=== PATIENT | female | born 1940 | race Caucasian/White ===

== ENCOUNTER 2020-08-29 11:19 | Inpatient (IN) ==
[2020-08-29] MEDS ORDERED: DEXAMETHASONE SOD PHOSPHATE 10 MG in SYRINGE 0 ML IV STA (11:48)
[2020-08-29] MEDS ORDERED: SODIUM CHLORIDE 0.9% 500 ML IV ONE (11:48)
[2020-08-29] MEDS ORDERED: ALBUT/IPRATROP 3MG/0.5MG NEB 3 ML VIAL NEB STA (11:48)
[2020-08-29] MEDS ORDERED: guaiFENesin 600 MG TABCR PO STA (11:48)
[2020-08-29 12:06] LABS: Basophils # (auto) 0.01 K/uL (0-0.2); Basophils % (auto) 0.2 %; Eosinophils # (auto) 0.05 K/uL (0-0.5); Eosinophils % (auto) 0.8 %; Hematocrit (blood only) 43.3 % (37-47); Hemoglobin 13.6 g/dL (12.0-16.0); Immature Granulocytes # (auto) 0.03 K/uL (0.00-0.02); Immature Granulocytes % (auto) 0.5 %; Lymphocytes # (auto) 1.29 K/uL (1.2-3.4); Lymphocytes % (auto) 20.8 %; Mean Corpuscular Hemoglobin 29.8 pg (25-34); Mean Corpuscular Hgb Conc 31.4 g/dL (32-36); Mean Corpuscular Volume 94.7 fL (80-100); Monocytes # (auto) 0.37 K/uL (0.11-0.59); Neutrophils # (auto) 4.44 K/uL (1.4-6.5); Neutrophils % (auto) 71.7 %; Platelet Count 167 K/uL (130-400); RDW Coefficient of Variation 13.9 % (11.5-14.5); RDW Standard Deviation 47.7 fL (36.4-46.3); Red Blood Count 4.57 M/uL (4.2-5.4); White Blood Count 6.19 K/uL (4.8-10.8)
--- NOTE | 2020-08-29 12:16 | XRay Report ---
XR chest 1V portable HISTORY: SEPSIS COMPARISON: Chest 06/09/2019. FINDINGS: Multiple calcified granuloma seen within the upper lobes, unchanged. The heart remains enla rged. There are low lung volumes. No pleural effusions. No pneumothorax. There are hazy bibasilar air space opacities. IMPRESSION: Hazy bibasilar airspace opacities. This likely represents a viral pneumonia. ACT 112: Negative or not required by law. Electronically signed by: Jose Francisco Fitch M.D. 08/29/2020 12:15 PM
[2020-08-29 12:19] LABS: INR 1.4 (0.9-1.1); Partial Thromboplastin Ratio 1.5; Partial Thromboplastin Time 40.6 Seconds (21.0-31.0); Prothrombin Time 14.4 Seconds (9.0-12.0)
[2020-08-29 12:23] LABS: Alanine Aminotransferase 17 U/L (12-78); Albumin Level 2.9 gm/dl (3.4-5.0); Aspartate Aminotransferase 16 U/L (15-37); BUN Creatinine Ratio 18.4 (10-20); Blood Urea Nitrogen 21 mg/dl (7-18); Calcium 9.4 mg/dl (8.5-10.1); Carbon Dioxide 28 mmol/L (21-32); Chloride 106 mmol/L (98-107); Creatinine Clr Calc Pharmacy 43.6 ml/min; Est GFR (African American) 51.5; Est GFR (Non-African American) 44.4; Glucose 109 mg/dl (70-99); Magnesium 1.4 mg/dl (1.8-2.4); Potassium 3.8 mmol/L (3.5-5.1); Sodium 138 mmol/L (136-145)
[2020-08-29 12:29] LABS: Albumin Globulin Ratio 0.7 (0.9-2); Alkaline Phosphatase 61 U/L (45-117); Bilirubin Direct < 0.1 mg/dl (0-0.2); Bilirubin,Total 0.2 mg/dl (0.2-1); Globulin 4.1 gm/dl (2.5-4.0); NT Pro B Type Natriuretic Pept 135 pg/ml (0-1800); Phosphorus 2.1 mg/dl (2.5-4.9); Troponin I < 0.015 ng/ml (0-0.045)
--- NOTE | 2020-08-29 12:59 | Emergency Department Note ---
Impression & Plan Pneumonia due to 2019 novel coronavirus, Acute respiratory failure with hypoxia, Hypomagnesemia, Acute exacerbation of chronic obstructive airways disease ED Provider Note NAME: AUDI JORDAN AGE: 80 SEX: F ARRIVES VIA: Ambulance INFORMANT: Patient, ED PROVIDER(S): Dudley Edmondson MD CHIEF COMPLAINT: Shortness of breath. PLAN: Disposition: Admit MEDICAL DECISION MAKING: The patient is a pleasant 80-year-old woman with a past medical history of COPD, hypertension, hyperlipidemia, diabetes, PE, presents emergency department from [facility] with complaints of increasing cough, congestion shortness of breath that began a month ago but became acutely severe over the past 2 days and now with fevers. Was found to be hypoxic in the 80s and is not on chronic oxygen. Patient is somewhat of a poor historian and that she denied to me shortness of breath. She denies nausea, vomiting, diarrhea, urinary symptoms. On arrival the patient is ill-appearing but no acute distress, afebrile with stable vital signs though she will be hypoxic to 87% on room air. Wheezes and rhonchi of lower lung [place]. She appears clinically dry. EKG without overt acute ischemia and similar to prior. Chest x-ray with hazy bibasilar airspace opacities consistent with pneumonia given the patient's presentation. WBC, H/H and platelets within normal limits. Chemistry without metabolic acidosis. BUN 21, consistent with the patient's clinically dry appearance. Lactate 1.6, within normal limits. Magnesium 1.4 with repletion provided. LFTs unremarkable. Troponin negative/undetectable. BNP within normal limits. Procalcitonin 0.08, making sepsis/bacterial infection less likely at this time. Patient's COVID-19 RNA, NAAT test was positive. Patient was treated with IV fluid hydration, dexamethasone, guaifenesin and DuoNeb. She remained hemodynamically stable. She was agreeable with recommendation for admission. Case was discussed with Aida Lopez, [facility] PAC, with Dr. Buck, [facility] hospitalist who will evaluate the patient for admission. We agreed to proceed with CTA of the chest which was negative for PE and further characterizes patient's multifocal pneumonia. Triage Nursing notes reviewed and agree them. Additional history obtained from EMS Prior medical records reviewed Vital Signs: reviewed and remarkable for Hypoxia. Differential diagnosis: Reactive airway disease, pneumonia, pneumothorax, COPD, CHF, infections, cardiac ischemia, pulmonary embolism, musculoskeletal, gastrointestinal, as well as other pathologies. ER treatment provided: See below. Diagnostics interpreted by me: ECG: Normal sinus rhythm, 92 bpm, incomplete right bundle branch block, left anterior fascicular block, most likely LVH, no overt ST elevation or depression, QTC 469, QRS 96. Similar to 11/22/2018. Cardiac Monitoring: An order for continuous cardiac monitoring was placed and demonstrated Normal sinus rhythm, 92 bpm, no ectopy. Laboratory studies: See below Imaging studies: XR chest 1V portable HISTORY: SEPSIS COMPARISON: Chest 06/09/2019. FINDINGS: Multiple calcified granuloma seen within the upper lobes, unchanged. The heart remains enlarged. There are low lung volumes. No pleural effusions. No pneumothorax. There are hazy bibasilar airspace opacities. IMPRESSION: Hazy bibasilar airspace opacities. This likely represents a viral pneumonia. --- CT ANGIOGRAPHY OF THE CHEST, PULMONARY EMBOLUS PROTOCOL CLINICAL HISTORY: Shortness of breath. Covid. COMPARISON STUDY: Chest CT October 01, 2003 pain. Chest radiograph August 29, 2020. TECHNIQUE: Following IV administration of 120 mL of Optiray-320, helical axial images of the chest were obtained utilizing the pulmonary embolus protocol. Maximal intensity projections and sagittal and coronal reformats were viewed on an independent 3D workstation. IV contrast was administered without complication. Automated exposure control was utilized for the study. A dose lowering technique was utilized adhering to the principles of ALARA. CT DOSE: 553.64 mGycm FINDINGS: No pulmonary emboli are identified. There is no thoracic aortic dissection. Mild cardiomegaly is noted. There is moderate coronary artery ca lcification. No pericardial effusion is noted. Emphysema is noted. There may be a lipoma within the distal esophagus. No pneumothorax or pleural effusion is noted. There are calcified granulomas within the lungs. Moderate multifocal groundglass opacities within the lungs are noted. Airspace opacity within the apical segment of the right upper lobe is also noted. There is right apical scarring which contains calcifications. This is unchanged. An irregular 1.2 cm left upper lobe nodular opacity on image 188 of [address] of October 01, 2017. An adjacent suspected mucoid impacted bronchus is unchanged. Otherwise, the central airways are patent. Note is made of several mildly enla rged mediastinal and right hilar lymph nodes. Index subcarinal lymph node contains a calcification. This measures 1.3 cm in short axis diameter. Index right hilar node on image 170 measures 1.1 cm. These nodes have slightly increased in size since prior CT. No suspicious lesions within the bony thorax are noted. A 2 cm left adrenal nodule is unchanged. This is likely benign given stability. The gallbladder is surgically absent. Hepatic steatosis is noted. IMPRESSION: 1. No pulmonary emboli identified. 2. Moderate multifocal groundglass opacities within the lungs suggestive of viral pneumonia. 3. Mildly enlarged mediastinal and right hilar lymph nodes. These nodes are likely reactive or possibly related to prior granulomatous process. A follow-up chest CT in 6 months is recommended. 4. 1.2 cm irregular left upper lobe nodular opacity. This is likely benign given stability since CT of October 01, 2013 and may represent scarring/sequela of granulomatous process. This can be assessed on subsequent exam. 5. Hepatic steatosis. ACT 112: Negative or not required by law. Consultation(s): Case was discussed with Aida Lopez, [facility] PAC, with Dr. Buck, [facility] hospitalist who will evaluate the patient for admission. HPI: The patient is a pleasant 80-year-old woman with a past medical history of COPD, hypertension, hyperlipidemia, diabetes, PE, presents emergency department from [facility] with complaints of increasing cough, congestion shortness of breath that began a month ago but became acutely severe over the past 2 days and now with fevers. Was found to be hypoxic in the 80s and is not on chronic oxy gen. Patient is somewhat of a poor historian and that she denied to me shortness of breath. She denies nausea, vomiting, diarrhea, urinary symptoms. ROS: See above HPI for pertinent positives & negatives. A total of 10 systems reviewed and were otherwise negative. PAST MEDICAL HISTORY:See Below PAST SURGICAL HISTORY:See Below FAMILY HISTORY:See Below SOCIAL HISTORY:See Below HOME MEDICATIONS:See Below ALLERGIES:See Below VITALS:See Below PHYSICAL EXAMINATION: GENERAL: Awake, alert, ill-appearing, in no distress HENT: Normocephalic, atraumatic. Oropharynx with dry mucous membranes and otherwise unremarkable. EYES: Normal conjunctiva. Sclera non-icteric. NECK: Supple. No nuchal rigidity. FROM. No JVD. RESPIRATORY: Wheezes and rhonchi of lower lung [place]. CARDIAC: Regular rate, normal rhythm. Extremities warm and well perfused. Pulses equal. ABDOMEN: Soft, non-distended. No tenderness to palpation. No rebound or guarding. No masses. RECTAL: Deferred. MUSCULOSKELETAL: Chest examination reveals no tenderness. The back is symmetrical on inspection without obvious abnormality. There is no CVA tenderness to palpation. No joint edema. LOWER EXTREMITIES: Calves are equal size bilaterally and non-tender. No edema. No discoloration. NEURO: Normal sensorium. No sensory or motor deficits noted. SKIN: No rash or jaundice noted. ED COURSE: Critical Care: I have personally spent greater than 35 minutes of critical care time in the direct management of this patient. This includes bedside care, interpretation of diagnostic studies, and testing, discussion with consultants, patient, and family members, and other required patient management activities. This 35 minutes is in excess of all separately billable procedures. 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 marital status: / Current Living Situation: Personal Care Facility Feels Safe at Home: Yes Assistive Devices: Oxygen - Continuous Allergies Allergies Allergy/AdvReac Type Severity Reaction Status Date / Time atorvastatin Allergy Unknown UNKN Verified 08/29/20 12:43 bee venom protein (honey bee) Allergy Unknown Unknown Verified 08/29/20 12:43 formaldehyde Allergy Unknown HYPERSENSIT Verified 08/29/20 12:43 IVITY oxycodone Allergy Unknown UNKN Verified 08/29/20 12:43 peanut Allergy Unknown Unknown Verified 08/29/20 12:43 Sulfa (Sulfonamide Allergy Unknown Unknown Verified 08/29/20 12:43 Antibiotics) Home Meds Home Medications Medication Instructions Recorded Confirmed acetaminophen 650 mg PO Q4H PRN MDD 3 GM APAP/24 11/22/18 08/29/20 HOURS citalopram 20 mg PO QAM 11/22/18 08/29/20 Pulmicort Flexhaler 1 inh INHALATION BID 07/17/19 08/29/20 Touluzmao SoloStar U-300 Insulin 40 unit SUBCUT HS 07/17/19 08/29/20 amlodipine 5 mg PO QAM 07/17/19 08/29/20 cetirizine 10 mg PO QAM 07/17/19 08/29/20 colesevelam [WelChol] 625 mg PO DAILY@1200 07/17/19 08/29/20 cyanocobalamin (vitamin B-12) 1,000 mcg IM MONTHLY 07/17/19 08/29/20 epinephrine 0.3 mg IM Q3H PRN 07/17/19 08/29/20 ergocalciferol (vitamin D2) 50,000 unit PO MOTH 07/17/19 08/29/20 [Vitamin D2] insulin aspart U-100 [Novolog 14 unit SUBCUT TIDM 07/17/19 08/29/20 Flexpen U-100 Insulin] levothyroxine 25 mcg PO QAM 07/17/19 08/29/20 lisinopril 20 mg PO HS 07/17/19 08/29/20 magnesium oxide 400 mg PO QAM 07/17/19 08/29/20 metformin 1,000 mg PO BID 07/17/19 08/29/20 nystatin 1 applic TOPICAL BID PRN 07/17/19 08/29/20 omeprazole 20 mg PO QAM 07/17/19 08/29/20 prednisone 5 mg PO QAM 07/17/19 08/29/20 diphenhydramine-acetaminophen 2 tab PO HS 08/29/20 08/29/20 [Tylenol PM Extra Strength] ferrous sulfate 325 mg PO TID 08/29/20 08/29/20 nitrofurantoin macrocrystal 50 mg PO QAM 08/29/20 08/29/20 psyllium husk [Metamucil] 0.52 g PO DAILY 08/29/20 08/29/20 Results & Data (ED) Vital Signs Vital Signs - 24 hr 08/29/20 11:27 08/29/20 11:29 08/29/20 11:30 Temperature 37.3 C Temperature Source Oral Pulse Rate 95 H 92 H Pulse Rate [Left Finger] Pulse Rate from SpO2 Sensor 92 H Respiratory Rate 24 17 Respiratory Effort / Characteristics Blood Pressure 176/92 H 162/82 H Blood Pressure Mean 120 102 Pulse Oximetry 87 L 94 97 Oxygen Delivery Method Room Air Nasal Cannula Nasal Cannula Oxygen Flow Rate 4 4 Sepsis Recent Fever Within 48 Hours No Sepsis New/Unexplained Change in Mental Status N/A Sepsis Action Taken by Nursing No Action Required 08/29/20 11:49 08/29/20 12:00 08/29/20 12:31 Temperature Temperature Source Pulse Rate 93 H Pulse Rate [Left Finger] Pulse Rate from SpO2 Sensor 93 H 97 H Respiratory Rate 25 H Respiratory Effort / Characteristics Accessory Muscle Use Blood Pressure 192/107 H 149/80 H Blood Pressure Mean 120 104 Pulse Oximetry 98 98 Oxygen Delivery Method Nasal Cannula Nasal Cannula Oxygen Flow Rate 4 4 Sepsis Recent Fever Within 48 Hours Sepsis New/Unexplained Change in Mental Status Sepsis Action Taken by Nursing 08/29/20 12:56 08/29/20 13:00 08/29/20 13:30 Temperature Temperature Source Pulse Rate 93 H Pulse Rate [Left Finger] 90 Pulse Rate from SpO2 Sensor 88 93 H Respiratory Rate 18 26 H Respiratory Effort / Characteristics Non-Labored Spontaneous Blood Pressure 145/91 H 167/75 H Blood Pressure Mean 102 130 Pulse Oximetry 99 97 96 Oxygen Delivery Method Nasal Cannula Nasal Cannula Nasal Cannula Oxygen Flow Rate 4 4 4 Sepsis Recent Fever Within 48 Hours Sepsis New/Unexplained Change in Mental Status Sepsis Action Taken by Nursing 08/29/20 14:00 Temperature Temperature Source Pulse Rate 91 H Pulse Rate [Left Finger] Pulse Rate from SpO2 Sensor 91 H Respiratory Rate 26 H Respiratory Effort / Characteristics Blood Pressure 138/71 Blood Pressure Mean 104 Pulse Oximetry 100 Oxygen Delivery Method Oxygen Flow Rate Sepsis Recent Fever Within 48 Hours Sepsis New/Unexplained Change in Mental Status Sepsis Action Taken by Nursing Laboratory Data Attestation: I reviewed the patient's lab results. Result diagrams: 08/29/20 11:40 08/29/20 11:40 Lab Results 08/29/20 08/29/20 08/29/20 Range/Units 11:40 11:40 11:40 WBC 6.19 (4.8-10.8) K/uL RBC 4.57 (4.2-5.4) M/uL Hgb 13.6 (12.0-16.0) g/dL Hct 43.3 (37-47) % MCV 94.7 (80-100) fL MCH 29.8 (25-34) pg MCHC 31.4 L (32-36) g/dL RDW Std Deviation 47.7 H (36.4-46.3) fL RDW Coeff of Grey 13.9 (11.5-14.5) % Plt Count 167 (130-400) K/uL MPV 11.0 H (7.4-10.4) fL Immature Gran % (Auto) 0.5 % Neut % (Auto) 71.7 % Lymph % (Auto) 20.8 % [place] % (Auto) 6.0 % Eos % (Auto) 0.8 % Baso % (Auto) 0.2 % Neut # (Auto) 4.44 (1.4-6.5) K/uL Lymph # (Auto) 1.29 (1.2-3.4) K/uL [place] # (Auto) 0.37 (0.11-0.59) K/uL Eos # (Auto) 0.05 (0-0.5) K/uL Baso # (Auto) 0.01 (0-0.2) K/uL Immature Gran # (Auto) 0.03 H (0.00-0.02) K/uL PT 14.4 H (9.0-12.0) Seconds INR 1.4 H (0.9-1.1) APTT 40.6 H (21.0-31.0) Seconds PTT Ratio 1.5 D-Dimer (0-500) ug/L FEU VBG pH (7.36-7.41) VBG pCO2 (38-50) mmHg VBG pO2 mmHg VBG HCO3 mmol/L VBG O2 Saturation % VBG Base Excess mEq/L Barometric Pressure mm/Hg Sodium 138 (136-145) mmol/L Potassium 3.8 (3.5-5.1) mmol/L Chloride 106 (98-107) mmol/L Carbon Dioxide 28 (21-32) mmol/L Anion Gap 4.0 (3-11) BUN 21 H (7-18) mg/dl Creatinine 1.16 (0.6-1.2) mg/dl Est Cr Clr Drug Dosing 43.6 ml/min Est GFR ( Amer) 51.5 Est GFR (Non-Af Amer) 44.4 BUN/Creatinine Ratio 18.4 (10-20) Glucose 109 H (70-99) mg/dl Lactate (0.4-2.0) mmol/L Calcium 9.4 (8.5-10.1) mg/dl Phosphorus 2.1 L (2.5-4.9) mg/dl Magnesium 1.4 L (1.8-2.4) mg/dl Ferritin (8-388) ng/ml Total Bilirubin 0.2 (0.2-1) mg/dl Direct Bilirubin < 0.1 (0-0.2) mg/dl AST 16 (15-37) U/L ALT 17 (12-78) U/L Alkaline Phosphatase 61 (45-117) U/L Troponin I < 0.015 (0-0.045) ng/ml C-Reactive Protein (0-0.29) mg/dl NT-Pro-B Natriuret Pep 135 (0-1800) pg/ml Total Protein 7.0 (6.4-8.2) gm/dl Albumin 2.9 L (3.4-5.0) gm/dl Globulin 4.1 H (2.5-4.0) gm/dl Albumin/Globulin Ratio 0.7 L (0.9-2) Procalcitonin (0-0.5) ng/ml COVID-19 Eval Order Influ A Molecular Assay (Negative) Influ B Molecular Assay (Negative) SARS-CoV-2, RNA, NAAT (NEGATIVE) 08/29/20 08/29/20 08/29/20 Range/Units 11:40 11:40 11:40 WBC (4.8-10.8) K/uL RBC (4.2-5.4) M/uL Hgb (12.0-16.0) g/dL Hct (37-47) % MCV (80-100) fL MCH (25-34) pg MCHC (32-36) g/dL RDW Std Deviation (36.4-46.3) fL RDW Coeff of Grey (11.5-14.5) % Plt Count (130-400) K/uL MPV (7.4-10.4) fL Immature Gran % (Auto) % Neut % (Auto) % Lymph % (Auto) % [place] % (Auto) % Eos % (Auto) % Baso % (Auto) % Neut # (Auto) (1.4-6.5) K/uL Lymph # (Auto) (1.2-3.4) K/uL [place] # (Auto) (0.11-0.59) K/uL Eos # (Auto) (0-0.5) K/uL Baso # (Auto) (0-0.2) K/uL Immature Gran # (Auto) (0.00-0.02) K/uL PT (9.0-12.0) Seconds INR (0.9-1.1) APTT (21.0-31.0) Seconds PTT Ratio D-Dimer 840 H* (0-500) ug/L FEU VBG pH (7.36-7.41) VBG pCO2 (38-50) mmHg VBG pO2 mmHg VBG HCO3 mmol/L VBG O2 Saturation % VBG Base Excess mEq/L Barometric Pressure mm/Hg Sodium (136-145) mmol/L Potassium (3.5-5.1) mmol/L Chloride (98-107) mmol/L Carbon Dioxide (21-32) mmol/L Anion Gap (3-11) BUN (7-18) mg/dl Creatinine (0.6-1.2) mg/dl Est Cr Clr Drug Dosing ml/min Est GFR ( Amer) Est GFR (Non-Af Amer) BUN/Creatinine Ratio (10-20) Glucose (70-99) mg/dl Lactate (0.4-2.0) mmol/L Calcium (8.5-10.1) mg/dl Phosphorus (2.5-4.9) mg/dl Magnesium (1.8-2.4) mg/dl Ferritin 227.8 (8-388) ng/ml Total Bilirubin (0.2-1) mg/dl Direct Bilirubin (0-0.2) mg/dl AST (15-37) U/L ALT (12-78) U/L Alkaline Phosphatase (45-117) U/L Troponin I (0-0.045) ng/ml C-Reactive Protein 5.51 H (0-0.29) mg/dl NT-Pro-B Natriuret Pep (0-1800) pg/ml Total Protein (6.4-8.2) gm/dl Albumin (3.4-5.0) gm/dl Globulin (2.5-4.0) gm/dl Albumin/Globulin Ratio (0.9-2) Procalcitonin 0.08 (0-0.5) ng/ml COVID-19 Eval Order Influ A Molecular Assay (Negative) Influ B Molecular Assay (Negative) SARS-CoV-2, RNA, NAAT (NEGATIVE) 08/29/20 08/29/20 08/29/20 Range/Units 12:30 12:39 12:39 WBC (4.8-10.8) K/uL RBC (4.2-5.4) M/uL Hgb (12.0-16.0) g/dL Hct (37-47) % MCV (80-100) fL MCH (25-34) pg MCHC (32-36) g/dL RDW Std Deviation (36.4-46.3) fL RDW Coeff of Grey (11.5-14.5) % Plt Count (130-400) K/uL MPV (7.4-10.4) fL Immature Gran % (Auto) % Neut % (Auto) % Lymph % (Auto) % [place] % (Auto) % Eos % (Auto) % Baso % (Auto) % Neut # (Auto) (1.4-6.5) K/uL Lymph # (Auto) (1.2-3.4) K/uL [place] # (Auto) (0.11-0.59) K/uL Eos # (Auto) (0-0.5) K/uL Baso # (Auto) (0-0.2) K/uL Immature Gran # (Auto) (0.00-0.02) K/uL PT (9.0-12.0) Seconds INR (0.9-1.1) APTT (21.0-31.0) Seconds PTT Ratio D-Dimer (0-500) ug/L FEU VBG pH (7.36-7.41) VBG pCO2 (38-50) mmHg VBG pO2 mmHg VBG HCO3 mmol/L VBG O2 Saturation % VBG Base Excess mEq/L Barometric Pressure mm/Hg Sodium (136-145) mmol/L Potassium (3.5-5.1) mmol/L Chloride (98-107) mmol/L Carbon Dioxide (21-32) mmol/L Anion Gap (3-11) BUN (7-18) mg/dl Creatinine (0.6-1.2) mg/dl Est Cr Clr Drug Dosing ml/min Est GFR ( Amer) Est GFR (Non-Af Amer) BUN/Creatinine Ratio (10-20) Glucose (70-99) mg/dl Lactate (0.4-2.0) mmol/L Calcium (8.5-10.1) mg/dl Phosphorus (2.5-4.9) mg/dl Magnesium (1.8-2.4) mg/dl Ferritin (8-388) ng/ml Total Bilirubin (0.2-1) mg/dl Direct Bilirubin (0-0.2) mg/dl AST (15-37) U/L ALT (12-78) U/L Alkaline Phosphatase (45-117) U/L Troponin I (0-0.045) ng/ml C-Reactive Protein (0-0.29) mg/dl NT-Pro-B Natriuret Pep (0-1800) pg/ml Total Protein (6.4-8.2) gm/dl Albumin (3.4-5.0) gm/dl Globulin (2.5-4.0) gm/dl Albumin/Globulin Ratio (0.9-2) Procalcitonin (0-0.5) ng/ml COVID-19 Eval [facility] A Molecular Assay Negative (Negative) Influ B Molecular Assay Negative (Negative) SARS-CoV-2, RNA, NAAT POSITIVE A* (NEGATIVE) 08/29/20 08/29/20 Range/Units 13:08 13:08 WBC (4.8-10.8) K/uL RBC (4.2-5.4) M/uL Hgb (12.0-16.0) g/dL Hct (37-47) % MCV (80-100) fL MCH (25-34) pg MCHC (32-36) g/dL RDW Std Deviation (36.4-46.3) fL RDW Coeff of Grey (11.5-14.5) % Plt Count (130-400) K/uL MPV (7.4-10.4) fL Immature Gran % (Auto) % Neut % (Auto) % Lymph % (Auto) % [place] % (Auto) % Eos % (Auto) % Baso % (Auto) % Neut # (Auto) (1.4-6.5) K/uL Lymph # (Auto) (1.2-3.4) K/uL [place] # (Auto) (0.11-0.59) K/uL Eos # (Auto) (0-0.5) K/uL Baso # (Auto) (0-0.2) K/uL Immature Gran # (Auto) (0.00-0.02) K/uL PT (9.0-12.0) Seconds INR (0.9-1.1) APTT (21.0-31.0) Seconds PTT Ratio D-Dimer (0-500) ug/L FEU VBG pH 7.31 L (7.36-7.41) VBG pCO2 57 H (38-50) mmHg VBG pO2 45 mmHg VBG HCO3 28 mmol/L VBG O2 Saturation 77.4 % VBG Base Excess 0.8 mEq/L Barometric Pressure 734.5 mm/Hg Sodium (136-145) mmol/L Potassium (3.5-5.1) mmol/L Chloride (98-107) mmol/L Carbon Dioxide (21-32) mmol/L Anion Gap (3-11) BUN (7-18) mg/dl Creatinine (0.6-1.2) mg/dl Est Cr Clr Drug Dosing ml/min Est GFR ( Amer) Est GFR (Non-Af Amer) BUN/Creatinine Ratio (10-20) Glucose (70-99) mg/dl Lactate 1.6 (0.4-2.0) mmol/L Calcium (8.5-10.1) mg/dl Phosphorus (2.5-4.9) mg/dl Magnesium (1.8-2.4) mg/dl Ferritin (8-388) ng/ml Total Bilirubin (0.2-1) mg/dl Direct Bilirubin (0-0.2) mg/dl AST (15-37) U/L ALT (12-78) U/L Alkaline Phosphatase (45-117) U/L Troponin I (0-0.045) ng/ml C-Reactive Protein (0-0.29) mg/dl NT-Pro-B Natriuret Pep (0-1800) pg/ml Total Protein (6.4-8.2) gm/dl Albumin (3.4-5.0) gm/dl Globulin (2.5-4.0) gm/dl Albumin/Globulin Ratio (0.9-2) Procalcitonin (0-0.5) ng/ml COVID-19 Eval Order Influ A Molecular Assay (Negative) Influ B Molecular Assay (Negative) SARS-CoV-2, RNA, NAAT (NEGATIVE) Administered Medications Potassium Phosphate 21 mmol/ (Sodium Chloride) 507 mls @ 88 mls/hr IV ONE ONE Stop: 08/29/20 23:15 Last Admin: 08/29/20 18:07 Dose: 88 mls/hr Documented by: [id number] Sodium Chloride (Sodium Chloride 0.9% 10ml Flush) 30 ml IV Q24H CARLOS EDUARDO Stop: 09/02/20 20:01 Last Admin: 08/29/20 18:00 Dose: 30 ml Documented by: [id number] Discontinued Medications Albuterol (Albut/Ipratrop 3mg/0.5mg Neb 3 Ml Vial) 3 ml NEB NOW STA Stop: 08/29/20 11:49 Last Admin: 08/29/20 12:56 Dose: 3 ml Documented by: [id number] Guaifenesin (Guaifenesin 600 Mg Tabcr) 600 mg PO NOW STA Stop: 08/29/20 11:49 Last Admin: 08/29/20 12:32 Dose: 600 mg Documented by: [id number] Sodium Chloride (Nss) 500 mls @ 999 mls/hr IV .Q31M ONE Stop: 08/29/20 12:18 Last Infusion: 08/29/20 13:04 Dose: 0 mls/hr Documented by: [id number] Admin: 08/29/20 12:33 Dose: 999 mls/hr Documented by: [id number] Dexamethasone Sodium Phosphate (10 mg/ Syringe) 2.5 mls @ 1 mls/min IV NOW STA Stop: 08/29/20 11:50 Last Admin: 08/29/20 12:32 Dose: 1 mls/min Documented by: [id number] Magnesium Sulfate/Dextrose (Magnesium Sulfate / D5w) 1 gm in 100 mls @ 100 mls/hr IV Q1H CARLOS EDUARDO Stop: 08/29/20 14:59 Last Infusion: 08/29/20 14:49 Dose: 0 mls/hr Documented by: [id number] Admin: 08/29/20 13:54 Dose: 100 mls/hr Documented by: [id number] Infusion: 08/29/20 13:53 Dose: 0 mls/hr Documented by: [id number] Admin: 08/29/20 13:00 Dose: 100 mls/hr Documented by: [id number] Remdesivir 200 mg/ Sodium (Chloride) 250 mls @ 125 mls/hr IV NOW ONE; Protocol Stop: 08/29/20 17:59 Last Admin: 08/29/20 16:11 Dose: 125 mls/hr Documented by: [id number] Ioversol (Optiray 320 125ml) 120 ml IV ONCE ONE Stop: 08/29/20 15:27 Last Admin: 08/29/20 15:26 Dose: 120 ml Documented by: [id number] Discharge Plan Visit Data Chief Complaint: Shortness of Breath/Dyspnea ED Provider: Dudley Edmondson Discharge Problem: Pneumonia due to 2019 novel coronavirus, Acute respiratory failure with hypoxia, Hypomagnesemia, Acute exacerbation of chronic obstructive airways disease
[2020-08-29] MEDS: MAGNESIUM SULFATE / D5W 1 GM/100 ML BAG IV SCH ×2 (13:00→13:54)
[2020-08-29 13:15] LABS: Influenza A virus by PCR Negative (Negative); Influenza B virus by PCR Negative (Negative)
[2020-08-29 13:24] LABS: Base Excess VBG 0.8 mEq/L; Oxygen Saturation VBG 77.4 %; pH VBG 7.31 (7.36-7.41)
[2020-08-29 14:29] LABS: C Reactive Protein 5.51 mg/dl (0-0.29); Ferritin 227.8 ng/ml (8-388)
[2020-08-29 14:51] LABS: D Dimer 840 ug/L FEU (0-500)
--- NOTE | 2020-08-29 14:57 | History & Physical Report ---
Date of Service August 29, 2020 Assessment & Plan (1) Pneumonia due to 2019 novel coronavirus: Symptomatic for shortness of breath and requiring 3 to 4 L of oxygen to maintain saturation for the last three or 4 days Generalized weakness Covid test was negative on last Saturday at the facility Covid test is positive at [facility] today Minimal elevation of CRP and procalcitonin is negative CTA showed moderate multifocal groundglass opacities within the lungs suggestive of viral pneumonia. We will start with intravenous dexamethasone and remdesivir Will not give any convalescent plasma for now 1.2 cm irregular left upper lobe nodule Has been there since October 01, 2013 Likely benign (2) Acute respiratory failure with hypoxia: Secondary to Covid 19 pneumonia CTA did not show any pulmonary embolism Supplemental oxygen as needed (3) COPD (chronic obstructive pulmonary disease): History of COPD but was not any oxygen No exacerbation (4) Diabetes mellitus, type II: Will hold any oral medications Put her on sliding scale insulin coverage (5) HTN (hypertension): Remains controlled (6) GERD (gastroesophageal reflux disease): (7) Inflammatory arthritis: No acute arthritis involving any joint (8) Electrolyte imbalance: Has hypophosphatemia and hypomagnesemia We will replace and monitor DVT prophylaxis Lovenox CODE STATUS DNR-discussed with the patient and the daughter History of Present Illness Chief Complaint: Shortness of breath and more weakness for the last three or 4 days Primary Care Provider: Leny Pereira He is an 80-year-old female with significant past medical history of diabetes type 2, COPD, hypertension, hyperlipidemia, inflammatory arthritis, GERD and history of DVT and pulmonary embolism has been complaining of increasing shortness of breath with weakness for the last three or 4 days. She has COPD and she mentions to have occasional shortness of breath but that has gotten worse for the last three or 4 days with cough and wheezing. She has been also complaining of weakness for the same. And she has had fall without any significant injury recently. He has history of chronic diarrhea but denies any nausea and or vomiting as of today. He denies any fever and/or chills, any chest pain or palpitation. He does not have any headache or blurred vision or any weakness involving any of the extremities. She was noted to be COVID-19 positive with a negative test that was done on last Tawanna at the facility. She has been requiring 4 L oxygen nasal cannula to maintain saturation. She was started with intravenous dexamethasone and remdesivir to treat Covid and was admitted to Covid unit. Allergies Allergy/AdvReac Type Severity Reaction Status Date / Time atorvastatin Allergy Unknown UNKN Verified 08/29/20 12:43 bee venom protein (honey bee) Allergy Unknown Unknown Verified 08/29/20 12:43 formaldehyde Allergy Unknown HYPERSENSIT Verified 08/29/20 12:43 IVITY oxycodone Allergy Unknown UNKN Verified 08/29/20 12:43 peanut Allergy Unknown Unknown Verified 08/29/20 12:43 Sulfa (Sulfonamide Allergy Unknown Unknown Verified 08/29/20 12:43 Antibiotics) Home Medications Medication Instructions Recorded Confirmed Type acetaminophen 650 mg PO Q4H PRN MDD 3 GM APAP/11/22/18 08/29/20 History HOURS citalopram 20 mg PO QAM 11/22/18 08/29/20 History Pulmicort Flexhaler 1 inh INHALATION BID 07/17/19 08/29/20 History Toujeo SoloStar U-300 Insulin 40 unit SUBCUT HS 07/17/19 08/29/20 History amlodipine 5 mg PO QAM 07/17/19 08/29/20 History cetirizine 10 mg PO QAM 07/17/19 08/29/20 History colesevelam [WelChol] 625 mg PO DAILY@1200 07/17/19 08/29/20 History cyanocobalamin (vitamin B-12) 1,000 mcg IM MONTHLY 07/17/19 08/29/20 History epinephrine 0.3 mg IM Q3H PRN 07/17/19 08/29/20 History ergocalciferol (vitamin D2) 50,000 unit PO MOTH 07/17/19 08/29/20 History [Vitamin D2] insulin aspart U-100 [Novolog 14 unit SUBCUT TIDM 07/17/19 08/29/20 History Flexpen U-100 Insulin] levothyroxine 25 mcg PO QAM 07/17/19 08/29/20 History lisinopril 20 mg PO HS 07/17/19 08/29/20 History magnesium oxide 400 mg PO QAM 07/17/19 08/29/20 History metformin 1,000 mg PO BID 07/17/19 08/29/20 History nystatin 1 applic TOPICAL BID PRN 07/17/19 08/29/20 History omeprazole 20 mg PO QAM 07/17/19 08/29/20 History prednisone 5 mg PO QAM 07/17/19 08/29/20 History diphenhydramine-acetaminophen 2 tab PO HS 08/29/20 08/29/20 History [Tylenol PM Extra Strength] ferrous sulfate 325 mg PO TID 08/29/20 08/29/20 History nitrofurantoin macrocrystal 50 mg PO QAM 08/29/20 08/29/20 History psyllium husk [Metamucil] 0.52 g PO DAILY 08/29/20 08/29/20 History Past Med/Surg History Medical History (Updated 08/29/20 @ 15:20 by Clarice Buck MD) A-fib COPD (chronic obstructive pulmonary disease) Depression Diabetes GERD (gastroesophageal reflux disease) High cholesterol Hypertension Hypothyroid Rhinitis Vitamin B 12 deficiency Social History Smoking Status: Former smoker Second Hand Exposure: No; Hx Alcohol Use: Yes Hx Substance Use: No Preferred Language: Malay [employer] Required: No marital status: / Current Living Situation: Personal Care Facility Feels Safe at Home: Yes Assistive Devices: Oxygen - Continuous Review of Systems Review of Systems: All systems reviewed & are unremarkable except as noted in HPI & below Physical Exam Physical Exam: Minimal shortness of breath at rest Constitutional: well developed, well nourished, + acute distress (Due to mild shortness of breath), + ill appearing and + obese Eyes: PERRL, conjunctivae normal, anicteric sclerae ENMT: external ear and nose normal, oropharynx normal Neck: trachea midline, no thyromegaly Respiratory: + respiratory distress (Minimal shortness of breath at rest) Auscultation: + diminished lung sounds and + crackles (Bibasilar crackles); no wheezes Gastrointestinal (Abdomen): Inspection/Auscultation: normal bowel sounds; abdomen not distended Percussion/Palpation: abdomen soft; abdomen nontender Musculoskeletal: No acute arthritis in any joint Neurologic: Alert, awake and oriented x3. Generally weak but no focal sensory and motor deficit appreciated Psychiatric: A+Ox3, euthymic affect Lymphatic: no cervical or axillary lymphadenopathy Results & Data Results & Data ([facility]) Vital Signs (Past 12 Hours) Vital Signs Temp Pulse Pulse Resp BP Pulse Ox 08/29/20 14:30 94 H 25 H 135/85 94 08/29/20 14:00 91 H 26 H 138/71 100 08/29/20 13:30 93 H 26 H 167/75 H 96 08/29/20 13:00 145/91 H 97 08/29/20 12:56 90 18 99 08/29/20 12:31 149/80 H 98 08/29/20 12:00 93 H 25 H 192/107 H 98 08/29/20 11:30 92 H 17 162/82 H 97 08/29/20 11:29 94 08/29/20 11:27 37.3 C 95 H 24 176/92 H 87 L Laboratory Results Short CBC 08/29/20 Range/Units 11:40 WBC 6.19 (4.8-10.8) K/uL Hgb 13.6 (12.0-16.0) g/dL Hct 43.3 (37-47) % Plt Count 167 (130-400) K/uL BMP 08/29/20 11:40 Sodium 138 Potassium 3.8 Chloride 106 Carbon Dioxide 28 BUN 21 H Creatinine 1.16 Glucose 109 H Calcium 9.4 Cardiac Enzymes 08/29/20 Range/Units 11:40 Troponin I < 0.015 (0-0.045) ng/ml Liver Function 08/29/20 Range/Units 11:40 Total Bilirubin 0.2 (0.2-1) mg/dl Direct Bilirubin < 0.1 (0-0.2) mg/dl AST 16 (15-37) U/L ALT 17 (12-78) U/L Alkaline Phosphatase 61 (45-117) U/L Albumin 2.9 L (3.4-5.0) gm/dl Code Status & VTE Plan VTE Prophylaxis Plan VTE Prophylaxis will be ordered: Yes
[2020-08-29] MEDS ORDERED: OPTIRAY 320 125ml IV ONE (15:26)
--- NOTE | 2020-08-29 15:46 | CT Scan Report ---
CT ANGIOGRAPHY OF THE CHEST, PULMONARY EMBOLUS PROTOCOL CLINICAL HISTORY: Shortness of breath. Covid. COMPARISON STUDY: Chest CT October 01, 2003 pain. Chest radiograph August 29, 2020. TECHNIQUE: Following IV administration of 120 mL of Optiray-320, helical axial images of the chest we re obtained utilizing the pulmonary embolus protocol. Maximal intensity projections and sagittal and coronal reformats were viewed on an independent 3D workstation. IV contrast was administered withou t complication. Automated exposure control was utilized for the study. A dose lowering technique wa s utilized adhering to the principles of ALARA. CT DOSE: 553.64 mGycm FINDINGS: No pulmonary emboli are identified. There is no thoracic aortic dissection. Mild cardiomeg cinthya is noted. There is moderate coronary artery calcification. No pericardial effusion is noted. Emph ysema is noted. There may be a lipoma within the distal esophagus. No pneumothorax or pleural effusio n is noted. There are calcified granulomas within the lungs. Moderate multifocal groundglass opacitie s within the lungs are noted. Airspace opacity within the apical segment of the right upper lobe is a lso noted. There is right apical scarring which contains calcifications. This is unchanged. An irregu lar 1.2 cm left upper lobe nodular opacity on image 188 of [address] of October 01 018. An adjacent suspected mucoid impacted bronchus is unchanged. Otherwise, the central airways are patent. Note is made of several mildly enlarged mediastinal and right hilar lymph nodes. Index subcar inal lymph node contains a calcification. This measures 1.3 cm in short axis diameter. Index right hi lar node on image 170 measures 1.1 cm. These nodes have slightly increased in size since prior CT. No suspicious lesions within the bony thorax are noted. A 2 cm left adrenal nodule is unchanged. This i s likely benign given stability. The gallbladder is surgically absent. Hepatic steatosis is noted. IMPRESSION: 1. No pulmonary emboli identified. 2. Moderate multifocal groundglass opacities within the lungs suggestive of viral pneumonia. 3. Mildly enlarged mediastinal and right hilar lymph nodes. These nodes are likely reactive or possib ly related to prior granulomatous process. A follow-up chest CT in 6 months is recommended. 4. 1.2 cm irregular left upper lobe nodular opacity. This is likely benign given stability since CT o f October 01, 2013 and may represent scarring/sequela of granulomatous process. This can be assessed on subsequent exam. 5. Hepatic steatosis. ACT 112: Negative or not required by law. Electronically signed by: Geovanny García M.D. 08/29/2020 3:44 PM
[2020-08-29] MEDS ORDERED: REMDESIVIR 200 MG in SODIUM CHLORIDE 0.9% 210 ML IV ONE (16:00)
[2020-08-29] MEDS ORDERED: POTASSIUM PHOS 3 MMOL/1 ML INFUSION IV STA (16:33)
[2020-08-29] MEDS ORDERED: POTASSIUM PHOSPHATE 21 MMOL in SODIUM CHLORIDE 0.9% 500 ML IV ONE (17:30)
[2020-08-29] MEDS: SODIUM CHLORIDE 0.9% 10ML FLUSH IV SCH (18:00)
--- NOTE | 2020-08-29 18:37 | Electrocardiogram Report ---
Test Reason : Blood Pressure : / mmHG Vent. Rate : 092 BPM Atrial Rate : 092 BPM P-R Int : 142 ms QRS Dur : 096 ms QT Int : 380 ms P-R-T Axes : 040 -50 052 degrees QTc Int : 469 ms Normal sinus rhythm Possible Left atrial enlargement Incomplete right bundle branch block Left anterior fascicular block Left ventricular hypertrophy Poor R wave progression, consider anterior [place] vs. lead placement vs. LVH Abnormal ECG When compared with ECG of 22-NOV-2018 14:48, No significant change was found Confirmed by Sam Cedillo ([id number]) on 08/29/2020 6:36:44 PM Referred By: Confirmed By:Barak Cedillo
[2020-08-29] MEDS: ENOXAPARIN INJ 60 MG/0.6 ML SYR SQ SCH (20:42)
[2020-08-30 00:28] LABS: Appearance Urine Cloudy (Clear); Bacteria Urine Automated 2+ (Negative); Bilirubin Urine Negative (Negative); Blood Urine 2+ (Negative); Color Urine Yellow; Epithelial Cell Urine Auto 20-30 /lpf (0-5); Glucose Urine UA 2+ (Negative); Ketones Urine 1+ (Negative); Leukocyte Esterase Urine 1+ (Negative); Nitrite Urine Positive (Negative); Protein Urine 3+ (Negative); RBC Urine Automated 0-4 /hpf (0-4); Specific Gravity Urine 1.043 (1.000-1.030); Urobilinogen Urine Negative (Negative); WBC Urine Automated >30 /hpf (0-5)
[2020-08-30 05:06] LABS: Hematocrit (blood only) 41.8 % (37-47); Hemoglobin 13.1 g/dL (12.0-16.0); Immature Granulocytes # (auto) 0.03 K/uL (0.00-0.02); Immature Granulocytes % (auto) 0.6 %; Lymphocytes # (auto) 0.76 K/uL (1.2-3.4); Lymphocytes % (auto) 15.2 %; Mean Corpuscular Hemoglobin 29.6 pg (25-34); Mean Corpuscular Hgb Conc 31.3 g/dL (32-36); Mean Corpuscular Volume 94.4 fL (80-100); Mean Platelet Volume 10.3 fL (7.4-10.4); Monocytes # (auto) 0.35 K/uL (0.11-0.59); Neutrophils # (auto) 3.86 K/uL (1.4-6.5); Neutrophils % (auto) 77.2 %; Platelet Count 148 K/uL (130-400); RDW Coefficient of Variation 13.7 % (11.5-14.5); RDW Standard Deviation 47.2 fL (36.4-46.3); Red Blood Count 4.43 M/uL (4.2-5.4)
[2020-08-30 05:48] LABS: BUN Creatinine Ratio 20.1 (10-20); Calcium 8.7 mg/dl (8.5-10.1); Creatinine Clr Calc Pharmacy 48.7 ml/min; Est GFR (African American) 58.8; Est GFR (Non-African American) 50.7; Magnesium 1.7 mg/dl (1.8-2.4); Phosphorus 4.1 mg/dl (2.5-4.9)
[2020-08-30] MEDS ORDERED: DEXAMETHASONE SOD INJ 4 MG/ML VIAL IV SCH (09:00)
[2020-08-30] MEDS: ENOXAPARIN INJ 60 MG/0.6 ML SYR SQ SCH ×2 (09:09→19:53)
[2020-08-30] MEDS ORDERED: hydrALAZINE HCL 20 MG/ML VIAL IV STA (09:10)
[2020-08-30] MEDS: DEXAMETHASONE SOD PHOSPHATE 6 MG in SYRINGE 0 ML IV SCH (10:10)
[2020-08-30] MEDS ORDERED: GLUCAGON FOR INJ 1 MG VIAL SQ PRN ×2 (12:54→15:09)
[2020-08-30] MEDS ORDERED: GLUCOSE 10 TABS/TUBE PO PRN ×2 (12:54→15:09)
[2020-08-30] MEDS ORDERED: DEXTROSE 50% 50 ML SYRINGE IV PRN ×2 (12:54→15:09)
[2020-08-30] MEDS ORDERED: CARBOHYDRATES FOR HYPOGLYCEMIA PO PRN ×2 (12:54→15:09)
[2020-08-30] MEDS ORDERED: GLUCOSE 40% GEL 15 GM TUBE PO PRN ×2 (12:54→15:09)
[2020-08-30] MEDS ORDERED: INSULIN ASPART 100 UNITS/ML 3 ML PEN SC STA (13:28)
[2020-08-30] MEDS ORDERED: PHARMACY GLYCEMIC MGMT CONSULT SCH (13:31)
[2020-08-30] MEDS ORDERED: INSULIN GLARGINE SOLOSTAR 100 UNITS/ML 3 ML PEN SC STA (13:35)
--- NOTE | 2020-08-30 14:26 | Pharmacy Report ---
Pharmacy Glycemic Short Note 2 - Date of Service August 30, 2020 - Glycemic Short BSG Results (Last 24 hours): 08/30/20 08/30/20 08/30/20 04:37 07:50 12:09 Glucose 270 H POC Glucose 285 H 415 H* 08/30/20 12:10 Glucose POC Glucose 349 H* OUTPATIENT ANTIDIABETIC REGIMEN: * Lantus 40 units Q HS * Novolog 14 units TID w/ meals * Metformin 1gm PO BID * A1c = ? ASSESSMENT: * Type 2 diabetic admitted for COVID19 viral pneumonia * No recent A1c to assess adequacy of glycemic control prior to admission w/ out-pt regimen * Patient has developed severe hyperglycemia since admission. It appears she missed her evening dose of Lantus last night, this combined with IV dexamethasone admin has led to BSGs in 350-400 range. She is ordered a diet and glycemic control may deteriorate even further given steroid's effects on post-prandial BSGs. Of note, no AG acidosis was present on today's labs. * Will give STAT dose of Lantus (20% increase over out-pt dose) as well as correctional Novolog. Will then begin 0.08unit/kg Novolog SQ scheduled Q 2 hrs to quickly gain control of hyperglycemia - in an attempt to avoid the need for an insulin drip in this patient. Scheduled Novolog will be given until BSG less than 250, at that time we will then provide new Novolog orders PLAN FOR INPATIENT GLYCEMIC CONTROL: * Hold outpatient oral diabetes medications (Metformin) * Basal insulin * Lantus 50 units SQ x 1 STAT, then BID per scale * 0 units if BSG less than 110 * 20 units if BSG 110-200 * 25 units if BSG above 200 * Bolus insulin * NovoLog 7 units SQ Q 2 hrs until BSG less than 250 --> at which time pharmacy will provide new Novolog orders. Will likely convert to Q 4 hr regimen utilizing correction factor 10-15mg/dL/unit and the same carb ratio below * Nutritional / Prandial insulin per carb ratio of 1 unit per 5 grams CHO consumed PLAN FOR DISCHARGE: * to be determined
[2020-08-30] MEDS ORDERED: NYSTATIN CR 15 GM TUBE EXT PRN (15:09)
[2020-08-30] MEDS ORDERED: INSULIN ASPART 100 UNITS/ML 3 ML PEN SC SCH ×4 (15:09→16:30)
[2020-08-30] MEDS ORDERED: amLODIPine BESYLATE 5 MG TAB PO SCH (15:09)
[2020-08-30] MEDS ORDERED: INSULIN GLARGINE SOLOSTAR 100 UNITS/ML 3 ML PEN SC SCH (15:09)
[2020-08-30] MEDS ORDERED: ONDANSETRON INJ 2 MG/ML 2 ML VIAL IV PRN (15:09)
--- NOTE | 2020-08-30 15:39 | Hospitalist Progress Note ---
Date of Service August 30, 2020 Assessment & Plan (1) Pneumonia due to 2019 novel coronavirus: Symptomatic for shortness of breath and requiring 3 to 4 L of oxygen to maintain saturation for the last three or 4 days Generalized weakness COVID 19 test positive Minimal elevation of CRP and procalcitonin is negative CTA showed moderate multifocal groundglass opacities within the lungs suggestive of viral pneumonia. presented with Hypoxia , imaging suggestive of pneumonia due to COVID 19 virus pt started on intravenous dexamethasone and remdesivir( 5 days ) cont resp support with normal procalcitonin , will not add any antiotic Lung nodule : 1.2 cm irregular left upper lobe nodule Has been there since October 01, 2013 Likely benign (2) Acute respiratory failure with hypoxia: Secondary to Covid 19 pneumonia CTA did not show any pulmonary embolism Supplemental oxygen as needed/tx of COVID 19 /resp failure as outlined above (3) COPD (chronic obstructive pulmonary disease): History of COPD but was not any oxygen hypoxia due to COVID 19 pneumonia (4) Diabetes mellitus, type II: BSG > 300 , due to IV steroids insulin SSI ordered for Hb A1c to be checked pharmacy glycemic management (5) HTN (hypertension): BP elevated ; hypertensive urgency possibly due to acute illness increased home dose of Norvasc to 10 mg daily PRN IV hydralazine ordered (6) GERD (gastroesophageal reflux disease): (7) Inflammatory arthritis: No acute arthritis involving any joint (8) Electrolyte imbalance: corrected DVT prophylaxis Lovenox CODE STATUS DNR-discussed with the patient and the daughter Disposition : pt/ot eval prior to discharge Admission and Anticipated Discharge Date Admission Date: August 29, 2020 Subjective follow up visit for covid 19 infection : pt reports still feeling very sob hurts to take deep breath has cough afebrile since admission Review of Systems Review of Systems: All systems reviewed & are unremarkable except as noted in HPI & below Physical Exam Constitutional: WD/WN, vitals as above Eyes: PERRL, conjunctivae normal, anicteric sclerae ENMT: external ear and nose normal, oropharynx normal Neck: trachea midline, no thyromegaly Respiratory: + cough and + tachypneic Auscultation: + diminished lung sounds and + wheezes Cardiovascular: RRR, no murmur, no edema Gastrointestinal (Abdomen): normal bowel sounds, soft, nontender, no hepatosplenomegaly Musculoskeletal: no cyanosis or clubbing, extremities motor strength 5/5 Skin: no rashes, warm and dry Neurologic: PERRL, EOMI, accommodation nl, no face palsy, no dysarthria Psychiatric: A+Ox3, euthymic affect Results & Data Results & Data ([facility]) Vital Signs (Past 12 Hours) Vital Signs Temp Pulse Resp BP Pulse Ox 08/30/20 12:13 36.5 C 90 17 189/95 H 97 08/30/20 07:37 36.6 C 73 12 201/114 H 94 08/30/20 05:26 86 19 198/92 H 96
[2020-08-30] MEDS ORDERED: WELCHOL~ORDER AWAITING ACTION SCH (16:00)
[2020-08-30] MEDS: FLUTICASONE FUROATE 200MCG 14 PUFFS/INHALER INH SCH (16:31)
[2020-08-30] MEDS: PANTOprazole 40 MG TAB PO SCH (16:32)
[2020-08-30] MEDS: FERROUS SULFATE 325 MG TAB PO SCH (16:32)
[2020-08-30] MEDS: CITALOPRAM 20 MG TAB PO SCH (16:32)
[2020-08-30] MEDS: LEVOTHYROXINE SODIUM 25 MCG TABLET PO SCH (16:33)
[2020-08-30] MEDS: nitrofurantoin macrocrystaL 50 MG CAP PO SCH (16:33)
[2020-08-30] MEDS: CETIRIZINE HCL 10 MG TABLET PO SCH (16:33)
[2020-08-30] MEDS: MAGNESIUM OXIDE 400 MG TAB PO SCH (16:34)
[2020-08-30] MEDS: hydrALAZINE HCL 20 MG/ML VIAL IV PRN ×2 (17:13→22:45)
[2020-08-30] MEDS: ACETAMINOPHEN 325 MG TAB PO PRN (17:13)
[2020-08-30] MEDS: lisinopril 20 MG TAB PO SCH (20:47)
[2020-08-30] MEDS: REMDESIVIR 100 MG in SODIUM CHLORIDE 0.9% 230 ML IV SCH (20:50)
[2020-08-30] MEDS: SODIUM CHLORIDE 0.9% 10ML FLUSH IV SCH (21:03)
[2020-08-30] MEDS: INSULIN ASPART 100 UNITS/ML 3 ML PEN SC SCH (21:18)
[2020-08-30] MEDS: INSULIN GLARGINE SOLOSTAR 100 UNITS/ML 3 ML PEN SC SCH (21:18)
[2020-08-31] MEDS: INSULIN ASPART 100 UNITS/ML 3 ML PEN SC SCH ×6 (00:09→21:28)
[2020-08-31] MEDS: ENOXAPARIN INJ 60 MG/0.6 ML SYR SQ SCH ×2 (06:26→17:58)
[2020-08-31] MEDS: LEVOTHYROXINE SODIUM 25 MCG TABLET PO SCH (06:28)
[2020-08-31] MEDS: FERROUS SULFATE 325 MG TAB PO SCH ×3 (08:11→17:58)
[2020-08-31] MEDS: MAGNESIUM OXIDE 400 MG TAB PO SCH (08:11)
[2020-08-31] MEDS: CETIRIZINE HCL 10 MG TABLET PO SCH (08:12)
[2020-08-31] MEDS: CITALOPRAM 20 MG TAB PO SCH (08:12)
[2020-08-31] MEDS: PANTOprazole 40 MG TAB PO SCH (08:12)
[2020-08-31] MEDS: PSYLLIUM 58.6% POWDER PACKET PO SCH (08:12)
[2020-08-31] MEDS: nitrofurantoin macrocrystaL 50 MG CAP PO SCH (08:12)
[2020-08-31] MEDS: amLODIPine BESYLATE 5 MG TAB PO SCH (08:12)
[2020-08-31] MEDS: FLUTICASONE FUROATE 200MCG 14 PUFFS/INHALER INH SCH (08:13)
[2020-08-31] MEDS: INSULIN GLARGINE SOLOSTAR 100 UNITS/ML 3 ML PEN SC SCH ×2 (08:13→21:28)
[2020-08-31] MEDS: DEXAMETHASONE SOD PHOSPHATE 6 MG in SYRINGE 0 ML IV SCH (08:13)
[2020-08-31 08:59] LABS: Basophils # (auto) 0.01 K/uL (0-0.2); Basophils % (auto) 0.1 %; Eosinophils # (auto) 0.01 K/uL (0-0.5); Eosinophils % (auto) 0.1 %; Hematocrit (blood only) 44.2 % (37-47); Hemoglobin 13.9 g/dL (12.0-16.0); Immature Granulocytes # (auto) 0.02 K/uL (0.00-0.02); Immature Granulocytes % (auto) 0.2 %; Lymphocytes % (auto) 13.4 %; Mean Corpuscular Hemoglobin 29.6 pg (25-34); Mean Corpuscular Hgb Conc 31.4 g/dL (32-36); Mean Corpuscular Volume 94.2 fL (80-100); Mean Platelet Volume 11.2 fL (7.4-10.4); Monocytes # (auto) 0.96 K/uL (0.11-0.59); Monocytes % (auto) 11.7 %; Neutrophils # (auto) 6.09 K/uL (1.4-6.5); Neutrophils % (auto) 74.5 %; Platelet Count 186 K/uL (130-400); RDW Coefficient of Variation 13.9 % (11.5-14.5); RDW Standard Deviation 47.4 fL (36.4-46.3); Red Blood Count 4.69 M/uL (4.2-5.4); White Blood Count 8.19 K/uL (4.8-10.8)
[2020-08-31] MEDS ORDERED: INSULIN HUMAN NPH SC SCH (09:00)
[2020-08-31 09:33] LABS: Albumin Globulin Ratio 0.7 (0.9-2); Albumin Level 2.7 gm/dl (3.4-5.0); BUN Creatinine Ratio 24.7 (10-20); Bilirubin,Total 0.2 mg/dl (0.2-1); Calcium 9.7 mg/dl (8.5-10.1); Creatinine Clr Calc Pharmacy 53.3 ml/min; Est GFR (African American) 65.6; Est GFR (Non-African American) 56.6; Globulin 3.8 gm/dl (2.5-4.0); Magnesium 1.4 mg/dl (1.8-2.4); Phosphorus 2.2 mg/dl (2.5-4.9); Potassium 3.6 mmol/L (3.5-5.1); Total Protein 6.5 gm/dl (6.4-8.2)
[2020-08-31] MEDS: ACETAMINOPHEN 325 MG TAB PO PRN (10:40)
[2020-08-31 10:47] LABS: Estimated Average Glucose 214 mg/dl; Hemoglobin A1C 9.1 % (4.5-5.6)
--- NOTE | 2020-08-31 12:06 | Pharmacy Report ---
Pharmacy Glycemic Short Note 2 - Date of Service August 31, 2020 - Glycemic Short BSG Results (Last 24 hours): 08/30/20 08/30/20 08/30/20 12:09 12:10 16:22 Glucose POC Glucose 415 H* 349 H* 243 H 08/30/20 08/31/20 08/31/20 21:00 00:02 03:28 Glucose POC Glucose 197 H 182 H 167 H 08/31/20 08/31/20 08/31/20 05:55 07:30 11:10 Glucose 137 H POC Glucose 144 H 73 OUTPATIENT ANTIDIABETIC REGIMEN: * Lantus 40 units Q HS * Novolog 14 units TID w/ meals * Metformin 1gm PO BID * A1c = 9.1% 08/31/20 ASSESSMENT: 08/31 * Over the last 24 hrs, 106 units of insulin have been administered * BSGs have trended down to goal * A diet is ordered this AM and dexamethasone 6mg IV daily continues * Fasting BSG down to 144 this AM w/ 70 units Lantus on board and after receiving 7 units of correctional insulin. Will dose Lantus BID per scale utilizing a dose similar to her outpt regimen starting tomorrow. HS dose of Lantus will be scaled back due to current BSGs downward trend. * NPH 0.3units/kg (30units) was given this AM w/ IV dexamethasone to counter hyperglycemic effects - however pre-lunch BSG down to 73. Will lessen NPH dose tomorrow. Will lessen prandial coverage until BSG rises. 08/30 * Type 2 diabetic admitted for COVID19 viral pneumonia * No recent A1c to assess adequacy of glycemic control prior to admission w/ out-pt regimen * Patient has developed severe hyperglycemia since admission. It appears she missed her evening dose of Lantus last night, this combined with IV dexamethasone admin has led to BSGs in 350-400 range. She is ordered a diet and glycemic control may deteriorate even further given steroid's effects on post-prandial BSGs. Of note, no AG acidosis was present on today's labs. * Will give STAT dose of Lantus (20% increase over out-pt dose) as well as correctional Novolog. Will then begin 0.08unit/kg Novolog SQ scheduled Q 2 hrs to quickly gain control of hyperglycemia - in an attempt to avoid the need for an insulin drip in this patient. Scheduled Novolog will be given until BSG less than 250, at that time we will then provide new Novolog orders PLAN FOR INPATIENT GLYCEMIC CONTROL: * Hold outpatient oral diabetes medications (Metformin) * Basal insulin * Lantus BID per scale, 20 units this AM, then: * 0 units if BSG less than 140 * 10 units if BSG 140-200 * 15 units if BSG above 200 * Decrease NPH to 0.2units/kg (20 units) SQ w/ dexamethasone 6mg IV Q AM - starting 09/01 * Bolus insulin * Novolog SQ Q 4 hrs * Goal range: 120 to 150 mg/dL * Correction factor: 12mg/dL/unit * Carb ratio: 1 unit per 15gm CHO (greatly decreased until BSGs begin to rise) - will reeval later today PLAN FOR DISCHARGE: * to be determined
--- NOTE | 2020-08-31 18:37 | Hospitalist Progress Note ---
Date of Service August 31, 2020 Assessment & Plan (1) Pneumonia due to 2019 novel coronavirus: (2) Acute respiratory failure with hypoxia: Present on admission with SOB and weakness COVID 19 testing positive Minimal elevation of CRP and procalcitonin is negative CTA chest showed No PE, moderate multifocal groundglass opacities within the lungs suggestive of viral pneumonia. Continue IV Remdesivir to complete 5 days course and Dexamethasone 6 mg x 10 days No Plasma convalescent was given as per previous hospitalist provider (Symptoms have been going on for 1 week now) Continue oxygen supplement Clinically improves (3) UTI (urinary tract infection): Urine cx positive for gram negative bacilli History of UTI on Macrobid prophylaxis Will start on rocephin IV and hold the macrobid for now Continue monitor (4) COPD (chronic obstructive pulmonary disease): Not on oxygen before COVID 19 Continue oxygen supplement Stable (5) Diabetes mellitus, type II: Hba1c 9.1 Elevated BS mostly due to the IV steroid pharmacy on board for glycemic management Continue monitor BS (6) HTN (hypertension): BP elevated ; hypertensive urgency possibly due to acute illness increased home dose of Norvasc to 10 mg daily PRN IV hydralazine ordered (7) GERD (gastroesophageal reflux disease): Continue PPI (8) Inflammatory arthritis: No acute arthritis involving any joint (9) Pulmonary nodule: CTA chest showed 1.2 cm irregular left upper lobe nodular opacity. Mildly enlarged mediastinal and right hilar lymph nodes. Will need outpatient follow up (10) Electrolyte imbalance: corrected DVT prophylaxis Lovenox CODE STATUS DNR Disposition : pt/ot eval prior to discharge Admission and Anticipated Discharge Date Admission Date: August 29, 2020 Subjective Pt was seen and examined for follow up on her dyspnea Lying in bed with no distress She said that her breathing is ok Denies any chest pain, palpitation, dizziness and fever Physical Exam Physical Exam: General- No acute distress Head- atraumatic Eyes- PERRL, EOMI, ENT- oropharynx clear Neck- supple, no JVD Lungs- diminished BS Heart- regular rhythm; no murmur Abdomen- normal bowel sounds, soft, nontender Extremities- no calf tenderness Neuro- alert, oriented x 3; PERRL, EOMI; no facial palsy; no dysarthria Skin- warm & dry Results & Data Results & Data ([facility]) Vital Signs (Past 12 Hours) Vital Signs Temp Pulse Resp BP BP Pulse Ox Pulse Ox 12/30/20 15:33 36.8 C 92 H 20 151/80 H 91 08/31/20 15:09 95 08/31/20 11:11 37.0 C 99 H 16 135/68 91 08/31/20 07:29 37.0 C 98 H 20 187/82 H 92 (1) UTI (urinary tract infection) Hematuria presence: with hematuria Urinary tract infection type: acute cystitis Qualified Code(s): N30.01 - Acute cystitis with hematuria
[2020-08-31] MEDS: REMDESIVIR 100 MG in SODIUM CHLORIDE 0.9% 230 ML IV SCH (20:18)
[2020-08-31] MEDS: lisinopril 20 MG TAB PO SCH (20:18)
[2020-08-31] MEDS: SODIUM CHLORIDE 0.9% 10ML FLUSH IV SCH (21:29)
[2020-08-31] MEDS ORDERED: MAGNESIUM SULFATE / D5W 1 GM/100 ML BAG IV ONE (23:12)
[2020-08-31] MEDS ORDERED: POTASSIUM PHOS 3 MMOL/1 ML INFUSION IV STA (23:12)
[2020-08-31] MEDS ORDERED: POTASSIUM PHOSPHATE 15 MMOL in SODIUM CHLORIDE 0.9% 250 ML IV ONE (23:30)
[2020-09-01] MEDS: cefTRIAXone SODIUM 2,000 MG in DEXTROSE 5% 50 ML IV SCH ×2 (00:02→23:15)
[2020-09-01] MEDS: INSULIN ASPART 100 UNITS/ML 3 ML PEN SC SCH ×6 (01:00→22:31)
[2020-09-01] MEDS: PSYLLIUM 58.6% POWDER PACKET PO SCH (08:33)
[2020-09-01] MEDS: LEVOTHYROXINE SODIUM 25 MCG TABLET PO SCH (08:33)
[2020-09-01] MEDS: CETIRIZINE HCL 10 MG TABLET PO SCH (08:34)
[2020-09-01] MEDS: MAGNESIUM OXIDE 400 MG TAB PO SCH (08:34)
[2020-09-01] MEDS: FERROUS SULFATE 325 MG TAB PO SCH ×3 (08:34→17:17)
[2020-09-01] MEDS: PANTOprazole 40 MG TAB PO SCH (08:34)
[2020-09-01] MEDS: CITALOPRAM 20 MG TAB PO SCH (08:34)
[2020-09-01] MEDS: amLODIPine BESYLATE 5 MG TAB PO SCH (08:34)
[2020-09-01] MEDS: ENOXAPARIN INJ 60 MG/0.6 ML SYR SQ SCH ×2 (08:44→20:33)
[2020-09-01] MEDS: FLUTICASONE FUROATE 200MCG 14 PUFFS/INHALER INH SCH (08:44)
[2020-09-01] MEDS: DEXAMETHASONE SOD PHOSPHATE 6 MG in SYRINGE 0 ML IV SCH (08:45)
[2020-09-01 08:55] LABS: BUN Creatinine Ratio 19.5 (10-20); Calcium 9.7 mg/dl (8.5-10.1); Creatinine Clr Calc Pharmacy 49.3 ml/min; Est GFR (African American) 60.9; Est GFR (Non-African American) 52.5; Magnesium 1.7 mg/dl (1.8-2.4); Potassium 3.7 mmol/L (3.5-5.1)
[2020-09-01 08:57] LABS: Phosphorus 4.3 mg/dl (2.5-4.9)
[2020-09-01] MEDS: INSULIN GLARGINE SOLOSTAR 100 UNITS/ML 3 ML PEN SC SCH (09:20)
[2020-09-01] MEDS: INSULIN HUMAN NPH SC SCH (09:21)
--- NOTE | 2020-09-01 13:04 | Pharmacy Report ---
Pharmacy Glycemic Short Note 2 - Date of Service September 01, 2020 - Glycemic Short BSG Results (Last 24 hours): 08/31/20 08/31/20 08/31/20 14:45 17:03 20:06 Glucose POC Glucose 92 112 H 112 H 09/01/20 09/01/20 09/01/20 00:04 04:20 07:23 Glucose 95 POC Glucose 116 H 110 H 09/01/20 09/01/20 08:05 11:33 Glucose POC Glucose 94 150 H OUTPATIENT ANTIDIABETIC REGIMEN: * Lantus 40 units Q HS * Novolog 14 units TID w/ meals * Metformin 1gm PO BID * A1c = 9.1% 08/31/20 ASSESSMENT: 09/01: * 64 units SQ insulin given over last 24 hrs while tolerating a diet * Patient continues to receive IV dexamethasone 6mg daily * Fasting BSG 96 this AM w/ 20 units Lantus on board as well as 30 units NPH in AM yesterday - given this response will continue to dose Lantus only once daily in the AM * NPH ~0.2units/kg (20units) given this AM w/ IV dexamethasone, pre-lunch BSG 150 - will continue the same * Novolog prandial insulin dose was adjusted after BSG recovered into the 200's yesterday. This carb ratio will provide less prandial insulin vs yesterday AM and has thus far produced desirable results - will continue 08/31 * Over the last 24 hrs, 106 units of insulin have been administered * BSGs have trended down to goal * A diet is ordered this AM and dexamethasone 6mg IV daily continues * Fasting BSG down to 144 this AM w/ 70 units Lantus on board and after receiving 7 units of correctional insulin. Will dose Lantus BID per scale utilizing a dose similar to her outpt regimen starting tomorrow. HS dose of Lantus will be scaled back due to current BSGs downward trend. * NPH 0.3units/kg (30units) was given this AM w/ IV dexamethasone to counter hyperglycemic effects - however pre-lunch BSG down to 73. Will lessen NPH dose tomorrow. Will lessen prandial coverage until BSG rises. 08/30 * Type 2 diabetic admitted for COVID19 viral pneumonia * No recent A1c to assess adequacy of glycemic control prior to admission w/ out-pt regimen * Patient has developed severe hyperglycemia since admission. It appears she missed her evening dose of Lantus last night, this combined with IV dexamethasone admin has led to BSGs in 350-400 range. She is ordered a diet and glycemic control may deteriorate even further given steroid's effects on post-prandial BSGs. Of note, no AG acidosis was present on today's labs. * Will give STAT dose of Lantus (20% increase over out-pt dose) as well as correctional Novolog. Will then begin 0.08unit/kg Novolog SQ scheduled Q 2 hrs to quickly gain control of hyperglycemia - in an attempt to avoid the need for an insulin drip in this patient. Scheduled Novolog will be given until BSG less than 250, at that time we will then provide new Novolog orders PLAN FOR INPATIENT GLYCEMIC CONTROL: * Hold outpatient oral diabetes medications (Metformin) * Basal insulin * Lantus QAM per scale: * 0 units if BSG less than 100 * 20 units if BSG 100-200 * 25 units if BSG above 200 * NPH to 0.2units/kg (20 units) SQ w/ dexamethasone 6mg IV Q AM * Bolus insulin * Novolog SQ Q ACHS * Goal range: 110 to 140 mg/dL * Correction factor: 18mg/dL/unit * Carb ratio: 1 unit per 6gm CHO PLAN FOR DISCHARGE: * Given A1c of 9.1, there is room for improvement in glycemic control. Would recommend f/u with PCP or Endocrinology on discharge for insulin regimen adjustments. Metformin may be resumed on discharge if no contraindications present.
--- NOTE | 2020-09-01 19:34 | Hospitalist Progress Note ---
Date of Service September 01, 2020 Assessment & Plan (1) Pneumonia due to 2019 novel coronavirus: (2) Acute respiratory failure with hypoxia: Present on admission with SOB and weakness COVID 19 testing positive Minimal elevation of CRP and procalcitonin is negative CTA chest showed No PE, moderate multifocal groundglass opacities within the lungs suggestive of viral pneumonia. Continue IV Remdesivir to complete 5 days course and Dexamethasone 6 mg x 10 days No Plasma convalescent was given as per previous hospitalist provider (Symptoms have been going on for 1 week now) Continue oxygen supplement Clinically improves (3) UTI (urinary tract infection): Urine cx positive for gram negative bacilli History of UTI on Macrobid prophylaxis On rocephin IV and hold the macrobid for now Will transition to PO cefdinir Continue monitor (4) COPD (chronic obstructive pulmonary disease): Not on oxygen before COVID 19 Continue oxygen supplement Stable (5) Diabetes mellitus, type II: Hba1c 9.1 Elevated BS mostly due to the IV steroid pharmacy on board for glycemic management Continue monitor BS (6) HTN (hypertension): BP elevated ; hypertensive urgency possibly due to acute illness increased home dose of Norvasc to 10 mg daily PRN IV hydralazine ordered (7) GERD (gastroesophageal reflux disease): Continue PPI (8) Inflammatory arthritis: No acute arthritis involving any joint (9) Pulmonary nodule: CTA chest showed 1.2 cm irregular left upper lobe nodular opacity. Mildly enlarged mediastinal and right hilar lymph nodes. Will need outpatient follow up (10) Electrolyte imbalance: corrected DVT prophylaxis Lovenox CODE STATUS DNR Disposition : pt/ot eval prior to discharge Will discharge home tomorrow Admission and Anticipated Discharge Date Admission Date: August 29, 2020 Subjective Pt was seen and examined for follow up of her dyspnea Lying in bed with no distress Pt said that she feeling much better She said that her breathing is a lot better She said that she walked with therapy today Denies any chest pain, palpitation and fever Physical Exam Physical Exam: General- No acute distress Head- atraumatic Eyes- PERRL, EOMI, ENT- oropharynx clear Neck- supple, no JVD Lungs- diminished BS Heart- regular rhythm; no murmur Abdomen- normal bowel sounds, soft, nontender Extremities- no calf tenderness Neuro- alert, oriented x 3; PERRL, EOMI; no facial palsy; no dysarthria Skin- warm & dry Results & Data Results & Data ([place]) Vital Signs (Past 12 Hours) Vital Signs Temp Pulse Resp BP Pulse Ox Pulse Ox 09/01/20 19:02 36.5 C 87 16 128/73 97 09/01/20 15:57 36.8 C 94 H 19 135/78 91 09/01/20 11:31 36.5 C 98 H 18 145/80 H 91 09/01/20 10:55 2 L (1) UTI (urinary tract infection) Hematuria presence: with hematuria Urinary tract infection type: acute cystitis Qualified Code(s): N30.01 - Acute cystitis with hematuria
[2020-09-01] MEDS: lisinopril 20 MG TAB PO SCH (20:33)
[2020-09-01] MEDS: REMDESIVIR 100 MG in SODIUM CHLORIDE 0.9% 230 ML IV SCH (20:37)
[2020-09-01] MEDS: SODIUM CHLORIDE 0.9% 10ML FLUSH IV SCH (22:32)
[2020-09-02] MEDS: LEVOTHYROXINE SODIUM 25 MCG TABLET PO SCH (07:21)
[2020-09-02] MEDS: hydrALAZINE HCL 20 MG/ML VIAL IV PRN (07:26)
[2020-09-02] MEDS: ENOXAPARIN INJ 60 MG/0.6 ML SYR SQ SCH (07:26)
[2020-09-02] MEDS: FLUTICASONE FUROATE 200MCG 14 PUFFS/INHALER INH SCH (08:45)
[2020-09-02] MEDS: CITALOPRAM 20 MG TAB PO SCH (08:46)
[2020-09-02] MEDS: amLODIPine BESYLATE 5 MG TAB PO SCH (08:46)
[2020-09-02] MEDS: MAGNESIUM OXIDE 400 MG TAB PO SCH (08:46)
[2020-09-02] MEDS: PSYLLIUM 58.6% POWDER PACKET PO SCH (08:46)
[2020-09-02] MEDS: FERROUS SULFATE 325 MG TAB PO SCH ×2 (08:46→12:36)
[2020-09-02] MEDS: CETIRIZINE HCL 10 MG TABLET PO SCH (08:46)
[2020-09-02] MEDS: PANTOprazole 40 MG TAB PO SCH (08:46)
[2020-09-02] MEDS: INSULIN HUMAN NPH SC SCH (08:53)
[2020-09-02] MEDS: INSULIN GLARGINE SOLOSTAR 100 UNITS/ML 3 ML PEN SC SCH (08:53)
[2020-09-02] MEDS: INSULIN ASPART 100 UNITS/ML 3 ML PEN SC SCH ×2 (08:53→12:38)
[2020-09-02] MEDS: DEXAMETHASONE SOD PHOSPHATE 6 MG in SYRINGE 0 ML IV SCH (09:38)
[2020-09-02 11:35] VITALS: TEMP 97.2
[2020-09-02 15:05] VITALS: BP 135/68; PULSE 102; O2SAT 93
--- NOTE | 2020-09-02 15:24 | Hospitalist Progress Note ---
Date of Service September 02, 2020 Assessment & Plan (1) Pneumonia due to 2019 novel coronavirus: (2) Acute respiratory failure with hypoxia: Present on admission with SOB and weakness COVID 19 testing positive Minimal elevation of CRP and procalcitonin is negative CTA chest showed No PE, moderate multifocal groundglass opacities within the lungs suggestive of viral pneumonia. Continue IV Remdesivir to complete 5 days course and Dexamethasone 6 mg x 10 days No Plasma convalescent was given as per previous hospitalist provider (Symptoms have been going on for 1 week now) 2 step done an pt required 2 LNC continuously Continue oxygen supplement Clinically improves (3) UTI (urinary tract infection): Urine cx positive for gram negative bacilli History of UTI on Macrobid prophylaxis On rocephin IV and hold the macrobid for now Will transition to PO cefdinir on discharge Continue monitor (4) COPD (chronic obstructive pulmonary disease): Not on oxygen before COVID 19 Continue oxygen supplement Stable (5) Diabetes mellitus, type II: Hba1c 9.1 Elevated BS mostly due to the IV steroid pharmacy on board for glycemic management Continue monitor BS (6) HTN (hypertension): BP elevated ; hypertensive urgency possibly due to acute illness increased home dose of Norvasc to 10 mg daily, will continue on discharge PRN IV hydralazine ordered (7) GERD (gastroesophageal reflux disease): Continue PPI (8) Inflammatory arthritis: No acute arthritis involving any joint (9) Pulmonary nodule: CTA chest showed 1.2 cm irregular left upper lobe nodular opacity. Mildly enlarged mediastinal and right hilar lymph nodes. Will need outpatient follow up (10) Electrolyte imbalance: corrected DVT prophylaxis Lovenox CODE STATUS DNR Disposition : pt/ot eval prior to discharge Discharge home today Admission and Anticipated Discharge Date Admission Date: August 29, 2020 Subjective Pt was seen and examined Sitting in chair with no distress Pt said that she feels much better She said that her breathing is much better She said that she is on oxygen at home Denies any chest pain, palpitation, dizziness and fever Physical Exam Physical Exam: General- No acute distress Head- atraumatic Eyes- PERRL, EOMI, ENT- oropharynx clear Neck- supple, no JVD Lungs- diminished BS Heart- regular rhythm; no murmur Abdomen- normal bowel sounds, soft, nontender Extremities- no calf tenderness Neuro- alert, oriented x 3; PERRL, EOMI; no facial palsy; no dysarthria Skin- warm & dry Results & Data Results & Data ([facility]) Vital Signs (Past 12 Hours) Vital Signs Temp Pulse Pulse Pulse Pulse Pulse Resp 09/02/20 15:02 36.2 C L 102 H 22 09/02/20 13:22 80 79 79 09/02/20 11:35 36.2 C L 102 H 22 09/02/20 08:00 85 09/02/20 07:19 36.7 C 88 18 Resp Resp Resp BP BP Pulse Ox Pulse Ox 09/02/20 15:02 134/73 135/68 93 09/02/20 13:22 16 16 18 93 09/02/20 11:35 134/73 93 09/02/20 08:00 09/02/20 07:19 174/95 H 95 Pulse Ox Pulse Ox 09/02/20 15:02 09/02/20 13:22 94 85 L 09/02/20 11:35 09/02/20 08:00 09/02/20 07:19 (1) UTI (urinary tract infection) Hematuria presence: with hematuria Urinary tract infection type: acute cys titis Qualified Code(s): N30.01 - Acute cystitis with hematuria
[2020-09-02] MEDS ORDERED: CEFDINIR 300 MG CAP PO SCH (18:00)
--- NOTE | 2020-09-06 10:01 | Discharge Summary ---
Date of Service September 02, 2020 Admission HPI Per Admitting Provider He is an 80-year-old female with significant past medical history of diabetes type 2, COPD, hypertension, hyperlipidemia, inflammatory arthritis, GERD and history of DVT and pulmonary embolism has been complaining of increasing shortness of breath with weakness for the last three or 4 days. She has COPD and she mentions to have occasional shortness of breath but that has gotten worse for the last three or 4 days with cough and wheezing. She has been also complaining of weakness for the same. And she has had fall without any significant injury recently. He has history of chronic diarrhea but denies any nausea and or vomiting as of today. He denies any fever and/or chills, any chest pain or palpitation. He does not have any headache or blurred vision or any weakness involving any of the extremities. She was noted to be COVID-19 positive with a negative test that was done on last Saturday at the facility. She has been requiring 4 L oxygen nasal cannula to maintain saturation. She was started with intravenous dexamethasone and remdesivir to treat Covid and was admitted to Covid unit. Admission Exam Per Admitting Provider Physical Exam: Minimal shortness of breath at rest Constitutional: well developed, well nourished, + acute distress (Due to mild shortness of breath), + ill appearing and + obese Eyes: PERRL, conjunctivae normal, anicteric sclerae ENMT: external ear and nose normal, oropharynx normal Neck: trachea midline, no thyromegaly Respiratory: + respiratory distress (Minimal shortness of breath at rest) Auscultation: + diminished lung sounds and + crackles (Bibasilar crackles); no wheezes Gastrointestinal (Abdomen): Inspection/Auscultation: normal bowel sounds; abdomen not distended Percussion/Palpation: abdomen soft; abdomen nontender Musculoskeletal: No acute arthritis in any joint Neurologic: Alert, awake and oriented x3. Generally weak but no focal sensory and motor deficit appreciated Psychiatric: A+Ox3, euthymic affect Lymphatic: no cervical or axillary lymphadenopathy Principal Diagnosis (1) Pneumonia due to 2019 novel coronavirus: (2) Acute respiratory failure with hypoxia: (3) UTI (urinary tract infection): (4) COPD (chronic obstructive pulmonary disease): (5) Diabetes mellitus, type II (6) HTN (hypertension): (7) GERD (gastroesophageal reflux disease): (8) Inflammatory arthritis: (9) Pulmonary nodule: (10) Electrolyte imbalance: Discharge Exam General- No acute distress Head- atraumatic Eyes- PERRL, EOMI, ENT- oropharynx clear Neck- supple, no JVD Lungs- diminished BS Heart- regular rhythm; no murmur Abdomen- normal bowel sounds, soft, nontender Extremities- no calf tenderness Neuro- alert, oriented x 3; PERRL, EOMI; no facial palsy; no dysarthria Skin- warm & dry Discharge Data Allergies Allergy/AdvReac Type Severity Reaction Status Date / Time atorvastatin Allergy Unknown UNKN Verified 08/29/20 12:43 bee venom protein (honey bee) Allergy Unknown Unknown Verified 08/29/20 12:43 formaldehyde Allergy Unknown HYPERSENSIT Verified 08/29/20 12:43 IVITY oxycodone Allergy Unknown UNKN Verified 08/29/20 12:43 peanut Allergy Unknown Unknown Verified 08/29/20 12:43 Sulfa (Sulfonamide Allergy Unknown Unknown Verified 08/29/20 12:43 Antibiotics) Consultations 08/29/20 13:39 ED Decision to Admit Stat 08/30/20 15:09 Consult Case Management - Discharge Planning Routine Ordered Studies 08/29/20 14:00 CT angio chest PE protocol Stat CT ANGIOGRAPHY OF THE CHEST, PULMONARY EMBOLUS PROTOCOL CLINICAL HISTORY: Shortness of breath. Covid. COMPARISON STUDY: Chest CT October 01, 2003 pain. Chest radiograph August 29, 2020. TECHNIQUE: Following IV administration of 120 mL of Optiray-320, helical axial images of the chest were obtained utilizing the pulmonary embolus protocol. Maximal intensity projections and sagittal and coronal reformats were viewed on an independent 3D workstation. IV contrast was administered without complication. Automated exposure control was utilized for the study. A dose lowering technique was utilized adhering to the principles of ALARA. CT DOSE: 553.64 mGycm FINDINGS: No pulmonary emboli are identified. There is no thoracic aortic dissection. Mild cardiomegaly is noted. There is moderate coronary artery calcification. No pericardial effusion is noted. Emphysema is noted. There may be a lipoma within the distal esophagus. No pneumothorax or pleural effusion is noted. There are calcified granulomas within the lungs. Moderate multifocal groundglass opacities within the lungs are noted. Airspace opacity within the apical segment of the right upper lobe is also noted. There is right apical scarring which contains calcifications. This is unchanged. An irregular 1.2 cm left upper lobe nodular opacity on image 188 of [address] of October 01, 2017. An adjacent suspected mucoid impacted bronchus is unchanged. Otherwise, the central airways are patent. Note is made of several mildly enlarged mediastinal and right hilar lymph nodes. Index subcarinal lymph node contains a calcification. This measures 1.3 cm in short axis diameter. Index right hilar node on image 170 measures 1.1 cm. These nodes have slightly increased in size since prior CT. No suspicious lesions within the bony thorax are noted. A 2 cm left adrenal nodule is unchanged. This is likely benign given stability. The gallbladder is surgically absent. Hepatic steatosis is noted. IMPRESSION: 1. No pulmonary emboli identified. 2. Moderate multifocal groundglass opacities within the lungs suggestive of viral pneumonia. 3. Mildly enlarged mediastinal and right hilar lymph nodes. These nodes are likely reactive or possibly related to prior granulomatous process. A follow-up chest CT in 6 months is recommended. 4. 1.2 cm irregular left upper lobe nodular opacity. This is likely benign given stability since CT of October 01, 2013 and may represent scarring/sequela of granulomatous process. This can be assessed on subsequent exam. 5. Hepatic steatosis. ACT 112: Negative or not required by law. Electronically signed by: Geovanny García M.D. 08/29/2020 3:44 PM Dictated: 08/29/20 1526Transcribed: 08/29/20 1526 XR chest 1V portable HISTORY: SEPSIS COMPARISON: Chest 06/09/2019. FINDINGS: Multiple calcified granuloma seen within the upper lobes, unchanged. The heart remains enlarged. There are low lung volumes. No pleural effusions. No pneumothorax. There are hazy bibasilar airspace opacities. IMPRESSION: Hazy bibasilar airspace opacities. This likely represents a viral pneumonia. ACT 112: Negative or not required by law. Electronically signed by: Jose Francisco Fitch M.D. 08/29/2020 12:15 PM Dictated: 08/29/20 1212Transcribed: 08/29/20 1212 Hospital Course (1) Pneumonia due to 2019 novel coronavirus: (2) Acute respiratory failure with hypoxia: Present on admission with SOB and weakness COVID 19 testing positive Minimal elevation of CRP and procalcitonin is negative CTA chest showed No PE, moderate multifocal groundglass opacities within the lungs suggestive of viral pneumonia. Continue IV Remdesivir to complete 5 days course and Dexamethasone 6 mg x 10 days No Plasma convalescent was given as per previous hospitalist provider (Symptoms have been going on for 1 week now) 2 step done an pt required 2 LNC continuously Continue oxygen supplement Clinically improves (3) UTI (urinary tract infection): Urine cx positive for gram negative bacilli History of UTI on Macrobid prophylaxis On rocephin IV and hold the macrobid for now Will transition to PO cefdinir on discharge Continue monitor (4) COPD (chronic obstructive pulmonary disease): Not on oxygen before COVID 19 Continue oxygen supplement Stable (5) Diabetes mellitus, type II: Hba1c 9.1 Elevated BS mostly due to the IV steroid pharmacy on board for glycemic management Continue monitor BS (6) HTN (hypertension): BP elevated ; hypertensive urgency possibly due to acute illness increased home dose of Norvasc to 10 mg daily, will continue on discharge PRN IV hydralazine ordered (7) GERD (gastroesophageal reflux disease): Continue PPI (8) Inflammatory arthritis: No acute arthritis involving any joint (9) Pulmonary nodule: CTA chest showed 1.2 cm irregular left upper lobe nodular opacity. Mildly enlarged mediastinal and right hilar lymph nodes. Will need outpatient follow up (10) Electrolyte imbalance: corrected DVT prophylaxis Lovenox CODE STATUS DNR Disposition : pt/ot eval prior to discharge Discharge home today Total Time Total Time Spent Total Time Spent (In Minutes): 35 minutes Total Time Includes: Examination of the Patient, Discharge Planning, Medication Reconciliation, Communication With Other Providers and Other Discharge Plan Discharge Items Patient Disposition: Personal Usp Reason For Visit: DYSPNEA,COVID PNA Discharge Diagnosis: (1) Pneumonia due to 2019 novel coronavirus: (2) Acute respiratory failure with hypoxia: (3) UTI (urinary tract infection): (4) COPD (chronic obstructive pulmonary disease): (5) Diabetes mellitus, type II (6) HTN (hypertension): (7) GERD (gastroesophageal reflux disease): (8) Inflammatory arthritis: (9) Pulmonary nodule: (10) Electrolyte imbalance: Activity: Resume your previous activity Non-emergency contact: Primary Care Provider Call non-emergency contact if: you have any medication questions Follow-up/Referrals: [facility] [Primary Care Provider] - Diet: Carb Consistent or DM2 Addtl Attending Provider Instructions: Follow up with your primary care provider at [facility] within 1 week Continue oxygen supplement with 2 L nasal canula continuously Hold nitrofurantoin for now; then once completes course of antibiotic with Cefdinir, can resume the nitrofurantoin prophylaxis Check BMP and magnesium within 1 week to monitor your electrolytes and magnesium level Amlodipine increased to 10mg daily. Please continue to monitor blood pressure Follow a healthy diet and limited concentrated sweet intake Continue monitor blood sugar Complete the course of the antibiotic with Cefdinir Please continue to wear mask Continue contact isolation for 10 days total from the day testing positive on 08/29/20 Will need outpatient follow CT scan for the Lung nodule as per guideline (Your physician will order it) Home Isolation COVID-19 Instructions The following information about Home Isolation is from the CDC Website: https://www.cdc.gov/coronavirus/2019-ncov/hcp/zzcejdum-tbgbafu-tulhmf.html Stay home except to get medical care People who are mildly ill with COVID-19 are able to isolate at home during their illness. You should restrict activities outside your home, except for getting medical care. Do not go to work, school, or public areas. Avoid using public transportation, ride-sharing, or taxis. Separate yourself from other people and animals in your home People: As much as possible, you should stay in a specific room and away from other people in your home. Also, you should use a separate bathroom, if available. Animals: You should restrict contact with pets and other animals while you are sick with COVID-19, just like you would around other people. Although there have not been reports of pets or other animals becoming sick with COVID-19, it is still recommended that people sick with COVID-19 limit contact with animals until more information is known about the virus. When possible, have another member of your household care for your animals while you are sick. If you are sick with COVID-19, avoid contact with your pet, including petting, snuggling, being kissed or licked, and sharing food. If you must care for your pet or be around animals while you are sick, wash your hands before and after you interact with pets and wear a face mask. Call ahead before visiting your doctor If you have a medical appointment, call the healthcare provider and tell them that you have or may have COVID-19. This will help the healthcare providers office take steps to keep other people from getting infected or exposed. Wear a face mask You should wear a face mask when you are around other people (e.g., sharing a room or vehicle) or pets and before you enter a healthcare providers office. If you are not able to wear a face mask (for example, because it causes trouble breathing), then people who live with you should not stay in the same room with you, or they should wear a face mask if they enter your room. Cover your coughs and sneezes Cover your mouth and nose with a tissue when you cough or sneeze. Throw used tissues in a lined trash can. Immediately wash your hands with soap and water for at least 20 seconds or, if soap and water are not available, clean your hands with an alcohol-based hand tmh teacher that contains at least 60% alcohol. Clean your hands often Wash your hands often with soap and water for at least 20 seconds, especially after blowing your nose, coughing, or sneezing; going to the bathroom; and before eating or preparing food. If soap and water are not readily available, use an alcohol-based hand tmh teacher with at least 60% alcohol, covering all surfaces of your hands and rubbing them together until they feel dry. Soap and water are the best option if hands are visibly dirty. Avoid touching your eyes, nose, and mouth with unwashed hands. Avoid sharing personal household items You should not share dishes, drinking glasses, cups, eating utensils, towels, or bedding with other people or pets in your home. After using these items, they should be washed thoroughly with soap and water. Clean all high-touch surfaces everyday High touch surfaces include counters, tabletops, doorknobs, bathroom fixtures, toilets, phones, keyboards, tablets, and bedside tables. Also, clean any surfaces that may have blood, stool, or body fluids on them. Use a household cleaning spray or wipe, according to the label instructions. Labels contain instructions for safe and effective use of the cleaning product including precautions you should take when applying the product, such as wearing gloves and making sure you have good ventilation during use of the product. Monitor your symptoms Seek prompt medical attention if your illness is worsening (e.g., difficulty b reathing).Beforeseeking care, call your healthcare provider and tell them that you have, or are being evaluated for, COVID-19. Put on a face mask before you enter the facility. These steps will help the healthcare providers office to keep other people in the office or waiting room from getting infected or exposed. Ask your healthcare provider to call the local or state health department. Persons who are placed under active monitoring or facilitated self- monitoring should follow instructions provided by their local health department or occupational health professionals, as appropriate. When working with your local health department check their available hours. If you have a medical emergency and need to call 911, notify the dispatch personnel that you have, or are being evaluated for COVID-19. If possible, put on a face mask before emergency medical services arrive. Discontinuing home isolation Patients with confirmed COVID-19 should remain under home isolation precautions until the risk of secondary transmission to others is thought to be low. The decision to discontinue home isolation precautions should be made on a [id number] basis, in consultation with healthcare providers and state and local health departments. Coronavirus disease 2019 (COVID-19) is a virus that causes a respiratory illness . It is caused by a coronavirus called 2019 novel coronavirus (2019-nCoV). There are many types of coronavirus. Coronaviruses are a very common cause of bronchitis. They may sometimes cause lung infection(pneumonia). Symptoms can range from mild to severe respiratory illness. These viruses are also foundin some animals. COVID-19 was first found in people in [facility], in late 2019. In 2020, several cases of COVID-19 have been confirmed in the [place] Public health officials are working to find the source. How the virus spreads is not yet fully known. It may be spread through droplets of fluid that a person coughs or sneezes into the air. It may be spread if you touch a surface with virus on it, such as a handle or object, and then touch your mouth. What are the symptoms of COVID-19? Some people have no symptoms or mild symptoms. Symptoms may appear 2 to 14 days after contact with the virus. Symptoms can include: Fever Coughing Trouble breathing What are possible complications from COVID-19? In many cases, this virus can cause infection (pneumonia) in both lungs. In some cases, this can cause . How is COVID-19 diagnosed? Your healthcare provider will ask about your symptoms. He or she will also ask about your recent travel and contact with sick people. Testing for the virus is only done through the CDC. If yourhealthcare provider thinks you may have COVID- 19, he or she will work with your local health department and the CDC on testing. Follow all instructions from your healthcare provider. COVID-19 is diagnosed by: Nasal and throat swab. A cotton-tipped swab is wiped inside your nose or throat. This is done to check for viruses in your nasal mucus. Sputum culture. A small sample of mucus coughed from your lungs (sputum) is collected if you have a cough. It is checked for the virus. How is COVID-19 treated? There is currently no medicine to treat the virus. Treatment is done to help your body while it fights the virus. This is known as supportive care. Supportive care may include: Pain medicine. These include acetaminophen and ibuprofen. They are used to help ease pain and reduce fever. Bed rest. This helps your body fight the illness. For severe illness, you may need to stay in the hospital. Care during severe illness may include: IV (intravenous) fluids.These are given through a vein to help keep your body hydrated. Oxygen. Supplemental oxygen or ventilation with a breathing machine (ventilator) may be given. This is done to keep enough oxygen in your body. Are you at risk for COVID-19? If youve been to a place where people have been sick with this virus, you are at risk for infection. You are at risk if you: Recently traveled to an affected area Had contact with a sick person who recently traveled to this area Had contact with a person who was diagnosed with COVID-19 How can COVID-19 be prevented? There is no vaccine yet. The best prevention is to not have contact with the virus. The CDC advises that people should not travel to areas where there are COVID-19 outbreaks right now for any reason that is not urgent. To help prevent spreading the infection, wash your hands often, or use an alcohol-basedhand tmh teacher. If you are in an area with COVID-19: Wash your hands often. Or use an alcohol-based hand tmh teacher often. Only touch your eyes, nose, or mouth with clean hands. Dont have contact with people who are sick. Follow local instructions about being in public. For example, you may be told to not use public transport for a period of time. Stay away from markets that have live or animals. Wash your hands after touching any animals. Don't touch animals that may be sick. Dont share eating or drinking tools with sick people. Dont kiss someone who is sick. Clean surfaces often with disinfectant. If you were in an area with COVID-19 in the last 14 days: Call your healthcare provider. He or she can talk with local health staff to see what action may be needed. Follow all instructions from your provider. Take your temperature every morning and evening for at least 14 days. This is to check for fever. Keep a record of the readings. Keep watch for symptoms of the virus. Tell your provider right away if you have symptoms. If you were in an area with COVID-19 and have a fever or other symptoms: Dont panic. Keep in mind that other illnesses can cause similar symptoms. Stay away from work, school, and public places. Limit physical contact with family members. Don't kiss anyone or share eating or drinking utensils. Clean surfaces you touch with disinfectant. This is to help prevent the virus from spreading. Call your healthcare provider. Explain that you have been exposed to COVID-19 and have symptoms. Do this before going to any hospital. Wait for instructions. Keep in mind that healthcare staff may wear protective equipment such as masks, gowns, gloves, and eye protection. You may be put in a separate room. This is to prevent the possible virus from spreading. Tell the healthcare staff about recent travel. This includes local travel on public transport. Staff may need to find other people you have been in contact with. Follow all instructions the healthcare staff give you. If you have been diagnosed with COVID-19 Follow all instructions from your healthcare provider. Dont leave your home, except to get medical care. Call your healthcare providers office before going. They can prepare and give you instructions. This will help prevent the virus from spreading. Dont go to work, school, or public areas. Dont use public transport or taxis. Stay away from other people in your home. Have them wear face masks around you. Dont share household items or food. Wear a face mask if you can. This includes at home or in a medical facility. Cover your face with a tissue when you cough or sneeze. Throw the tissue away. Wash your hands. Wash your hands often. Caregivers should: Follow all instructions from healthcare staff. Wear a face mask and protective clothing as advised. Wash hands often. Keep track of the sick persons symptoms. Clean surfaces, fabrics, and laundry thoroughly. Keep other people away from the sick person. When to call your healthcare provider Call your healthcare provider: If youve recently traveled and have symptoms If you have been diagnosed with COVID-19 and your symptoms are worse To learn more To find out more about COVID-19, visit the CDC website at www.cd c.gov/coronavirus/2019-ncov/index.html. [employer]. [address] [place] [address]. All rights reserved. This information is not intended as a substitute for professional medical care. Always follow your healthcare professional's instructions. This information has been adapted from [employer] Pending Studies at Discharge: No Stand-Alone Forms: My iNEWiT, Smoking Cessation Skilled Items Patient informed of condition?: Yes DNR: Yes Discharge Level of Care: Other Communicable Disease: Yes Discharge Prognosis: Stable Lines: None Urinary Catheter: No Medications and DC Order Prescriptions: New amlodipine 10 mg tablet 10 mg PO DAILY Qty: 30 RF: 0 Continued acetaminophen 325 mg Tablet 650 mg PO Q4H MDD 3 GM APAP/24 HOURS PRN (Reason: Pain) RF: 0 citalopram 20 mg Tablet 20 mg PO QAM RF: 0 ferrous sulfate 325 mg (65 mg iron) Tablet 325 mg PO TID RF: 0 nitrofurantoin macrocrystal 50 mg capsule 50 mg PO QAM RF: 0 diphenhydramine-acetaminophen [Tylenol PM Extra Strength] 25-500 mg Tablet 2 tab PO HS RF: 0 psyllium husk [Metamucil] 0.52 gram Capsule 0.52 g PO DAILY RF: 0 cetirizine 10 mg Tablet 10 mg PO QAM RF: 0 lisinopril 20 mg Tablet 20 mg PO HS RF: 0 prednisone 5 mg Tablet 5 mg PO QAM RF: 0 levothyroxine 25 mcg Tablet 25 mcg PO QAM RF: 0 colesevelam [WelChol] 625 mg Tablet 625 mg PO DAILY@1200 RF: 0 metformin 1,000 mg Tablet 1,000 mg PO BID RF: 0 nystatin 100,000 unit/gram Cream 1 applic TOPICAL BID PRN (Reason: RASH AND SKIN IRRITATION) RF: 0 omeprazole 20 mg Capsule,Delayed Release(Dr/Ec) 20 mg PO QAM RF: 0 ergocalciferol (vitamin D2) [Vitamin D2] 50,000 unit Capsule 50,000 unit PO MOTH RF: 0 insulin aspart U-100 [Novolog Flexpen U-100 Insulin] 100 unit/mL (3 mL) Insulin Pen 14 unit SUBCUT TIDM RF: 0 Pulmicort Flexhaler 90 mcg/actuation Aerosol Powdr Breath Activated 1 inh INHALATION BID RF: 0 epinephrine 0.3 mg/0.3 mL Syringe 0.3 mg IM Q3H PRN (Reason: Anaphylaxis) RF: 0 cyanocobalamin (vitamin B-12) 1,000 mcg/mL Kit 1,000 mcg IM MONTHLY RF: 0 Toujeo SoloStar U-300 Insulin 300 unit/mL (1.5 mL) Insulin Pen 40 unit SUBCUT HS RF: 0 magnesium oxide 400 mg magnesium Tablet 400 mg PO QAM RF: 0 Discontinued amlodipine 5 mg Tablet 5 mg PO QAM RF: 0 Discharge Orders: Discharge Order (Routine); Ordered 09/02/20 Ordered By: Veronica Stafford Admission Data Admit Date/Time: 08/29/20 14:08 Attending Provider: Veronica Stafford Admit Provider: Clarice Buck Primary Care Provider: Kelli Monte Other Providers: Clarice Buck ; Sherin Ren Other Interventions: Discharge Summary Assessment (RN) Last Done: 09/02/20 15:02
== END 2020-09-02 15:27 | disposition home or self-care (01) | DRG 177 ==
LOC: ED 11:19 → SUATTDRO 14:08 → EDINP 14:08 → 2S 08-30 20:28

== ENCOUNTER 2020-10-12 17:45 | Observation (INO) ==
[~2020-10-12 17:45] MED LIST: hydrALAZINE HCL 20 MG/ML VIAL IV ONE
[2020-10-12 18:08] LABS: Basophils # (auto) 0.02 K/uL (0-0.2); Basophils % (auto) 0.2 %; Eosinophils # (auto) 0.02 K/uL (0-0.5); Eosinophils % (auto) 0.2 %; Hematocrit (blood only) 40.2 % (37-47); Hemoglobin 12.9 g/dL (12.0-16.0); Immature Granulocytes # (auto) 0.06 K/uL (0.00-0.02); Immature Granulocytes % (auto) 0.7 %; Lymphocytes # (auto) 0.82 K/uL (1.2-3.4); Lymphocytes % (auto) 10.1 %; Mean Corpuscular Hemoglobin 29.7 pg (25-34); Mean Corpuscular Hgb Conc 32.1 g/dL (32-36); Mean Corpuscular Volume 92.4 fL (80-100); Monocytes # (auto) 0.48 K/uL (0.11-0.59); Monocytes % (auto) 5.9 %; Neutrophils # (auto) 6.74 K/uL (1.4-6.5); Neutrophils % (auto) 82.9 %; Platelet Count 144 K/uL (130-400); RDW Coefficient of Variation 14.6 % (11.5-14.5); RDW Standard Deviation 49.8 fL (36.4-46.3); Red Blood Count 4.35 M/uL (4.2-5.4); White Blood Count 8.14 K/uL (4.8-10.8)
--- NOTE | 2020-10-12 18:08 | Emergency Department Note ---
Impression & Plan Chest pain, Acute hyperglycemia, Elevated BUN ED Provider Note NAME: AUDI JORDAN AGE: 80 SEX: F : 1940 ARRIVES VIA: Ambulance INFORMANT: Patient ED PROVIDER(S): Jemal Soto DO CHIEF COMPLAINT: Chest Pain HPI: Patient is an 80-year-old female who presents the ER for precordial chest pain. Pain has been present off and on since yesterday. She did receive the moderna shot yesterday. She describes the feeling as though she was hit in the middle of the chest. She eventually then changes her story and told another nurse that it has been present since this morning and then change her story again says maybe it has been present for the past 2 hours. She has no pain now. She has been taking Xarelto and has not missed any doses. She does have a past medical history of diabetes, hypertension and hyperlipidemia. No other exacerbating or remitting factors at this time. She received aspirin prior to arrival. ROS: See above HPI for pertinent positives & negatives. A total of 10 systems reviewed and were otherwise negative. PAST MEDICAL HISTORY:See Below PAST SURGICAL HISTORY:See Below FAMILY HISTORY:See Below SOCIAL HISTORY:See Below HOME MEDICATIONS:See Below ALLERGIES:See Below VITALS:See Below PHYSICAL EXAMINATION: GENERAL: Sitting up in bed, alert, Chronically ill-appearing, disheveled EYE EXAM: normal conjunctiva. OROPHARYNX: no exudate, no erythema, lips, buccal mucosa, and tongue normal and mucous membranes are moist NECK: supple, no nuchal rigidity, no adenopathy, non-tender LUNGS: Clear to auscultation. Normal chest wall mechanics HEART: Tachycardic with reproducible anterior chest wall pain S1 normal and S2 normal ABDOMEN: abdomen soft, non-tender, normo-active bowel sounds, no masses, no rebound or guarding. BACK: Back is symmetrical on inspection and there is no deformity, no midline tenderness, no CVA tenderness. SKIN: no rashes and no bruising UPPER EXTREMITIES: upper extremities are grossly normal. LOWER EXTREMITIES: Mild edema bilaterally. Calves are equal bilateral NEURO EXAM: Normal sensorium, cranial nerves II-XII grossly intact, normal speech, no gross weakness of arms, no gross weakness of legs. MEDICAL DECISION MAKING: Patient is an 80-year-old female with extensive history of diabetes, hypertension, hyperlipidemia as well as COPD chronically on 2 L nasal cannula presents the ER for chest pain. She has 2 different types of chest pain with which is reproducible and the other of which has now resolved. IV was established blood work was obtained. Labs show no significant leukocytosis or anemia. INR unremarkable. BMP with a slightly elevated chloride at 1.39 Off of baseline of 1.Glucose was elevated at 230. LFTs bilirubin was unremarkable. Troponin was negative. Lipase was unremarkable. Chest x-ray shows no acute pathology.Patient received aspirin prior to arrival. She was updated bedside. Covid test was obtained. She was discussed with the hospitalist due to her age and risk factors in regards to her treatment types of chest pain although I favor the one is clearly musculoskeletal. She will be observed overnight. Triage Nursing notes reviewed. Limited review of prior medical records performed Vital Signs: reviewed and remarkable for Tachycardic and hypertensive Differential diagnosis: Differential diagnoses includes but is not limited to acute coronary syndrome, myocardial infarction, pericarditis, pulmonary embolus, aortic dissection, pneumonia, pneumothorax, musculoskeletal, shingles, esophageal. ER treatment provided: See below Diagnostics interpreted by me: ECG: Sinus tachycardia rate of 105 Left axis No PVCs ST wave changes in the high lateral leads QTC 441 No significant change from August 2020 Cardiac Monitoring: An order was placed for continuous cardiac monitoring. The monitor shows a rate of 109 with sinus rhythm. Laboratory studies: As stated above and show below. Imaging studies: Portable AP upright 1 view the chest shows no focal infiltrate or pneumothorax. Consultation(s): Discussed with Dr. Adam Painter for further evaluation Procedures: none Critical Care: None Past Med/Surg History Medical History A-fib COPD (chronic obstructive pulmonary disease) Depression Diabetes GERD (gastroesophageal reflux disease) High cholesterol Hypertension Hypothyroid Rhinitis Vitamin B 12 deficiency Surgical History History of cholecystectomy History of hysterectomy Hx of tonsillectomy Family History Other Diabetes Hypertension Stroke Social History Smoking Status: Former smoker Second Hand Exposure: No; Hx Alcohol Use: No Hx Substance Use: No Preferred Language: [place] Communication Ability: Effective Supervisor Dental Laboratory Required: No Beliefs That Will Affect Care: None marital status: / Current Living Situation: Personal Care Facility Feels Safe at Home: Yes Assistive Devices: Oxygen - Continuous Allergies Allergies Allergy/AdvReac Type Severity Reaction Status Date / Time atorvastatin Allergy Unknown UNKN Verified 08/29/20 12:43 bee venom protein (honey bee) Allergy Unknown Unknown Verified 10/12/20 20:29 formaldehyde Allergy Unknown HYPERSENSIT Verified 08/29/20 12:43 IVITY oxycodone Allergy Unknown UNKN Verified 08/29/20 12:43 peanut Allergy Unknown Unknown Verified 10/12/20 20:29 Sulfa (Sulfonamide Allergy Unknown Unknown Verified 10/12/20 20:29 Antibiotics) Home Meds Home Medications Medication Instructions Recorded Confirmed acetaminophen 650 mg PO Q4H PRN MDD 3 GMS 11/22/18 10/12/20 APAP/24 HOURS citalopram 20 mg PO QAM 11/22/18 10/12/20 Pulmicort Flexhaler 1 inh INHALATION BID 07/17/19 10/12/20 Toujeo SoloStar U-300 Insulin 40 unit SUBCUT HS 07/17/19 10/12/20 cetirizine 10 mg PO QAM 07/17/19 10/12/20 colesevelam [WelChol] 625 mg PO DAILY@1200 07/17/19 10/12/20 cyanocobalamin (vitamin B-12) 1,000 mcg IM MONTHLY 07/17/19 10/12/20 epinephrine 0.3 mg IM DIRECTED PRN 07/17/19 10/12/20 ergocalciferol (vitamin D2) 50,000 unit PO 2XWK 07/17/19 10/12/20 [Vitamin D2] insulin aspart U-100 [Novolog 14 unit SUBCUT TIDM 07/17/19 10/12/20 Flexpen U-100 Insulin] levothyroxine 25 mcg PO QAM 07/17/19 10/12/20 lisinopril 20 mg PO HS 07/17/19 10/12/20 magnesium oxide 400 mg PO QAM 07/17/19 10/12/20 metformin 500 mg PO Q12H 07/17/19 10/12/20 omeprazole 20 mg PO QAM 07/17/19 10/12/20 prednisone 5 mg PO QAM 07/17/19 10/12/20 diphenhydramine-acetaminophen 2 tab PO HS MDD 3 GMS APAP/24 HOURS 08/29/2010/03 [Tylenol PM Extra Strength] ferrous sulfate 325 mg PO TID 08/29/20 10/12/20 nitrofurantoin macrocrystal 50 mg PO QAM 08/29/20 10/12/20 psyllium husk [Metamucil] 0.52 g PO DAILY 08/29/20 10/12/20 acetaminophen 650 mg PO DAILY MDD 3 GMS APAP/24 10/12/20 10/12/20 HOURS albuterol sulfate 2.5 mg INHALATION .Q4-6HRS PRN 10/12/20 10/12/20 albuterol sulfate [Ventolin HFA] 2 puff INHALATION .Q4-6HRS PRN 10/12/20 10/12/20 dextromethorphan-guaifenesin 1 tab PO Q12H PRN 10/12/20 10/12/20 [Mucinex DM] loperamide [Anti-Diarrheal 2 mg PO Q4H PRN 10/12/20 10/12/20 (loperamide)] nystatin 1 applic TOPICAL BID PRN 10/12/20 10/12/20 rivaroxaban [Xarelto] 20 mg PO DAILY 10/12/20 10/12/20 Previous Rx's Medication Instructions Recorded amlodipine 10 mg PO DAILY #30 tab 09/02/20 Results & Data (ED) Vital Signs Vital Signs - 24 hr 10/12/20 17:59 10/12/20 18:00 10/12/20 18:08 Temperature 36.8 C Temperature Source Oral Pulse Rate 115 H 103 H 103 H Pulse Rate [Apical] Pulse Rate from SpO2 Sensor 103 H 103 H Pulse Rhythm Regular Pulse Strength Normal Respiratory Rate 18 34 H 26 H Respiratory Effort / Characteristics Non-Labored Spontaneous Respiratory Depth Normal Respiratory Pattern Regular Blood Pressure 175/93 H 156/78 H Blood Pressure [Left Arm] Blood Pressure Mean 120 104 Blood Pressure Mean [Left Arm] Blood Pressure Position Sitting Pulse Oximetry 97 98 98 Oxygen Delivery Method Room Air Oxygen Flow Rate 3 Sepsis Recent Fever Within 48 Hours No Sepsis New/Unexplained Change in Mental Status N/A Sepsis Action Taken by Nursing No Action Required 10/12/20 18:10 10/12/20 19:30 10/12/20 22:03 Temperature Temperature Source Pulse Rate 103 H 93 H Pulse Rate [Apical] 102 H Pulse Rate from SpO2 Sensor 103 H Pulse Rhythm Pulse Strength Respiratory Rate 26 H 20 18 Respiratory Effort / Characteristics Non-Labored Respiratory Depth Normal Respiratory Pattern Blood Pressure 168/91 H Blood Pressure [Left Arm] 144/87 H Blood Pressure Mean Blood Pressure Mean [Left Arm] 106 Blood Pressure Position Pulse Oximetry 99 96 98 Oxygen Delivery Method Nasal Cannula Room Air Oxygen Flow Rate 3 Sepsis Recent Fever Within 48 Hours Sepsis New/Unexplained Change in Mental Status Sepsis Action Taken by Nursing Laboratory Data Result diagrams: 10/12/20 17:59 10/12/20 17:59 Lab Results 10/12/20 10/12/20 10/12/20 Range/Units 17:59 17:59 17:59 WBC 8.14 (4.8-10.8) K/uL RBC 4.35 (4.2-5.4) M/uL Hgb 12.9 (12.0-16.0) g/dL Hct 40.2 (37-47) % MCV 92.4 (80-100) fL MCH 29.7 (25-34) pg MCHC 32.1 (32-36) g/dL RDW Std Deviation 49.8 H (36.4-46.3) fL RDW Coeff of Grey 14.6 H (11.5-14.5) % Plt Count 144 (130-400) K/uL MPV 10.0 (7.4-10.4) fL Immature Gran % (Auto) 0.7 % Neut % (Auto) 82.9 % Lymph % (Auto) 10.1 % Harnett % (Auto) 5.9 % Eos % (Auto) 0.2 % Baso % (Auto) 0.2 % Neut # (Auto) 6.74 H (1.4-6.5) K/uL Lymph # (Auto) 0.82 L (1.2-3.4) K/uL Harnett # (Auto) 0.48 (0.11-0.59) K/uL Eos # (Auto) 0.02 (0-0.5) K/uL Baso # (Auto) 0.02 (0-0.2) K/uL Immature Gran # (Auto) 0.06 H (0.00-0.02) K/uL PT 10.9 (9.0-12.0) Seconds INR 1.1 (0.9-1.1) Sodium 136 (136-145) mmol/L Potassium 4.4 (3.5-5.1) mmol/L Chloride 98 (98-107) mmol/L Carbon Dioxide 28 (21-32) mmol/L Anion Gap 10.0 (3-11) BUN 27 H (7-18) mg/dl Creatinine 1.39 H (0.6-1.2) mg/dl Est Cr Clr Drug Dosing 35.4 ml/min Est GFR ( Amer) 41.4 Est GFR (Non-Af Amer) 35.7 BUN/Creatinine Ratio 19.2 (10-20) Glucose 227 H (70-99) mg/dl Calcium 10.4 H (8.5-10.1) mg/dl Magnesium (1.8-2.4) mg/dl Total Bilirubin 0.3 (0.2-1) mg/dl AST 8 L (15-37) U/L ALT 20 (12-78) U/L Alkaline Phosphatase 59 (45-117) U/L Troponin I < 0.015 (0-0.045) ng/ml Total Protein 7.0 (6.4-8.2) gm/dl Albumin 3.3 L (3.4-5.0) gm/dl Globulin 3.7 (2.5-4.0) gm/dl Albumin/Globulin Ratio 0.9 (0.9-2) Lipase 125 (73-393) U/L Specimen Hemolysis COVID-19 Eval Order SARS-CoV-2, RNA, NAAT (NEGATIVE) 10/12/20 10/12/20 10/12/20 Range/Units 19:47 19:47 20:02 WBC (4.8-10.8) K/uL RBC (4.2-5.4) M/uL Hgb (12.0-16.0) g/dL Hct (37-47) % MCV (80-100) fL MCH (25-34) pg MCHC (32-36) g/dL RDW Std Deviation (36.4-46.3) fL RDW Coeff of Grey (11.5-14.5) % Plt Count (130-400) K/uL MPV (7.4-10.4) fL Immature Gran % (Auto) % Neut % (Auto) % Lymph % (Auto) % Harnett % (Auto) % Eos % (Auto) % Baso % (Auto) % Neut # (Auto) (1.4-6.5) K/uL Lymph # (Auto) (1.2-3.4) K/uL Harnett # (Auto) (0.11-0.59) K/uL Eos # (Auto) (0-0.5) K/uL Baso # (Auto) (0-0.2) K/uL Immature Gran # (Auto) (0.00-0.02) K/uL PT (9.0-12.0) Seconds INR (0.9-1.1) Sodium (136-145) mmol/L Potassium (3.5-5.1) mmol/L Chloride (98-107) mmol/L Carbon Dioxide (21-32) mmol/L Anion Gap (3-11) BUN (7-18) mg/dl Creatinine (0.6-1.2) mg/dl Est Cr Clr Drug Dosing ml/min Est GFR ( Amer) Est GFR (Non-Af Amer) BUN/Creatinine Ratio (10-20) Glucose (70-99) mg/dl Calcium (8.5-10.1) mg/dl Magnesium 1.2 L (1.8-2.4) mg/dl Total Bilirubin (0.2-1) mg/dl AST (15-37) U/L ALT (12-78) U/L Alkaline Phosphatase (45-117) U/L Troponin I < 0.015 (0-0.045) ng/ml Total Protein (6.4-8.2) gm/dl Albumin (3.4-5.0) gm/dl Globulin (2.5-4.0) gm/dl Albumin/Globulin Ratio (0.9-2) Lipase (73-393) U/L Specimen Hemolysis COVID-19 Eval [facility] SARS-CoV-2, RNA, NAAT NEGATIVE (NEGATIVE) Administered Medications Sodium Chloride (Nss 1000ml) 1,000 mls @ 100 mls/hr IV .Q10H STA Stop: 10/13/20 07:00 Last Admin: 10/12/20 21:03 Dose: 100 mls/hr Documented by: [id number] Discharge Plan Visit Data Chief Complaint: Chest Pain Stated Complaint: CHEST PAIN ED Provider: Jemal Soto Discharge Problem: Chest pain, Acute hyperglycemia, Elevated BUN Discharge Instructions Interventions: ED Discharge Assessment Last Done: 10/12/20 22:03 Forms Stand Alone Forms: [facility] Prescriptions Prescriptions: No Action acetaminophen 325 mg Tablet 650 mg PO Q4H MDD 3 GMS APAP/24 HOURS PRN (Reason: Pain) RF: 0 citalopram 20 mg Tablet 20 mg PO QAM RF: 0 ferrous sulfate 325 mg (65 mg iron) Tablet 325 mg PO TID RF: 0 nitrofurantoin macrocrystal 50 mg capsule 50 mg PO QAM RF: 0 diphenhydramine-acetaminophen [Tylenol PM Extra Strength] 25-500 mg Tablet 2 tab PO HS MDD 3 GMS APAP/24 HOURS RF: 0 psyllium husk [Metamucil] 0.52 gram Capsule 0.52 g PO DAILY RF: 0 amlodipine 10 mg tablet 10 mg PO DAILY Qty: 30 RF: 0 cetirizine 10 mg Tablet 10 mg PO QAM RF: 0 lisinopril 20 mg Tablet 20 mg PO HS RF: 0 prednisone 5 mg Tablet 5 mg PO QAM RF: 0 levothyroxine 25 mcg Tablet 25 mcg PO QAM RF: 0 colesevelam [WelChol] 625 mg Tablet 625 mg PO DAILY@1200 RF: 0 metformin 1,000 mg Tablet 500 mg PO Q12H RF: 0 omeprazole 20 mg Capsule,Delayed Release(Dr/Ec) 20 mg PO QAM RF: 0 ergocalciferol (vitamin D2) [Vitamin D2] 50,000 unit Capsule 50,000 unit PO 2XWK RF: 0 insulin aspart U-100 [Novolog Flexpen U-100 Insulin] 100 unit/mL (3 mL) Insulin Pen 14 unit SUBCUT TIDM RF: 0 Pulmicort Flexhaler 90 mcg/actuation Aerosol Powdr Breath Activated 1 inh INHALATION BID RF: 0 epinephrine 0.3 mg/0.3 mL Syringe 0.3 mg IM DIRECTED PRN (Reason: Anaphylaxis) RF: 0 cyanocobalamin (vitamin B-12) 1,000 mcg/mL Kit 1,000 mcg IM MONTHLY RF: 0 Calvin AbrahamoStar U-300 Insulin 300 unit/mL (1.5 mL) Insulin Pen 40 unit SUBCUT HS RF: 0 magnesium oxide 400 mg magnesium Tablet 400 mg PO QAM RF: 0 acetaminophen 325 mg Tablet 650 mg PO DAILY MDD 3 GMS APAP/24 HOURS RF: 0 Xarelto 20 mg tablet 20 mg PO DAILY RF: 0 albuterol sulfate 2.5 mg /3 mL (0.083 %) Solution For Nebulization 2.5 mg INHALATION .Q4-6HRS PRN (Reason: Shortness Of Breath) RF: 0 loperamide [Anti-Diarrheal (loperamide)] 2 mg Capsule 2 mg PO Q4H PRN (Reason: Diarrhea) RF: 0 Mucinex DM 30-600 mg Tablet Extended Release 12 Hr 1 tab PO Q12H PRN (Reason: Cough/Congestion) RF: 0 albuterol sulfate [Ventolin HFA] 90 mcg/actuation Hfa Aerosol Inhaler 2 puff INHALATION .Q4-6HRS PRN (Reason: Shortness Of Breath) RF: 0 nystatin 100,000 unit/gram cream 1 applic TOPICAL BID PRN (Reason: Rash/Irritation) RF: 0 Referrals Referrals: Kelli Monte [Primary Care Provider] - Discharge Problem: Chest pain Qualifiers: Chest pain type: unspecified Qualified Code(s): R07.9 - Chest pain, unspecified
--- NOTE | 2020-10-12 18:15 | XRay Report ---
XR chest 1V portable HISTORY: Atypical Chest Pain COMPARISON: Chest 08/29/2020. FINDINGS: No pneumothorax or no pleural effusions. The heart is normal in size. Calcified granuloma w ithin the right upper lobe, unchanged. Mild interstitial thickening which is likely chronic. This is most pronounced at the lung bases. No new focal lung consolidations to suggest pneumonia. No evidence for pulmonary edema. IMPRESSION: Chronic changes as described above. No acute process within the chest. ACT 112: Negative or not required by law. Electronically signed by: Jose Francisco Fitch M.D. 10/12/2020 6:14 PM
[2020-10-12 18:18] LABS: INR 1.1 (0.9-1.1); Prothrombin Time 10.9 Seconds (9.0-12.0)
[2020-10-12 19:20] LABS: Albumin Globulin Ratio 0.9 (0.9-2); Albumin Level 3.3 gm/dl (3.4-5.0); Alkaline Phosphatase 59 U/L (45-117); BUN Creatinine Ratio 19.2 (10-20); Blood Urea Nitrogen 27 mg/dl (7-18); Calcium 10.4 mg/dl (8.5-10.1); Chloride 98 mmol/L (98-107); Creatinine Clr Calc Pharmacy 35.4 ml/min; Est GFR (African American) 41.4; Est GFR (Non-African American) 35.7; Globulin 3.7 gm/dl (2.5-4.0); Lipase 125 U/L (73-393); Potassium 4.4 mmol/L (3.5-5.1); Troponin I < 0.015 ng/ml (0-0.045)
[2020-10-12 19:24] LABS: Alanine Aminotransferase 20 U/L (12-78); Aspartate Aminotransferase 8 U/L (15-37); Bilirubin,Total 0.3 mg/dl (0.2-1); Carbon Dioxide 28 mmol/L (21-32); Glucose 227 mg/dl (70-99); Sodium 136 mmol/L (136-145)
--- NOTE | 2020-10-12 20:26 | History & Physical Report ---
Date of Service October 12, 2020 Assessment & Plan (1) Chest pain: (2) COPD (chronic obstructive pulmonary disease): (3) Hypertension: (4) Diabetes mellitus, type II: (5) History of DVT (deep vein thrombosis): Assessment and Plan per Dr Castillo. 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 Pt reports to this provider having anterior chest pressure x 2 days. Pt denies any pain currently. H/O COVID PNA 08/29/2020 and has been on 2L oxygen via NC since. Pt denies any increased SOB. Unsure if having any LE edema. Denies fever/chills, diaphoresis, N/V/D/C, CARL, dizziness, syncope, vision changes, neck pain, palpitations, cough, sore throat, choking, otalgia, rhinorrhea, abdominal pain, paresthesias, weakness, rashes, urinary symptoms. Allergies Allergy/AdvReac Type Severity Reaction Status Date / Time atorvastatin Allergy Unknown UNKN Verified 08/29/20 12:43 bee venom protein (honey bee) Allergy Unknown Unknown Verified 10/12/20 20:29 formaldehyde Allergy Unknown HYPERSENSIT Verified 08/29/20 12:43 IVITY oxycodone Allergy Unknown UNKN Verified 08/29/20 12:43 peanut Allergy Unknown Unknown Verified 10/12/20 20:29 Sulfa (Sulfonamide Allergy Unknown Unknown Verified 10/12/20 20:29 Antibiotics) Home Medications Medication Instructions Recorded Confirmed Type acetaminophen 650 mg PO Q4H PRN MDD 3 GMS 11/22/18 10/12/20 History APAP/24 HOURS citalopram 20 mg PO QAM 11/22/18 10/12/20 History Pulmicort Flexhaler 1 inh INHALATION BID 07/17/19 10/12/20 History Toujeo SoloStar U-300 Insulin 40 unit SUBCUT HS 07/17/19 10/12/20 History cetirizine 10 mg PO QAM 07/17/19 10/12/20 History colesevelam [WelChol] 625 mg PO DAILY@1200 07/17/19 10/12/20 History cyanocobalamin (vitamin B-12) 1,000 mcg IM MONTHLY 07/17/19 10/12/20 History epinephrine 0.3 mg IM DIRECTED PRN 07/17/19 10/12/20 History ergocalciferol (vitamin D2) 50,000 unit PO 2XWK 07/17/19 10/12/20 History [Vitamin D2] insulin aspart U-100 [Novolog 14 unit SUBCUT TIDM 07/17/19 10/12/20 History Flexpen U-100 Insulin] levothyroxine 25 mcg PO QAM 07/17/19 10/12/20 History lisinopril 20 mg PO HS 07/17/19 10/12/20 History magnesium oxide 400 mg PO QAM 07/17/19 10/12/20 History metformin 500 mg PO Q12H 07/17/19 10/12/20 History omeprazole 20 mg PO QAM 07/17/19 10/12/20 History prednisone 5 mg PO QAM 07/17/19 10/12/20 History diphenhydramine-acetaminophen 2 tab PO HS MDD 3 GMS APAP/24 HOURS 08/29/20 10/12/20 History [Tylenol PM Extra Strength] ferrous sulfate 325 mg PO TID 08/29/20 10/12/20 History nitrofurantoin macrocrystal 50 mg PO QAM 08/29/20 10/12/20 History psyllium husk [Metamucil] 0.52 g PO DAILY 08/29/20 10/12/20 History amlodipine 10 mg PO DAILY #30 tab 09/02/20 10/12/20 Rx acetaminophen 650 mg PO DAILY MDD 3 GMS APAP/24 10/12/20 10/12/20 History HOURS albuterol sulfate 2.5 mg INHALATION .Q4-6HRS PRN 10/12/20 10/12/20 History albuterol sulfate [Ventolin HFA] 2 puff INHALATION .Q4-6HRS PRN 10/12/20 1 History dextromethorphan-guaifenesin 1 tab PO Q12H PRN 10/12/20 10/12/20 History [Mucinex DM] loperamide [Anti-Diarrheal 2 mg PO Q4H PRN 10/12/20 10/12/20 History (loperamide)] nystatin 1 applic TOPICAL BID PRN 10/12/20 10/12/20 History rivaroxaban [Xarelto] 20 mg PO DAILY 10/12/20 10/12/20 History Past Med/Surg History Medical History A-fib COPD (chronic obstructive pulmonary disease) Depression Diabetes GERD (gastroesophageal reflux disease) High cholesterol Hypertension Hypothyroid Rhinitis Vitamin B 12 deficiency Surgical History History of cholecystectomy History of hysterectomy Hx of tonsillectomy Family History Other Diabetes Hypertension Stroke Social History Smoking Status: Former smoker Second Hand Exposure: No; Do You Dip or Chew Tobacco: No; Tobacco Cessation Education Requested by Patient: No Hx Alcohol Use: Yes Hx Substance Use: No Preferred Language: Turkmen Communication Ability: Effective Level Vial Curvature Gauger Required: No Beliefs That Will Affect Care: None marital status: / Current Living Situation: Personal Care Facility Other Information That Helps Us Care for You: No Feels Safe at Home: Yes Safety Concerns: Feels Safe At This Time Assistive Devices: Denture - Upper, Glasses and Walker Review of Systems Review of Systems: All systems reviewed & are unremarkable except as noted in HPI & below Physical Exam Physical Exam: General: no distress, obese Head: normocephalic, atraumatic Eyes: PERRL, EOM's intact, conjunctiva non-injected, anicteric ENT: normal inspection external ears, nose, mucous membranes moist Neck: supple, trachea midline Lungs: diminished throughout, no respiratory distress, on 2L oxygen via NC CV: RRR, no murmur, 1-2+ pretibial edema; +tenderness to palpation midsternal chest Abd: normal BS, soft, protuberant, non-tender Ext: no cyanosis, no calf tenderness Neuro: A&O x 3, no focal deficits noted, normal affect Skin: warm, dry Results & Data Results & Data ([facility]) Vital Signs (Past 12 Hours) Vital Signs Temp Pulse Pulse Resp BP BP Pulse Ox 10/12/20 19:30 102 H 20 144/87 H 96 10/12/20 18:10 103 H 26 H 99 10/12/20 18:08 103 H 26 H 98 10/12/20 18:00 103 H 34 H 156/78 H 98 10/12/20 17:59 36.8 C 115 H 18 175/93 H 97 Laboratory Results Short CBC 10/12/20 Range/Units 17:59 WBC 8.14 (4.8-10.8) K/uL Hgb 12.9 (12.0-16.0) g/dL Hct 40.2 (37-47) % Plt Count 144 (130-400) K/uL BMP 10/12/20 17:59 Sodium 136 Potassium 4.4 Chloride 98 Carbon Dioxide 28 BUN 27 H Creatinine 1.39 H Glucose 227 H Calcium 10.4 H Cardiac Enzymes 10/12/20 Range/Units 17:59 Troponin I < 0.015 (0-0.045) ng/ml Liver Function 10/12/20 Range/Units 17:59 Total Bilirubin 0.3 (0.2-1) mg/dl AST 8 L (15-37) U/L ALT 20 (12-78) U/L Alkaline Phosphatase 59 (45-117) U/L Albumin 3.3 L (3.4-5.0) gm/dl Diagnostic Findings CXR: IMPRESSION: Chronic changes as described above. No acute process within the chest. Supervising Physician Co-Signing Physician Notes IM ATTENDING : Patient seen and examined. History obtained from patient and records. Preceding documentation by Ms. Tia Lopez PA-C reviewed. FINAL ASSESSMENT AND PLAN as follows : Atypical chest pain Likely musculoskeletal given reproducibility Elevated BP possibly contributory Rule out ACS given risk factors for CAD Hypercoagulable state as per records (history of PE/DVT on Xarelto) ARF History CPPD arthritis on chronic prednisone Rx DM2 insulin requiring, suboptimal control as of recent hemoglobin A1c of 9.02 August 2020 Past tobacco abuse OBS PCU Analgesia Follow troponin DSE in a.m. if a.m. troponin within normal limits Aspirin for CAD prevention until ACS ruled out Baseline UA, monitor creatinine response to IVF, hold lisinopril until creatinine back to baseline Basal insulin adjusted for n.p.o. status after midnight in anticipation of cardiac testing, ISS BG goal [id number], carb count coverage once patient eating DVT prophylaxis. Holly DNR Text document was generated using [employer] voice recognition software. It may contain grammatical or spelling errors. Kindly contact undersigned for clarification of any documentation item in question. (1) Chest pain Chest pain type: unspecified Qualified Code(s): R07.9 - Chest pain, unspecified
[2020-10-12 20:57] LABS: Magnesium 1.2 mg/dl (1.8-2.4); Troponin I < 0.015 ng/ml (0-0.045)
[2020-10-12] MEDS ORDERED: SODIUM CHLORIDE 0.9% 1000ML 1,000 ML IV STA (21:01)
[2020-10-12] MEDS ORDERED: GLUCOSE 10 TABS/TUBE PO PRN (22:39)
[2020-10-12] MEDS ORDERED: HYDROmorphone INJ 0.5 MG/0.5 ML SYR IV PRN (22:39)
[2020-10-12] MEDS ORDERED: CARBOHYDRATES FOR HYPOGLYCEMIA PO PRN (22:39)
[2020-10-12] MEDS ORDERED: ACETAMINOPHEN 325 MG TAB PO PRN (22:39)
[2020-10-12] MEDS ORDERED: GLUCAGON FOR INJ 1 MG VIAL SQ PRN (22:39)
[2020-10-12] MEDS ORDERED: PROMETHAZINE HCL 12.5 MG in SODIUM CHLORIDE 0.9% 50 ML IV PRN (22:39)
[2020-10-12] MEDS ORDERED: DEXTROSE 50% 50 ML SYRINGE IV PRN (22:39)
[2020-10-12] MEDS ORDERED: traMADol HCL 50 MG TABLET PO PRN (22:39)
[2020-10-12] MEDS ORDERED: GLUCOSE 40% GEL 15 GM TUBE PO PRN (22:39)
[2020-10-12] MEDS ORDERED: INSULIN GLARGINE SOLOSTAR 100 UNITS/ML 3 ML PEN SC ONE (23:15)
[2020-10-12] MEDS ORDERED: FLUTICASONE FUROATE 200MCG 14 PUFFS/INHALER INH ONE (23:15)
[2020-10-12] MEDS ORDERED: INSULIN ASPART 100 UNITS/ML 3 ML PEN SC ONE (23:15)
[2020-10-12] MEDS: MAGNESIUM SULFATE / D5W 1 GM/100 ML BAG IV SCH (23:33)
[2020-10-13 00:34] LABS: Appearance Urine Clear (Clear); Bilirubin Urine Negative (Negative); Blood Urine Trace (Negative); Color Urine Yellow; Glucose Urine UA Negative (Negative); Ketones Urine Negative (Negative); Leukocyte Esterase Urine 1+ (Negative); Nitrite Urine Negative (Negative); Protein Urine 2+ (Negative); Specific Gravity Urine 1.011 (1.000-1.030); Urobilinogen Urine Negative (Negative)
[2020-10-13 00:43] LABS: Bacteria Urine 1+ (Negative); RBC Urine 0-4 /hpf (0-4)
[2020-10-13] MEDS: MAGNESIUM SULFATE / D5W 1 GM/100 ML BAG IV SCH ×2 (03:31→04:38)
[2020-10-13 05:41] LABS: Basophils # (auto) 0.01 K/uL (0-0.2); Basophils % (auto) 0.2 %; Eosinophils # (auto) 0.15 K/uL (0-0.5); Eosinophils % (auto) 2.5 %; Hematocrit (blood only) 37.8 % (37-47); Hemoglobin 12.1 g/dL (12.0-16.0); Immature Granulocytes # (auto) 0.03 K/uL (0.00-0.02); Immature Granulocytes % (auto) 0.5 %; Lymphocytes # (auto) 0.87 K/uL (1.2-3.4); Lymphocytes % (auto) 14.4 %; Mean Corpuscular Hemoglobin 29.6 pg (25-34); Mean Corpuscular Volume 92.4 fL (80-100); Mean Platelet Volume 10.1 fL (7.4-10.4); Monocytes # (auto) 0.49 K/uL (0.11-0.59); Monocytes % (auto) 8.1 %; Neutrophils % (auto) 74.3 %; Platelet Count 117 K/uL (130-400); RDW Coefficient of Variation 14.7 % (11.5-14.5); RDW Standard Deviation 49.9 fL (36.4-46.3); Red Blood Count 4.09 M/uL (4.2-5.4); White Blood Count 6.05 K/uL (4.8-10.8)
[2020-10-13] MEDS: INSULIN ASPART 100 UNITS/ML 3 ML PEN SC SCH ×2 (05:50→12:18)
[2020-10-13 05:54] LABS: Partial Thromboplastin Time 27.2 Seconds (21.0-31.0)
[2020-10-13] MEDS ORDERED: LEVOTHYROXINE SODIUM 25 MCG TABLET PO SCH (06:30)
[2020-10-13 06:31] LABS: BUN Creatinine Ratio 19.7 (10-20); Blood Urea Nitrogen 20 mg/dl (7-18); Calcium 9.3 mg/dl (8.5-10.1); Carbon Dioxide 32 mmol/L (21-32); Chloride 101 mmol/L (98-107); Chol HDL Ratio 3; Cholesterol 238 mg/dl (0-200); Creatinine Clr Calc Pharmacy 49.2 ml/min; Est GFR (African American) 61.6; Est GFR (Non-African American) 53.2; Glucose 207 mg/dl (70-99); HDL Cholesterol 81 mg/dl; LDL Cholesterol Calculated 106 mg/dl; Sodium 137 mmol/L (136-145); Triglycerides 254 mg/dl (0-150); Troponin I < 0.015 ng/ml (0-0.045); VLDL Cholesterol 51 mg/dl
--- NOTE | 2020-10-13 07:25 | CT Scan Report ---
CT OF THE ABDOMEN AND PELVIS WITHOUT CONTRAST CLINICAL HISTORY: Abdominal pain. COMPARISON STUDY: CT of the abdomen and pelvis November 07, 2015. TECHNIQUE: Axial images of the abdomen and pelvis were obtained without IV contrast. Images were revi ewed in the axial, sagittal, and coronal planes. Automated exposure control was utilized for the radha dy. A dose lowering technique was utilized adhering to the principles of ALARA. FINDINGS: Lung bases are unremarkable. No pneumatosis, free air or portal venous gas is present. Smal l bilateral renal calculi measure up to 5 mm. There are no ureteral calculi. There is no hydronephros is or hydroureter. Water attenuation left renal lesion was shown to reflect a cyst on prior contrast enhanced CT. There is probable hepatic steatosis. No biliary ductal dilatation is identified status p ost cholecystectomy. A left adrenal nodule is unchanged. This is benign and favors an adenoma. Extens martina sigmoid diverticulosis is noted without evidence for acute diverticulitis. The appendix is normal . Small fat-containing umbilical hernia is present. There is no evidence for a bowel obstruction. No acute fracture or suspicious lesion is identified within the visualized skeletal structures. IMPRESSION: 1. Bilateral nephrolithiasis. No ureteral calculi or hydronephrosis. 2. No acute process within the abdomen or pelvis on unenhanced examination. 3. Extensive sigmoid diverticulosis without evidence for acute diverticulitis. 4. No bowel obstruction. ACT 112: Negative or not required by law. Electronically signed by: Geovanny García M.D. 10/13/2020 7:23 AM
[2020-10-13] MEDS ORDERED: INSULIN ASPART 100 UNITS/ML 3 ML PEN SC SCH (07:30)
[2020-10-13] MEDS ORDERED: INSULIN GLARGINE SOLOSTAR 100 UNITS/ML 3 ML PEN SC SCH ×2 (07:30→09:00)
[2020-10-13] MEDS ORDERED: INFLUENZA ADMINISTRATION CHARGE ONE (08:00)
[2020-10-13] MEDS ORDERED: INFLUENZA VACCINE HIGH DOSE 65+ 0.7 ML SYR IM ONE (08:00)
--- NOTE | 2020-10-13 08:56 | Electrocardiogram Report ---
Test Reason : Blood Pressure : / mmHG Vent. Rate : 105 BPM Atrial Rate : 105 BPM P-R Int : 142 ms QRS Dur : 102 ms QT Int : 334 ms P-R-T Axes : 050 -52 080 degrees QTc Int : 441 ms Sinus tachycardia Left anterior fascicular block Left ventricular hypertrophy with repolarization abnormality Abnormal ECG When compared with ECG of 29-AUG-2020 11:31, No significant change was found Confirmed by Ellis Rolle ([id number]) on 10/13/2020 8:55:35 AM Referred By: Kelli Michele [place] Confirmed By:Ellis Rolle
[2020-10-13] MEDS ORDERED: CITALOPRAM 20 MG TAB PO SCH (09:00)
[2020-10-13] MEDS ORDERED: PSYLLIUM 58.6% POWDER PACKET PO SCH (09:00)
[2020-10-13] MEDS ORDERED: ASPIRIN 81 MG ECTAB PO SCH (09:00)
[2020-10-13] MEDS ORDERED: RIVAROXABAN 20 MG TAB PO SCH (09:00)
[2020-10-13] MEDS ORDERED: CETIRIZINE HCL 10 MG TABLET PO SCH (09:00)
[2020-10-13] MEDS ORDERED: predniSONE 5 MG TAB PO SCH (09:00)
[2020-10-13] MEDS ORDERED: PANTOprazole 40 MG TAB PO SCH (09:00)
[2020-10-13] MEDS ORDERED: amLODIPine BESYLATE 5 MG TAB PO SCH (09:00)
[2020-10-13] MEDS: FERROUS SULFATE 325 MG TAB PO SCH ×2 (09:14→12:17)
[2020-10-13] MEDS ORDERED: ATROPINE SULFATE 0.1 MG/ML 10ML SYR IV ONE (10:28)
[2020-10-13] MEDS ORDERED: DOBUTamine HCL 12.5 MG/ML 20 ML VIAL IV ONE (10:29)
[2020-10-13] MEDS ORDERED: METOPROLOL TARTRATE 1 MG/ML VIAL IV ONE (10:29)
--- NOTE | 2020-10-13 11:10 | Electrocardiogram Report ---
Test Reason : Blood Pressure : / mmHG Vent. Rate : 094 BPM Atrial Rate : 094 BPM P-R Int : 148 ms QRS Dur : 096 ms QT Int : 378 ms P-R-T Axes : 063 -56 066 degrees QTc Int : 472 ms Normal sinus rhythm Left anterior fascicular block Minimal voltage criteria for LVH, may be normal variant ( Marshall product ) Abnormal ECG When compared with ECG of 12-OCT-2020 17:52, No significant change was found Confirmed by Eliecer Herrera ([id number]) on 10/13/2020 11:09:57 AM Referred By: Kelli Michele [place] Confirmed By:Eliecer Herrera
--- NOTE | 2020-10-13 15:11 | Hospitalist Progress Note ---
Date of Service October 13, 2020 Assessment & Plan (1) Chest pain: Pt said that chest discomfort occurred after taking her 2nd dose of COVID 19 Vaccine Troponin x3 negative EKG showed no acute ischemic finding CXR showed no acute finding Dobutamine stress echo showed no ischemia , stress induce wall abnormality clinically stable (2) COPD (chronic obstructive pulmonary disease): Continue oxygen supplement Stable (3) Hypertension: Continue amlodipine Continue monitor BP (4) Diabetes mellitus, type II: Most recent Hba1c 9.1 (08/21) On Toujeo HS Continue monitor BS (5) History of DVT (deep vein thrombosis): On Rivaroxaban CODE STATUS DNR Admission and Anticipated Discharge Date Admission Date: October 12, 2020 Subjective Pt was seen and examined for follow up of chest pain Lying in bed with distress Pt said that she feels better She said that she does not have any more chest pain She said that she is back to her baseline Denies any chest pain, palpitation, dizziness and SOB Review of Systems Review of Systems: All systems reviewed & are unremarkable except as noted in Subjective Physical Exam Physical Exam: General- No acute distress Head- atraumatic Eyes- PERRL, EOMI, ENT- oropharynx clear Neck- supple, no JVD Lungs- diminished BS Heart- regular rhythm; no murmur Abdomen- normal bowel sounds, soft, nontender Extremities- no calf tenderness, +edema Neuro- alert, oriented; PERRL, EOMI; no facial palsy; no dysarthria Skin- warm & dry Results & Data Results & Data ([facility]) Vital Signs (Past 12 Hours) Vital Signs Temp Pulse Pulse Resp BP BP Pulse Ox 10/13/20 14:43 36.5 C 68 20 144/87 H 165/78 H 94 10/13/20 12:38 36.5 C 68 20 165/78 H 94 10/13/20 10:19 93 H 10/13/20 08:18 36.8 C 89 20 120/68 94 10/13/20 04:38 37.3 C 96 H 20 176/82 H 95 (1) Chest pain Chest pain type: unspecified Qualified Code(s): R07.9 - Chest pain, unspecified
[2020-10-13] MEDS ORDERED: FLUTICASONE FUROATE 200MCG 14 PUFFS/INHALER INH SCH (21:00)
--- NOTE | 2020-10-17 08:42 | Discharge Summary ---
Date of Service October 13, 2020 Admission HPI Per Admitting Provider Pt is 80 y/o F with PMH COPD, DM II, HTN, HLD, GERD, H/O DVT/PE is on Xarelto, hypothyroidism, anxiety, depression presented to ER with c/o CP. Pt reports to this provider having anterior chest pressure x 2 days. Pt denies any pain currently. H/O COVID PNA 08/29/2020 and has been on 2L oxygen via [place] since. Pt denies any increased SOB. Unsure if having any LE edema. Denies fever/chills, diaphoresis, N/V/D/C, CARL, dizziness, syncope, vision changes, neck pain, palpitations, cough, sore throat, choking, otalgia, rhinorrhea, abdominal pain, paresthesias, weakness, rashes, urinary symptoms. Admission Exam Per Admitting Provider General: no distress, obese Head: normocephalic, atraumatic Eyes: PERRL, EOM's intact, conjunctiva non-injected, anicteric ENT: normal inspection external ears, nose, mucous membranes moist Neck: supple, trachea midline Lungs: diminished throughout, no respiratory distress, on 2L oxygen via [place] CV: RRR, no murmur, 1-2+ pretibial edema; +tenderness to palpation midsternal chest Abd: normal BS, soft, protuberant, non-tender Ext: no cyanosis, no calf tenderness Neuro: A&O x 3, no focal deficits noted, normal affect Skin: warm, dry Principal Diagnosis Chest pain COPD (chronic obstructive pulmonary disease): Hypertension Diabetes mellitus, type II: History of DVT (deep vein thrombosis): Discharge Exam General- No acute distress Head- atraumatic Eyes- PERRL, EOMI, ENT- oropharynx clear Neck- supple, no JVD Lungs- diminished BS Heart- regular rhythm; no murmur Abdomen- normal bowel sounds, soft, nontender Extremities- no calf tenderness, +edema Neuro- alert, oriented; PERRL, EOMI; no facial palsy; no dysarthria Skin- warm & dry Discharge Data Allergies Allergy/AdvReac Type Severity Reaction Status Date / Time atorvastatin Allergy Unknown UNKN Verified 08/29/20 12:43 bee venom protein (honey bee) Allergy Unknown Unknown Verified 10/12/20 20:29 formaldehyde Allergy Unknown HYPERSENSIT Verified 08/29/20 12:43 IVITY oxycodone Allergy Unknown UNKN Verified 08/29/20 12:43 peanut Allergy Unknown Unknown Verified 10/12/20 20:29 Sulfa (Sulfonamide Allergy Unknown Unknown Verified 10/12/20 20:29 Antibiotics) Consultations 10/12/20 19:29 ED Decision to Admit Stat Ordered Studies 10/12/20 20:52 CT abd pelvis wo con Urgent CT OF THE ABDOMEN AND PELVIS WITHOUT CONTRAST CLINICAL HISTORY: Abdominal pain. COMPARISON STUDY: CT of the abdomen and pelvis November 07, 2015. TECHNIQUE: Axial images of the abdomen and pelvis were obtained without IV contrast. Images were reviewed in the axial, sagittal, and coronal planes. Automated exposure control was utilized for the study. A dose lowering technique was utilized adhering to the principles of ALARA. FINDINGS: Lung bases are unremarkable. No pneumatosis, free air or portal venous gas is present. Small bilateral renal calculi measure up to 5 mm. There are no ureteral calculi. There is no hydronephrosis or hydroureter. Water attenuation left renal lesion was shown to reflect a cyst on prior contrast enhanced CT. There is probable hepatic steatosis. No biliary ductal dilatation is identified status post cholecystectomy. A left adrenal nodule is unchanged. This is benign and favors an adenoma. Extensive sigmoid diverticulosis is noted without evidence for acute diverticulitis. The appendix is normal. Small fat-containing umbilical hernia is present. There is no evidence for a bowel obstruction. No acute fracture or suspicious lesion is identified within the visualized skeletal structures. IMPRESSION: 1. Bilateral nephrolithiasis. No ureteral calculi or hydronephrosis. 2. No acute process within the abdomen or pelvis on unenhanced examination. 3. Extensive sigmoid diverticulosis without evidence for acute diverticulitis. 4. No bowel obstruction. ACT 112: Negative or not required by law. Electronically signed by: Geovanny García M.D. 10/13/2020 7:23 AM Dictated: 10/13/20712Transcribed: 10/13/2013 XR chest 1V portable HISTORY: Atypical Chest Pain COMPARISON: Chest 08/29/2020. FINDINGS: No pneumothorax or no pleural effusions. The heart is normal in size. Calcified granuloma within the right upper lobe, unchanged. Mild interstitial thickening which is likely chronic. This is most pronounced at the lung bases. No new focal lung consolidations to suggest pneumonia. No evidence for pulmonary edema. IMPRESSION: Chronic changes as described above. No acute process within the chest. ACT 112: Negative or not required by law. Electronically signed by: Jose Francisco Fitch M.D. 10/12/2020 6:14 PM Dictated: 10/12/201811Transcribed: 10/12/201811 Hospital Course (1) Chest pain: Pt said that chest discomfort occurred after taking her 2nd dose of COVID 19 Vaccine Troponin x3 negative EKG showed no acute ischemic finding CXR showed no acute finding Dobutamine stress echo showed no ischemia , stress induce wall abnormality clinically stable (2) COPD (chronic obstructive pulmonary disease): Continue oxygen supplement Stable (3) Hypertension: Continue amlodipine Continue monitor BP (4) Diabetes mellitus, type II: Most recent Hba1c 9.1 (08/21) On Toujeo HS Continue monitor BS (5) History of DVT (deep vein thrombosis): On Rivaroxaban CODE STATUS DNR Total Time Total Time Spent Total Time Spent (In Minutes): 35 minutes Total Time Includes: Examination of the Patient, Discharge Planning, Medication Reconciliation, Communication With Other Providers and Other Discharge Plan Discharge Items Patient Disposition: Personal Senior Care Reason For Visit: CHEST PAIN Discharge Diagnosis: Chest pain Activity: Resume your previous activity Non-emergency contact: Primary Care Provider Call non-emergency contact if: you have any medication questions and your temperature is above 101 Follow-up/Referrals: Kelli Monte [Primary Care Provider] - Diet: Heart Healthy Addtl Attending Provider Instructions: Follow up with your primary care provider within 1 week fall precaution continue monitor your blood sugar and bring your blood sugar log at your next appointment with your provider Continue oxygen supplement Pending Studies at Discharge: No Stand-Alone Forms: [employer], Smoking Cessation Skilled Items Patient informed of condition?: Yes DNR: Yes Discharge Level of Care: Other Communicable Disease: No Discharge Prognosis: Stable Lines: None Urinary Catheter: No Medications and DC Order Prescriptions: Continued acetaminophen 325 mg Tablet 650 mg PO Q4H MDD 3 GMS APAP/24 HOURS PRN (Reason: Pain) RF: 0 citalopram 20 mg Tablet 20 mg PO QAM RF: 0 ferrous sulfate 325 mg (65 mg iron) Tablet 325 mg PO TID RF: 0 nitrofurantoin macrocrystal 50 mg capsule 50 mg PO QAM RF: 0 diphenhydramine-acetaminophen [Tylenol PM Extra Strength] 25-500 mg Tablet 2 tab PO HS MDD 3 GMS APAP/24 HOURS RF: 0 psyllium husk [Metamucil] 0.52 gram Capsule 0.52 g PO DAILY RF: 0 amlodipine 10 mg tablet 10 mg PO DAILY Qty: 30 RF: 0 cetirizine 10 mg Tablet 10 mg PO QAM RF: 0 lisinopril 20 mg Tablet 20 mg PO HS RF: 0 prednisone 5 mg Tablet 5 mg PO QAM RF: 0 levothyroxine 25 mcg Tablet 25 mcg PO QAM RF: 0 colesevelam [WelChol] 625 mg Tablet 625 mg PO DAILY@1200 RF: 0 metformin 1,000 mg Tablet 500 mg PO Q12H RF: 0 omeprazole 20 mg Capsule,Delayed Release(Dr/Ec) 20 mg PO QAM RF: 0 ergocalciferol (vitamin D2) [Vitamin D2] 50,000 unit Capsule 50,000 unit PO 2XWK RF: 0 insulin aspart U-100 [Novolog Flexpen U-100 Insulin] 100 unit/mL (3 mL) Insulin Pen 14 unit SUBCUT TIDM RF: 0 Pulmicort Flexhaler 90 mcg/actuation Aerosol Powdr Breath Activated 1 inh INHALATION BID RF: 0 epinephrine 0.3 mg/0.3 mL Syringe 0.3 mg IM DIRECTED PRN (Reason: Anaphylaxis) RF: 0 cyanocobalamin (vitamin B-12) 1,000 mcg/mL Kit 1,000 mcg IM MONTHLY RF: 0 Toujeo SoloStar U-300 Insulin 300 unit/mL (1.5 mL) Insulin Pen 40 unit SUBCUT HS RF: 0 magnesium oxide 400 mg magnesium Tablet 400 mg PO QAM RF: 0 acetaminophen 325 mg Tablet 650 mg PO DAILY MDD 3 GMS APAP/24 HOURS RF: 0 Xarelto 20 mg tablet 20 mg PO DAILY RF: 0 albuterol sulfate 2.5 mg /3 mL (0.083 %) Solution For Nebulization 2.5 mg INHALATION .Q4-6HRS PRN (Reason: Shortness Of Breath) RF: 0 loperamide [Anti-Diarrheal (loperamide)] 2 mg Capsule 2 mg PO Q4H PRN (Reason: Diarrhea) RF: 0 Mucinex DM 30-600 mg Tablet Extended Release 12 Hr 1 tab PO Q12H PRN (Reason: Cough/Congestion) RF: 0 albuterol sulfate [Ventolin HFA] 90 mcg/actuation Hfa Aerosol Inhaler 2 puff INHALATION .Q4-6HRS PRN (Reason: Shortness Of Breath) RF: 0 nystatin 100,000 unit/gram cream 1 applic TOPICAL BID PRN (Reason: Rash/Irritation) RF: 0 Discharge Orders: Discharge Order (Routine); Ordered 10/13/20 Ordered By: Veronica Stafford Admission Data Admit Date/Time: 10/12/20 20:55 Attending Provider: Veronica Stafford Admit Provider: Rupert Castillo Primary Care Provider: Kelli Monte Other Providers: Rupert Castillo Other Interventions: Discharge Summary Assessment (RN) Last Done: 10/13/20 15:33
== END 2020-10-13 16:05 | disposition home or self-care (01) ==
LOC: 2S 17:45 → ED 17:45 → 2S 22:03

== ENCOUNTER 2022-04-11 22:03 | Inpatient (IN) ==
[2022-04-11] MEDS ORDERED: dexAMETHasone**PF** 10 MG/ML VIAL IV ONE (22:14)
--- NOTE | 2022-04-11 22:25 | Emergency Department Note ---
Impression & Plan Pneumonia, Hypoxia, Acute respiratory acidosis, Hypomagnesemia ED Provider Note NAME: AUDI JORDAN AGE: 81 SEX: F : 1940 ARRIVES VIA: Ambulance INFORMANT: Patient, EMS ED PROVIDER(S): Jose Lemons DO CHIEF COMPLAINT: Shortness of breath HPI: The patient is an 81-year-old female who presented to the emergency [facility] by ambulance for an evaluation of difficulty breathing. The patient has a history of reflux as well as DVT. She is had a pulmonary embolism in the past. She does take blood thinners. Apparently the patient also has a history of COPD. On route the patient was found to have very severe shortness of breath. She was treated with 2 DuoNeb treatments prior to arrival. She has had a fever and difficulty breathing throughout the last few days. This became significantly worsened over the course the last 24 hours. The patient has had no falls. She has been taking her medications as previously. There is been no reported hemoptysis. There is been no reported lower extremity swelling worsened than baseline. The patient was noted to have severe shortness of breath prior to arrival and was placed on increasing amounts of oxygen. ROS: See above HPI for pertinent positives & negatives. A total of 10 systems reviewed and were otherwise negative. PAST MEDICAL HISTORY: See Below PAST SURGICAL HISTORY: See Below FAMILY HISTORY: See Below SOCIAL HISTORY: See Below HOME MEDICATIONS: See Below ALLERGIES: See Below VITALS: See Below PHYSICAL EXAMINATION: GENERAL: The patient is awake and alert. She is very anxious appearing. She appears to be having significant difficulty breathing. EYES: The conjunctivae are clear. The pupils are round and reactive. EARS, NOSE, MOUTH AND THROAT: The nose is without any evidence of any deformity. NECK: The neck is nontender and supple. RESPIRATORY: Diminished breath sounds are noted throughout. There were rales at both bases. Significant tachypnea and conversational dyspnea was appreciated. CARDIOVASCULAR: Tachycardic but regular heart sounds were noted auscultation. There is no definite murmur. GASTROINTESTINAL: The abdomen is soft. Abdomen is nontender. MUSCULOSKELETAL/EXTREMITIES: There is no evidence of gross deformity full range of motion is noted in the hips and shoulders. SKIN: Skin is warm and dry. Pedal edema was noted bilaterally. NEUROLOGIC: Patient is awake alert and oriented to person place and situation. MEDICAL DECISION MAKING: The patient is an 81-year-old female who presented to the emergency department by ambulance for an evaluation of shortness of breath. The patient was having very severe shortness of breath upon arrival. She was very tachypneic. She was treated with IV steroids. She was also treated with bronchodilator therapy prior to arrival and in the emergency department. She was also placed on BiPAP. I discussed the patient's laboratory and radiographic studies with her. Nursing discussed the patient's condition with her daughter. At this time the family is comfortable with BiPAP however they do not want any further advanced airway at this time. The patient was treated with IV antibiotics. At this time I feel the patient's presentation is likely consistent with pneumonia she had a fever and she was tachycardic. This was discussed with the on-call [facility] hospitalist. Triage Nursing notes reviewed. Prior medical records reviewed Vital Signs: reviewed and remarkable for tachycardia tachypnea and fever. Differential diagnosis: Reactive airway disease, pneumonia, pneumothorax, COPD, CHF, infections, cardiac ischemia, pulmonary embolism, musculoskeletal, gastrointestinal, as well as other pathologies. ER treatment provided: See below Diagnostics interpreted by me: ECG: EKG was obtained in the emergency department. My interpretation is sinus tachycardia at [address] segment depressions were noted. Patient was noted. This was compared to a tracing from September 22, 2021. There is an increase in the rate otherwise no significant changes were appreciated. Cardiac Monitoring: An order was placed for continuous cardiac monitoring. The monitor shows a rate of 119 bpm with sinus tachycardia. Laboratory studies: As stated above and show below. Imaging studies: See below Consultation(s): Dr. Painter was notified about the patient. He will evaluate the patient in the emergency department. ED COURSE: Procedures: none Critical Care: I have personally spent greater than 45 minutes of critical care time in the direct management of this patient. This includes bedside care, interpretation of diagnostic studies, and testing, discussion with consultants, patient, and family members, and other required patient management activities. This 45 minutes is in excess of all separately billable procedures. 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 Operator Required: No Beliefs That Will Affect Care: None marital status: / Current Living Situation: Personal Care Facility Current Living Situation Comment: [facility] Feels Safe at Home: Yes Assistive Devices: Glasses, Oxygen - Continuous and Walker Allergies Allergies Allergy/AdvReac Type Severity Reaction Status Date / Time atorvastatin Allergy Unknown UNKN Verified 04/11/22 23:00 bee venom protein (honey bee) Allergy Unknown Unknown Verified 04/11/22 23:00 formaldehyde Allergy Unknown HYPERSENSIT Verified 04/11/22 23:00 IVITY oxycodone Allergy Unknown UNKN Verified 04/11/22 23:00 peanut Allergy Unknown Unknown Verified 04/11/22 23:00 Sulfa (Sulfonamide Allergy Unknown Unknown Verified 04/11/22 23:00 Antibiotics) Home Meds Home Medications Medication Instructions Recorded Confirmed acetaminophen 325 mg tablet 650 mg PO QAM 10/06/21 04/11/22 (Tylenol) budesonide 90 mcg/actuation breath 1 inh inhalation BID 10/06/21 04/11/22 activated powder inhaler (Pulmicort Flexhaler) cetirizine 10 mg tablet (Zyrtec) 10 mg PO QAM 10/06/21 04/11/22 citalopram 40 mg tablet 40 mg PO QAM 10/06/21 04/11/22 colesevelam 625 mg tablet (WelChol) 625 mg PO QDL 10/06/21 04/11/22 diphenhydramine 25 2 tab PO HS 10/06/21 04/11/22 mg-acetaminophen 500 mg tablet ferrous sulfate 325 mg (65 mg 325 mg PO QAM 10/06/21 04/11/22 iron) tablet insulin aspart U-100 100 unit/mL 14 unit subcut TIDM 10/06/21 04/11/22 (3 mL) subcutaneous pen (Novolog Flexpen U-100 Insulin aspart) insulin glargine U-300 conc 300 40 unit subcut HS 10/06/21 04/11/22 unit/mL (3 mL) subcutaneous pen (Toujeo Max U-300 SoloStar) levothyroxine 25 mcg tablet 25 mcg PO DAILYBB 10/06/21 04/11/22 lisinopril 20 mg tablet 20 mg PO HS 10/06/21 04/11/22 magnesium oxide 400 mg PO QAM 10/06/21 04/11/22 metformin 1,000 mg tablet 500 mg PO BID 10/06/21 04/11/22 omeprazole 20 mg capsule,delayed 20 mg PO QAM 10/06/21 04/11/22 release prednisone 5 mg tablet 5 mg PO QAM 10/06/21 04/11/22 psyllium husk 0.52 gram capsule 0.52 g PO QAM 10/06/21 04/11/22 (Fiber-Caps (psyllium husk)) rivaroxaban 20 mg tablet (Xarelto) 20 mg PO QAM 10/06/21 04/11/22 acetaminophen 325 mg tablet 650 mg PO Q4H PRN PAIN/FEVER 04/11/22 04/11/22 (Tylenol) albuterol sulfate 2.5 mg/3 mL 2.5 mg inhalation .Q4-6HR PRN 04/11/22 04/11/22 (0.083 %) solution for nebulization Shortness Of Breath albuterol sulfate 90 mcg/actuation 2 puff inhalation .Q4-6HRS PRN 04/11/22 04/11/22 aerosol inhaler Shortness Of Breath amlodipine 10 mg tablet 10 mg PO QAM 3 GRAMS/24 HOURS 04/11/22 04/11/22 cyanocobalamin (vitamin B-12) 1,000 mcg IM MONTHLY 04/11/22 04/11/22 1,000 mcg/mL injection solution dextromethorphan-guaifenesin 10 10 ml PO Q4H PRN Cough 04/11/22 04/11/22 mg-100 mg/5 mL oral syrup (Siltussin-DM) dextromethorphan-guaifenesin 30 1 tab PO Q12H PRN COUGH/CONGESTION 04/11/22 04/11/22 mg-600 mg tablet extended obscylf12 hr (Mucinex DM) epinephrine 0.3 mg/0.3 mL 0.3 mg IM DIRECTED PRN Allergic 04/11/22 04/11/22 injection, auto-injector (EpiPen) Reaction ergocalciferol (vitamin D2) 1,250 1,250 mcg PO 2XWK 04/11/22 04/11/22 mcg (50,000 unit) capsule (Vitamin D2) furosemide 20 mg tablet (Lasix) 20 mg PO 2XWK 04/11/22 04/11/22 loperamide 2 mg tablet 2 mg PO Q4H PRN Diarrhea 04/11/22 04/11/22 (Anti-Diarrheal (loperamide)) nitrofurantoin macrocrystal 50 mg 50 mg PO QAM 04/11/22 04/11/22 capsule Results & Data (ED) Vital Signs Vital Signs - 24 hr 04/11/22 22:17 04/11/22 22:38 04/11/22 22:38 Temperature 38.8 C H Temperature Source Oral Pulse Rate 123 H 125 H Pulse Rate [Finger] 126 H Pulse Rhythm Regular Regular Pulse Rhythm [Finger] Regular Pulse Strength Normal Pulse Strength [Finger] Normal Respiratory Rate 33 H 27 H 28 H Respiratory Effort / Characteristics Spontaneous Labored Non-Labored Spontaneous Respiratory Depth Deep Normal Respiratory Pattern Tachypnea Blood Pressure 200/128 H Blood Pressure [Right Arm] Blood Pressure Mean 152 Blood Pressure Mean [Right Arm] Blood Pressure Position [Right Arm] Sitting Pulse Oximetry 91 90 90 Oxygen Delivery Method Nasal Cannula Nasal Cannula Nasal Cannula Oxygen Flow Rate 3 4 4 Fraction of Inspired Oxygen Sepsis Recent Fever Within 48 Hours Yes Sepsis New/Unexplained Change in Mental Status No Sepsis Action Taken by Nursing Physician Notified 04/11/22 22:40 04/11/22 22:40 04/11/22 22:40 Temperature Temperature Source Pulse Rate Pulse Rate [Finger] Pulse Rhythm Pulse Rhythm [Finger] Pulse Strength Pulse Strength [Finger] Respiratory Rate 31 H Respiratory Effort / Characteristics Spontaneous Labored Short of Breath Respiratory Depth Respiratory Pattern Tachypnea Blood Pressure Blood Pressure [Right Arm] Blood Pressure Mean Blood Pressure Mean [Right Arm] Blood Pressure Position [Right Arm] Pulse Oximetry 94 Oxygen Delivery Method Nasal Cannula Nasal Cannula Nasal Cannula Oxygen Flow Rate 5 5 Fraction of Inspired Oxygen Sepsis Recent Fever Within 48 Hours Sepsis New/Unexplained Change in Mental Status Sepsis Action Taken by Nursing 04/11/22 22:48 04/11/22 23:56 04/12/22 00:00 Temperature 37.2 C Temperature Source Oral Pulse Rate Pulse Rate [Finger] 125 H 119 H Pulse Rhythm Pulse Rhythm [Finger] Regular Regular Pulse Strength Pulse Strength [Finger] Normal Respiratory Rate 34 H 26 H 30 H Respiratory Effort / Characteristics Spontaneous Respiratory Depth Respiratory Pattern Rapid/Shallow Blood Pressure Blood Pressure [Right Arm] 186/82 H 149/73 H Blood Pressure Mean Blood Pressure Mean [Right Arm] 116 98 Blood Pressure Position [Right Arm] Sitting Semi-fowlers Pulse Oximetry 94 94 95 Oxygen Delivery Method Nasal Cannula Nasal Cannula Nasal Cannula Oxygen Flow Rate 5 4 4 Fraction of Inspired Oxygen Sepsis Recent Fever Within 48 Hours Sepsis New/Unexplained Change in Mental Status Sepsis Action Taken by Nursing 04/12/22 00:16 Temperature Temperature Source Pulse Rate 117 H Pulse Rate [Finger] Pulse Rhythm Pulse Rhythm [Finger] Pulse Strength Pulse Strength [Finger] Respiratory Rate 26 H Respiratory Effort / Characteristics Spontaneous Respiratory Depth Respiratory Pattern Tachypnea Blood Pressure Blood Pressure [Right Arm] Blood Pressure Mean Blood Pressure Mean [Right Arm] Blood Pressure Position [Right Arm] Pulse Oximetry 95 Oxygen Delivery Method Oxygen Flow Rate Fraction of Inspired Oxygen 30 Sepsis Recent Fever Within 48 Hours Sepsis New/Unexplained Change in Mental Status Sepsis Action Taken by Alf Medications Current Medication List: was personally reviewed by me Laboratory Data Attestation: I reviewed the patient's lab results. Result diagrams: 04/11/22 22:30 04/11/22 22:30 Lab Results 04/11/22 04/11/22 04/11/22 Range/Units 22:26 22:30 22:30 WBC 13.80 H (4.8-10.8) K/ul RBC 4.18 (3.93-5.22) M/uL Hgb 12.4 (12.0-16.0) g/dl Hct 40.7 (34.1-44.9) % MCV 97.4 (80.0-100.0) fL MCH 29.7 (25.0-34.0) pg MCHC 30.5 L (32.0-36.0) g/dL RDW Std Deviation 48.5 H (36.4-46.3) fL RDW Coeff of Grey 13.5 (11.5-14.5) % Plt Count 203 (130-400) K/uL MPV 10.0 (9.4-12.3) fL Immature Gran % (Auto) 0.7 % Neut % (Auto) 74.4 % Lymph % (Auto) 14.9 % [place] % (Auto) 8.9 % Eos % (Auto) 0.8 % Baso % (Auto) 0.3 % Neut # (Auto) 10.27 H (1.4-6.5) K/uL Lymph # (Auto) 2.06 (1.2-3.4) K/uL [place] # (Auto) 1.23 H (0.24-0.82) K/uL Eos # (Auto) 0.11 (0-0.50) K/uL Baso # (Auto) 0.04 (0-0.2) K/uL Immature Gran # (Auto) 0.09 H (0.00-0.02) K/uL ESR 71 H (0-30) mm/hr PT (9.0-12.0) Seconds INR (0.9-1.1) APTT (21.0-31.0) Seconds PTT Ratio VBG pH (7.36-7.41) VBG pCO2 (38-50) mmHg VBG pO2 mmHg VBG HCO3 mmol/L VBG O2 Saturation % VBG Base Excess mEq/L Sodium (136-145) mmol/L Potassium (3.5-5.1) mmol/L Chloride (98-107) mmol/L Carbon Dioxide (21-32) mmol/L Anion Gap (3-11) BUN (6-23) mg/dl Creatinine (0.6-1.2) mg/dl Est Cr Clr Drug Dosing ml/min Est GFR ( Amer) ml/min Est GFR (Non-Af Amer) ml/min BUN/Creatinine Ratio (10-20) Glucose (70-99(Fasting)) mg/dl Lactate (0.4-2.0) mmol/L Calcium (8.5-10.1) mg/dl Magnesium (1.7-2.4) mg/dl Total Bilirubin (0.2-1.0) mg/dl AST (13-39) U/L ALT (7-52) U/L Alkaline Phosphatase (34-104) U/L Troponin I High Sens (0-14) pg/ml C-Reactive Protein (0-0.5) mg/dl B-Natriuretic Peptide (0-100) pg/ml Total Protein (6.0-8.3) gm/dl Albumin (3.4-5.0) gm/dl Globulin (2.5-4.0) gm/dl Albumin/Globulin Ratio (0.9-2) Procalcitonin (0-0.5) ng/ml SARS-CoV-2 (PCR) NEGATIVE (Negative) Influenza Type A (PCR) Negative (Neg) Influenza Type B (PCR) Negative (Neg) RSV (RT-PCR) Negative (Neg) 04/11/22 04/11/22 04/11/22 Range/Units 22:30 22:30 22:30 WBC (4.8-10.8) K/ul RBC (3.93-5.22) M/uL Hgb (12.0-16.0) g/dl Hct (34.1-44.9) % MCV (80.0-100.0) fL MCH (25.0-34.0) pg MCHC (32.0-36.0) g/dL RDW Std Deviation (36.4-46.3) fL RDW Coeff of Grey (11.5-14.5) % Plt Count (130-400) K/uL MPV (9.4-12.3) fL Immature Gran % (Auto) % Neut % (Auto) % Lymph % (Auto) % [place] % (Auto) % Eos % (Auto) % Baso % (Auto) % Neut # (Auto) (1.4-6.5) K/uL Lymph # (Auto) (1.2-3.4) K/uL [place] # (Auto) (0.24-0.82) K/uL Eos # (Auto) (0-0.50) K/uL Baso # (Auto) (0-0.2) K/uL Immature Gran # (Auto) (0.00-0.02) K/uL ESR (0-30) mm/hr PT 11.2 (9.0-12.0) Seconds INR 1.1 (0.9-1.1) APTT 28.8 (21.0-31.0) Seconds PTT Ratio 1.0 VBG pH (7.36-7.41) VBG pCO2 (38-50) mmHg VBG pO2 mmHg VBG HCO3 mmol/L VBG O2 Saturation % VBG Base Excess mEq/L Sodium 137 (136-145) mmol/L Potassium 4.2 (3.5-5.1) mmol/L Chloride 101 (98-107) mmol/L Carbon Dioxide 29 (21-32) mmol/L Anion Gap 7 (3-11) BUN 36 H (6-23) mg/dl Creatinine 1.60 H (0.6-1.2) mg/dl Est Cr Clr Drug Dosing 33.5 ml/min Est GFR ( Amer) 34.7 ml/min Est GFR (Non-Af Amer) 29.9 ml/min BUN/Creatinine Ratio 22.5 H (10-20) Glucose 204 H (70-99(Fasting)) mg/dl Lactate 2.0 (0.4-2.0) mmol/L Calcium 10.4 H (8.5-10.1) mg/dl Magnesium 1.1 L (1.7-2.4) mg/dl Total Bilirubin 0.4 (0.2-1.0) mg/dl AST 11 L (13-39) U/L ALT 10 (7-52) U/L Alkaline Phosphatase 58 (34-104) U/L Troponin I High Sens 30.3 H (0-14) pg/ml C-Reactive Protein 4.14 H (0-0.5) mg/dl B-Natriuretic Peptide (0-100) pg/ml Total Protein 7.1 (6.0-8.3) gm/dl Albumin 3.9 (3.4-5.0) gm/dl Globulin 3.2 (2.5-4.0) gm/dl Albumin/Globulin Ratio 1.2 (0.9-2) Procalcitonin (0-0.5) ng/ml SARS-CoV-2 (PCR) (Negative) Influenza Type A (PCR) (Neg) Influenza Type B (PCR) (Neg) RSV (RT-PCR) (Neg) 04/11/22 04/11/22 04/11/22 Range/Units 22:30 22:30 22:30 WBC (4.8-10.8) K/ul RBC (3.93-5.22) M/uL Hgb (12.0-16.0) g/dl Hct (34.1-44.9) % MCV (80.0-100.0) fL MCH (25.0-34.0) pg MCHC (32.0-36.0) g/dL RDW Std Deviation (36.4-46.3) fL RDW Coeff of Grey (11.5-14.5) % Plt Count (130-400) K/uL MPV (9.4-12.3) fL Immature Gran % (Auto) % Neut % (Auto) % Lymph % (Auto) % [place] % (Auto) % Eos % (Auto) % Baso % (Auto) % Neut # (Auto) (1.4-6.5) K/uL Lymph # (Auto) (1.2-3.4) K/uL [place] # (Auto) (0.24-0.82) K/uL Eos # (Auto) (0-0.50) K/uL Baso # (Auto) (0-0.2) K/uL Immature Gran # (Auto) (0.00-0.02) K/uL ESR (0-30) mm/hr PT (9.0-12.0) Seconds INR (0.9-1.1) APTT (21.0-31.0) Seconds PTT Ratio VBG pH 7.27 L (7.36-7.41) VBG pCO2 65 H (38-50) mmHg VBG pO2 28 mmHg VBG HCO3 30 mmol/L VBG O2 Saturation < 60.0 % VBG Base Excess 1.2 mEq/L Sodium (136-145) mmol/L Potassium (3.5-5.1) mmol/L Chloride (98-107) mmol/L Carbon Dioxide (21-32) mmol/L Anion Gap (3-11) BUN (6-23) mg/dl Creatinine (0.6-1.2) mg/dl Est Cr Clr Drug Dosing ml/min Est GFR ( Amer) ml/min Est GFR (Non-Af Amer) ml/min BUN/Creatinine Ratio (10-20) Glucose (70-99(Fasting)) mg/dl Lactate (0.4-2.0) mmol/L Calcium (8.5-10.1) mg/dl Magnesium (1.7-2.4) mg/dl Total Bilirubin (0.2-1.0) mg/dl AST (13-39) U/L ALT (7-52) U/L Alkaline Phosphatase (34-104) U/L Troponin I High Sens (0-14) pg/ml C-Reactive Protein (0-0.5) mg/dl B-Natriuretic Peptide 140 H (0-100) pg/ml Total Protein (6.0-8.3) gm/dl Albumin (3.4-5.0) gm/dl Globulin (2.5-4.0) gm/dl Albumin/Globulin Ratio (0.9-2) Procalcitonin 0.31 (0-0.5) ng/ml SARS-CoV-2 (PCR) (Negative) Influenza Type A (PCR) (Neg) Influenza Type B (PCR) (Neg) RSV (RT-PCR) (Neg) Administered Medications Magnesium Sulfate/Dextrose (Magnesium Sulfate / D5w) 1 gm in 100 mls @ 100 mls/hr IV Q1H CARLOS EDUARDO Stop: 04/12/22 01:46 Last Admin: 04/12/22 00:01 Dose: 100 mls/hr Documented By: EUN Discontinued Medications Acetaminophen (Acetaminophen 1000 Mg/100 Ml Iv) 1,000 mg IV ONE ONE Stop: 04/11/22 22:30 Last Admin: 04/11/22 22:44 Dose: 1,000 mg Documented By: EUN Dexamethasone Sodium Phosphate (DexamethasonePf 10 Mg/Ml Vial) 10 mg IV NOW ONE Stop: 04/11/22 22:15 Last Admin: 04/11/22 22:27 Dose: 10 mg Documented By: EUN Piperacillin Sod/Tazobactam Sod (Zosyn) 4.5 gm in 120 mls @ 240 mls/hr IV NOW ONE Stop: 04/11/22 23:37 Last Admin: 04/11/22 23:19 Dose: 240 mls/hr Documented By: EUN Imaging Data Attestation: I personally reviewed and interpreted this imaging study as follows: My Impression: 1 view chest x-ray was obtained in the emergency department. My interpretation is suspicion for infiltrate at the left base. There is no free air. Nodular density in the right upper lobe. This was compared to a chest x-ray from November 01, 2021. The infiltrate at the left base was not present previously. Discharge Plan Visit Data Chief Complaint: Shortness of Breath/Dyspnea ED Provider: Jose Lemons Discharge Problem: Pneumonia, Hypoxia, Acute respiratory acidosis, Hypomagnesemia Patient Disposition: Being Evaluated by Hospitalist Forms Stand Alone Forms: [facility] Prescriptions Prescriptions: No Action acetaminophen [Tylenol] 325 mg Tablet 650 mg PO Q4H MDD 3 GRAMS/24 HOURS PRN (Reason: PAIN/FEVER) nitrofurantoin macrocrystal 50 mg capsule 50 mg PO QAM albuterol sulfate 2.5 mg /3 mL (0.083 %) Solution For Nebulization 2.5 mg INHALATION .Q4-6HR PRN (Reason: Shortness Of Breath) loperamide [Anti-Diarrheal (loperamide)] 2 mg Tablet 2 mg PO Q4H PRN (Reason: Diarrhea) dextromethorphan-guaifenesin [Siltussin-DM] 10-100 mg/5 mL Syrup 10 ml PO Q4H PRN (Reason: Cough) cyanocobalamin (vitamin B-12) [Vitamin B-12] 1,000 mcg/mL Solution 1,000 mcg IM MONTHLY furosemide [Lasix] 20 mg Tablet 20 mg PO 2XWK Rx Instructions: TAKES ON MONDAYS & FRIDAYS ergocalciferol (vitamin D2) [Vitamin D2] 1,250 mcg (50,000 unit) Capsule 1,250 mcg PO 2XWK Rx Instructions: TAKES ON MONDAYS & THURSDAYS epinephrine [EpiPen] 0.3 mg/0.3 mL Auto-Injector 0.3 mg IM DIRECTED PRN (Reason: Allergic Reaction) Mucinex DM 30-600 mg Tablet Extended Release 12 Hr 1 tab PO Q12H PRN (Reason: COUGH/CONGESTION) albuterol sulfate 90 mcg/actuation Hfa Aerosol Inhaler 2 puff INHALATION .Q4-6HRS PRN (Reason: Shortness Of Breath) amlodipine 10 mg tablet 10 mg PO QAM acetaminophen [Tylenol] 325 mg Tablet 650 mg PO QAM citalopram 40 mg Tablet 40 mg PO QAM cetirizine [Zyrtec] 10 mg Tablet 10 mg PO QAM lisinopril 20 mg Tablet 20 mg PO HS prednisone 5 mg Tablet 5 mg PO QAM levothyroxine 25 mcg Tablet 25 mcg PO DAILYBB colesevelam [WelChol] 625 mg Tablet 625 mg PO QDL ferrous sulfate 325 mg (65 mg iron) Tablet 325 mg PO QAM metformin 1,000 mg Tablet 500 mg PO BID omeprazole 20 mg Capsule,Delayed Release(Dr/Ec) 20 mg PO QAM diphenhydramine-acetaminophen 25-500 mg Tablet 2 tab PO HS MDD 3 GRAMS/24 HOURS insulin aspart U-100 [Novolog Flexpen U-100 Insulin] 100 unit/mL (3 mL) Insulin Pen 14 unit SUBCUT TIDM psyllium husk [Fiber-Caps (psyllium husk)] 0.52 gram Capsule 0.52 g PO QAM Pulmicort Flexhaler 90 mcg/actuation Aerosol Powdr Breath Activated 1 inh INHALATION BID Xarelto 20 mg Tablet 20 mg PO QAM Toujeo Max U-300 SoloStar 300 unit/mL (3 mL) Insulin Pen 40 unit SUBCUT HS magnesium oxide 400 mg magnesium Tablet 400 mg PO QAM Referrals Referrals: Kelli Monte [Primary Care Provider] -
[2022-04-11] MEDS ORDERED: ACETAMINOPHEN 1000 MG/100 ML IV IV ONE (22:29)
[2022-04-11 22:48] LABS: Base Excess VBG 1.2 mEq/L; HCO3 VBG 30 mmol/L; Oxygen Saturation VBG < 60.0 %; PCO2 VBG 65 mmHg (38-50); PO2 VBG 28 mmHg; pH VBG 7.27 (7.36-7.41)
[2022-04-11 22:49] LABS: Basophils # (auto) 0.04 K/uL (0-0.2); Basophils % (auto) 0.3 %; Eosinophils # (auto) 0.11 K/uL (0-0.50); Eosinophils % (auto) 0.8 %; Hematocrit (blood only) 40.7 % (34.1-44.9); Hemoglobin 12.4 g/dl (12.0-16.0); Immature Granulocytes # (auto) 0.09 K/uL (0.00-0.02); Immature Granulocytes % (auto) 0.7 %; Lymphocytes # (auto) 2.06 K/uL (1.2-3.4); Lymphocytes % (auto) 14.9 %; Mean Corpuscular Hemoglobin 29.7 pg (25.0-34.0); Mean Corpuscular Hgb Conc 30.5 g/dL (32.0-36.0); Mean Corpuscular Volume 97.4 fL (80.0-100.0); Monocytes # (auto) 1.23 K/uL (0.24-0.82); Monocytes % (auto) 8.9 %; Neutrophils # (auto) 10.27 K/uL (1.4-6.5); Neutrophils % (auto) 74.4 %; Platelet Count 203 K/uL (130-400); RDW Coefficient of Variation 13.5 % (11.5-14.5); RDW Standard Deviation 48.5 fL (36.4-46.3); Red Blood Count 4.18 M/uL (3.93-5.22)
[2022-04-11 23:03] LABS: INR 1.1 (0.9-1.1); Partial Thromboplastin Time 28.8 Seconds (21.0-31.0); Prothrombin Time 11.2 Seconds (9.0-12.0)
[2022-04-11] MEDS ORDERED: PIPERACILLIN/TAZOBACTAM 4.5 GM/120 ML BAG IV ONE (23:08)
[2022-04-11 23:26] LABS: Albumin Globulin Ratio 1.2 (0.9-2); Albumin Level 3.9 gm/dl (3.4-5.0); BUN Creatinine Ratio 22.5 (10-20); Bilirubin,Total 0.4 mg/dl (0.2-1.0); C Reactive Protein 4.14 mg/dl (0-0.5); Calcium 10.4 mg/dl (8.5-10.1); Creatinine Clr Calc Pharmacy 33.5 ml/min; Est GFR (African American) 34.7 ml/min; Est GFR (Non-African American) 29.9 ml/min; Globulin 3.2 gm/dl (2.5-4.0); Magnesium 1.1 mg/dl (1.7-2.4); Potassium 4.2 mmol/L (3.5-5.1); Total Protein 7.1 gm/dl (6.0-8.3)
[2022-04-11 23:27] LABS: Influenza A virus by PCR Negative (Neg); Influenza B virus by PCR Negative (Neg); RSV by PCR Negative (Neg); SARS CoV2 RNA(COVID-19) InHosp NEGATIVE (Negative)
[2022-04-11 23:32] LABS: Troponin I High Sensitivity 30.3 pg/ml (0-14)
[2022-04-12] MEDS: MAGNESIUM SULFATE / D5W 1 GM/100 ML BAG IV SCH ×2 (00:01→00:53)
[2022-04-12] MEDS ORDERED: SODIUM CHLORIDE 0.9% 1000ML 500 ML IV ONE (00:29)
[2022-04-12] MEDS ORDERED: DOXYCYCLINE HYCLATE 100 MG in DEXTROSE 5% 100 ML IV STA (00:46)
[2022-04-12] MEDS ORDERED: SODIUM CHLORIDE 0.9% 1000ML 1,000 ML IV ONE (00:46)
[2022-04-12] MEDS ORDERED: GLUCAGON FOR INJ 1 MG VIAL SQ PRN (01:41)
[2022-04-12] MEDS ORDERED: LANTUS PER UNIT CHARGE SQ STA (01:41)
[2022-04-12] MEDS ORDERED: GLUCOSE 40% GEL 15 GM TUBE PO PRN (01:41)
[2022-04-12] MEDS ORDERED: CARBOHYDRATES FOR HYPOGLYCEMIA PO PRN (01:41)
[2022-04-12] MEDS ORDERED: GLUCOSE 10 TAB/TUBE PO PRN (01:41)
[2022-04-12] MEDS ORDERED: DEXTROSE 50% 50 ML SYRINGE IV PRN (01:41)
[2022-04-12 01:55] LABS: HCO3 ABG 27 mmol/L (19-24); Oxygen Saturation ABG 98.7 % (90-95); PCO2 ABG 54 mmHg (35-46); PO2 ABG 77 mmHg (80-95); pH ABG 7.31 (7.35-7.45)
[2022-04-12 01:58] LABS: Allen Test Pos (Pos)
--- NOTE | 2022-04-12 02:03 | History & Physical Report ---
Date of Service April 12, 2022 Assessment & Plan (1) Encephalopathy: Plan: History cognitive dysfunction as per records Secondary to severe sepsis SIRS plus ARF plus encephalopathy Immunocompromised patient, history RA/CPPD arthritis on chronic prednisone Rx Possible sources : Acute hypoxemic, hypercapnic respiratory failure secondary to COPD exacerbation Complicated UTI secondary to obstructive uropathy, history recurrent UTI on chronic Macrodantin suppression Rx, hx overactive bladder status post InterStim placement Troponin elevation secondary to illness Hypercoagulable state as per records (history of PE/DVT on Xarelto) History of pulmonary tuberculosis as per records History Fanconi syndrome as per records DM2 insulin requiring, suboptimal control as of recent hemoglobin A1c of 9.02 August 2020 Hypothyroidism, euthyroid as of today's TSH Past tobacco abuse Medical telemetry Continue BiPAP Recheck ABG Doxycycline, Solu-Medrol, nebs RTC Pulmonary consult if without improvement CS, Zosyn for complicated UTI Strain urine Urology consult RE obstructive uropathy N.p.o. until patient seen by urology in anticipation of procedural intervention Follow troponin TTE if with progression monitor creatinine response to IVF, hold lisinopril until creatinine back to baseline Basal insulin adjusted for n.p.o. status, ISS BG goal [id number], update hemoglobin A1c DVT prophylaxis. Xarelto DNR as per patient daughter/POA, Ms. Devika Downs. She requests updates from providers through [phone]. Text document was generated using Junar voice recognition software. It may contain grammatical or spelling errors. Kindly contact undersigned for clarification of any documentation item in question. History of Present Illness Chief Complaint: I do not know as per patient Shortness of breath, fever as per records Primary Care Provider: Leny Pereira History obtained from patient, family, and records. Limited history from patient secondary to disoriented state. Medical history significant for COPD, hypercoagulable state as per records (history of PE/DVT on Xarelto), HTN, hx RA/CPPD arthritis on chronic prednisone Rx, DM2 insulin requiring, hx Fanconi syndrome as per records, cognitive dysfunction as per records, recurrent UTIs on chronic Macrodantin Rx, overactive bladder status post InterStim placement, history pulmonary tuberculosis as per records, hypothyroidism, past tobacco abuse Last confinement October 2020 for chest pain. During stress echo negative for ischemia. Patient noted to be short of breath the last 2 days. Unable to obtain history regarding cough, chest pain. Patient more confused than usual as per daughter. Patient without abdominal pain/back pain complaints. Patient received Decadron, Zosyn, neb treatment at the ER for COPD exacerbation. BiPAP initiated at the ER. Medical History as above Surgical History : Carpal tunnel surgery, sacral nerve neurostimulator, lacrimal duct surgery, bunionectomy, partial hysterectomy, oophorectomy, tonsillectomy, cholecystectomy Family History : DM, heart rate, schizophrenia, hypertension Personal/Social history : Past tobacco abuse, occasional EtOH intake, retired [employer] employee, senior care resident Allergies Allergy/AdvReac Type Severity Reaction Status Date / Time atorvastatin Allergy Unknown UNKN Verified 04/11/22 23:00 bee venom protein (honey bee) Allergy Unknown Unknown Verified 04/11/22 23:00 formaldehyde Allergy Unknown HYPERSENSIT Verified 04/11/22 23:00 IVITY oxycodone Allergy Unknown UNKN Verified 04/11/22 23:00 peanut Allergy Unknown Unknown Verified 04/11/22 23:00 Sulfa (Sulfonamide Allergy Unknown Unknown Verified 04/11/22 23:00 Antibiotics) Home Medications Medication Instructions Recorded Confirmed Type acetaminophen 325 mg tablet 650 mg PO QAM 10/06/21 04/11/22 History (Tylenol) budesonide 90 mcg/actuation breath 1 inh inhalation BID 10/06/21 04/11/22 History activated powder inhaler (Pulmicort Flexhaler) cetirizine 10 mg tablet (Zyrtec) 10 mg PO QAM 10/06/21 04/11/22 History citalopram 40 mg tablet 40 mg PO QAM 10/06/21 04/11/22 History colesevelam 625 mg tablet (WelChol) 625 mg PO QDL 10/06/21 04/11/22 History diphenhydramine 25 2 tab PO HS 10/06/21 04/11/22 History mg-acetaminophen 500 mg tablet ferrous sulfate 325 mg (65 mg 325 mg PO QAM 10/06/21 04/11/22 History iron) tablet insulin aspart U-100 100 unit/mL 14 unit subcut TIDM 10/06/21 04/11/22 History (3 mL) subcutaneous pen (Novolog Flexpen U-100 Insulin aspart) insulin glargine U-300 conc 300 40 unit subcut HS 10/06/21 04/11/22 History unit/mL (3 mL) subcutaneous pen (Toujeo Max U-300 SoloStar) levothyroxine 25 mcg tablet 25 mcg PO DAILYBB 10/06/21 04/11/22 History lisinopril 20 mg tablet 20 mg PO HS 10/06/21 04/11/22 History magnesium oxide 400 mg PO QAM 10/06/21 04/11/22 History metformin 1,000 mg tablet 500 mg PO BID 10/06/21 04/11/22 History omeprazole 20 mg capsule,delayed 20 mg PO QAM 10/06/21 04/11/22 History release prednisone 5 mg tablet 5 mg PO QAM 10/06/21 04/11/22 History psyllium husk 0.52 gram capsule 0.52 g PO QAM 10/06/21 04/11/22 History (Fiber-Caps (psyllium husk)) rivaroxaban 20 mg tablet (Xarelto) 20 mg PO QAM 10/06/21 04/11/22 History acetaminophen 325 mg tablet 650 mg PO Q4H PRN PAIN/FEVER 04/11/22 04/11/22 History (Tylenol) albuterol sulfate 2.5 mg/3 mL 2.5 mg inhalation .Q4-6HR PRN 04/11/22 04/11/22 History (0.083 %) solution for nebulization Shortness Of Breath albuterol sulfate 90 mcg/actuation 2 puff inhalation .Q4-6HRS PRN 04/11/22 04/11/22 History aerosol inhaler Shortness Of Breath amlodipine 10 mg tablet 10 mg PO QAM 3 GRAMS/24 HOURS 04/11/22 04/11/22 History cyanocobalamin (vitamin B-12) 1,000 mcg IM MONTHLY 04/11/22 04/11/22 History 1,000 mcg/mL injection solution dextromethorphan-guaifenesin 10 10 ml PO Q4H PRN Cough 04/11/22 04/11/22 History mg-100 mg/5 mL oral syrup (Siltussin-DM) dextromethorphan-guaifenesin 30 1 tab PO Q12H PRN COUGH/CONGESTION 04/11/22 04/11/22 History mg-600 mg tablet extended hr (Mucinex DM) epinephrine 0.3 mg/0.3 mL 0.3 mg IM DIRECTED PRN Allergic 04/11/22 04/11/22 History injection, auto-injector (EpiPen) Reaction ergocalciferol (vitamin D2) 1,250 1,250 mcg PO 2XWK 04/11/22 04/11/22 History mcg (50,000 unit) capsule (Vitamin D2) furosemide 20 mg tablet (Lasix) 20 mg PO 2XWK 04/11/22 04/11/22 History loperamide 2 mg tablet 2 mg PO Q4H PRN Diarrhea 04/11/22 04/11/22 History (Anti-Diarrheal (loperamide)) nitrofurantoin macrocrystal 50 mg 50 mg PO QAM 04/11/22 04/11/22 History capsule Past Med/Surg History Medical History A-fib Asthma Depression Diabetes mellitus, type II GERD (gastroesophageal reflux disease) High cholesterol History of DVT (deep vein thrombosis) Hypertension Hypothyroid On home oxygen therapy Surgical History History of cataract surgery (10/18/21) left History of cholecystectomy History of hysterectomy Hx of tonsillectomy Family History Other Diabetes Hypertension Stroke Social History Smoking Status: Unknown if ever smoked Second Hand Exposure: No; Hx Alcohol Use: Yes Hx Substance Use: No Preferred Language: Mozambican Communication Ability: Effective Solaris Administrator Required: No Beliefs That Will Affect Care: None marital status: / Current Living Situation: Personal Care Facility Current Living Situation Comment: [facility] Feels Safe at Home: Yes Assistive Devices: Glasses, Oxygen - Continuous and Walker Review of Systems Review of Systems: Could not be reliably obtained secondary to disorientation Physical Exam Physical Exam: GENERAL: Comfortable, disoriented, obese, no respiratory distress SKIN: Normal color, warm HEENT: [place] palpebral conjunctivae, no ptosis, dry buccal mucosa, BiPAP in place NECK : Supple, short neck, no tenderness CHEST : Decreased breath sounds, occasional expiratory wheezes, no tenderness HEART : Tachycardic, no obvious murmurs ABDOMEN: Some distention, nontender EXTREMITIES : Minimal LE swelling, no LE tenderness, no other conspicuous deformities noted NEUROLOGIC : Disoriented, no facial asymmetry, gait and stance not assessed Results & Data Results & Data ([facility]) Vital Signs (Past 12 Hours) Vital Signs Temp Pulse Pulse Resp BP BP Pulse Ox 04/12/22 01:16 04/12/22 01:18 94 04/12/22 00:16 117 H 26 H 95 04/12/22 00:39 112 H 19 125/64 93 04/12/22 00:00 30 H 95 04/11/22 23:56 37.2 C 119 H 26 H 149/73 H 94 04/11/22 22:48 125 H 34 H 186/82 H 94 04/11/22 22:40 31 H 94 04/11/22 22:40 04/11/22 22:40 04/11/22 22:38 126 H 28 H 90 04/11/22 22:38 125 H 27 H 90 04/11/22 22:17 38.8 C H 123 H 33 H 200/128 H 91 O2 Del Method O2 Flow Rate FiO2 04/12/22 01:16 30 04/12/22 01:18 BiPAP 04/12/22 00:16 30 04/12/22 00:39 30 04/12/22 00:00 Nasal Cannula 4 04/11/22 23:56 Nasal Cannula 4 04/11/22 22:48 Nasal Cannula 5 04/11/22 22:40 Nasal Cannula 04/11/22 22:40 Nasal Cannula 5 04/11/22 22:40 Nasal Cannula 5 04/11/22 22:38 Nasal Cannula 4 04/11/22 22:38 Nasal Cannula 4 04/11/22 22:17 Nasal Cannula 3 Laboratory Results Laboratory Results WBC 13.80 K/ul (4.8-10.8) H 04/11/22 22:30 RBC 4.18 M/uL (3.93-5.22) 04/11/22 22:30 Hgb 12.4 g/dl (12.0-16.0) 04/11/22 22:30 Hct 40.7 % (34.1-44.9) 04/11/22: MCV 97.4 fL (80.0-100.0) 04/11/22: MCH 29.7 pg (25.0-34.0) 04/11/22: MCHC 30.5 g/dL (32.0-36.0) L 04/11/22: RDW Std Deviation 48.5 fL (36.4-46.3) H 04/11/22: RDW Coeff of Grey 13.5 % (11.5-14.5) 04/11/22: Plt Count 203 K/uL (130-400) 04/11/22: MPV 10.0 fL (9.4-12.3) 04/11/22: Immature Gran % (Auto) 0.7 % 04/11/22: Neut % (Auto) 74.4 % 04/11/22: Lymph % (Auto) 14.9 % 04/11/22: [place] % (Auto) 8.9 % 04/11/22: Eos % (Auto) 0.8 % 04/11/22: Baso % (Auto) 0.3 % 04/11/22: Neut # (Auto) 10.27 K/uL (1.4-6.5) H 04/11/22: Lymph # (Auto) 2.06 K/uL (1.2-3.4) 04/11/22:30 [place] # (Auto) 1.23 K/uL (0.24-0.82) H 04/11/22: Eos # (Auto) 0.11 K/uL (0-0.50) 04/11/22: Baso # (Auto) 0.04 K/uL (0-0.2) 04/11/22: Immature Gran # (Auto) 0.09 K/uL (0.00-0.02) H 04/11/22:30 ESR 71 mm/hr (0-30) H 04/11/22 22:30 PT 11.2 Seconds (9.0-12.0) 04/11/22:30 INR 1.1 (0.9-1.1) 04/11/22 22:30 APTT 28.8 Seconds (21.0-31.0) 04/11/22 22:30 PTT Ratio 1.0 04/11/22 22:30 ABG pH 7.31 (7.35-7.45) L 04/12/22 01:45 ABG pCO2 54 mmHg (35-46) H 04/12/22 01:45 ABG pO2 77 mmHg (80-95) L 04/12/22 01:45 ABG HCO3 27 mmol/L (19-24) H 04/12/22 01:45 ABG O2 Saturation 98.7 % (90-95) H 04/12/22 01:45 ABG Base Excess 0.0 mEq/L (-9-1.8) 04/12/22 01:45 Elio Test Pos (Pos) 04/12/22 01:45 VBG pH 7.27 (7.36-7.41) L 04/11/22 22:30 VBG pCO2 65 mmHg (38-50) H 04/11/22 22:30 VBG pO2 28 mmHg 04/11/22 22:30 VBG HCO3 30 mmol/L 04/11/22 22:30 VBG O2 Saturation < 60.0 % 04/11/22 22:30 VBG Base Excess 1.2 mEq/L 04/11/22 22:30 Oxygen Given 30% 04/12/22 01:45 Sodium 137 mmol/L (136-145) 04/11/22 22:30 Potassium 4.2 mmol/L (3.5-5.1) 04/11/22 22:30 Chloride 101 mmol/L (98-107) 04/11/22 22:30 Carbon Dioxide 29 mmol/L (21-32) 04/11/22 22:30 Anion Gap 7 (3-11) 04/11/22 22:30 BUN 36 mg/dl (6-23) H 04/11/22 22:30 Creatinine 1.60 mg/dl (0.6-1.2) H 04/11/22 22:30 Est Cr Clr Drug Dosing 33.5 ml/min 04/11/22 22:30 Est GFR ( Amer) 34.7 ml/min 04/11/22 22:30 Est GFR (Non-Af Amer) 29.9 ml/min 04/11/22: BUN/Creatinine Ratio 22.5 (10-20) H 04/11/22 22:30 Glucose 204 mg/dl (70-99(Fasting)) H 04/11/22 22: POC Glucose 351 mg/dl (70-99) H* 04/12/22 01:17 Lactate 2.0 mmol/L (0.4-2.0) 04/11/22: Calcium 10.4 mg/dl (8.5-10.1) H 04/11/22: Magnesium 1.1 mg/dl (1.7-2.4) L 04/11/22: Total Bilirubin 0.4 mg/dl (0.2-1.0) 04/11/22: AST 11 U/L (13-39) L 04/11/22: ALT 10 U/L (7-52) 04/11/22: Alkaline Phosphatase 58 U/L (34-104) 04/11/22: Troponin I High Sens 30.3 pg/ml (0-14) H 04/11/22: C-Reactive Protein 4.14 mg/dl (0-0.5) H 04/11/22: B-Natriuretic Peptide 140 pg/ml (0-100) H 04/11/22: Total Protein 7.1 gm/dl (6.0-8.3) 04/11/22: Albumin 3.9 gm/dl (3.4-5.0) 04/11/22: Globulin 3.2 gm/dl (2.5-4.0) 04/11/22: Albumin/Globulin Ratio 1.2 (0.9-2) 04/11/22: Procalcitonin 0.31 ng/ml (0-0.5) 04/11/22: SARS-CoV-2 (PCR) NEGATIVE (Negative) 04/11/22 Influenza Type A (PCR) Negative (Neg) 04/11/22 Influenza Type B (PCR) Negative (Neg) 04/11/22 RSV (RT-PCR) Negative (Neg) 04/11/[address] head initial read: No ICH, mass effect or edema. No evidence of acute cortical stroke. Periventricular small vessel ischemic change. Moderate to severe generalized bra in atrophy. Visualized sinuses and mastoid air cells are clear CT chest initial read: Multiple right-sided calcified granulomas, largest measures [id number] mmwith surrounding scarring and seen near the tip of the right major fissure. The lungs are underexpanded with vascular crowding. There is mild posterior dependent atelectasis otherwise no acute cardiopulmonarydisease. Atherosclerotic disease of aortawith no aneurysm. Normal cardiac size with coronaryartery calcifications. Small calcified lymph nodeswithin the mediastinumand hilar region, likelysequela of previous granulomatous infection. Visualized upper abdomen unremarkable. Degenerative disease of the spine with osteopenia. CT abdomen pelvis initial read: Normal cardiac size with coronaryarterycalcifications. There is vascular crowding through the lung bases versus mild vascular congestion. No pleural effusion. Unremarkable liver. Status post cholecystectomy. Normal spleen and pancreas. Normal right adrenal gland. Lesion within the left adrenal gland measuring 1.9 x 1.6 cm, incompletelycharacterized. Mild bilateral perinephric stranding. Mild right hydronephrosiswith a stone in the right renal pelvis measuring 9.9 mm. Left lower renal pole cyst measuring 5.3 x 5.5 cm. Tinystones in the lower pole of the left kidney largest measuring approximately5 mm. No left hydronephrosis. Atherosclerotic disease of aortawith no aneurysm. Diverticulosis throughout the colon with no signs of diverticulitis. Normal urinarybladder. Status post hysterectomy. Diffuse osteoporosiswith degenerative disease of the spine. Slightlyheterogeneous pattern throughout the bonystructures maybe due to severe osteoporosis, difficult to exclude metastatic disease if patient has historyof neoplasm. Bilateral pars defect of L5. EKG as per my interpretation:Rate 120, sinus tachycardia, LAD, LAFB, LVH, septal infarct, no ischemia
[2022-04-12 02:08] LABS: Appearance Urine Cloudy (Clear); Bacteria Urine Automated 2+ (Negative); Bilirubin Urine Negative (Negative); Blood Urine 1+ (Negative); Color Urine Yellow; Epithelial Cell Urine Auto 0-5 /lpf (0-5); Glucose Urine UA 1+ (Negative); Ketones Urine Trace (Negative); Leukocyte Esterase Urine 1+ (Negative); Nitrite Urine Positive (Negative); Protein Urine 3+ (Negative); Specific Gravity Urine 1.022 (1.000-1.030); Urobilinogen Urine Negative (Negative); WBC Urine Automated >30 /hpf (0-5)
[2022-04-12] MEDS: INSULIN ASPART PER UNIT SC SCH ×6 (02:12→23:51)
[2022-04-12] MEDS ORDERED: MAGNESIUM SULFATE / D5W 1 GM/100 ML BAG IV ONE (02:30)
[2022-04-12 02:54] LABS: Uric Acid Crystals Urine Present (None Prsent)
[2022-04-12 02:55] LABS: RBC Urine Automated 0-4 /hpf (0-4)
[2022-04-12] MEDS ORDERED: ACETAMINOPHEN 325 MG TAB PO PRN (03:59)
[2022-04-12 05:15] LABS: Hematocrit (blood only) 36.9 % (34.1-44.9); Hemoglobin 11.3 g/dl (12.0-16.0); Mean Corpuscular Hemoglobin 29.7 pg (25.0-34.0); Mean Corpuscular Hgb Conc 30.6 g/dL (32.0-36.0); Mean Corpuscular Volume 96.9 fL (80.0-100.0); Mean Platelet Volume 10.3 fL (9.4-12.3); Platelet Count 142 K/uL (130-400); RDW Coefficient of Variation 13.3 % (11.5-14.5); RDW Standard Deviation 47.8 fL (36.4-46.3); Red Blood Count 3.81 M/uL (3.93-5.22); White Blood Count 9.53 K/ul (4.8-10.8)
[2022-04-12 05:31] LABS: Partial Thromboplastin Ratio 0.9; Partial Thromboplastin Time 24.8 Seconds (21.0-31.0)
[2022-04-12 05:49] LABS: BUN Creatinine Ratio 21.7 (10-20); Calcium 9.6 mg/dl (8.5-10.1); Creatinine Clr Calc Pharmacy 34.2 ml/min; Est GFR (African American) 35.5 ml/min; Est GFR (Non-African American) 30.6 ml/min; Potassium 4.3 mmol/L (3.5-5.1)
[2022-04-12 05:50] LABS: Basophils # (auto) 0.01 K/uL (0-0.2); Basophils % (auto) 0.1 %; Immature Granulocytes # (auto) 0.07 K/uL (0.00-0.02); Immature Granulocytes % (auto) 0.7 %; Lymphocytes # (auto) 0.27 K/uL (1.2-3.4); Lymphocytes % (auto) 2.8 %; Monocytes # (auto) 0.14 K/uL (0.24-0.82); Monocytes % (auto) 1.5 %; Neutrophils # (auto) 9.04 K/uL (1.4-6.5); Neutrophils % (auto) 94.9 %; Toxic Vacuolation 1+
[2022-04-12] MEDS ORDERED: PIPERACILLIN/TAZOBACTAM 4.5 GM/120ML D5W IV ONE (06:04)
[2022-04-12] MEDS: PIPERACILLIN/TAZOBACTAM 4.5 GM in DEXTROSE 5% 100 ML IV SCH ×3 (06:05→21:32)
[2022-04-12] MEDS: LEVOTHYROXINE SODIUM 25 MCG TABLET PO SCH (06:11)
--- NOTE | 2022-04-12 06:50 | XRay Report ---
XR chest 1V portable HISTORY: 81 years-old Female SEPSIS acute sepsis COMPARISON: Chest CT of same day TECHNIQUE: AP view of the chest FINDINGS: Atherosclerosis of the aorta. The heart is enlarged. Numerous scattered calcified pulmonary granuloma ta. No pneumothorax, pleural effusion, airspace consolidation or overt pulmonary edema. Emphysema wit h right apical scarring. IMPRESSION: 1. Cardiomegaly without acute process. 2. Emphysema with right upper lobe opacities suggestive of scarring. 3. Prior granulomatous disease. ACT 112: Negative or not required by law. The above report was generated using voice recognition software. It may contain grammatical, syntax o r spelling errors. Electronically signed by: Juan Woods M.D. 04/12/2022 6:48 AM
[2022-04-12] MEDS ORDERED: XOPENEX/ATROVENT 1.25mg/0.5MG NEB COMBO NEB SCH (07:00)
--- NOTE | 2022-04-12 07:00 | CT Scan Report ---
CT head/brain wo con CLINICAL HISTORY: 81 years-old Female with ams, eliquis rx. Acutely altered mental status TECHNIQUE: Multiple axial CT images of the head were obtained without contrast. A dose lowering tech nique was utilized adhering to the principles of ALARA. CT DOSE: 2964.08 mGy.cm COMPARISON: Head CT 09/22/2021. FINDINGS: No acute intracranial hemorrhage, midline shift, intracranial mass, hydrocephalus, territorial ischem ia or abnormal extra-axial collection. Age-related involutional changes. Extensive white matter hypod ensities suggest advanced chronic microvascular ischemic disease. The calvarium is intact. Prior left-sided lens repair. The paranasal sinuses, mastoid air cells, and middle ear cavities are clear. IMPRESSION: No acute intracranial abnormality. ACT 112: Negative or not required by law. The above report was generated using voice recognition software. It may contain grammatical, syntax o r spelling errors. Electronically signed by: Juan Woods M.D. 04/12/2022 6:58 AM
[2022-04-12] MEDS: LEVALBUTEROL 1.25MG/0.5ML NEB INH SCH ×3 (07:08→19:45)
[2022-04-12] MEDS: IPRATROPIUM BROMIDE NEB SOLN 0.02% 2.5 ML VIAL INH SCH ×3 (07:08→19:45)
--- NOTE | 2022-04-12 08:10 | CT Scan Report ---
CT chest diagnostic wo con, CT abd pelvis wo con CLINICAL HISTORY: 81 years-old Female with low o2. Acute hypoxia TECHNIQUE: Multiaxial CT images of the chest, abdomen and pelvis were performed without contrast. A dose lowering technique was utilized adhering to the principles of ALARA. COMPARISON: CT chest, abdomen and pelvis 08/31/2021 FINDINGS: CT CHEST: Heterogeneous thyroid with partially calcified nodules. Moderate cardiomegaly with extensive coronar y artery calcifications. Atherosclerosis of the thoracic aorta without aneurysm. Mild dilation of the pulmonary artery may represent pulmonary arterial hypertension. Calcified mediastinal and hilar lymp h nodes. Study is degraded by respiratory motion artifact. Moderate pulmonary emphysema. Scattered multifocal calcified pulmonary granulomata. Linear consolidation of the right lung apex redemonstrated suggestiv e of scarring. There is irregular and somewhat spiculated 1.1 cm nodular density redemonstrated withi n the left lung apex on image 81 series 8 is unchanged. And adjacent expanded and opacified bronchus is also again noted on image 71 of series 8. Mild subsegmental bibasilar atelectasis. Unremarkable so ft tissues. Degenerative changes of the shoulders and spine. There are a few healed chronic right-[place] ed rib fractures. CT ABDOMEN/PELVIS: No pneumatosis or pneumoperitoneum. The unenhanced spleen, and right adrenal gland are unremarkable. Liver is enlarged and appears unchanged from prior. There is a stable 2 cm soft tissue attenuating le ft adrenal gland lesion with [place]oun[place] of 34. Cholecystectomy. Nonspecific bilateral perinephric stranding. There is a 7 mm calculus within the right renal pelvis. Mild pelviectasis without hydronephrosis. 5.2 cm left renal cyst. Calculi within the inferior pole le ft kidney measure up to 5 mm. Or left-sided ureteral calculi or hydronephrosis. Decompressed urinary bladder with mild wall thickening. Hysterectomy. Atherosclerosis of the aorta and branch vessels. No lymphadenopathy. No bowel obstruction or bowel wall thickening. Colonic diverticulosis. Mild colonic fecal retention. Normal appendix. Small fat filled periumbilical hernia. A spinal stimulator device is noted with dist al tip of the lead present within the presacral soft tissues. Degenerative changes of the spine, pelv is and hips. Demineralized appearance of the bones with heterogeneous appearance of the marrow. Chron ic bilateral L5 pars defects. IMPRESSION: 1. Cardiomegaly with moderate emphysema. 2. Prior granulomatous disease with unchanged scarring of the right lung apex. 3. 7 mm calculus within the right renal pelvis. There is mild associated pelviectasis without rom h ydronephrosis. 4. Nonobstructing left renal calculi. 5. Colonic diverticulosis. 6. Additional findings as above. ACT 112: Negative or not required by law. Electronically signed by: Juan Woods M.D. 04/12/2022 8:09 AM
--- NOTE | 2022-04-12 08:29 | Urology Consultation ---
Date of Consultation April 12, 2022 Assessment & Plan (1) Encephalopathy: (2) UTI (urinary tract infection): Plan 81-year-old female with signs of sepsis including encephalopathy and initial hemodynamic instability with pulmonary compromise Fortunately she is now hemodynamically stable and seems to be mentally improving already Full review of the images show a stone within the right kidney but I do not believe this is obstructing and I do not believe it warrants immediate inte rvention Plan: 1. Antibiotic management with IV fluid resuscitation and pulmonary support 2. Routine lab checksI hope to see her creatinine improve over the next 48 to 72 hours 3. No intervention planned at the moment History of Present Illness Attending Physician: Veronica Stafford MD History of Present Illness 81-year-old female who presented through the emergency room with signs and symptoms of sepsis She has numerous chronic medical issues including COPD, recurrent urinary tract infections, history of DVT Upon arrival she was placed on BiPAP and full evaluation conducted She had a leukocytosis IVAN UA concerning for infection And CT which was reviewed and discussed shows a stone within the right kidney and a smaller stone within the left kidney Neither of these appears to be obstructing although there is mild dilation of the right renal pelvis There is some mild perinephric stranding on right greater than left Upon personal evaluation she denies any significant abdominal or flank pain She is still on BiPAP but was in the process of weaning off of it Denies severe urinary symptoms right now Allergies Allergy/AdvReac Type Severity Reaction Status Date / Time atorvastatin Allergy Unknown UNKN Verified 04/11/22 23:00 bee venom protein (honey bee) Allergy Unknown Unknown Verified 04/11/22 23:00 formaldehyde Allergy Unknown HYPERSENSIT Verified 04/11/22 23:00 IVITY oxycodone Allergy Unknown UNKN Verified 04/11/22 23:00 peanut Allergy Unknown Unknown Verified 04/11/22 23:00 Sulfa (Sulfonamide Allergy Unknown Unknown Verified 04/11/22 23:00 Antibiotics) Home Medications Medication Instructions Recorded Confirmed Type acetaminophen 325 mg tablet 650 mg PO QAM 10/06/21 04/11/22 History (Tylenol) budesonide 90 mcg/actuation breath 1 inh inhalation BID 10/06/21 04/11/22 History activated powder inhaler (Pulmicort Flexhaler) cetirizine 10 mg tablet (Zyrtec) 10 mg PO QAM 10/06/21 04/11/22 History citalopram 40 mg tablet 40 mg PO QAM 10/06/21 04/11/22 History colesevelam 625 mg tablet (WelChol) 625 mg PO QDL 10/06/21 04/11/22 History diphenhydramine 25 2 tab PO HS 10/06/21 04/11/22 History mg-acetaminophen 500 mg tablet ferrous sulfate 325 mg (65 mg 325 mg PO QAM 10/06/21 04/11/22 History iron) tablet insulin aspart U-100 100 unit/mL 14 unit subcut TIDM 10/06/21 04/11/22 History (3 mL) subcutaneous pen (Novolog Flexpen U-100 Insulin aspart) insulin glargine U-300 conc 300 40 unit subcut HS 10/06/21 04/11/22 History unit/mL (3 mL) subcutaneous pen (Toujeo Max U-300 SoloStar) levothyroxine 25 mcg tablet 25 mcg PO DAILYBB 10/06/21 04/11/22 History lisinopril 20 mg tablet 20 mg PO HS 10/06/21 04/11/22 History magnesium oxide 400 mg PO QAM 10/06/21 04/11/22 History metformin 1,000 mg tablet 500 mg PO BID 10/06/21 04/11/22 History omeprazole 20 mg capsule,delayed 20 mg PO QAM 10/06/21 04/11/22 History release prednisone 5 mg tablet 5 mg PO QAM 10/06/21 04/11/22 History psyllium husk 0.52 gram capsule 0.52 g PO QAM 10/06/21 04/11/22 History (Fiber-Caps (psyllium husk)) rivaroxaban 20 mg tablet (Xarelto) 20 mg PO QAM 10/06/21 04/11/22 History acetaminophen 325 mg tablet 650 mg PO Q4H PRN PAIN/FEVER 04/11/22 04/11/22 History (Tylenol) albuterol sulfate 2.5 mg/3 mL 2.5 mg inhalation .Q4-6HR PRN 04/11/22 04/11/22 History (0.083 %) solution for nebulization Shortness Of Breath albuterol sulfate 90 mcg/actuation 2 puff inhalation .Q4-6HRS PRN 04/11/22 04/11/22 History aerosol inhaler Shortness Of Breath amlodipine 10 mg tablet 10 mg PO QAM 3 GRAMS/24 HOURS 04/11/22 04/11/22 History cyanocobalamin (vitamin B-12) 1,000 mcg IM MONTHLY 04/11/22 04/11/22 History 1,000 mcg/mL injection solution dextromethorphan-guaifenesin 10 10 ml PO Q4H PRN Cough 04/11/22 04/11/22 History mg-100 mg/5 mL oral syrup (Siltussin-DM) dextromethorphan-guaifenesin 30 1 tab PO Q12H PRN COUGH/CONGESTION 04/11/22 04/11/22 History mg-600 mg tablet extended [id number] hr (Mucinex DM) epinephrine 0.3 mg/0.3 mL 0.3 mg IM DIRECTED PRN Allergic 04/11/22 04/11/22 History injection, auto-injector (EpiPen) Reaction ergocalciferol (vitamin D2) 1,250 1,250 mcg PO 2XWK 04/11/22 04/11/22 History mcg (50,000 unit) capsule (Vitamin D2) furosemide 20 mg tablet (Lasix) 20 mg PO 2XWK 04/11/22 04/11/22 History loperamide 2 mg tablet 2 mg PO Q4H PRN Diarrhea 04/11/22 04/11/22 History (Anti-Diarrheal (loperamide)) nitrofurantoin macrocrystal 50 mg 50 mg PO QAM 04/11/22 04/11/22 History capsule Patient History Medical History A-fib Asthma Depression Diabetes mellitus, type II GERD (gastroesophageal reflux disease) High cholesterol History of DVT (deep vein thrombosis) Hypertension Hypothyroid On home oxygen therapy Surgical History History of cataract surgery (10/18/21) left History of cholecystectomy History of hysterectomy Hx of tonsillectomy Family History Other Diabetes Hypertension Stroke Social History Smoking Status: Unknown if ever smoked Second Hand Exposure: No; Hx Alcohol Use: Yes Hx Substance Use: No Preferred Language: Barbadian Communication Ability: Effective Manager Medical Affairs Required: No Beliefs That Will Affect Care: None marital status: / Current Living Situation: Personal Care Facility Current Living Situation Comment: [facility] Feels Safe at Home: Yes Assistive Devices: Glasses, Oxygen - Continuous and Walker Review of Systems Constitutional: + fever, + chills and + fatigue Eyes: no worsening vision Ear, Nose, Mouth, Throat: no facial pain and no pain with swallowing Respiratory: + dyspnea Cardiovascular: no chest pain and no palpitations Gastrointestinal: no abdominal pain, no nausea and no vomiting Genitourinary: no dysuria, no difficulty urinating, no urinary frequency and no hematuria Musculoskeletal: no back pain Integumentary: no rash and no urticaria Neurologic: no gait abnormality and no unsteadiness Psychiatric: no behavioral changes and no depression Endocrine: no fatigue Physical Exam Physical Exam: On BiPAP Appropriately interactive Relatively comfortable appearing Abdomen soft, nontender, no CVA tenderness Results & Data ([facility]) Vital Signs (Past 12 Hours) Vital Signs Temp Pulse Pulse Resp BP BP Pulse Ox 04/12/22 08:08 04/12/22 08:07 86 22 156/68 H 95 04/12/22 07:08 83 24 100 04/12/22 07:08 83 24 100 04/12/22 06:02 84 17 138/65 96 04/12/22 04:26 91 H 23 98 04/12/22 04:05 04/12/22 03:21 36.8 C 98 H 17 147/69 H 97 04/12/22 03:21 23 98 04/12/22 02:14 97 H 20 159/69 H 95 04/12/22 02:14 18 94 04/12/22 01:16 04/12/22 01:18 94 04/12/22 00:16 117 H 26 H 95 04/12/22 00:39 112 H 19 125/64 93 04/12/22 00:00 30 H 95 04/11/22 23:56 37.2 C 119 H 26 H 149/73 H 94 04/11/22 22:48 125 H 34 H 186/82 H 94 04/11/22 22:40 31 H 94 04/11/22 22:40 04/11/22 22:40 04/11/22 22:38 126 H 28 H 90 04/11/22 22:38 125 H 27 H 90 04/11/22 22:17 38.8 C H 123 H 33 H 200/128 H 91 Pulse Ox O2 Del Method O2 Del Method O2 Flow Rate FiO2 04/12/22 08:08 Nasal Cannula 2.5 04/12/22 08:07 Nasal Cannula 2.5 04/12/22 07:08 30 04/12/22 07:08 BiPAP 30 04/12/22 06:02 BiPAP 30 04/12/22 04:26 30 04/12/22 04:05 97 BiPAP 04/12/22 03:21 BiPAP 04/12/22 03:21 BiPAP 04/12/22 02:14 Room Air 04/12/22 02:14 BiPAP 04/12/22 01:16 30 04/12/22 01:18 BiPAP 04/12/22 00:16 30 04/12/22 00:39 30 04/12/22 00:00 Nasal Cannula 4 04/11/22 23:56 Nasal Cannula 4 04/11/22 22:48 Nasal Cannula 5 04/11/22 22:40 Nasal Cannula 04/11/22 22:40 Nasal Cannula 5 04/11/22 22:40 Nasal Cannula 5 04/11/22 22:38 Nasal Cannula 4 04/11/22 22:38 Nasal Cannula 4 04/11/22 22:17 Nasal Cannula 3 PG Care Time/CCT Total # of Minutes Spent Total Time Spent with Patient: Total time spent is greater than 50% in coordination of care (as documented) at patient's floor/unit and/or counseling patient: Coding Level of Care Code 51218 Inpt Consult Level 5 Diagnoses Encephalopathy G93.40 UTI (urinary tract infection) N30.01 Hematuria presence: with hematuria Urinary tract infection type: acute cystitis (1) UTI (urinary tract infection) Hematuria presence: with hematuria Urinary tract infection type: acute cystitis Qualified Code(s): N30.01 - Acute cystitis with hematuria
[2022-04-12 08:34] LABS: Estimated Average Glucose 189 mg/dl; Hemoglobin A1C 8.2 % (4.5-5.6)
[2022-04-12] MEDS ORDERED: BUDESONIDE 90 MCG INH INH SCH (09:00)
[2022-04-12] MEDS: RIVAROXABAN 20 MG TAB PO SCH (09:05)
[2022-04-12] MEDS: FLUTICASONE FUROATE 100MCG 14 PUFFS/INHALER INH SCH (09:05)
[2022-04-12] MEDS: amLODIPine BESYLATE 5 MG TAB PO SCH (09:05)
[2022-04-12] MEDS: FERROUS SULFATE 325 MG TAB PO SCH (09:05)
[2022-04-12] MEDS: PANTOprazole 40 MG TAB PO SCH (09:05)
[2022-04-12] MEDS: CETIRIZINE HCL 10 MG TABLET PO SCH (09:05)
[2022-04-12] MEDS: methylPREDNISolone 20 MG in SYRINGE 0 ML IV SCH (09:06)
[2022-04-12] MEDS: [UNRECOGNIZED DRUG - REMARK] SCH ×3 (11:08→23:52)
--- NOTE | 2022-04-12 12:24 | Communication Note ---
Date of Service: April 12, 2022 Pt was seen and examined for bacteremia and UTI. Meet sepsis criteria on admission with Tachycardia, febrile, elevated WBC. CT abd/pelvis/chest showed Cardiomegaly with moderate emphysema. Prior granulomatous disease with unchanged scarring of the right lung apex. 7 mm calculus within the right renal pelvis. Nonobstructing left renal calculi. CT head showed no acute intracranial abnormality. Currently on IV zosyn. Urology on board- No intervention planned at the moment. Continue IVF. Urine Cx and blod cx pending. Continue monitor closely. MD Rivera
[2022-04-12] MEDS ORDERED: PHARMACY GLYCEMIC MGMT CONSULT PRN (13:31)
[2022-04-12] MEDS ORDERED: INSULIN HUMAN REGULAR PER UNIT 10 UNITS in SYRINGE 0 ML IV STA (13:56)
[2022-04-12] MEDS ORDERED: INSULIN ASPART PER UNIT SC STA (14:06)
--- NOTE | 2022-04-12 14:26 | Pharmacy Report ---
Pharmacy Glycemic Short Note 2 - Date of Service April 12, 2022 - Glycemic Short BSG Results (Last 24 hours): 04/11/22 04/12/22 04/12/22 22:30 01:17 05:03 Glucose 204 H 362 H* POC Glucose 351 H* 04/12/22 04/12/22 04/12/22 08:00 08:00 12:57 Glucose POC Glucose 413 H* 389 H* 438 H* 04/12/22 04/12/22 13:27 13:57 Glucose POC Glucose 435 H* 448 H* OUTPATIENT ANTIDIABETIC REGIMEN: * Toujeo 40 units SC HS * Novolog 14 units SC TIDM * Metformin 500 mg PO BID * HbA1c = 8.2% (04/12/22) ASSESSMENT: * 81 yo F admitted overnight secondary to shortness of breath believed to be a COPD exacerbation. Pharmacy has been consulted today to assist with inpatient glycemic management. Patient is an insulin-dependent type 2 diabetic as outpatient. A1c is slightly above goal of less than 8% for this patient but has improved. Comes from personal care facility. * Received home dose of Toujeo 40 units last evening at [facility]. Upon arrival to ED, patient's BSG was 204 mg/dL. Received 10 mg of IV dexamethasone in the ED which then led to elevated BSGs we have seen today: 351-389-435 mg/dL. Also received 40 more units of Lantus around 0200 as well as 9 units of Novolog. 10 units of Novolog were given this morning for BSG of 389 mg/dL. * She is ordered a type 2 diabetic diet. Minimal intake at this point secondary to BiPAP use. Expect PO intake to increase. Has been started on 20 mg of IV Methylprednisolone once daily for COPD exacerbation. * For BSG of 435 mg/dL at lunchtime, RN administered 12 units. Patient ate 7 gram of carbs. Consult received around this time. Will tighten both carb ratio and correction factor to reflect weight/stress of 3. Will enter a one time Novolog order now to equal a total of 20 units with lunch. This is what the patient would have received had the Novolog been tightened prior to 12 units being administered. Will add overnight checks. * Will give a 10 unit IV insulin bolus. Potassium is adequate. Will hold off on any further basal insulin today since patient received double her home dose between last evening and early this AM. Plan to reassess basal needs in the morning. Also, want basal given in the morning to match steroid timing. PLAN FOR INPATIENT GLYCEMIC CONTROL: * Hold outpatient oral diabetes medications * Basal insulin * Lantus 40 units SC x 1 this AM * No further doses at this time - reassess 04/13/22 AM * Bolus insulin * NovoLog per scale ACHS or Q6hrs while NPO * Goal Range: Low 110 mg/dL - High 140 mg/dL * Correction Factor: 15 mg/dL/unit * Nutritional / Prandial insulin per carb ratio of 1 unit per 5 grams CHO consumed
[2022-04-12] MEDS ORDERED: INSULIN HUMAN REGULAR PER UNIT 10 UNITS in SYRINGE 9.9 ML IV ONE (17:15)
[2022-04-12 17:57] LABS: A calco-baum cmplx NotReported Not Detected (NotDetected); Bact fragilis Not Reported Not Detected (NotDetected); C auris Not Reported Not Detected (NotDetected); CTX-M Resistant Gene Not Detected (NotDetected); Calbicans Not Reported Not Detected (NotDetected); Candida glabrata Not Reported Not Detected (NotDetected); Candida krusei Not Reported Not Detected (NotDetected); Cneoformans/gatti Not Reported Not Detected (NotDetected); Cparapsilosis Not Reported Not Detected (NotDetected); Ctropicalis Not Reported Not Detected (NotDetected); E cloacae compx Not Reported Not Detected (NotDetected); Efaecalis Not Reported Not Detected (NotDetected); Efaecium Not Reported Not Detected (NotDetected); Enterobacterales DETECTED (NotDetected); Enterobacterales Not Reported DETECTED (NotDetected); Escherichia coli Not Reported Not Detected (NotDetected); H influenzae Not Reported Not Detected (NotDetected); IMP Resistant Gene Not Detected (NotDetected); K aerogenes Not Reported Not Detected (NotDetected); KPC Resistant Gene Not Detected (NotDetected); Koxytoca Not Reported Not Detected (NotDetected); Lmonocyt Not Reported Not Detected (NotDetected); N meningitidis Not Reported Not Detected (NotDetected); NDM Resistant Gene Not Detected (NotDetected); OXA 48 Like Resistant Gene Not Detected (NotDetected); P aeruginosa Not Reported Not Detected (NotDetected); Proteus spp Not Reported Not Detected (NotDetected); Salmonella spp Not Reported Not Detected (NotDetected); Smarcescens Not Reported Not Detected (NotDetected); Staph lugdunensis Not Reported Not Detected (NotDetected); Staph spp. Not Reported Not Detected (NotDetected); Staphaureus Not Reported Not Detected (NotDetected); Staphepi Not Reported Not Detected (NotDetected); Stenmaltophilia Not Reported Not Detected (NotDetected); Strep agal(GrpB) Not Reported Not Detected (NotDetected); Strep pneum Not Reported Not Detected (NotDetected); Strep pyog (GrpA) Not Reported Not Detected (NotDetected); Strep spp Not Reported Not Detected (NotDetected); VIM Resistant Gene Not Detected (NotDetected); mcr-1 Colistin Resistant Gene Not Detected (NotDetected)
[2022-04-12 18:30] LABS: Klebsiella pneumoniae group DETECTED (NotDetected); Kpneumoniae grp Not Reported DETECTED (NotDetected)
[2022-04-12] MEDS: DOXYCYCLINE HYCLATE 100 MG CAP PO SCH (20:12)
[2022-04-12] MEDS ORDERED: LANTUS PER UNIT CHARGE SQ SCH (21:00)
[2022-04-13] MEDS ORDERED: LEVALBUTEROL HCL 1.25 MG/3 ML NEB ONE (00:07)
[2022-04-13] MEDS: IPRATROPIUM BROMIDE NEB SOLN 0.02% 2.5 ML VIAL INH SCH ×3 (00:10→14:11)
[2022-04-13] MEDS: LEVALBUTEROL 1.25MG/0.5ML NEB INH SCH ×3 (00:11→14:11)
[2022-04-13 02:49] LABS: Hematocrit (blood only) 33.9 % (34.1-44.9); Hemoglobin 10.4 g/dl (12.0-16.0); Mean Corpuscular Hemoglobin 28.9 pg (25.0-34.0); Mean Corpuscular Hgb Conc 30.7 g/dL (32.0-36.0); Mean Corpuscular Volume 94.2 fL (80.0-100.0); Platelet Count 187 K/uL (130-400); RDW Coefficient of Variation 13.3 % (11.5-14.5); RDW Standard Deviation 45.7 fL (36.4-46.3)
[2022-04-13 03:11] LABS: BUN Creatinine Ratio 21.1 (10-20); Calcium 9.5 mg/dl (8.5-10.1); Creatinine Clr Calc Pharmacy 30.1 ml/min; Est GFR (African American) 31.1 ml/min; Est GFR (Non-African American) 26.8 ml/min; Potassium 4.3 mmol/L (3.5-5.1)
[2022-04-13] MEDS: INSULIN ASPART PER UNIT SC SCH ×5 (04:28→20:20)
[2022-04-13] MEDS: PIPERACILLIN/TAZOBACTAM 4.5 GM in DEXTROSE 5% 100 ML IV SCH (06:39)
[2022-04-13] MEDS: LEVOTHYROXINE SODIUM 25 MCG TABLET PO SCH (06:39)
[2022-04-13] MEDS: [UNRECOGNIZED DRUG - REMARK] SCH ×3 (07:12→21:50)
[2022-04-13] MEDS: LANTUS PER UNIT CHARGE SQ SCH (09:06)
[2022-04-13] MEDS: FLUTICASONE FUROATE 100MCG 14 PUFFS/INHALER INH SCH (09:07)
[2022-04-13] MEDS: methylPREDNISolone 20 MG in SYRINGE 0 ML IV SCH (09:07)
[2022-04-13] MEDS: FERROUS SULFATE 325 MG TAB PO SCH (09:08)
[2022-04-13] MEDS: amLODIPine BESYLATE 5 MG TAB PO SCH (09:08)
[2022-04-13] MEDS: PANTOprazole 40 MG TAB PO SCH (09:08)
[2022-04-13] MEDS: RIVAROXABAN 20 MG TAB PO SCH (09:08)
[2022-04-13] MEDS: DOXYCYCLINE HYCLATE 100 MG CAP PO SCH ×2 (09:08→20:42)
[2022-04-13] MEDS: CETIRIZINE HCL 10 MG TABLET PO SCH (09:08)
--- NOTE | 2022-04-13 09:27 | Urology Progress Note ---
Date of Service April 13, 2022 Assessment & Plan (1) Encephalopathy: (2) UTI (urinary tract infection): Plan 1. UTI Continue antibiotics Symptomatically improving already 2. Kidney stone No intervention at present or planned unless conditions change 3. IVAN on CKD Hopefully related to the acuity of her presentation She does have an elevated troponin and there is the possibility that her acute presentation may have led to some perfusion related IVAN Hope to see this improve over the next few days Given the lack of significant hydronephrosis I think it is unlikely to be obstructive Admission and Anticipated Discharge Date Admission Date: April 12, 2022 Subjective Subjectively doing much better today She is considerably more active and interactive She is moving her bowels She is pain-free She has been able to taper off BiPAP and is now on nasal cannula [id number] She did have a temperature of 38 8 yesterday afternoon, currently afebrile She also has an elevated troponin and her creatinine remains elevated at 1.75 [id number] Physical Exam Physical Exam: Comfortable appearing Nasal cannula O2 Abdomen soft No right or left CVA tenderness Results & Data ([facility]) Vital Signs (Past 12 Hours) Vital Signs Temp Pulse Pulse Resp BP Pulse Ox Pulse Ox 04/13/22 08:08 36.9 C 107 H 16 158/84 H 90 04/13/22 07:19 85 04/13/22 07:04 91 H 18 93 04/13/22 06:00 04/13/22 04:00 94 04/13/22 04:05 36.7 C 86 22 163/76 H 90 04/13/22 00:50 04/13/22 00:13 99 H 20 96 04/12/22 23:05 36.8 C 92 H 17 132/61 94 04/12/22 23:39 94 H O2 Del Method O2 Del Method O2 Flow Rate O2 Flow Rate 04/13/22 08:08 Nasal Cannula 2 04/13/22 07:19 04/13/22 07:04 Nasal Cannula 2 04/13/22 06:00 Nasal Cannula 2 04/13/22 04:00 Nasal Cannula 2 04/13/22 04:05 Nasal Cannula 1 04/13/22 00:50 Nasal Cannula 2 04/13/22 00:13 Nasal Cannula 2 04/12/22 23:05 Nasal Cannula 2 04/12/22 23:39 PG Care Time/CCT Total # of Minutes Spent Total Time Spent with Patient: Total time spent is greater than 50% in coordination of care (as documented) at patient's floor/unit and/or counseling patient: Coding Level of Care Code 10345 Subseq Hosp Care Lvl 2 Diagnoses Encephalopathy G93.40 UTI (urinary tract infection) N30.01 Hematuria presence: with hematuria Urinary tract infection type: acute cystitis (1) UTI (urinary tract infection) Hematuria presence: with hematuria Urinary tract infection type: acute cystitis Qualified Code(s): N30.01 - Acute cystitis with hematuria
--- NOTE | 2022-04-13 10:15 | Pharmacy Report ---
Pharmacy Glycemic Short Note 2 - Date of Service April 13, 2022 - Glycemic Short BSG Results (Last 24 hours): 04/12/22 04/12/22 04/12/22 12:57 13:27 13:57 Glucose POC Glucose 438 H* 435 H* 448 H* 04/12/22 04/12/22 04/12/22 16:51 16:52 20:02 Glucose POC Glucose 327 H* 324 H* 110 H 04/12/22 04/13/22 04/13/22 23:49 02:30 04:08 Glucose 178 H POC Glucose 125 H 187 H 04/13/22 07:32 Glucose POC Glucose 134 H OUTPATIENT ANTIDIABETIC REGIMEN: * Toujeo 40 units SC HS * Novolog 14 units SC TIDM * Metformin 500 mg PO BID * HbA1c = 8.2% (04/12/22) ASSESSMENT: 04/13 * Patient received total of 122 units of insulin yesterday, of which 40 units were basal * Fasting BSG 134 mg/dL - however received 4 units of shorter acting insulin overnight, plan to titrate home basal to 45 units daily. This is a ~10% increase in home basal dose * Steroids changed today to solumedrol 20 mg daily. Had received both DXM 10 mg and solm 20 mg yesterday therefore feel that insulin needs will decrease * BSGs already improving much more this morning as DXM now likely wearing off * May need to loosen CF/CR later today, will reevaluate later 04/12 * 81 yo F admitted overnight secondary to shortness of breath believed to be a COPD exacerbation. Pharmacy has been consulted today to assist with inpatient glycemic management. Patient is an insulin-dependent type 2 diabetic as outpat ient. A1c is slightly above goal of less than 8% for this patient but has improved. Comes from personal care facility. * Received home dose of Toujeo 40 units last evening at [facility]. Upon arrival to ED, patient's BSG was 204 mg/dL. Received 10 mg of IV dexamethasone in the ED which then led to elevated BSGs we have seen today: 351-389-435 mg/dL. Also received 40 more units of Lantus around 0200 as well as 9 units of Novolog. 10 units of Novolog were given this morning for BSG of 389 mg/dL. * She is ordered a type 2 diabetic diet. Minimal intake at this point secondary to BiPAP use. Expect PO intake to increase. Has been started on 20 mg of IV Methylprednisolone once daily for COPD exacerbation. * For BSG of 435 mg/dL at lunchtime, RN administered 12 units. Patient ate 7 gram of carbs. Consult received around this time. Will tighten both carb ratio and correction factor to reflect weight/stress of 3. Will enter a one time Novolog order now to equal a total of 20 units with lunch. This is what the patient would have received had the Novolog been tightened prior to 12 units being administered. Will add overnight checks. * Will give a 10 unit IV insulin bolus. Potassium is adequate. Will hold off on any further basal insulin today since patient received double her home dose between last evening and early this AM. Plan to reassess basal needs in the morning. Also, want basal given in the morning to match steroid timing. PLAN FOR INPATIENT GLYCEMIC CONTROL: * Hold outpatient oral diabetes medications * Basal insulin * Lantus 45 units daily (while on solm 20 mg daily) * Bolus insulin * NovoLog per scale ACHS or Q6hrs while NPO * Goal Range: Low 110 mg/dL - High 140 mg/dL * Correction Factor: 15 mg/dL/unit * Nutritional / Prandial insulin per carb ratio of 1 unit per 4 grams CHO consumed
[2022-04-13] MEDS: SODIUM CHLORIDE 0.9% 1000ML 1,000 ML IV SCH ×2 (10:21→21:50)
[2022-04-13] MEDS ORDERED: LEVALBUTEROL 1.25MG/0.5ML NEB INH PRN (13:48)
[2022-04-13] MEDS: cefTRIAXone SODIUM 2,000 MG in DEXTROSE 5% 50 ML IV SCH (13:48)
[2022-04-13] MEDS: IPRATROPIUM BROMIDE NEB SOLN 0.02% 2.5 ML VIAL INH PRN ×2 (14:20→22:54)
--- NOTE | 2022-04-13 20:20 | Hospitalist Progress Note ---
Date of Service April 13, 2022 Assessment & Plan (1) Sepsis: (2) UTI (urinary tract infection): (3) Bacteremia: Plan: Meet sepsis criteria on admission with Tachycardia, febrile, elevated WBC Blood cx and urine cx grew gram negative bacilli She was started on IV Zosyn then transition to Rocephin IV Blood cx repeat today Continue monitor closely (4) Encephalopathy: Plan: Present on admission with confusion Possible related to infection (UTI and Bacteremia) CT head showed no acute intracranial abnormality Clinically improved Elevated troponin Mostly due to demand ischemia from sepsis Troponin continue to trend up EKG showed no acute ischemic changes ECHO showed no wall motion abnormality. EF 55-60% Denies any chest pain Continue Xarelto Continue trending trop IVAN on CKD Creatinine increased to 1.7 Continue gentle IVF Continue monitor BMP Kidney stone CT abd/pelvis showed 7 mm calculus within the right renal pelvis. There is mild associated pelviectasis without rom hydronephrosis. Urology on board no intervention at present or planned unless conditions change Stable COPD (chronic obstructive pulmonary disease): Continue oxygen supplement Stable Hypertension BP has been fluctuated Continue amlodipine Continue monitor BP HX RA Continue chronic prednisone Diabetes mellitus, type II: Most recent Hba1c 8.2 (04/12/22) [facility] Continue monitor BS History of DVT (deep vein thrombosis): On Rivaroxaban CODE STATUS DNR daughter/POA, Ms. Devika Downs. Can be reached at [phone]. Admission and Anticipated Discharge Date Admission Date: April 12, 2022 Subjective Pt was seen and examined for follow up bacteremia and UTI Lying in bed with no acute distress Pt mental status improved significantly She is very anxious to go home Denies any chest pain, palpitation, dizziness and SOB Review of Systems Review of Systems: All systems reviewed & are unremarkable except as noted in Subjective Physical Exam Physical Exam: General- No acute distress Head- atraumatic Eyes- PERRL, EOMI, ENT- oropharynx clear Neck- supple, no JVD Lungs- clear to auscultation Heart- regular rhythm; no murmur Abdomen- normal bowel sounds, soft, nontender Extremities- no calf tenderness, +edema Neuro- alert, oriented x 3; PERRL, EOMI; no facial palsy; no dysarthria Skin- warm & dry Results & Data Results & Data ([facility]) Vital Signs (Past 12 Hours) Vital Signs Temp Pulse Pulse Resp BP Pulse Ox O2 Del Method 04/13/22 20:07 37.1 C 105 H 20 171/71 H 92 Nasal Cannula 04/13/22 15:32 37.1 C 116 H 16 175/72 H 92 Nasal Cannula 04/13/22 15:03 112 H 04/13/22 14:20 102 H 20 96 Nasal Cannula 04/13/22 14:15 88 L Nasal Cannula 04/13/22 12:00 37.3 C 110 H 16 165/85 H 91 Nasal Cannula O2 Flow Rate 04/13/22 20:07 2 04/13/22 15:32 2 04/13/22 15:03 04/13/22 14:20 3 04/13/22 14:15 2 04/13/22 12:00 2 (1) Sepsis Sepsis type: sepsis due to unspecified organism Qualified Code(s): A41.9 - Sepsis, unspecified organism (2) UTI (urinary tract infection) Hematuria presence: with hematuria Urinary tract infection type: acute cystitis Qualified Code(s): N30.01 - Acute cystitis with hematuria
--- NOTE | 2022-04-13 21:41 | Electrocardiogram Report ---
Test Reason : Blood Pressure : / mmHG Vent. Rate : 120 BPM Atrial Rate : 120 BPM P-R Int : 160 ms QRS Dur : 090 ms QT Int : 288 ms P-R-T Axes : 044 -52 089 degrees QTc Int : 407 ms Poor data quality, interpretation may be adversely affected Sinus tachycardia Left anterior fascicular block Left ventricular hypertrophy with repolarization abnormality Cannot rule out Inferior infarct (masked by fascicular block?) , age undetermined Poor R wave progression, consider anterior CO vs. lead placement vs. LVH Abnormal ECG When compared with ECG of 22-SEP-2021 14:20, Vent. rate has increased BY [address] elevation now present in Inferior leads Inverted T waves have replaced nonspecific T wave abnormality in Lateral leads Confirmed by Ricky Hernandez ([id number]) on 04/13/2022 9:41:33 PM Referred By: REFERRED SELF Confirmed By:Ricky Hernandez
[2022-04-14] MEDS ORDERED: LEVALBUTEROL HCL 1.25 MG/3 ML NEB NEB STA (00:36)
[2022-04-14] MEDS: LEVOTHYROXINE SODIUM 25 MCG TABLET PO SCH (06:35)
[2022-04-14 07:06] LABS: Hematocrit (blood only) 37.5 % (34.1-44.9); Hemoglobin 12.1 g/dl (12.0-16.0); Mean Corpuscular Hemoglobin 29.5 pg (25.0-34.0); Mean Corpuscular Hgb Conc 32.3 g/dL (32.0-36.0); Mean Corpuscular Volume 91.5 fL (80.0-100.0); Mean Platelet Volume 10.2 fL (9.4-12.3); Platelet Count 197 K/uL (130-400); RDW Coefficient of Variation 13.2 % (11.5-14.5); RDW Standard Deviation 44.9 fL (36.4-46.3); White Blood Count 10.83 K/ul (4.8-10.8)
[2022-04-14] MEDS: [UNRECOGNIZED DRUG - REMARK] SCH ×3 (07:25→21:43)
[2022-04-14 07:39] LABS: Calcium 9.9 mg/dl (8.5-10.1); Creatinine Clr Calc Pharmacy 41.2 ml/min; Est GFR (African American) 46.7 ml/min; Est GFR (Non-African American) 40.3 ml/min; Potassium 3.4 mmol/L (3.5-5.1)
[2022-04-14] MEDS: DOXYCYCLINE HYCLATE 100 MG CAP PO SCH ×2 (08:22→21:43)
[2022-04-14] MEDS: methylPREDNISolone 20 MG in SYRINGE 0 ML IV SCH (08:22)
[2022-04-14] MEDS: amLODIPine BESYLATE 5 MG TAB PO SCH (08:23)
[2022-04-14] MEDS: RIVAROXABAN 20 MG TAB PO SCH (08:23)
[2022-04-14] MEDS: CETIRIZINE HCL 10 MG TABLET PO SCH (08:23)
[2022-04-14] MEDS: FERROUS SULFATE 325 MG TAB PO SCH (08:23)
[2022-04-14] MEDS: FLUTICASONE FUROATE 100MCG 14 PUFFS/INHALER INH SCH (08:23)
[2022-04-14] MEDS: PANTOprazole 40 MG TAB PO SCH (08:23)
[2022-04-14] MEDS: LANTUS PER UNIT CHARGE SQ SCH ×2 (08:24→08:51)
[2022-04-14] MEDS: INSULIN ASPART PER UNIT SC SCH ×4 (08:24→20:58)
[2022-04-14] MEDS ORDERED: POTASSIUM CHLORIDE CRTAB 20 MEQ TABCR PO STA (10:14)
--- NOTE | 2022-04-14 10:20 | XRay Report ---
XR chest 1V portable CLINICAL HISTORY: wheeze TECHNIQUE: Single frontal radiograph of the chest was obtained. Comparison: Comparison is made to chest radiograph 04/11/[address] chest 112 FINDINGS: No lines and tubes are seen. The cardiomediastinal silhouette is stable. Prominence and cephalization of the vasculature is seen. Calcified granulomata are seen, better visualized on CT. No evidence of pleural effusion or pneumothorax. IMPRESSION: Mild cardiomegaly with mild pulmonary edema. ACT 112: Negative or not required by law. Electronically signed by: Zachariah Baker M.D. 04/14/2022 10:19 AM
--- NOTE | 2022-04-14 10:44 | Urology Progress Note ---
Date of Service April 14, 2022 Assessment & Plan (1) UTI (urinary tract infection): (2) Sepsis: (3) Nephrolithiasis: Plan At this point she is being treated for pyelonephritis, and it does not appear that her kidney stone is obstructing. Lab work has been improving and she is not having any flank pain. Sepsis is likely of urinary origin as she has the same organism in the blood and in the urine. If repeat blood cultures are still persistently positive, there may be a role for ureteral stent placement to ensure that the kidney is maximally draining. In the meantime, continue antibiotics and supportive care. In the setting of acutely elevated troponin and hypoxia, she is a higher than average risk surgical candidate, therefore we will try to avoid surgery if possible. She seems to be moving in the right direction for now but we will continue to monitor. Urology will follow along. Admission and Anticipated Discharge Date Admission Date: April 12, 2022 Subjective Feeling well this morning, no fevers or chills. Denies any flank pain Leukocytosis improving (down to 10.3 now). Creatinine improving as well down to 1.25. Still persistently elevated troponin but this is decreasing. Blood cultures from 04/11/2022 with Klebsiella pneumonia, urine culture from 04/12 also showing Klebsiella. Repeat blood cultures are pending. She remains on ceftriaxone. Review of Systems Constitutional: No fevers or chills Respiratory: Requiring supplemental oxygen by nasal cannula Physical Exam Physical Exam: Frail-appearing, NAD Respiratory: Breathing comfortably on 2 L oxygen by nasal cannula Gastrointestinal (Abdomen): Nontender Results & Data ([facility]) Vital Signs (Past 12 Hours) Vital Signs Temp Pulse Pulse Resp BP Pulse Ox Pulse Ox 04/14/22 09:31 04/14/22 08:26 37.1 C 108 H 22 132/92 92 04/14/22 06:15 121 H 04/14/22 06:00 04/14/22 04:00 36.8 C 105 H 18 160/91 H 92 04/14/22 04:00 92 04/14/22 00:50 96 H 18 93 04/13/22 23:56 36.7 C 101 H 18 157/84 H 92 04/13/22 23:22 101 H 04/13/22 22:54 97 H 20 92 04/13/22 22:51 O2 Del Method O2 Del Method O2 Flow Rate O2 Flow Rate 04/14/22 09:31 Nasal Cannula 2 04/14/22 08:26 Nasal Cannula 2 04/14/22 06:15 04/14/22 06:00 Room Air 04/14/22 04:00 Nasal Cannula 2 04/14/22 04:00 Nasal Cannula 2 04/14/22 00:50 Nasal Cannula 2 04/13/22 23:56 Nasal Cannula 2 04/13/22 23:22 04/13/22 22:54 Nasal Cannula 2 04/13/22 22:51 Nasal Cannula 2 PG Care Time/CCT Total # of Minutes Spent Total Time Spent with Patient: Total time spent is greater than 50% in coordination of care (as documented) at patient's floor/unit and/or counseling patient: Coding Level of Care Code 32148 Subseq Obs Care Lvl 2 Diagnoses UTI (urinary tract infection) N30.01 Hematuria presence: with hematuria Urinary tract infection type: acute cystitis Sepsis A41.9 Sepsis type: sepsis due to unspecified organism Nephrolithiasis N20.0 (1) UTI (urinary tract infection) Hematuria presence: with hematuria Urinary tract infection type: acute cystitis Qualified Code(s): N30.01 - Acute cystitis with hematuria (2) Sepsis Sepsis type: sepsis due to unspecified organism Qualified Code(s): A41.9 - Sepsis, unspecified organism
[2022-04-14] MEDS: cefTRIAXone SODIUM 2,000 MG in DEXTROSE 5% 50 ML IV SCH (13:54)
--- NOTE | 2022-04-14 23:56 | Hospitalist Progress Note ---
Date of Service April 14, 2022 Assessment & Plan (1) Sepsis: (2) UTI (urinary tract infection): (3) Bacteremia: Plan: Meet sepsis criteria on admission with Tachycardia, febrile, elevated WBC Blood cx and urine cx grew gram negative bacilli She was started on IV Zosyn then transition to Rocephin IV Blood cx repeat today ID on board recommended IV abx with Cefepime or Ceftriaxone according to sensitivity Continue monitor closely (4) Encephalopathy: Plan: Present on admission with confusion Possible related to infection (UTI and Bacteremia) CT head showed no acute intracranial abnormality Clinically improved Elevated troponin Mostly due to demand ischemia from sepsis Troponin continue to trend up EKG showed no acute ischemic changes ECHO showed no wall motion abnormality. EF 55-60% Denies any chest pain Continue Xarelto Continue trending trop IVAN on CKD Creatinine increased to 1.7, improved ro 1.25 today Continue gentle IVF Continue monitor BMP Kidney stone CT abd/pelvis showed 7 mm calculus within the right renal pelvis. There is mild associated pelviectasis without rom hydronephrosis. Urology on board no intervention at present or planned unless conditions change Stable COPD (chronic obstructive pulmonary disease): Continue oxygen supplement Stable Hypertension BP has been fluctuated Continue amlodipine Continue monitor BP HX RA Continue chronic prednisone Diabetes mellitus, type II: Most recent Hba1c 8.2 (04/12/22) On Toujeo outpatient Continue monitor BS History of DVT (deep vein thrombosis): On Rivaroxaban CODE STATUS DNR daughter/POA, Ms. Devika Downs. Can be reached at [phone]. Admission and Anticipated Discharge Date Admission Date: April 12, 2022 Subjective Pt was seen and examined for follow up bacteremia and UTI Lying in bed with no acute distress Pt last night she had SOB, but now she feels better She is very anxious to go home I spoke to her daughter Letty and provided with update and answered all her questions Denies any chest pain, palpitation, dizziness and SOB Review of Systems Review of Systems: All systems reviewed & are unremarkable except as noted in Subjective Physical Exam Physical Exam: General- No acute distress Head- atraumatic Eyes- PERRL, EOMI, ENT- oropharynx clear Neck- supple, no JVD Lungs- clear to auscultation Heart- regular rhythm; no murmur Abdomen- normal bowel sounds, soft, nontender Extremities- no calf tenderness, +edema Neuro- alert, oriented x 3; PERRL, EOMI; no facial palsy; no dysarthria Skin- warm & dry Results & Data Results & Data ([facility]) Vital Signs (Past 12 Hours) Vital Signs Temp Pulse Pulse Resp BP BP Pulse Ox 04/14/22 23:17 37 C 90 16 161/79 H 95 04/14/22 23:11 94 H 04/14/22 20:00 36.9 C 96 H 20 171/83 H 97 04/14/22 16:30 36.6 C 93 H 22 167/89 H 99 04/14/22 14:19 99 H 04/14/22 11:56 36.9 C 100 H 22 154/78 H 95 O2 Del Method O2 Flow Rate 04/14/22 23:17 Nasal Cannula 3 04/14/22 23:11 04/14/22 20:00 Nasal Cannula 3 04/14/22 16:30 Nasal Cannula 3 04/14/22 14:19 04/14/22 11:56 Nasal Cannula 3 (1) UTI (urinary tract infection) Hematuria presence: with hematuria Urinary tract infection type: acute cystitis Qualified Code(s): N30.01 - Acute cystitis with hematuria (2) Sepsis Sepsis type: sepsis due to unspecified organism Qualified Code(s): A41.9 - Sepsis, unspecified organism
[2022-04-15] MEDS: LEVOTHYROXINE SODIUM 25 MCG TABLET PO SCH (06:18)
[2022-04-15] MEDS: PANTOprazole 40 MG TAB PO SCH (07:59)
[2022-04-15] MEDS: FERROUS SULFATE 325 MG TAB PO SCH (07:59)
[2022-04-15] MEDS: DOXYCYCLINE HYCLATE 100 MG CAP PO SCH ×2 (07:59→20:24)
[2022-04-15] MEDS: amLODIPine BESYLATE 5 MG TAB PO SCH (07:59)
[2022-04-15] MEDS: CETIRIZINE HCL 10 MG TABLET PO SCH (08:00)
[2022-04-15] MEDS: FLUTICASONE FUROATE 100MCG 14 PUFFS/INHALER INH SCH (08:00)
[2022-04-15] MEDS: RIVAROXABAN 20 MG TAB PO SCH (08:00)
[2022-04-15] MEDS: [UNRECOGNIZED DRUG - REMARK] SCH ×3 (08:01→20:30)
[2022-04-15] MEDS: INSULIN ASPART PER UNIT SC SCH ×4 (08:23→20:24)
[2022-04-15] MEDS: LANTUS PER UNIT CHARGE SQ SCH (08:23)
[2022-04-15] MEDS: methylPREDNISolone 20 MG in SYRINGE 0 ML IV SCH (09:17)
--- NOTE | 2022-04-15 10:29 | Urology Progress Note ---
Date of Service April 15, 2022 Assessment & Plan (1) Nephrolithiasis: (2) Bacteremia: Plan Kim continues to look well clinically. Pyelonephritis and bacteremia appears to be responding appropriately as to ceftriaxone. At this point it seems like the stone in the kidney is not obstructing. Although she should likely undergo stone removal at some point to prevent future issues, she should finish her treatment of UTI. Urology will arrange outpatient follow-up to discuss stone management. We will sign off for now. Please call with any concerns or questions or if she starts to deteriorate clinically. Admission and Anticipated Discharge Date Admission Date: April 12, 2022 Subjective Feeling well this morning No fevers or chills Has been up to the chair moving around Not having any flank pain Not having any issues with urinating Repeat blood cultures negative at 24 hours, remains on ceftriaxone Review of Systems Constitutional: No fevers or chills Physical Exam Physical Exam: Frail-appearing, NAD Constitutional: Mobilizing with walker, up in chair Respiratory: Breathing comfortably on 2 L oxygen by nasal cannula Musculoskeletal: Deconditioned Results & Data ([facility]) Vital Signs (Past 12 Hours) Vital Signs Temp Pulse Pulse Resp BP BP Pulse Ox 04/15/22 09:26 96 H 04/15/22 08:07 36.7 C 95 H 19 183/68 H 94 04/15/22 04:00 04/15/22 03:00 37.2 C 83 16 151/78 H 95 04/14/22 23:54 04/14/22 23:17 37 C 90 16 161/79 H 95 04/14/22 23:11 94 H Pulse Ox O2 Del Method O2 Del Method O2 Flow Rate O2 Flow Rate 04/15/22 09:26 04/15/22 08:07 Nasal Cannula 2 04/15/22 04:00 95 Nasal Cannula 3 04/15/22 03:00 Nasal Cannula 3 04/14/22 23:54 Nasal Cannula 3 04/14/22 23:17 Nasal Cannula 3 04/14/22 23:11 PG Care Time/CCT Total # of Minutes Spent Total Time Spent with Patient: Total time spent is greater than 50% in coordination of care (as documented) at patient's floor/unit and/or counseling patient: Coding Level of Care Code 82919 Subseq Hosp Care Lvl 2 Diagnoses Nephrolithiasis N20.0 Bacteremia R78.81
[2022-04-15 11:58] LABS: BUN Creatinine Ratio 25.2 (10-20); Calcium 9.9 mg/dl (8.5-10.1); Creatinine Clr Calc Pharmacy 41.5 ml/min; Est GFR (African American) 47.6 ml/min; Est GFR (Non-African American) 41.1 ml/min; Potassium 3.6 mmol/L (3.5-5.1)
[2022-04-15] MEDS: cefTRIAXone SODIUM 2,000 MG in DEXTROSE 5% 50 ML IV SCH (13:37)
--- NOTE | 2022-04-15 23:28 | Hospitalist Progress Note ---
Date of Service April 15, 2022 Assessment & Plan (1) Sepsis: (2) UTI (urinary tract infection): (3) Bacteremia: Plan: Meet sepsis criteria on admission with Tachycardia, febrile, elevated WBC Blood cx and urine cx grew gram negative bacilli She was started on IV Zosyn then transition to Rocephin IV Blood cx repeat today ID on board recommended IV abx with Cefepime or Ceftriaxone according to sensitivity Continue monitor closely (4) Encephalopathy: Plan: Present on admission with confusion Possible related to infection (UTI and Bacteremia) CT head showed no acute intracranial abnormality Clinically improved Elevated troponin Mostly due to demand ischemia from sepsis Troponin continue to trend up EKG showed no acute ischemic changes ECHO showed no wall motion abnormality. EF 55-60% Denies any chest pain Continue Xarelto Continue trending trop IVAN on CKD Creatinine increased to 1.7, improved to 1.23 today Continue gentle IVF Continue monitor BMP Kidney stone CT abd/pelvis showed 7 mm calculus within the right renal pelvis. There is mild associated pelviectasis without rom hydronephrosis. Urology on board no intervention at present or planned unless conditions change outpatient follow-up with urology to discuss stone management. Stable COPD (chronic obstructive pulmonary disease): Continue oxygen supplement Stable Hypertension BP has been fluctuated Continue amlodipine Continue monitor BP HX RA Continue chronic prednisone Diabetes mellitus, type II: Most recent Hba1c 8.2 (04/12/22) On Touo outpatient Continue monitor BS History of DVT (deep vein thrombosis): On Rivaroxaban CODE STATUS DNR daughter/POA, Ms. Devika Downs. Can be reached at [phone]. Admission and Anticipated Discharge Date Admission Date: April 12, 2022 Subjective Pt was seen and examined for follow up bacteremia and UTI Sitting in chair with no acute distress Pt said that she feels much better Denies any chest pain, palpitation, dizziness and SOB Review of Systems Review of Systems: All systems reviewed & are unremarkable except as noted in Subjective Physical Exam Physical Exam: General- No acute distress Head- atraumatic Eyes- PERRL, EOMI, ENT- oropharynx clear Neck- supple, no JVD Lungs- clear to auscultation Heart- regular rhythm; no murmur Abdomen- normal bowel sounds, soft, nontender Extremities- no calf tenderness, +edema Neuro- alert, oriented x 3; PERRL, EOMI; no facial palsy; no dysarthria Skin- warm & dry Results & Data Results & Data ([facility]) Vital Signs (Past 12 Hours) Vital Signs Temp Pulse Pulse Resp BP BP Pulse Ox 04/15/22 23:07 04/15/22 22:55 36.8 C 96 H 20 166/84 H 95 04/15/22 22:55 92 H 04/15/22 20:00 04/15/22 19:29 105 H 19 147/79 H 95 04/15/22 15:39 100 H 04/15/22 14:35 36.7 C 108 H 20 172/73 H 91 O2 Del Method O2 Flow Rate 04/15/22 23:07 Nasal Cannula 2 04/15/22 22:55 Nasal Cannula 2 04/15/22 22:55 04/15/22 20:00 Nasal Cannula 2 04/15/22 19:29 Nasal Cannula 2 04/15/22 15:39 04/15/22 14:35 Nasal Cannula (1) Sepsis Sepsis type: sepsis due to unspecified organism Qualified Code(s): A41.9 - Sepsis, unspecified organism (2) UTI (urinary tract infection) Hematuria presence: with hematuria Urinary tract infection type: acute cystitis Qualified Code(s): N30.01 - Acute cystitis with hematuria
[2022-04-16] MEDS: LEVOTHYROXINE SODIUM 25 MCG TABLET PO SCH (05:44)
--- NOTE | 2022-04-16 08:23 | Pharmacy Report ---
Pharmacy Glycemic Short Note 2 - Date of Service April 16, 2022 - Glycemic Short BSG Results (Last 24 hours): 04/15/22 04/15/22 04/15/22 10:54 11:37 16:32 Glucose 184 H POC Glucose 192 H 218 H 04/15/22 04/16/22 20:05 07:36 Glucose POC Glucose 224 H 154 H OUTPATIENT ANTIDIABETIC REGIMEN: * Toujeo 40 units SC HS * Novolog 14 units SC TIDM * Metformin 500 mg PO BID * HbA1c = 8.2% (04/12/22) ASSESSMENT: 04/16/22 * BSGs trended up yesterday, 146, 192, 218, and 224 mg/dL with fasting BSG of 154 mg/dL this morning * Received 69 units of insulin yesterday (35 units of Lantus and 34 units of prandial/correctional Novolog) * Continues on day #5 of Solu-medrol 20 mg IV daily * Continues on ceftriaxone/doxycycline 04/13 * Patient received total of 122 units of insulin yesterday, of which 40 units were basal * Fasting BSG 134 mg/dL - however received 4 units of shorter acting insulin overnight, plan to titrate home basal to 45 units daily. This is a ~10% increase in home basal dose * Steroids changed today to solumedrol 20 mg daily. Had received both DXM 10 mg and solm 20 mg yesterday therefore feel that insulin needs will decrease * BSGs already improving much more this morning as DXM now likely wearing off * May need to loosen CF/CR later today, will reevaluate later 04/12 * 81 yo F admitted overnight secondary to shortness of breath believed to be a COPD exacerbation. Pharmacy has been consulted today to assist with inpatient glycemic management. Patient is an insulin-dependent type 2 diabetic as outpatient. A1c is slightly above goal of less than 8% for this patient but has improved. Comes from personal care facility. * Received home dose of Toujeo 40 units last evening at [facility]. Upon arrival to ED, patient's BSG was 204 mg/dL. Received 10 mg of IV dexamethasone in the ED which then led to elevated BSGs we have seen today: 351-389-435 mg/dL. Also received 40 more units of Lantus around 0200 as well as 9 units of Novolog. 10 units of Novolog were given this morning for BSG of 389 mg/dL. * She is ordered a type 2 diabetic diet. Minimal intake at this point secondary to BiPAP use. Expect PO intake to increase. Has been started on 20 mg of IV Methylprednisolone once daily for COPD exacerbation. * For BSG of 435 mg/dL at lunchtime, RN administered 12 units. Patient ate 7 gram of carbs. Consult received around this time. Will tighten both carb ratio and correction factor to reflect weight/stress of 3. Will enter a one time Novolog order now to equal a total of 20 units with lunch. This is what the patient would have received had the Novolog been tightened prior to 12 units being administered. Will add overnight checks. * Will give a 10 unit IV insulin bolus. Potassium is adequate. Will hold off on any further basal insulin today since patient received double her home dose between last evening and early this AM. Plan to reassess basal needs in the morning. Also, want basal given in the morning to match steroid timing. PLAN FOR INPATIENT GLYCEMIC CONTROL: * Hold outpatient oral diabetes medications * Basal insulin - increase * Lantus 40 units SC daily (give with Solu-medrol) * Bolus insulin - tighten * NovoLog per scale ACHS or Q6hrs while NPO * Goal Range: Low 110 mg/dL - High 140 mg/dL * Correction Factor: 15 mg/dL/unit * Nutritional / Prandial insulin per carb ratio of 1 unit per 4 grams CHO consumed with breakfast, 5 grams CHO consumed with lunch, dinner, HS
[2022-04-16] MEDS: INSULIN ASPART PER UNIT SC SCH ×2 (08:28→12:16)
[2022-04-16] MEDS: [UNRECOGNIZED DRUG - REMARK] SCH ×2 (08:28→16:01)
[2022-04-16] MEDS: PANTOprazole 40 MG TAB PO SCH (08:29)
[2022-04-16] MEDS: FLUTICASONE FUROATE 100MCG 14 PUFFS/INHALER INH SCH (08:29)
[2022-04-16] MEDS: CETIRIZINE HCL 10 MG TABLET PO SCH (08:30)
[2022-04-16] MEDS: DOXYCYCLINE HYCLATE 100 MG CAP PO SCH (08:30)
[2022-04-16] MEDS: RIVAROXABAN 20 MG TAB PO SCH (08:30)
[2022-04-16] MEDS: methylPREDNISolone 20 MG in SYRINGE 0 ML IV SCH (08:30)
[2022-04-16] MEDS: amLODIPine BESYLATE 5 MG TAB PO SCH (08:30)
[2022-04-16] MEDS: FERROUS SULFATE 325 MG TAB PO SCH (08:30)
[2022-04-16 08:38] LABS: Hematocrit (blood only) 41.9 % (34.1-44.9); Mean Corpuscular Hemoglobin 29.3 pg (25.0-34.0); Mean Corpuscular Volume 94.6 fL (80.0-100.0); Mean Platelet Volume 10.5 fL (9.4-12.3); Platelet Count 235 K/uL (130-400); RDW Coefficient of Variation 13.3 % (11.5-14.5); RDW Standard Deviation 46.4 fL (36.4-46.3); Red Blood Count 4.43 M/uL (3.93-5.22); White Blood Count 12.11 K/ul (4.8-10.8)
[2022-04-16] MEDS ORDERED: LANTUS PER UNIT CHARGE SQ SCH (09:00)
[2022-04-16 09:16] LABS: Anion Gap 7 (3-11); BUN Creatinine Ratio 27.1 (10-20); Blood Urea Nitrogen 38 mg/dl (6-23); Calcium 9.6 mg/dl (8.5-10.1); Carbon Dioxide 33 mmol/L (21-32); Chloride 100 mmol/L (98-107); Creatinine Clr Calc Pharmacy 36.5 ml/min; Est GFR (African American) 40.7 ml/min; Est GFR (Non-African American) 35.1 ml/min; Glucose 143 mg/dl (70-99(Fasting)); Sodium 140 mmol/L (136-145)
[2022-04-16] MEDS ORDERED: POTASSIUM CHLORIDE CRTAB 20 MEQ TABCR PO STA (12:41)
[2022-04-16] MEDS ORDERED: FUROSEMIDE INJ 20 MG/2 ML VIAL IV ONE (12:45)
[2022-04-16] MEDS: cefTRIAXone SODIUM 2,000 MG in DEXTROSE 5% 50 ML IV SCH (12:57)
--- NOTE | 2022-04-24 14:20 | Discharge Summary ---
Date of Service April 16, 2022 Admission HPI Per Admitting Provider History obtained from patient, family, and records. Limited history from patient secondary to disoriented state. Medical history significant for COPD, hypercoagulable state as per records (history of PE/DVT on Xarelto), HTN, hx RA/CPPD arthritis on chronic prednisone Rx, DM2 insulin requiring, hx Fanconi syndrome as per records, cognitive dysfunction as per records, recurrent UTIs on chronic Macrodantin Rx, overactive bladder status post InterStim placement, history pulmonary tuberculosis as per records, hypothyroidism, past tobacco abuse Last confinement October 2020 for chest pain. During stress echo negative for ischemia. Patient noted to be short of breath the last 2 days. Unable to obtain history regarding cough, chest pain. Patient more confused than usual as per daughter. Patient without abdominal pain/back pain complaints. Patient received Decadron, Zosyn, neb treatment at the ER for COPD exacerbation. BiPAP initiated at the ER. 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, [facility] resident Admission Exam Per Admitting Provider GENERAL: Comfortable, disoriented, obese, no respiratory distress SKIN: Normal color, warm HEENT: [place] palpebral conjunctivae, no ptosis, dry buccal mucosa, BiPAP in place NECK : Supple, short neck, no tenderness CHEST : Decreased breath sounds, occasional expiratory wheezes, no tenderness HEART : Tachycardic, no obvious murmurs ABDOMEN: Some distention, nontender EXTREMITIES : Minimal LE swelling, no LE tenderness, no other conspicuous deformities noted NEUROLOGIC : Disoriented, no facial asymmetry, gait and stance not assessed Principal Diagnosis Sepsis: UTI (urinary tract infection): Bacteremia: Encephalopathy: Elevated troponin Acute kidney injury on CKD Kidney stone COPD (chronic obstructive pulmonary disease): Hypertension History rheumatoid arthritis Diabetes mellitus, type II: Discharge Exam General- No acute distress Head- atraumatic Eyes- PERRL, EOMI, ENT- oropharynx clear Neck- supple, no JVD Lungs- clear to auscultation Heart- regular rhythm; no murmur Abdomen- normal bowel sounds, soft, nontender Extremities- no calf tenderness, +edema Neuro- alert, oriented x 3; PERRL, EOMI; no facial palsy; no dysarthria Skin- warm & dry Discharge Data Allergies Allergy/AdvReac Type Severity Reaction Status Date / Time atorvastatin Allergy Unknown UNKN Verified 04/11/22 23:00 bee venom protein (honey bee) Allergy Unknown Unknown Verified 04/11/22 23:00 formaldehyde Allergy Unknown HYPERSENSIT Verified 04/11/22 23:00 IVITY oxycodone Allergy Unknown UNKN Verified 04/11/22 23:00 peanut Allergy Unknown Unknown Verified 04/11/22 23:00 Sulfa (Sulfonamide Allergy Unknown Unknown Verified 04/11/22 23:00 Antibiotics) Consultations 04/12/22 00:29 ED Decision to Admit Stat 04/12/22 04:37 Consult Urology Routine 04/13/22 10:13 Consult Infectious Diseases Routine Ordered Studies 04/12/22 02:25 CT abd pelvis wo con Urgent CT chest diagnostic wo con Urgent CT head/brain wo con Urgent XR chest 1V portable HISTORY: 81 years-old Female SEPSIS acute sepsis COMPARISON: Chest CT of same day TECHNIQUE: AP view of the chest FINDINGS: Atherosclerosis of the aorta. The heart is enlarged. Numerous scattered calcified pulmonary granulomata. No pneumothorax, pleural effusion, airspace consolidation or overt pulmonary edema. Emphysema with right apical scarring. IMPRESSION: 1. Cardiomegaly without acute process. 2. Emphysema with right upper lobe opacities suggestive of scarring. 3. Prior granulomatous disease. ACT 112: Negative or not required by law. The above report was generated using voice recognition software. It may contain grammatical, syntax or spelling errors. Electronically signed by: Juan Woods M.D. 04/12/2022 6:48 AM Dictated:04/12/2247 Transcribed: 04/12/22646 CT chest diagnostic wo con, CT abd pelvis wo con CLINICAL HISTORY: 81 years-old Female with low o2. Acute hypoxia TECHNIQUE: Multiaxial CT images of the chest, abdomen and pelvis were performed without contrast. A dose lowering technique was utilized adhering to the principles of ALARA. COMPARISON: CT chest, abdomen and pelvis 08/31/2021 FINDINGS: CT CHEST: Heterogeneous thyroid with partially calcified nodules. Moderate cardiomegaly with extensive coronary artery calcifications. Atherosclerosis of the thoracic aorta without aneurysm. Mild dilation of the pulmonary artery may represent pulmonary arterial hypertension. Calcified mediastinal and hilar lymph nodes. Study is degraded by respiratory motion artifact. Moderate pulmonary emphysema. Scattered multifocal calcified pulmonary granulomata. Linear consolidation of the right lung apex redemonstrated suggestive of scarring. There is irregular and somewhat spiculated 1.1 cm nodular density redemonstrated within the left lung apex on image 81 series 8 is unchanged. And adjacent expanded and opacified bronchus is also again noted on image 71 of series 8. Mild subsegmental bibasilar atelectasis. Unremarkable soft tissues. Degenerative changes of the shoulders and spine. There are a few healed chronic right-sided rib fractures. CT ABDOMEN/PELVIS: No pneumatosis or pneumoperitoneum. The unenhanced spleen, and right adrenal gland are unremarkable. Liver is enlarged and appears unchanged from prior. There is a stable 2 cm soft tissue attenuating left adrenal gland lesion with [place]oun[place]field of 34. Cholecystectomy. Nonspecific bilateral perinephric stranding. There is a 7 mm calculus within the right renal pelvis. Mild pelviectasis without hydronephrosis. 5.2 cm left renal cyst. Calculi within the inferior pole left kidney measure up to 5 mm. Or left- sided ureteral calculi or hydronephrosis. Decompressed urinary bladder with mild wall thickening. Hysterectomy. Atherosclerosis of the aorta and branch vessels. No lymphadenopathy. No bowel obstruction or bowel wall thickening. Colonic diverticulosis. Mild colonic fecal retention. Normal appendix. Small fat filled periumbilical hernia. A spinal stimulator device is noted with distal tip of the lead present within the presacral soft tissues. Degenerative changes of the spine, pelvis and hips. Demineralized appearance of the bones with heterogeneous appearance of the marrow. Chronic bilateral L5 pars defects. IMPRESSION: 1. Cardiomegaly with moderate emphysema. 2. Prior granulomatous disease with unchanged scarring of the right lung apex. 3. 7 mm calculus within the right renal pelvis. There is mild associated pelviectasis without rom hydronephrosis. 4. Nonobstructing left renal calculi. 5. Colonic diverticulosis. 6. Additional findings as above. ACT 112: Negative or not required by law. Electronically signed by: Juan Woods M.D. 04/12/2022 8:09 AM Dictated:04/12/22 0756 Transcribed: 04/12/[address] chest diagnostic wo con, CT abd pelvis wo con CLINICAL HISTORY: 81 years-old Female with low o2. Acute hypoxia TECHNIQUE: Multiaxial CT images of the chest, abdomen and pelvis were performed without contrast. A dose lowering technique was utilized adhering to the principles of ALARA. COMPARISON: CT chest, abdomen and pelvis 08/31/2021 FINDINGS: CT CHEST: Heterogeneous thyroid with partially calcified nodules. Moderate cardiomegaly with extensive coronary artery calcifications. Atherosclerosis of the thoracic aorta without aneurysm. Mild dilation of the pulmonary artery may represent pulmonary arterial hypertension. Calcified mediastinal and hilar lymph nodes. Study is degraded by respiratory motion artifact. Moderate pulmonary emphysema. Scattered multifocal calcified pulmonary granulomata. Linear consolidation of the right lung apex redemonstrated suggestive of scarring. There is irregular and somewhat spiculated 1.1 cm nodular density redemonstrated within the left lung apex on image 81 series 8 is unchanged. And adjacent expanded and opacified bronchus is also again noted on image 71 of series 8. Mild subsegmental bibasilar atelectasis. Unremarkable soft tissues. Degenerative changes of the shoulders and spine. There are a few healed chronic right-sided rib fractures. CT ABDOMEN/PELVIS: No pneumatosis or pneumoperitoneum. The unenhanced spleen, and right adrenal gland are unremarkable. Liver is enlarged and appears unchanged from prior. There is a stable 2 cm soft tissue attenuating left adrenal gland lesion with [place]oun[place] of 34. Cholecystectomy. Nonspecific bilateral perinephric stranding. There is a 7 mm calculus within the right renal pelvis. Mild pelviectasis without hydronephrosis. 5.2 cm left renal cyst. Calculi within the inferior pole left kidney measure up to 5 mm. Or left- sided ureteral calculi or hydronephrosis. Decompressed urinary bladder with mild wall thickening. Hysterectomy. Atherosclerosis of the aorta and branch vessels. No lymphadenopathy. No bowel obstruction or bowel wall thickening. Colonic diverticulosis. Mild colonic fecal retention. Normal appendix. Small fat filled periumbilical hernia. A spinal stimulator device is noted with distal tip of the lead present within the presacral soft tissues. Degenerative changes of the spine, pelvis and hips. Demineralized appearance of the bones with heterogeneous appearance of the marrow. Chronic bilateral L5 pars defects. IMPRESSION: 1. Cardiomegaly with moderate emphysema. 2. Prior granulomatous disease with unchanged scarring of the right lung apex. 3. 7 mm calculus within the right renal pelvis. There is mild associated pelviectasis without rom hydronephrosis. 4. Nonobstructing left renal calculi. 5. Colonic diverticulosis. 6. Additional findings as above. ACT 112: Negative or not required by law. Electronically signed by: Juan Woods M.D. 04/12/2022 8:09 AM Dictated:04/12/22 0756 Transcribed: 04/12/[address] head/brain wo con CLINICAL HISTORY: 81 years-old Female with ams, eliquis rx. Acutely altered mental status TECHNIQUE: Multiple axial CT images of the head were obtained without contrast. A dose lowering technique was utilized adhering to the principles of ALARA. CT DOSE: 2964.08 mGy.cm COMPARISON: Head CT 09/22/2021. FINDINGS: No acute intracranial hemorrhage, midline shift, intracranial mass, hydrocephalus, territorial ischemia or abnormal extra-axial collection. Age- related involutional changes. Extensive white matter hypodensities suggest advanced chronic microvascular ischemic disease. The calvarium is intact. Prior left-sided lens repair. The paranasal sinuses, mastoid air cells, and middle ear cavities are clear. IMPRESSION: No acute intracranial abnormality. ACT 112: Negative or not required by law. The above report was generated using voice recognition software. It may contain grammatical, syntax or spelling errors. Electronically signed by: Juan Woods M.D. 04/12/2022 6:58 AM Dictated:04/12/22 0655 Transcribed: 04/12/22 0655 XR chest 1V portable CLINICAL HISTORY: wheeze TECHNIQUE: Single frontal radiograph of the chest was obtained. Comparison: Comparison is made to chest radiograph 04/11/[address] chest 112 FINDINGS: No lines and tubes are seen. The cardiomediastinal silhouette is stable. Prominence and cephalization of the vasculature is seen. Calcified granulomata are seen, better visualized on CT. No evidence of pleural effusion or pneumothorax. IMPRESSION: Mild cardiomegaly with mild pulmonary edema. ACT 112: Negative or not required by law. Electronically signed by: Zachariah Baker M.D. 04/14/2022 10:19 AM Dictated:04/14/22 1016 Transcribed: 04/14/22 1016 Hospital Course (1) Sepsis: (2) UTI (urinary tract infection): (3) Bacteremia: Meet sepsis criteria on admission with Tachycardia, febrile, elevated WBC Blood cx and urine cx grew gram negative bacilli She was started on IV Zosyn then transition to Rocephin IV Blood cx repeat today ID on board recommended IV abx with Cefepime or Ceftriaxone according to sensitivity Continue monitor closely (4) Encephalopathy: Present on admission with confusion Possible related to infection (UTI and Bacteremia) CT head showed no acute intracranial abnormality Clinically improved Elevated troponin Mostly due to demand ischemia from sepsis Troponin continue to trend up EKG showed no acute ischemic changes ECHO showed no wall motion abnormality. EF 55-60% Denies any chest pain Continue Xarelto Continue trending trop IVAN on CKD Creatinine increased to 1.7, improved to 1.23 today Continue gentle IVF Continue monitor BMP Kidney stone CT abd/pelvis showed 7 mm calculus within the right renal pelvis. There is mild associated pelviectasis without rom hydronephrosis. Urology on board no intervention at present or planned unless conditions change outpatient follow-up with urology to discuss stone management. Stable COPD (chronic obstructive pulmonary disease): Continue oxygen supplement Stable Hypertension BP has been fluctuated Continue amlodipine Continue monitor BP HX RA Continue chronic prednisone Diabetes mellitus, type II: Most recent Hba1c 8.2 (04/12/22) On Toujeo outpatient Continue monitor BS History of DVT (deep vein thrombosis): On Rivaroxaban CODE STATUS DNR daughter/POA, Ms. Devika Downs. Can be reached at [phone]. Total Time Total Time Spent Total Time Spent (In Minutes): 40 minutes Discharge Plan Discharge Items Patient Disposition: Transfer Inpatient Rehab Fac Reason For Visit: RESPIRATORY FAILURE Discharge Diagnosis: Sepsis: UTI (urinary tract infection): Bacteremia: Encephalopathy: Elevated troponin Acute kidney injury on CKD Kidney stone COPD (chronic obstructive pulmonary disease): Hypertension History rheumatoid arthritis Diabetes mellitus, type II: Activity: Resume your previous activity Non-emergency contact: Primary Care Provider and Urologist Call non-emergency contact if: you have any medication questions and your temperature is above 101 Follow-up/Referrals: Kelli Monte [Primary Care Provider] - Diet: Carb Consistent or DM2 Addtl Attending Provider Instructions: Follow up with your primary care provider once discharge from rehab Follow up with urology outpatient to discuss stone management Complete the course of antibiotic with Rocephin IV ( 5 more days ) Check BMP in 1 week to monitor your renal function Continue physical and occupation therapy Continue monitor your blood sugar and the provider at the facility will continue adjust the insulin Fall precaution Continue oxygen supplement to keep saturation above 92% Pending Studies at Discharge: No Stand-Alone Forms: My [facility] Skilled Items Patient informed of condition?: Yes DNR: Yes Discharge Level of Care: Skilled Communicable Disease: No Discharge Prognosis: Stable Lines: None Urinary Catheter: No Medications and DC Order Prescriptions: New ceftriaxone 2 gram recon soln 2 g IV DAILY Qty: 5 0RF Continued acetaminophen [Tylenol] 325 mg Tablet 650 mg PO Q4H MDD 3 GRAMS/24 HOURS PRN (Reason: PAIN/FEVER) albuterol sulfate 2.5 mg /3 mL (0.083 %) Solution For Nebulization 2.5 mg INHALATION .Q4-6HR PRN (Reason: Shortness Of Breath) loperamide [Anti-Diarrheal (loperamide)] 2 mg Tablet 2 mg PO Q4H PRN (Reason: Diarrhea) dextromethorphan-guaifenesin [Siltussin-DM] 10-100 mg/5 mL Syrup 10 ml PO Q4H PRN (Reason: Cough) cyanocobalamin (vitamin B-12) 1,000 mcg/mL Solution 1,000 mcg IM MONTHLY furosemide [Lasix] 20 mg Tablet 20 mg PO 2XWK Rx Instructions: TAKES ON MONDAYS & FRIDAYS ergocalciferol (vitamin D2) [Vitamin D2] 1,250 mcg (50,000 unit) Capsule 1,250 mcg PO 2XWK Rx Instructions: TAKES ON MONDAYS & THURSDAYS epinephrine [EpiPen] 0.3 mg/0.3 mL Auto-Injector 0.3 mg IM DIRECTED PRN (Reason: Allergic Reaction) Mucinex DM 30-600 mg Tablet Extended Release 12 Hr 1 tab PO Q12H PRN (Reason: COUGH/CONGESTION) albuterol sulfate 90 mcg/actuation Hfa Aerosol Inhaler 2 puff INHALATION .Q4-6HRS PRN (Reason: Shortness Of Breath) amlodipine 10 mg tablet 10 mg PO QAM acetaminophen [Tylenol] 325 mg Tablet 650 mg PO QAM citalopram 40 mg Tablet 40 mg PO QAM cetirizine [Zyrtec] 10 mg Tablet 10 mg PO QAM lisinopril 20 mg Tablet 20 mg PO HS prednisone 5 mg Tablet 5 mg PO QAM levothyroxine 25 mcg Tablet 25 mcg PO DAILYBB colesevelam [WelChol] 625 mg Tablet 625 mg PO QDL ferrous sulfate 325 mg (65 mg iron) Tablet 325 mg PO QAM metformin 1,000 mg Tablet 500 mg PO BID omeprazole 20 mg Capsule,Delayed Release(Dr/Ec) 20 mg PO QAM diphenhydramine-acetaminophen 25-500 mg Tablet 2 tab PO HS MDD 3 GRAMS/24 HOURS insulin aspart U-100 [Novolog Flexpen U-100 Insulin] 100 unit/mL (3 mL) Insulin Pen 14 unit SUBCUT TIDM psyllium husk [Fiber-Caps (psyllium husk)] 0.52 gram Capsule 0.52 g PO QAM Pulmicort Flexhaler 90 mcg/actuation Aerosol Powdr Breath Activated 1 inh INHALATION BID Xarelto 20 mg Tablet 20 mg PO QAM Toujeo Max U-300 SoloStar 300 unit/mL (3 mL) Insulin Pen 40 unit SUBCUT HS magnesium oxide 400 mg magnesium Tablet 400 mg PO QAM Discontinued nitrofurantoin macrocrystal 50 mg capsule 50 mg PO QAM Discharge Orders: Discharge Order (Routine); Ordered 04/16/22 Ordered By: Veronica Stafford Admission Data Admit Date/Time: 04/12/22 02:29 Attending Provider: Veronica Stafford Admit Provider: Rupert Castillo Primary Care Provider: Kelli Monte Other Providers: Rupert Castillo ; Sam Joseph ; Juan Malagon ; Billy Foster ; Tristen Freedman I. ; Brandon Leyva II ; Maty Vazquez ; David Dejesus ; Tres Bryant ; [facility]
== END 2022-04-16 17:23 | DRG 871 ==
LOC: ED 22:03 → EDINP 04-12 02:29 → 2W 04-12 13:18

== ENCOUNTER 2022-09-26 07:51 | Inpatient (IN) ==
[2022-09-26] MEDS ORDERED: VANCOMYCIN CONSULT ACTIVE PRN (08:02)
[2022-09-26] MEDS ORDERED: CEFEPIME 2,000 MG/20 ML VIAL IV STA (08:02)
[2022-09-26] MEDS ORDERED: VANCOMYCIN HCL 2,000 MG in SODIUM CHLORIDE 0.9% 500 ML IV STA (08:02)
--- NOTE | 2022-09-26 08:11 | Emergency Department Note ---
Impression & Plan AMS (altered mental status), Hypoxia ED Provider Note INFORMANT: EMS as patient was unable to provide any history due to altered mental status ED PROVIDER(S): Keith Mckay DO Computer system failure during the patient's ED stay. CHIEF COMPLAINT: Altered mental status PLAN: Disposition: Admission Condition: Stable Outpatient prescription management: none Referral: I spoke with the hospitalist, who will see the patient for admission/observation and further evaluation and consultation. MEDICAL DECISION MAKING: This is a an 82-year-old female who presents to the ED with a chief complaint of an altered mental status. She presents from [facility]. The patient had a prehospital blood sugar 175. I did speak with EMS about the patient's presentation. They report a history of UTIs. The patient is unable provide any history. She is currently nonverbal and not interacting to an extent to get any information out of her. She is awake and appears to be alert. The patient appears to have dry mucous membranes on exam. She is febrile. She is also noted to be hypoxic on her typical 3 L of oxygen that she uses at home with saturations of 88%. Diminished breath sounds bilaterally. Tachycardic. A twelve-lead EKG shows a sinus tachycardia at a rate of 128. White blood cell count is elevated at 17.8. Hemoglobin did not show a significant leukocytosis. Bio fire was negative. Lactic acid is 1.7. Chemistry panel was unremarkable. Urine did not show obvious infection. CT scan of the abdomen pelvis and chest are pending since no clear source of the fever was obtained. She was empirically treated with IV cefepime, IV fluids and IV vancomycin. She was given 1.5 L of normal saline and she received at least 500 cc of fluid with her vancomycin. The patient does have a history of congestive heart failure. There was concerns with some fluid overload and therefore no additional fluids were given at this time. I spoke with the hospitalist who will see the patient for further inpatient evaluation and care. Triage Nursing notes reviewed. Vital Signs: reviewed Prior /Outside records reviewed: none Differential diagnosis: Differential includes viral illness, influenza, streptococcal pharyngitis,pneumonia, sinusitis, UTI, less likely stroke. Diagnostics, as interpreted by me: 12 lead ECG: Sinus tach at a rate of 128. No ST elevation. No PVCs. Normal QTC. Cardiac Monitoring: Sinus tachycardia Medical decision rules: none Imaging studies: Chest x-ray: Negative for acute disease. No obvious pneumonia. Procedures: none. Critical care: none. HPI: See MDM above. PAST MEDICAL HISTORY: See Below PAST SURGICAL HISTORY: See Below SOCIAL HISTORY: See Below HOME MEDICATIONS: See Below ALLERGIES: See Below VITALS: See Below PHYSICAL EXAMINATION: CONSTITUTIONAL/VITAL SIGNS: Reviewed GENERAL: No distress. INTEGUMENTARY: Warm, dry, and [place]. HEAD: Normocephalic. EYES: without scleral icterus. ENT/OROPHARYNX: clear and dry. RESPIRATORY: Diminished breath sounds bilaterally.. Lungs clear. CARDIOVASCULAR: Tachycardic rate. Regular rhythm. GI/ABDOMEN: Soft and nontender. . EXTREMITIES: Normal NEUROLOGICAL: Intact without focal deficits. PSYCHIATRIC: Normal affect. MUSCULOSKELETAL: Normal. TRIAGE NURSING DOCUMENTATION REVIEWED. Past Med/Surg History Medical History A-fib Acute respiratory acidosis Asthma Bacteremia Depression Diabetes mellitus, type II Encephalopathy GERD (gastroesophageal reflux disease) High cholesterol History of DVT (deep vein thrombosis) Hypertension Hypomagnesemia Hypothyroid Hypoxia Nephrolithiasis On home oxygen therapy Pneumonia Sepsis UTI (urinary tract infection) Surgical History History of cataract surgery (10/18/21) left History of cholecystectomy History of hysterectomy Hx of tonsillectomy Family History Other Diabetes Hypertension Stroke Social History Smoking Status: Unknown if ever smoked Second Hand Exposure: No; Hx Alcohol Use: No Hx Substance Use: No Preferred Language: Grenadian Communication Ability: Effective [employer] Required: No Beliefs That Will Affect Care: None marital status: / Current Living Situation: Personal Care Facility Current Living Situation Comment: Lives at [facility] Feels Safe at Home: Yes Assistive Devices: Walker Allergies Allergies Allergy/AdvReac Type Severity Reaction Status Date / Time atorvastatin Allergy Unknown UNKN Verified 09/26/22 11:45 bee venom protein (honey bee) Allergy Unknown Unknown Verified 09/26/22 11:45 formaldehyde Allergy Unknown HYPERSENSIT Verified 09/26/22 11:45 IVITY oxycodone Allergy Unknown UNKN Verified 09/26/22 11:45 peanut Allergy Unknown Unknown Verified 09/26/22 11:45 Sulfa (Sulfonamide Allergy Unknown Unknown Verified 09/26/22 11:45 Antibiotics) Home Meds Home Medications Medication Instructions Recorded Confirmed acetaminophen 325 mg tablet 650 mg PO DAILY .HIP & KNEE PAIN 09/26/22 09/26/22 (Tylenol) acetaminophen 325 mg tablet 650 mg PO Q4 PRN Pain 09/26/22 09/26/22 (Tylenol) albuterol sulfate 2.5 mg/3 mL 2.5 mg inhalation Q4H PRN 09/26/22 09/26/22 (0.083 %) solution for nebulization Shortness Of Breath Or Wheezing albuterol sulfate 90 mcg/actuation 2 puff inhalation Q4 PRN Shortness 09/26/22 09/26/22 aerosol inhaler (Ventolin HFA) Of Breath Or Wheezing amlodipine 10 mg tablet 10 mg PO DAILY 09/26/22 09/26/22 budesonide 90 mcg/actuation breath 1 inh inhalation BID 09/26/22 09/26/22 activated powder inhaler (Pulmicort Flexhaler) calcium polycarbophil 625 mg 625 mg PO DAILY PRN Constipation 09/26/22 09/26/22 tablet (Fiber-Lax) cetirizine 10 mg tablet 10 mg PO DAILY 09/26/22 09/26/22 citalopram 40 mg tablet 40 mg PO DAILY 09/26/22 09/26/22 colesevelam 625 mg tablet (WelChol) 625 mg PO DAILY 09/26/22 09/26/22 cyanocobalamin (vitamin B-12) 1,000 mcg IM .MONTH 09/26/22 09/26/22 1,000 mcg/mL injection solution dextromethorphan-guaifenesin 30 1 tab PO Q12H PRN Congestion 09/26/22 09/26/22 mg-600 mg tablet extended [id number] hr (Mucinex DM) diphenhydramine 25 2 tab PO HS 09/26/22 09/26/22 mg-acetaminophen 500 mg tablet (Tylenol PM Extra Strength) epinephrine 0.3 mg/0.3 mL 0.3 mg IM DIRECTED PRN Allergic 09/26/22 09/26/22 injection, auto-injector Reaction ergocalciferol (vitamin D2) 1,250 50,000 unit PO 2XWK 09/26/22 09/26/22 mcg (50,000 unit) capsule (Vitamin D2) ferrous sulfate 325 mg (65 mg 325 mg PO DAILY 09/26/22 09/26/22 iron) tablet furosemide 20 mg tablet 20 mg PO MOWEFR 09/26/22 09/26/22 insulin aspart U-100 100 unit/mL 10 unit subcut TIDM 09/26/22 09/26/22 (3 mL) subcutaneous pen (Novolog FlexPen U-100 Insulin aspart) insulin glargine U-300 conc 300 40 unit subcut HS 09/26/22 09/26/22 unit/mL (1.5 mL) subcutaneous pen (Toujeo SoloStar U-300 Insulin) levothyroxine 25 mcg tablet 25 mcg PO DAILY 09/26/22 09/26/22 loperamide 2 mg tablet (Imodium 2 mg PO Q4H PRN Diarrhea 09/26/22 09/26/22 A-D) magnesium oxide,aspartate,citr 400 mg PO DAILY 09/26/22 09/26/22 metformin 1,000 mg tablet 500 mg PO Q12 09/26/22 09/26/22 omeprazole 20 mg capsule,delayed 20 mg PO DAILY 09/26/22 09/26/22 release prednisone 5 mg tablet 5 mg PO DAILY 09/26/22 09/26/22 rivaroxaban 20 mg tablet (Xarelto) 20 mg PO DAILY 09/26/22 09/26/22 Results & Data (ED) Vital Signs Vital Signs - 24 hr 09/26/22 08:00 09/26/22 08:02 09/26/22 08:02 Temperature 39.4 C H Temperature Source Rectal Pulse Rate 124 H Pulse Rate from SpO2 Sensor Respiratory Rate 36 H Respiratory Effort / Characteristics Labored Respiratory Depth Shallow Respiratory Pattern Rapid/Shallow Tachypnea Blood Pressure 219/104 H Blood Pressure Mean 142 Blood Pressure Position Lying Pulse Oximetry 86 L 86 L Oxygen Delivery Method Nasal Cannula Nasal Cannula Oxymask Nasal Cannula Oxygen Flow Rate 3 3 Sepsis Recent Fever Within 48 Hours Yes Sepsis New/Unexplained Change in Mental Status Yes Sepsis Action Taken by Nursing Physician Notified Oxygen Flow Rate - Titration 6 Pulse Oximetry Post Tiitration 93 09/26/22 08:37 09/26/22 08:04 09/26/22 08:05 Temperature Temperature Source Pulse Rate 126 H Pulse Rate from SpO2 Sensor Respiratory Rate 32 H 58 H Respiratory Effort / Characteristics Respiratory Depth Respiratory Pattern Blood Pressure Blood Pressure Mean Blood Pressure Position Pulse Oximetry 96 86 L Oxygen Delivery Method Oxymask Nasal Cannula Oxygen Flow Rate 6 3 Sepsis Recent Fever Within 48 Hours Sepsis New/Unexplained Change in Mental Status Sepsis Action Taken by Nursing Oxygen Flow Rate - Titration 3 Pulse Oximetry Post Tiitration 95 09/26/22 08:06 09/26/22 08:15 09/26/22 08:19 Temperature Temperature Source Pulse Rate 128 H Pulse Rate from SpO2 Sensor 126 H Respiratory Rate 23 Respiratory Effort / Characteristics Respiratory Depth Respiratory Pattern Blood Pressure 219/104 H 210/102 H Blood Pressure Mean 142 138 Blood Pressure Position Pulse Oximetry 88 L Oxygen Delivery Method Nasal Cannula Oxygen Flow Rate 6 Sepsis Recent Fever Within 48 Hours Sepsis New/Unexplained Change in Mental Status Sepsis Action Taken by Nursing Oxygen Flow Rate - Titration Pulse Oximetry Post Tiitration 09/26/22 08:19 09/26/22 08:30 09/26/22 08:30 Temperature Temperature Source Pulse Rate 128 H 132 H Pulse Rate from SpO2 Sensor 128 H 132 H Respiratory Rate 35 H 33 H Respiratory Effort / Characteristics Respiratory Depth Respiratory Pattern Blood Pressure 222/95 H Blood Pressure Mean 137 Blood Pressure Position Pulse Oximetry 97 97 Oxygen Delivery Method Oxymask Oxymask Oxygen Flow Rate 6 6 Sepsis Recent Fever Within 48 Hours Sepsis New/Unexplained Change in Mental Status Sepsis Action Taken by Nursing Oxygen Flow Rate - Titration Pulse Oximetry Post Tiitration Laboratory Data 09/26/22 08:00 09/26/22 08:00 Lab Results 09/26/22 09/26/22 Range/Units 08:00 08:13 WBC 17.82 H (4.8-10.8) K/ul RBC 4.24 (3.93-5.22) M/uL Hgb 12.2 (12.0-16.0) g/dl Hct 39.3 (34.1-44.9) % MCV 92.7 (80.0-100.0) fL MCH 28.8 (25.0-34.0) pg MCHC 31.0 L (32.0-36.0) g/dL RDW Std Deviation 46.5 H (36.4-46.3) fL RDW Coeff of Grey 13.7 (11.5-14.5) % Plt Count 216 (130-400) K/uL MPV 10.2 (9.4-12.3) fL Immature Gran % (Auto) 0.9 % Neut % (Auto) 87.1 % Lymph % (Auto) 4.9 % [place] % (Auto) 5.6 % Eos % (Auto) 1.2 % Baso % (Auto) 0.3 % Neut # (Auto) 15.52 H (1.4-6.5) K/uL Lymph # (Auto) 0.88 L (1.2-3.4) K/uL [place] # (Auto) 0.99 H (0.24-0.82) K/uL Eos # (Auto) 0.22 (0-0.50) K/uL Baso # (Auto) 0.05 (0-0.2) K/uL Immature Gran # (Auto) 0.16 H (0.00-0.02) K/uL Urine Color Yellow Urine Appearance Clear (Clear) Urine pH 6.0 (4.5-7.5) Ur Specific [place] 1.014 (1.000-1.030) Urine Protein 3+ H (Negative) Urine Glucose (UA) Trace H (Negative) Urine Ketones Negative (Negative) Urine Blood 2+ H (Negative) Urine Nitrite Negative (Negative) Urine Bilirubin Negative (Negative) Urine Urobilinogen Negative (Negative) Ur Leukocyte Esterase Negative (Negative) Urine WBC (Auto) 1-5 (0-5) /hpf Urine RBC (Auto) 0-4 (0-4) /hpf U Hyaline Cast (Auto) 1-5 (0-5) /lpf U Epithel Cells (Auto) 20-30 H (0-5) /lpf Urine Bacteria (Auto) Negative (Negative) Imaging Data Radiologist's Impression: Chest X-Ray 09/26/22 08:02 XR chest 1V portable CLINICAL HISTORY: Sepsis. COMPARISON STUDY: Chest CT April 12, 2022. Chest radiograph April 14, 2022. FINDINGS: No pneumothorax or pleural effusion is present. Cardiomediastinal silhouette is stable. Multiple calcified pulmonary nodules are again noted. These are benign. There is stable mild reticulonodular interstitial thickening. No superimposed consolidation is noted. IMPRESSION: No acute cardiopulmonary findings. No significant change in appearance of the chest. ACT 112: Negative or not required by law. Electronically signed by: Geovanny García M.D. 09/26/2022 8:22 AM Discharge Plan Visit Data Chief Complaint: Altered Mental Status Stated Complaint: AMS ED Provider: Keith Mckay Discharge Problem: AMS (altered mental status), Hypoxia Forms Stand Alone Forms: My [facility] Prescriptions Prescriptions: No Action acetaminophen [Tylenol] 325 mg Tablet 650 mg PO DAILY citalopram 40 mg tablet 40 mg PO DAILY levothyroxine 25 mcg tablet 25 mcg PO DAILY amlodipine 10 mg tablet 10 mg PO DAILY cyanocobalamin (vitamin B-12) [Vitamin B-12] 1,000 mcg/mL Solution 1,000 mcg IM .MONTH ferrous sulfate 325 mg (65 mg iron) Tablet 325 mg PO DAILY metformin 1,000 mg tablet 500 mg PO Q12 furosemide 20 mg tablet 20 mg PO MOWEFR Rx Instructions: mon, sat, sat magnesium oxide,aspartate,citr 400 mg magnesium Capsule 400 mg PO DAILY cetirizine 10 mg Tablet 10 mg PO DAILY prednisone 5 mg tablet 5 mg PO DAILY colesevelam [WelChol] 625 mg tablet 625 mg PO DAILY omeprazole 20 mg capsule,delayed release(DR/EC) 20 mg PO DAILY ergocalciferol (vitamin D2) [Vitamin D2] 1,250 mcg (50,000 unit) capsule 50,000 unit PO 2XWK Rx Instructions: GIVE ON SAT & diphenhydramine-acetaminophen [Tylenol PM Extra Strength] 25-500 mg Tablet 2 tab PO HS insulin aspart U-100 [Novolog FlexPen U-100 Insulin] 100 unit/mL (3 mL) i nsulin pen 10 unit SUBCUT TIDM Rx Instructions: BEFORE MEALS Pulmicort Flexhaler 90 mcg/actuation aerosol powdr breath activated 1 inh INHALATION BID Toujeo SoloStar U-300 Insulin 300 unit/mL (1.5 mL) insulin pen 40 unit SUBCUT HS acetaminophen [Tylenol] 325 mg Tablet 650 mg PO Q4 PRN (Reason: Pain) albuterol sulfate 2.5 mg /3 mL (0.083 %) Solution For Nebulization 2.5 mg INHALATION Q4H PRN (Reason: Shortness Of Breath Or Wheezing) loperamide [Imodium A-D] 2 mg Tablet 2 mg PO Q4H PRN (Reason: Diarrhea) calcium polycarbophil [Fiber-Lax] 625 mg Tablet 625 mg PO DAILY PRN (Reason: Constipation) epinephrine [Epi E-Z Pen] 0.3 mg/0.3 mL Auto-Injector 0.3 mg IM DIRECTED PRN (Reason: Allergic Reaction) Mucinex DM 30-600 mg Tablet Extended Release 12 Hr 1 tab PO Q12H PRN (Reason: Congestion) albuterol sulfate [Ventolin HFA] 90 mcg/actuation Hfa Aerosol Inhaler 2 puff INHALATION Q4 PRN (Reason: Shortness Of Breath Or Wheezing) Xarelto 20 mg tablet 20 mg PO DAILY Referrals Referrals: Kelli Monte [Primary Care Provider] -
[2022-09-26] MEDS ORDERED: SODIUM CHLORIDE 0.9% 1000ML 1,000 ML IV SCH (08:15)
--- NOTE | 2022-09-26 08:23 | XRay Report ---
XR chest 1V portable CLINICAL HISTORY: Sepsis. COMPARISON STUDY: Chest CT April 12, 2022. Chest radiograph April 14, 2022. FINDINGS: No pneumothorax or pleural effusion is present. Cardiomediastinal silhouette is stable. Mul tiple calcified pulmonary nodules are again noted. These are benign. There is stable mild reticulonod ular interstitial thickening. No superimposed consolidation is noted. IMPRESSION: No acute cardiopulmonary findings. No significant change in appearance of the chest. ACT 112: Negative or not required by law. Electronically signed by: Geovanny García M.D. 09/26/2022 8:22 AM
[2022-09-26 08:36] LABS: Appearance Urine Clear (Clear); Bacteria Urine Automated Negative (Negative); Bilirubin Urine Negative (Negative); Blood Urine 2+ (Negative); Color Urine Yellow; Epithelial Cell Urine Auto 20-30 /lpf (0-5); Glucose Urine UA Trace (Negative); Ketones Urine Negative (Negative); Leukocyte Esterase Urine Negative (Negative); Nitrite Urine Negative (Negative); Protein Urine 3+ (Negative); RBC Urine Automated 0-4 /hpf (0-4); Specific Gravity Urine 1.014 (1.000-1.030); Urobilinogen Urine Negative (Negative)
[2022-09-26 08:42] LABS: Basophils # (auto) 0.05 K/uL (0-0.2); Basophils % (auto) 0.3 %; Eosinophils # (auto) 0.22 K/uL (0-0.50); Eosinophils % (auto) 1.2 %; Hematocrit (blood only) 39.3 % (34.1-44.9); Hemoglobin 12.2 g/dl (12.0-16.0); Immature Granulocytes # (auto) 0.16 K/uL (0.00-0.02); Immature Granulocytes % (auto) 0.9 %; Lymphocytes # (auto) 0.88 K/uL (1.2-3.4); Lymphocytes % (auto) 4.9 %; Mean Corpuscular Hemoglobin 28.8 pg (25.0-34.0); Mean Corpuscular Volume 92.7 fL (80.0-100.0); Mean Platelet Volume 10.2 fL (9.4-12.3); Monocytes # (auto) 0.99 K/uL (0.24-0.82); Monocytes % (auto) 5.6 %; Neutrophils # (auto) 15.52 K/uL (1.4-6.5); Neutrophils % (auto) 87.1 %; Platelet Count 216 K/uL (130-400); RDW Coefficient of Variation 13.7 % (11.5-14.5); RDW Standard Deviation 46.5 fL (36.4-46.3); Red Blood Count 4.24 M/uL (3.93-5.22); White Blood Count 17.82 K/ul (4.8-10.8)
[2022-09-26] MEDS ORDERED: ACETAMINOPHEN 1000 MG/100 ML IV IV ONE (10:56)
[2022-09-26 11:18] LABS: Alanine Aminotransferase 10 U/L (7-52); Albumin Level 3.8 gm/dl (3.4-5.0); Alkaline Phosphatase 71 U/L (34-104); Anion Gap 6 (3-11); Aspartate Aminotransferase 12 U/L (13-39); BUN Creatinine Ratio 16.7 (10-20); Bilirubin Direct 0.1 mg/dl (0-0.2); Bilirubin,Total 0.5 mg/dl (0.2-1.0); Blood Urea Nitrogen 24 mg/dl (6-23); Calcium 10.2 mg/dl (8.5-10.1); Carbon Dioxide 33 mmol/L (21-32); Chloride 100 mmol/L (98-107); Est GFR (African American) 39.1 ml/min; Est GFR (Non-African American) 33.7 ml/min; Glucose 172 mg/dl (70-99(Fasting)); Magnesium 1.1 mg/dl (1.7-2.4); Potassium 4.1 mmol/L (3.5-5.1); Sodium 139 mmol/L (136-145); Total Protein 6.8 gm/dl (6.0-8.3); Troponin I High Sensitivity 35.7 pg/ml (0-14)
--- NOTE | 2022-09-26 11:27 | Electrocardiogram Report ---
Test Reason : Blood Pressure : / mmHG Vent. Rate : 128 BPM Atrial Rate : 128 BPM P-R Int : 154 ms QRS Dur : 092 ms QT Int : 302 ms P-R-T Axes : 045 -51 096 degrees QTc Int : 440 ms Poor data quality, interpretation may be adversely affected Sinus tachycardia Left axis deviation Poor R wave progression, consider anterior AR vs. lead placement vs. LVH Abnormal ECG When compared with ECG of 11-APR-2022 22:15, No significant change was found Confirmed by Sam Cedillo ([id number]) on 09/26/2022 11:27:26 AM Referred By: REFERRED SELF Confirmed By:Barak Cedillo
[2022-09-26 12:12] LABS: Adenovirus PCR Not Detected (NotDetected); Bordetella parapertussis PCR Not Detected (NotDetected); Bordetella pertussis PCR Not Detected (NotDetected); Chlamydia pneumoniae PCR Not Detected (NotDetected); Coronavirus 229E PCR Not Detected (NotDetected); Coronavirus CoV-2 (COVID19)PCR Not Detected (NotDetected); Coronavirus HKU1 PCR Not Detected (NotDetected); Coronavirus NL63 PCR Not Detected (NotDetected); Coronavirus OC43PCR Not Detected (NotDetected); Human Metapneumovirus PCR Not Detected (NotDetected); Influenza A PCR Not Detected (NotDetected); Influenza B PCR Not Detected (NotDetected); Mycoplasma pneumoniae PCR Not Detected (NotDetected); Parainfluenza Virus 1 PCR Not Detected (NotDetected); Parainfluenza Virus 2 PCR Not Detected (NotDetected); Parainfluenza Virus 3 PCR Not Detected (NotDetected); Parainfluenza Virus 4 PCR Not Detected (NotDetected); Respiratory Syncytial VirusPCR Not Detected (NotDetected); Rhinovirus/Enterovirus PCR Not Detected (NotDetected)
[2022-09-26] MEDS ORDERED: LABETALOL HCL IV 5 MG/ML 20ML IV STA (12:45)
[2022-09-26] MEDS ORDERED: ALBUT/IPRATROP 3MG/0.5MG NEB 3 ML VIAL NEB STA (12:49)
--- NOTE | 2022-09-26 12:54 | CT Scan Report ---
CHEST CT WITH CONTRAST CT DOSE: 1867.77 mGy.cm HISTORY: Altered mental status. Sepsis. TECHNIQUE: Multiaxial CT images of the chest were performed following the intravenous administration of contrast. A dose lowering technique was utilized adhering to the principles of ALARA. COMPARISON: Chest CT 04/12/2022. FINDINGS: Suboptimal evaluation due to the motion artifact. No pneumothorax. No pleural effusions. Em physema is again noted. Mild dependent changes seen at the lung bases. Scattered calcified granulomas remain unchanged. Focal partially calcified irregular density within the right upper lobe abutting t he major fissure remains unchanged. This favors scarring. Stable 1.1 cm spiculated nodule within the left upper lobe on image 72. There is an adjacent expanded opacified bronchus again noted within the left upper lobe best seen image 60. No new focal lung consolidations identified. Old, healed right-si ded rib fractures again noted. No acute fractures. Stable thyroid nodules. The visualized abdominal s tructures will be reported on the same day abdomen and pelvis CT. Hepatic steatosis, cholecystectomy, left adrenal gland nodule are again noted. Moderate calcified plaque within the normal caliber thora cic aorta. The main pulmonary arteries are patent. No mediastinal or hilar lymphadenopathy. The heart remains mildly enlarged. No pericardial effusion. Aortic and mitral valve calcifications again noted . Severe coronary artery calcifications are present. IMPRESSION: 1. Overall, no significant change compared to the prior study. 2. Prior granulomatous disease with stable scarlike density within the right lung apex. 3. Stable 1.1 cm spiculated nodule within the left lung apex. 4. Emphysema. 5. The abdominal structures will be reported on the same day abdomen and pelvis CT. ACT 112: Negative or not required by law. Electronically signed by: Jose Francisco Fitch M.D. 09/26/2022 12:52 PM
--- NOTE | 2022-09-26 13:05 | History & Physical Report ---
Date of Service September 26, 2022 Assessment & Plan (1) AMS (altered mental status): Plan: Was brought in from [facility] with a acute change in mental status Likely has acute metabolic and colopathy secondary to sepsis Likely due to bilateral leg cellulitis Possible NSTEMI Initial troponin was 35.7 and the EKG did show possible anterior infarct Second troponin went up to 460 The patient has been already on Xarelto Will check echocardiogram and gender admission to PCU telemetry Will check third set of troponin (2) Sepsis: Plan: Presented with tachycardia, tachypnea, high temperature and noted to have increasing white count Sepsis likely secondary to bilateral cellulitis of leg UA came out to be unremarkable but she does have a history of sepsis with UTI before CT of the chest and abdomen with pelvis did not show any significant source of infection Blood cultures were taken She was started with intravenous cefepime and vancomycin for now (3) HTN (hypertension): Plan: Her blood pressure noted to be very high in the emergency room at 220/95 Labetalol 10 mg IV stat was ordered We will continue her usual medication Monitor (4) Diabetes mellitus type II, uncontrolled: Plan: We will continue her usual insulin regimen Hold med for We will put her on SSI (5) Acute respiratory failure with hypoxia: Plan: Presented with tachypnea and noted to be hypoxic Likely has mild COPD exacerbation Has been requiring 6 L oxygen to maintain sats We will continue with nebulized bronchodilator Will give very small dose of IV Solu-Medrol with rapid tapering or fixed dose of prednisone for 5 days (6) Acute exacerbation of chronic obstructive airways disease: Plan: Likely has mild exacerbation of COPD We will continue nebulized bronchodilators and add a small dose of intravenous Solu-Medrol (7) DVT (deep venous thrombosis): Plan: Has been on Xarelto and will continue (8) GERD (gastroesophageal reflux disease): Plan: Continue PPI CODE STATUS DNR/DNI Discussed with the daughter, DEE History of Present Illness Chief Complaint: Change in mental status Primary Care Provider: Leny Pereira She is an 82-year-old female with significant past medical history of COPD on 3 L oxygen, hypercoagulable state with history of PE DVT, hypertension, rheumatoid arthritis, type 2 diabetes and recurrent UTI apparently was sent in from [facility] with acute change in mental status. The history was taken from the daughter and from the ER physician. She was noted to be slumped in her recliner and was not able to communicate well. No history of fever and or chills but did have some shortness of breath and did not have any complaint of chest pain and/or palpitation, any nausea and or vomiting. In the ER she was minimally communicative and noted to have tachycardia, tachypnea, increased temperature with elevation of the white count. She was noted to have bilateral lower extremities cellulitis. She was started with intravenous antibiotic with cefepime and vancomycin after taking blood cultures and was admitted to medical telemetry unit for continuation of care. Allergies Allergy/AdvReac Type Severity Reaction Status Date / Time atorvastatin Allergy Unknown UNKN Verified 09/26/22 11:45 bee venom protein (honey bee) Allergy Unknown Unknown Verified 09/26/22 11:45 formaldehyde Allergy Unknown HYPERSENSIT Verified 09/26/22 11:45 IVITY oxycodone Allergy Unknown UNKN Verified 09/26/22 11:45 peanut Allergy Unknown Unknown Verified 09/26/22 11:45 Sulfa (Sulfonamide Allergy Unknown Unknown Verified 09/26/22 11:45 Antibiotics) Home Medications Medication Instructions Recorded Confirmed Type acetaminophen 325 mg tablet 650 mg PO DAILY .HIP & KNEE PAIN 09/26/22 09/26/22 History (Tylenol) acetaminophen 325 mg tablet 650 mg PO Q4 PRN Pain 09/26/22 09/26/22 History (Tylenol) albuterol sulfate 2.5 mg/3 mL 2.5 mg inhalation Q4H PRN 09/26/22 09/26/22 History (0.083 %) solution for nebulization Shortness Of Breath Or Wheezing albuterol sulfate 90 mcg/actuation 2 puff inhalation Q4 PRN Shortness 09/26/22 09/26/22 History aerosol inhaler (Ventolin HFA) Of Breath Or Wheezing amlodipine 10 mg tablet 10 mg PO DAILY 09/26/22 09/26/22 History budesonide 90 mcg/actuation breath 1 inh inhalation BID 09/26/22 09/26/22 History activated powder inhaler (Pulmicort Flexhaler) calcium polycarbophil 625 mg 625 mg PO DAILY PRN Constipation 09/26/22 09/26/22 History tablet (Fiber-Lax) cetirizine 10 mg tablet 10 mg PO DAILY 09/26/22 09/26/22 History citalopram 40 mg tablet 40 mg PO DAILY 09/26/22 09/26/22 History colesevelam 625 mg tablet (WelChol) 625 mg PO DAILY 09/26/22 09/26/22 History cyanocobalamin (vitamin B-12) 1,000 mcg IM .MONTH 09/26/22 09/26/22 History 1,000 mcg/mL injection solution dextromethorphan-guaifenesin 30 1 tab PO Q12H PRN Congestion 09/26/22 09/26/22 History mg-600 mg tablet extended [id number] hr (Mucinex DM) diphenhydramine 25 2 tab PO HS 09/26/22 09/26/22 History mg-acetaminophen 500 mg tablet (Tylenol PM Extra Strength) epinephrine 0.3 mg/0.3 mL 0.3 mg IM DIRECTED PRN Allergic 09/26/22 09/26/22 History injection, auto-injector Reaction ergocalciferol (vitamin D2) 1,250 50,000 unit PO 2XWK 09/26/22 09/26/22 History mcg (50,000 unit) capsule (Vitamin D2) ferrous sulfate 325 mg (65 mg 325 mg PO DAILY 09/26/22 09/26/22 History iron) tablet furosemide 20 mg tablet 20 mg PO MOWEFR 09/26/22 09/26/22 History insulin aspart U-100 100 unit/mL 10 unit subcut TIDM 09/26/22 09/26/22 History (3 mL) subcutaneous pen (Novolog FlexPen U-100 Insulin aspart) insulin glargine U-300 conc 300 40 unit subcut HS 09/26/22 09/26/22 History unit/mL (1.5 mL) subcutaneous pen (Toujeo SoloStar U-300 Insulin) levothyroxine 25 mcg tablet 25 mcg PO DAILY 09/26/22 09/26/22 History loperamide 2 mg tablet (Imodium 2 mg PO Q4H PRN Diarrhea 09/26/22 09/26/22 History A-D) magnesium oxide,aspartate,citr 400 mg PO DAILY 09/26/22 09/26/22 History metformin 1,000 mg tablet 500 mg PO Q12 09/26/22 09/26/22 History omeprazole 20 mg capsule,delayed 20 mg PO DAILY 09/26/22 09/26/22 History release prednisone 5 mg tablet 5 mg PO DAILY 09/26/22 09/26/22 History rivaroxaban 20 mg tablet (Xarelto) 20 mg PO DAILY 09/26/22 09/26/22 History Past Med/Surg History Medical History (Updated 09/26/22 @ 13:01 by Clarice Buck MD) A-fib Acute respiratory acidosis Asthma Bacteremia Depression Diabetes mellitus, type II Encephalopathy GERD (gastroesophageal reflux disease) High cholesterol History of DVT (deep vein thrombosis) Hypertension Hypomagnesemia Hypothyroid Hypoxia Nephrolithiasis On home oxygen therapy Pneumonia Sepsis UTI (urinary tract infection) Surgical History History of cataract surgery (10/18/21) left History of cholecystectomy History of hysterectomy Hx of tonsillectomy Family History Other Diabetes Hypertension Stroke Social History Smoking Status: Unknown if ever smoked Second Hand Exposure: No; Hx Alcohol Use: No Hx Substance Use: No Preferred Language: Tajik Communication Ability: Effective Cooler Operator Required: No Beliefs That Will Affect Care: None marital status: / Current Living Situation: Personal Care Facility Current Living Situation Comment: Lives at [facility] Feels Safe at Home: Yes Assistive Devices: Walker Review of Systems Review of Systems: Unobtainable due to cognitive status Physical Exam Physical Exam: Lying in bed with moderate shortness of breath at rest. Saturating 1 6 L oxygen mask Constitutional: well developed, well nourished, + ill appearing and + obese Eyes: PERRL, conjunctivae normal, anicteric sclerae ENMT: external ear and nose normal, oropharynx normal Neck: trachea midline, no thyromegaly Respiratory: + respiratory distress (Moderate respiratory distress) Auscultation: + diminished lung sounds, + crackles (Minimal bibasilar crackles) and + wheezes Cardiovascular: Rate/Rhythm: regular rate, regular rhythm and + tachycardic Heart Sounds: normal S1 and normal S2; no murmur Extremities: + edema (1+ edema bilaterally with bilateral leg cellulitis more on the left than Rt) Gastrointestinal (Abdomen): Inspection/Auscultation: normal bowel sounds; abdomen not distended Percussion/Palpation: abdomen soft; abdomen nontender Musculoskeletal: No acute arthritis involving any joint Neurologic: Alert and awake. Generally very weak and lethargic. Minimally communicative. Moving all limbs Lymphatic: no cervical or axillary lymphadenopathy Results & Data Results & Data ([facility]) Vital Signs (Past 12 Hours) Vital Signs Temp Pulse Resp BP Pulse Ox O2 Del Method O2 Flow Rate 09/26/22 08:30 132 H 33 H 97 Oxymask 6 09/26/22 08:30 222/95 H 09/26/22 08:19 128 H 35 H 97 Oxymask 6 09/26/22 08:19 210/102 H 09/26/22 08:15 128 H 23 88 L Nasal Cannula 6 09/26/22 08:06 219/104 H 09/26/22 08:05 58 H 09/26/22 08:04 126 H 32 H 86 L Nasal Cannula 3 09/26/22 08:37 96 Oxymask 6 09/26/22 08:02 Nasal Cannula 09/26/22 08:02 86 L Nasal Cannula, Oxymask 3 09/26/22 08:00 39.4 C H 124 H 36 H 219/104 H 86 L Nasal Cannula 3 Laboratory Results Short CBC 09/26/22 Range/Units 08:00 WBC 17.82 H (4.8-10.8) K/ul Hgb 12.2 (12.0-16.0) g/dl Hct 39.3 (34.1-44.9) % Plt Count 216 (130-400) K/uL BMP 09/26/22 08:00 Sodium 139 Potassium 4.1 Chloride 100 Carbon Dioxide 33 H BUN 24 H Creatinine 1.44 H Glucose 172 H Calcium 10.2 H Liver Function 09/26/22 Range/Units 08:00 Total Bilirubin 0.5 (0.2-1.0) mg/dl Direct Bilirubin 0.1 (0-0.2) mg/dl AST 12 L (13-39) U/L ALT 10 (7-52) U/L Alkaline Phosphatase 71 (34-104) U/L Albumin 3.8 (3.4-5.0) gm/dl Urine 09/26/22 Range/Units 08:13 Urine Color Yellow Urine Appearance Clear (Clear) Urine pH 6.0 (4.5-7.5) Ur Specific [place] 1.014 (1.000-1.030) Urine Protein 3+ H (Negative) Urine Glucose (UA) Trace H (Negative) Diagnostic Findings Laboratory Results WBC 17.82 K/ul (4.8-10.8) H 09/26/22 08:00 RBC 4.24 M/uL (3.93-5.22) 09/26/22 08:00 Hgb 12.2 g/dl (12.0-16.0) 09/26/22 08:00 Hct 39.3 % (34.1-44.9) 09/26/22 08:00 MCV 92.7 fL (80.0-100.0) 09/26/22 08:00 MCH 28.8 pg (25.0-34.0) 09/26/22 08:00 MCHC 31.0 g/dL (32.0-36.0) L 09/26/22 08:00 RDW Std Deviation 46.5 fL (36.4-46.3) H 09/26/22 08:00 RDW Coeff of Grey 13.7 % (11.5-14.5) 09/26/22 08:00 Plt Count 216 K/uL (130-400) 09/26/22 08:00 MPV 10.2 fL (9.4-12.3) 09/26/22 08:00 Immature Gran % (Auto) 0.9 % 09/26/22 08:00 Neut % (Auto) 87.1 % 09/26/22 08:00 Lymph % (Auto) 4.9 % 09/26/22 08:00 [place] % (Auto) 5.6 % 09/26/22 08:00 Eos % (Auto) 1.2 % 09/26/22 08:00 Baso % (Auto) 0.3 % 09/26/22 08:00 Neut # (Auto) 15.52 K/uL (1.4-6.5) H 09/26/22 08:00 Lymph # (Auto) 0.88 K/uL (1.2-3.4) L 09/26/22 08:00 [place] # (Auto) 0.99 K/uL (0.24-0.82) H 09/26/22 08:00 Eos # (Auto) 0.22 K/uL (0-0.50) 09/26/22 08:00 Baso # (Auto) 0.05 K/uL (0-0.2) 09/26/22 08:00 Immature Gran # (Auto) 0.16 K/uL (0.00-0.02) H 09/26/22 08:00 Sodium 139 mmol/L (136-145) 09/26/22 08:00 Potassium 4.1 mmol/L (3.5-5.1) 09/26/22 08:00 Chloride 100 mmol/L (98-107) 09/26/22 08:00 Carbon Dioxide 33 mmol/L (21-32) H 09/26/22 08:00 Anion Gap 6 (3-11) 09/26/22 08:00 BUN 24 mg/dl (6-23) H 09/26/22 08:00 Creatinine 1.44 mg/dl (0.6-1.2) H 09/26/22 08:00 Est Cr Clr Drug Dosing Not Reportable 09/26/22 08:00 Est GFR ( Amer) 39.1 ml/min 09/26/22 08:00 Est GFR (Non-Af Amer) 33.7 ml/min 09/26/22 08:00 BUN/Creatinine Ratio 16.7 (10-20) 09/26/22 08:00 Glucose 172 mg/dl (70-99(Fasting)) H 09/26/22 08:00 Lactate 1.7 mmol/L (0.4-2.0) 09/26/22 08:30 Calcium 10.2 mg/dl (8.5-10.1) H 09/26/22 08:00 Magnesium 1.1 mg/dl (1.7-2.4) L 09/26/22 08:00 Total Bilirubin 0.5 mg/dl (0.2-1.0) 09/26/22 08:00 Direct Bilirubin 0.1 mg/dl (0-0.2) 09/26/22 08:00 AST 12 U/L (13-39) L 09/26/22 08:00 ALT 10 U/L (7-52) 09/26/22 08:00 Alkaline Phosphatase 71 U/L (34-104) 09/26/22 08:00 Troponin I High Sens 35.7 pg/ml (0-14) H 09/26/22 08:00 Total Protein 6.8 gm/dl (6.0-8.3) 09/26/22 08:00 Albumin 3.8 gm/dl (3.4-5.0) 09/26/22 08:00 Procalcitonin 0.08 ng/ml (0-0.5) 09/26/22 08:00 Urine Color Yellow 09/26/22 08:13 Urine Appearance Clear (Clear) 09/26/22 08:13 Urine pH 6.0 (4.5-7.5) 09/26/22 08:13 Ur Specific [place] 1.014 (1.000-1.030) 09/26/22 08:13 Urine Protein 3+ (Negative) H 09/26/22 08:13 Urine Glucose (UA) Trace (Negative) H 09/26/22 08:13 Urine Ketones Negative (Negative) 09/26/22 08:13 Urine Blood 2+ (Negative) H 09/26/22 08:13 Urine Nitrite Negative (Negative) 09/26/22 08:13 Urine Bilirubin Negative (Negative) 09/26/22 08:13 Urine Urobilinogen Negative (Negative) 09/26/22 08:13 Ur Leukocyte Esterase Negative (Negative) 09/26/22 08:13 Urine WBC (Auto) 1-5 /hpf (0-5) 09/26/22 08:13 Urine RBC (Auto) 0-4 /hpf (0-4) 09/26/22 08:13 U Hyaline Cast (Auto) 1-5 /lpf (0-5) 09/26/22 08:13 U Epithel Cells (Auto) 20-30 /lpf (0-5) H 09/26/22 08:13 Urine Bacteria (Auto) Negative (Negative) 09/26/22 08:13 Adenovirus (PCR) Not Detected (NotDetected) 09/26/22 08:15 B. pertussis DNA (PCR) Not Detected (NotDetected) 09/26/22 08:15 B.parapertussis DNA PCR Not Detected (NotDetected) 09/26/22 08:15 C. pneumoniae DNA (PCR) Not Detected (NotDetected) 09/26/22 08:15 Coronavirus OC43 (PCR) Not Detected (NotDetected) 09/26/22 08:15 Coronavirus HKU1 (PCR) Not Detected (NotDetected) 09/26/22 08:15 Coronavirus 229E (PCR) Not Detected (NotDetected) 09/26/22 08:15 SARS-CoV-2 (PCR) Not Detected (NotDetected) 09/26/22 08:15 Coronavirus NL63 (PCR) Not Detected (NotDetected) 09/26/22 08:15 Human Metapneumovir PCR Not Detected (NotDetected) 09/26/22 08:15 Influenza Type A (PCR) Not Detected (NotDetected) 09/26/22 08:15 Influenza Type B (PCR) Not Detected (NotDetected) 09/26/22 08:15 M. pneumoniae (PCR) Not Detected (NotDetected) 09/26/22 08:15 Parainfluenza 1 (PCR) Not Detected (NotDetected) 09/26/22 08:15 Parainfluenza 2 (PCR) Not Detected (NotDetected) 09/26/22 08:15 Parainfluenza 3 (PCR) Not Detected (NotDetected) 09/26/22 08:15 Parainfluenza 4 (PCR) Not Detected (NotDetected) 09/26/22 08:15 RSV (PCR) Not Detected (NotDetected) 09/26/22 08:15 Entero/Rhino (PCR) Not Detected (NotDetected) 09/26/22 08:[address] 09/26/22 00:[address] WITH CONTRAST CT DOSE: 1867.77 mGy.cm HISTORY: Altered mental status. Sepsis. TECHNIQUE: Multiaxial CT images of the chest were performed following the intravenous administration of contrast. A dose lowering technique was utilized adhering to the principles of ALARA. COMPARISON: Chest CT 04/12/2022. FINDINGS: Suboptimal evaluation due to the motion artifact. No pneumothorax. No pleural effusions. Emphysema is again noted. Mild dependent changes seen at the lung bases. Scattered calcified granulomas remain unchanged. Focal partially calcified irregular density within the right upper lobe abutting the major fissure remains unchanged. This favors scarring. Stable 1.1 cm spiculated nodule within the left upper lobe on image 72. There is an adjacent expanded opacified bronchus again noted within the left upper lobe best seen image 60. No new focal lung consolidations identified. Old, healed right-sided rib fractures again noted. No acute fractures. Stable thyroid nodules. The visualized abdominal structures will be reported on the same day abdomen and pelvis CT. Hepatic steatosis, cholecystectomy, left adrenal gland nodule are again noted. Moderate calcified plaque within the normal caliber thoracic aorta. The main pulmonary arteries are patent. No mediastinal or hilar lymphadenopathy. The heart remains mildly enlarged. No pericardial effusion. Aortic and mitral valve calcifications again noted. Severe coronary artery calcifications are present. IMPRESSION: 1. Overall, no significant change compared to the prior study. 2. Prior granulomatous disease with stable scarlike density within the right lung apex. 3. Stable 1.1 cm spiculated nodule within the left lung apex. 4. Emphysema. 5. The abdominal structures will be reported on the same day abdomen and pelvis CT. ACT 112: Negative or not required by law. Electronically signed by: Jose Francisco Fitch M.D. 09/26/2022 12:52 PM Chest X-Ray 09/26/22 08:02 XR chest 1V portable CLINICAL HISTORY: Sepsis. COMPARISON STUDY: Chest CT April 12, 2022. Chest radiograph April 14, 2022. FINDINGS: No pneumothorax or pleural effusion is present. Cardiomediastinal silhouette is stable. Multiple calcified pulmonary nodules are again noted. These are benign. There is stable mild reticulonodular interstitial thickening. No superimposed consolidation is noted. IMPRESSION: No acute cardiopulmonary findings. No significant change in appearance of the chest. ACT 112: Negative or not required by law. Electronically signed by: Geovanny García M.D. 09/26/2022 8:22 AM Medications Administered Current Inpatient Medications Labetalol HCl (Labetalol Hcl Iv 5 Mg/Ml 20ml) 10 mg IV NOW STA Stop: 09/26/22 12:46 Miscellaneous Information (Vancomycin Consult Active) 1 each N/A UD PRN PRN Reason: Consult Stop: 10/26/22 08:01 Code Status & VTE Plan VTE Prophylaxis Plan VTE Prophylaxis will be ordered: Yes (1) Sepsis Sepsis type: sepsis due to unspecified organism Qualified Code(s): A41.9 - Sepsis, unspecified organism
[2022-09-26] MEDS: SODIUM CHLORIDE 0.9% 1000ML 1,000 ML IV SCH ×3 (13:06→23:46)
--- NOTE | 2022-09-26 13:06 | CT Scan Report ---
CT abd pelvis IV con only CLINICAL HISTORY: PER ORDER. Altered mental status. TECHNIQUE: Helical axial images of the abdomen and pelvis were obtained and displayed. Automated dose lowering techniques and/or adjustment according to patient size were utilized for this exam. This e xam was performed with intravenous contrast. COMPARISON: Comparison is made to CT abdomen pelvis 04/12/2022 FINDINGS: Lower chest: Mitral annular calcifications are seen. Liver: Unremarkable. No focal lesions are seen. Gallbladder and biliary tree: Patient is status post cholecystectomy. No intra- or extrahepatic bilia ry ductal dilation. Pancreas: Unremarkable, no focal lesions. Spleen: Unremarkable. Adrenals: 18 mm left adrenal nodule is seen. This is unchanged from prior exam. Kidneys and ureters: There is a 50 mm left renal cyst which is unchanged from prior exam. Nonobstruct martina nephrolithiasis is seen. Perinephric stranding is noted. Bladder: Frey catheter is seen. Reproductive organs: Patient is status post hysterectomy. Bowel: Diverticulosis is seen without evidence of diverticulitis. The appendix is normal. Lymph nodes Retroperitoneal: Subcentimeter lymph nodes are noted. Pelvic: Unremarkable. Mesenteric: Unremarkable. Peritoneum: Normal. Vessels: Unremarkable. Abdominal wall: A fat-containing umbilical hernia is seen. Bones: Degenerative changes in the visualized spine. Bilateral pars defects are noted at L5-S1. A bat dionne-powered device, likely a nerve stimulator, is noted in the sacrum with the tip in the presacral soft tissues. IMPRESSION: 1. No acute abnormalities are seen. 2. Bilateral perinephric stranding is nonspecific. 3. Diverticulosis without diverticulitis. 4. Left adrenal gland nodule is again seen. Nonemergent CT or MRI adrenal mass protocol can be perfo rmed if further characterization is desired. 5. Additional findings as above. ACT 112: Negative or not required by law. Electronically signed by: Zachariah Baker M.D. 09/26/2022 1:04 PM
[2022-09-26] MEDS ORDERED: Patient's HEIGHT &/or WEIGHT Needed SCH (14:15)
--- NOTE | 2022-09-26 14:38 | Pharmacy Report ---
Pharmacy PK ABX Note - Date of Service September 26, 2022 - Assessment and Plan Assessment 82 year old F receiving vancomycin for treatment of cellulitis. Blood cultures pending. Renal function approximately baseline (~1.3mg/dL) Day #1 of antimicrobial therapy. Plan Vancomycin * Loading dose: 2000 mg IV x 1 * Maintenance dose: 1250 mg IV every 24 hours * Regimen is predicted to achieve target AUC/EWA of 400-600 mg/L.hr * Will obtain a level around steady state, or sooner if clinically indicated Pharmacy will continue to follow and will adjust dose/frequency as necessary. Thank you. Pharmacy has transitioned to AUC monitoring for vancomycin. AUC/EWA is the preferred PK/PD target and is associated with decreased risk of nephrotoxicity compared to traditional trough targets.
[2022-09-26] MEDS ORDERED: ALBUTEROL HFA 8 GM INHALER INH PRN (14:46)
[2022-09-26] MEDS ORDERED: CALCIUM POLYCARBOPHIL 625MG TAB PO PRN (14:46)
[2022-09-26] MEDS ORDERED: GLUCOSE 40% GEL 15 GM TUBE PO PRN (15:15)
[2022-09-26] MEDS ORDERED: GLUCAGON FOR INJ 1 MG VIAL IM PRN (15:15)
[2022-09-26] MEDS ORDERED: CARBOHYDRATES FOR HYPOGLYCEMIA PO PRN (15:15)
[2022-09-26] MEDS ORDERED: GLUCOSE 10 TAB/TUBE PO PRN (15:15)
[2022-09-26] MEDS ORDERED: DEXTROSE 50% 50 ML SYRINGE IV PRN (15:15)
[2022-09-26] MEDS ORDERED: NON-FORMULARY MEDICATION (Insulin Aspart U-100 [Novolog Flexpen U-100 Insulin] 100 unit/mL SQ SCH (17:00)
[2022-09-26] MEDS: INSULIN ASPART PER UNIT SC SCH ×2 (17:08→20:45)
[2022-09-26] MEDS: WELCHOL~ORDER AWAITING ACTION SCH ×2 (20:19→23:46)
[2022-09-26] MEDS: MUCINEX DM~ORDER AWAITING ACTION SCH ×2 (20:19→23:46)
[2022-09-26] MEDS: ACETAMINOPHEN 500 MG TAB PO SCH (20:43)
[2022-09-26] MEDS: diphenhydrAMINE Capsule 25 MG CAP PO SCH (20:44)
[2022-09-26] MEDS ORDERED: LANTUS PER UNIT CHARGE SQ SCH (21:00)
[2022-09-26] MEDS: VANCOMYCIN HCL 1,250 MG in SODIUM CHLORIDE 0.9% 250 ML IV SCH (21:10)
[2022-09-26] MEDS ORDERED: CEFEPIME 2,000 MG in SYRINGE 0 ML IV SCH (22:15)
[2022-09-26 22:29] LABS: A calco-baum cmplx NotReported Not Detected (NotDetected); Bact fragilis Not Reported Not Detected (NotDetected); C auris Not Reported Not Detected (NotDetected); Calbicans Not Reported Not Detected (NotDetected); Candida glabrata Not Reported Not Detected (NotDetected); Candida krusei Not Reported Not Detected (NotDetected); Cneoformans/gatti Not Reported Not Detected (NotDetected); Cparapsilosis Not Reported Not Detected (NotDetected); Ctropicalis Not Reported Not Detected (NotDetected); E cloacae compx Not Reported Not Detected (NotDetected); Efaecalis Not Reported Not Detected (NotDetected); Efaecium Not Reported Not Detected (NotDetected); Enterobacterales Not Reported Not Detected (NotDetected); Escherichia coli Not Reported Not Detected (NotDetected); H influenzae Not Reported Not Detected (NotDetected); K aerogenes Not Reported Not Detected (NotDetected); Koxytoca Not Reported Not Detected (NotDetected); Kpneumoniae grp Not Reported Not Detected (NotDetected); Lmonocyt Not Reported Not Detected (NotDetected); N meningitidis Not Reported Not Detected (NotDetected); P aeruginosa Not Reported Not Detected (NotDetected); Proteus spp Not Reported Not Detected (NotDetected); Salmonella spp Not Reported Not Detected (NotDetected); Smarcescens Not Reported Not Detected (NotDetected); Staph lugdunensis Not Reported Not Detected (NotDetected); Staph spp. Not Reported Not Detected (NotDetected); Staphaureus Not Reported Not Detected (NotDetected); Staphepi Not Reported Not Detected (NotDetected); Stenmaltophilia Not Reported Not Detected (NotDetected); Strep agal(GrpB) Not Reported Not Detected (NotDetected); Strep pneum Not Reported Not Detected (NotDetected); Strep pyog (GrpA) Not Reported Not Detected (NotDetected); Strep spp Not Reported DETECTED (NotDetected)
[2022-09-26 22:33] LABS: Streptococcus spp DETECTED (NotDetected)
[2022-09-27] MEDS: methylPREDNISolone 20 MG in SYRINGE 0 ML IV SCH ×2 (01:36→12:53)
[2022-09-27] MEDS ORDERED: XOPENEX/ATROVENT 1.25mg/0.5MG NEB COMBO NEB STA (03:45)
[2022-09-27] MEDS ORDERED: LEVALBUTEROL 1.25MG/0.5ML NEB INH STA (03:49)
[2022-09-27] MEDS ORDERED: IPRATROPIUM BROMIDE NEB SOLN 0.02% 2.5 ML VIAL INH STA (03:49)
[2022-09-27] MEDS: LEVOTHYROXINE SODIUM 25 MCG TABLET PO SCH (05:52)
[2022-09-27] MEDS: ACETAMINOPHEN 325 MG TAB PO PRN ×2 (05:53→13:06)
[2022-09-27 07:51] LABS: BUN Creatinine Ratio 17.5 (10-20); Calcium 9.7 mg/dl (8.5-10.1); Est GFR (African American) 39.4 ml/min; Magnesium 1.1 mg/dl (1.7-2.4)
[2022-09-27] MEDS: INSULIN ASPART PER UNIT SC SCH ×4 (08:07→21:45)
[2022-09-27] MEDS: MAGNESIUM SULFATE / D5W 1 GM/100 ML BAG IV SCH ×2 (08:07→10:24)
[2022-09-27] MEDS: amLODIPine BESYLATE 5 MG TAB PO SCH (08:08)
[2022-09-27] MEDS: MUCINEX DM~ORDER AWAITING ACTION SCH ×3 (08:08→23:18)
[2022-09-27] MEDS: WELCHOL~ORDER AWAITING ACTION SCH ×3 (08:08→23:18)
[2022-09-27] MEDS: RIVAROXABAN 20 MG TAB PO SCH (08:09)
[2022-09-27] MEDS: MAGNESIUM OXIDE 400 MG TAB PO SCH (08:09)
[2022-09-27] MEDS: CITALOPRAM 40 MG TAB PO SCH (08:09)
[2022-09-27] MEDS: ERGOCALCIFEROL 50,000 UNITS 1250 MCG CAP PO SCH (08:09)
[2022-09-27] MEDS: PANTOprazole 40 MG TAB PO SCH (08:09)
[2022-09-27] MEDS: FERROUS SULFATE 325 MG TAB PO SCH (08:09)
[2022-09-27] MEDS: CETIRIZINE HCL 10 MG TABLET PO SCH (08:09)
[2022-09-27] MEDS: FLUTICASONE FUROATE 200MCG 14 PUFFS/INHALER INH SCH (08:10)
[2022-09-27] MEDS ORDERED: predniSONE 5 MG TAB PO SCH (09:00)
--- NOTE | 2022-09-27 09:15 | Electrocardiogram Report ---
Test Reason : Blood Pressure : / mmHG Vent. Rate : 110 BPM Atrial Rate : 110 BPM P-R Int : 154 ms QRS Dur : 092 ms QT Int : 342 ms P-R-T Axes : 035 -50 021 degrees QTc Int : 462 ms Poor data quality, interpretation may be adversely affected Sinus tachycardia Possible Left atrial enlargement Left axis deviation Left ventricular hypertrophy Anterolateral infarct (cited on or before 27-SEP-2022) Abnormal ECG When compared with ECG of 26-SEP-2022 07:56, ST now depressed in Anterior leads Non-specific change in ST segment in Lateral leads T wave inversion no longer evident in Lateral leads Confirmed by Sam Cedillo ([id number]) on 09/27/2022 9:14:29 AM Referred By: REFERRED SELF Confirmed By:Barak Cedillo
[2022-09-27 09:28] LABS: Hematocrit (blood only) 32.9 % (37.0-47.0); Hemoglobin 10.4 g/dl (12.0-16.0); Mean Corpuscular Hemoglobin 29.3 pg (25.0-34.0); Mean Corpuscular Hgb Conc 31.6 g/dL (32.0-36.0); Mean Corpuscular Volume 92.7 fL (80.0-100.0); Mean Platelet Volume 10.7 fL (9.4-12.4); Platelet Count 160 K/uL (130-400); RDW Coefficient of Variation 13.8 % (11.5-14.5); RDW Standard Deviation 47.2 fL (36.4-46.3); Red Blood Count 3.55 M/uL (4.20-5.40); White Blood Count 22.52 K/ul (4.8-10.8)
--- NOTE | 2022-09-27 10:00 | CT Scan Report ---
CT femur LT wo con CLINICAL HISTORY: Left thigh swelling, eliquis rx COMPARISON STUDY: Left knee radiographs June 09, 2019. TECHNIQUE: Axial images of the left femur and thigh were obtained without IV contrast. Sagittal and c oronal reconstructions were viewed. Automated exposure control was utilized for the study. A dose lo wering technique was utilized adhering to the principles of ALARA. FINDINGS: Sigmoid diverticulosis is noted without evidence for acute diverticulitis. A Frey balloon and contrast within the bladder are noted. A prominent left inguinal lymph node measures 1 cm in shor t axis diameter. This is likely benign. There is no fracture within the left femur. No suspicious oss eous lesion is noted. Note is made of skin thickening and subcutaneous stranding of the lateral left thigh. No well-defined fluid collection is present. There is no soft tissue gas. In addition, there i s moderate subcutaneous edema of the visualized left leg. Extensive atherosclerotic plaque is noted w ithin the left thigh vessels. No intramuscular abnormality is identified. No fascial fluid is identif ied. IMPRESSION: 1. Lateral left thigh skin thickening with subcutaneous stranding. This could reflect edema, cellulit is or a contusion. No fluid collection to suggest abscess or significant hematoma. No soft tissue gas . 2. No fracture within the left femur. 3. Subcutaneous edema of the visualized left lower leg. ACT 112: Negative or not required by law. Electronically signed by: Geovanny García M.D. 09/27/2022 7:06 AM
--- NOTE | 2022-09-27 10:00 | XRay Report ---
XR chest 1V portable CLINICAL HISTORY: wheeze COMPARISON STUDY: Chest radiograph and chest CT September 26, 2022. FINDINGS: Multiple calcifications are again noted within the lungs. Cardiomegaly is unchanged. There is no pneumothorax or pleural effusion. Interstitial prominence is unchanged. No superimposed consoli dation is noted. There has been no significant change in appearance of the chest. IMPRESSION: No acute cardiopulmonary findings. No change in appearance of the chest. ACT 112: Negative or not required by law. Electronically signed by: Geovanny García M.D. 09/27/2022 7:07 AM
[2022-09-27] MEDS: CEFEPIME 1,000 MG in SYRINGE 0 ML IV SCH ×2 (12:53→22:56)
--- NOTE | 2022-09-27 12:58 | Hospitalist Progress Note ---
Date of Service September 27, 2022 Assessment & Plan (1) AMS (altered mental status): Plan: Acute metabolic encephalopathy Likely Multifactorial: Sepsis, Hypoxia Mental status improving Possible NSTEMI ? Type II OK Elevated Troponin In setting of Hypertensive Urgency, Hypoxia, Tachycardia -CXR:No acute cardiopulmonary findings. No significant change in appearance of the chest. -ECHO: Moderate concentric LVH, EF 60 to 65%, severe mitral calcification, mild mitral regurgitation. Left ventricular wall motion is normal. -EKG: Nonspecific ST-T wave changes Cardiology consulted (2) Sepsis: Plan: Sepsis Bilateral Leg cellulitis Bacteremia-POA --Left Leg CT:Lateral left thigh skin thickening with subcutaneous stranding. This could reflect edema, cellulitis or a contusion. No fluid collection to suggest abscess or significant hematoma. No soft tissue gas. No fracture within the left femur. Subcutaneous edema of the visualized left lower leg. --Blood Culture: 09/05 growing Group C Beta Strep --Repeat Blood Cx: pending --ECHO:as above -- Continue vancomycin, cefepime Consider ID evaluation when appropriate Continue wound care Acute on chronic respiratory failure with hypoxia Chronic oxygen dependency Likely mild COPD exacerbation Transition IV Solu-Medrol to prednisone Continue nebs as needed Also on antibiotics as above Supplemental oxygen to keep saturations 88 to 92% Hypomagnesemia Replete electrolytes as needed Monitor Left adrenal nodule Left apex nodule --CT Chest:Overall, no significant change compared to the prior study. Prior granulomatous disease with stable scarlike density within the right lung apex. Stable 1.1 cm spiculated nodule within the left lung apex. Emphysema. --CT ABD:No acute abnormalities are seen. Bilateral perinephric stranding is nonspecific. Diverticulosis without diverticulitis. Left adrenal gland nodule is again seen. Nonemergent CT or MRI adrenal mass protocol can be performed if further characterization is desired. --Needs follow up as outpatient (3) HTN (hypertension): Plan: Hypertensive Urgency Continue amlodipine Adjust medications as needed Monitor (4) Diabetes mellitus type II, uncontrolled: Plan: Continue insulin therapy Monitor BGs (5) Acute respiratory failure with hypoxia: Plan: as above (6) Acute exacerbation of chronic obstructive airways disease: Plan: as above (7) DVT (deep venous thrombosis): Plan: on Xarelto (8) GERD (gastroesophageal reflux disease): Plan: Continue PPI DVT Px: Xarelto CODE STATUS DNR/DNI Admission and Anticipated Discharge Date Admission Date: September 26, 2022 Subjective Patient is seen and examined at bedside States having left leg pain, erythema Dyspnea, cough improving Denies any chest pain, dizziness, nausea, abdominal pain No other complaints Review of Systems Review of Systems: All systems reviewed & are unremarkable except as noted in Subjective Physical Exam Physical Exam: Physical Exam: Vitals signs as noted above General Appearance:Moderately built and nourished, no apparent distress Head: normocephalic, Atraumatic Eyes: normal inspection, EOMI Neck: supple, Trachea midline Respiratory/Chest: Decreased breath sounds, CTA, No accessory muscle use Cardiovascular: S1, S2, Tachycardia, No murmur Abdomen/GI:Soft, Non tender, Bowel sounds present Extremities/Musculoskeletal:normal inspection, Trace edema, B/L LE wounds in dressing, L thigh erythematous, tender Neurologic/Psych:AAOX2, grossly no focal neurological deficits Skin: normal color, warm Results & Data Results & Data ([facility]) Vital Signs (Past 12 Hours) Vital Signs Temp Pulse Pulse Resp BP BP Pulse Ox 09/27/22 08:00 09/27/22 09:00 176/80 H 09/27/22 08:00 37 C 110 H 18 203/81 H 93 09/27/22 08:02 09/27/22 06:36 36.9 C 111 H 22 161/84 H 94 09/27/22 04:16 36.7 C 105 H 20 162/82 H 93 09/27/22 04:10 105 H 22 94 Pulse Ox O2 Del Method O2 Del Method O2 Flow Rate O2 Flow Rate 09/27/22 08:00 Nasal Cannula 3 09/27/22 09:00 09/27/22 08:00 Nasal Cannula 3 09/27/22 08:02 93 Nasal Cannula 3 09/27/22 06:36 Oxymask 2 09/27/22 04:16 Oxymask 2 09/27/22 04:10 Oxymask 2 Laboratory Results Short CBC 09/27/22 Range/Units 06:45 WBC 22.52 H (4.8-10.8) K/ul Hgb 10.4 L (12.0-16.0) g/dl Hct 32.9 L (37.0-47.0) % Plt Count 160 (130-400) K/uL BMP 09/27/22 06:45 Sodium 139 Potassium 4.0 Chloride 104 Carbon Dioxide 31 BUN 25 H Creatinine 1.43 H Glucose 176 H Calcium 9.7 (1) Sepsis Sepsis type: sepsis due to unspecified organism Qualified Code(s): A41.9 - Sepsis, unspecified organism
[2022-09-27 12:59] LABS: Basophils # (auto) 0.04 K/uL (0-0.2); Basophils % (auto) 0.2 %; Immature Granulocytes # (auto) 0.13 K/uL (0.01-0.20); Immature Granulocytes % (auto) 0.6 %; Lymphocytes # (auto) 0.55 K/uL (1.2-3.4); Lymphocytes % (auto) 2.4 %; Monocytes # (auto) 0.73 K/uL (0.11-0.59); Monocytes % (auto) 3.2 %; Neutrophils # (auto) 21.07 K/uL (1.40-6.50); Neutrophils % (auto) 93.6 %; Toxic Vacuolation 1+
--- NOTE | 2022-09-27 15:34 | Cardiology Consultation ---
Date of Consultation September 27, 2022 Assessment & Plan (1) Sepsis: (2) AMS (altered mental status): (3) UTI (urinary tract infection): (4) Troponin level elevated: Plan I think the best plan here is to treat this patient's urosepsis. Her EKG reveals a sinus rhythm to sinus tachycardia with a nonspecific interventricular conduction delay. Echocardiogram shows no wall motion abnormalities suggesting ischemic heart disease. I think at this time the patient's cardiac troponins are due to a type II elevation perhaps demand ischemia from the sepsis and hypertension. Unless her clinical course changes I think conservative management is indicated. Better control of her hypertension would be helpful and I have started her on carvedilol. History of Present Illness Attending Physician: Franklyn Mcdowell MD History of Present Illness The patient is resting comfortably. She is slightly confused and the information is taken from the medical record. She was transferred from [facility] with a septic type picture and an encephalopathy. Cardiac troponins are borderline elevated. The patient expresses no chest pain to me. Allergies Allergy/AdvReac Type Severity Reaction Status Date / Time atorvastatin Allergy Unknown UNKN Verified 09/26/22 11:45 bee venom protein (honey bee) Allergy Unknown Unknown Verified 09/26/22 11:45 formaldehyde Allergy Unknown HYPERSENSIT Verified 09/26/22 11:45 IVITY oxycodone Allergy Unknown UNKN Verified 09/26/22 11:45 peanut Allergy Unknown Unknown Verified 09/26/22 11:45 Sulfa (Sulfonamide Allergy Unknown Unknown Verified 09/26/22 11:45 Antibiotics) Home Medications Medication Instructions Recorded Confirmed Type acetaminophen 325 mg tablet 650 mg PO DAILY .HIP & KNEE PAIN 09/26/22 09/26/22 History (Tylenol) acetaminophen 325 mg tablet 650 mg PO Q4 PRN Pain 09/26/22 09/26/22 History (Tylenol) albuterol sulfate 2.5 mg/3 mL 2.5 mg inhalation Q4H PRN 09/26/22 09/26/22 History (0.083 %) solution for nebulization Shortness Of Breath Or Wheezing albuterol sulfate 90 mcg/actuation 2 puff inhalation Q4 PRN Shortness 09/26/22 09/26/22 History aerosol inhaler (Ventolin HFA) Of Breath Or Wheezing amlodipine 10 mg tablet 10 mg PO DAILY 09/26/22 09/26/22 History budesonide 90 mcg/actuation breath 1 inh inhalation BID 09/26/22 09/26/22 History activated powder inhaler (Pulmicort Flexhaler) calcium polycarbophil 625 mg 625 mg PO DAILY PRN Constipation 09/26/22 09/26/22 History tablet (Fiber-Lax) cetirizine 10 mg tablet 10 mg PO DAILY 09/26/22 09/26/22 History citalopram 40 mg tablet 40 mg PO DAILY 09/26/22 09/26/22 History colesevelam 625 mg tablet (WelChol) 625 mg PO DAILY 09/26/22 09/26/22 History cyanocobalamin (vitamin B-12) 1,000 mcg IM .MONTH 09/26/22 09/26/22 History 1,000 mcg/mL injection solution dextromethorphan-guaifenesin 30 1 tab PO Q12H PRN Congestion 09/26/22 09/26/22 History mg-600 mg tablet extended [id number] hr (Mucinex DM) diphenhydramine 25 2 tab PO HS 09/26/22 09/26/22 History mg-acetaminophen 500 mg tablet (Tylenol PM Extra Strength) epinephrine 0.3 mg/0.3 mL 0.3 mg IM DIRECTED PRN Allergic 09/26/22 09/26/22 History injection, auto-injector Reaction ergocalciferol (vitamin D2) 1,250 50,000 unit PO 2XWK 09/26/22 09/26/22 History mcg (50,000 unit) capsule (Vitamin D2) ferrous sulfate 325 mg (65 mg 325 mg PO DAILY 09/26/22 09/26/22 History iron) tablet furosemide 20 mg tablet 20 mg PO MOWEFR 09/26/22 09/26/22 History insulin aspart U-100 100 unit/mL 10 unit subcut TIDM 09/26/22 09/26/22 History (3 mL) subcutaneous pen (Novolog FlexPen U-100 Insulin aspart) insulin glargine U-300 conc 300 40 unit subcut HS 09/26/22 09/26/22 History unit/mL (1.5 mL) subcutaneous pen (Toujeo SoloStar U-300 Insulin) levothyroxine 25 mcg tablet 25 mcg PO DAILY 09/26/22 09/26/22 History loperamide 2 mg tablet (Imodium 2 mg PO Q4H PRN Diarrhea 09/26/22 09/26/22 History A-D) magnesium oxide,aspartate,citr 400 mg PO DAILY 09/26/22 09/26/22 History metformin 1,000 mg tablet 500 mg PO Q12 09/26/22 09/26/22 History omeprazole 20 mg capsule,delayed 20 mg PO DAILY 09/26/22 09/26/22 History release prednisone 5 mg tablet 5 mg PO DAILY 09/26/22 09/26/22 History rivaroxaban 20 mg tablet (Xarelto) 20 mg PO DAILY 09/26/22 09/26/22 History Patient History Medical History A-fib Acute respiratory acidosis Asthma Bacteremia Depression Diabetes mellitus, type II Encephalopathy GERD (gastroesophageal reflux disease) High cholesterol History of DVT (deep vein thrombosis) Hypertension Hypomagnesemia Hypothyroid Hypoxia Nephrolithiasis On home oxygen therapy Pneumonia Sepsis UTI (urinary tract infection) Surgical History History of cataract surgery (10/18/21) left History of cholecystectomy History of hysterectomy Hx of tonsillectomy Family History Other Diabetes Hypertension Stroke Social History Smoking Status: Unknown if ever smoked Second Hand Exposure: No; Hx Alcohol Use: No Hx Substance Use: No Preferred Language: Lithuanian Communication Ability: Effective Professor Of Kinesiology Required: No Beliefs That Will Affect Care: None marital status: / Current Living Situation: Personal Care Facility Current Living Situation Comment: Lives at [facility] Feels Safe at Home: Yes Assistive Devices: Walker Review of Systems Review of Systems: Not obtainable Physical Exam Physical Exam: General: no acute distress and stated age Head: normocephalic, no masses, lesions, tenderness or abnormalities Eyes: conjunctiva are pink and non-injected, sclera clear Neck: supple, no adenopathy, no bruits, normal jugular venous pulse, no hepatojugular reflux Chest: normal shape and normal respiratory effort Lungs: clear to auscultation and percussion Cardiac Exam: - regular rate & rhythm, no murmurs gallops or rubs - normal S1, normal S2 Pulses: 2(+) throughout Abdomen: abdomen soft, non-tender, no abnormal masses and no hepatosplenomegaly Musculoskeletal: no gait disturbance, no joint inflammation, no deforming arthritis Extremities: no edema and no cyanosis Neuro: grossly normal exam Results & Data ([facility] [place]) Vital Signs (Past 12 Hours) Vital Signs Temp Pulse Pulse Resp BP BP Pulse Ox 09/27/22 08:00 09/27/22 09:00 176/80 H 09/27/22 08:00 37 C 110 H 18 203/81 H 93 09/27/22 08:02 09/27/22 06:36 36.9 C 111 H 22 161/84 H 94 09/27/22 04:16 36.7 C 105 H 20 162/82 H 93 09/27/22 04:10 105 H 22 94 Pulse Ox O2 Del Method O2 Del Method O2 Flow Rate O2 Flow Rate 09/27/22 08:00 Nasal Cannula 3 09/27/22 09:00 09/27/22 08:00 Nasal Cannula 3 09/27/22 08:02 93 Nasal Cannula 3 09/27/22 06:36 Oxymask 2 09/27/22 04:16 Oxymask 2 09/27/22 04:10 Oxymask 2 Laboratory Results Laboratory Results - last 24 hr 09/26/22 09/26/22 09/26/22 08:00 16:53 20:18 WBC RBC Hgb Hct MCV MCH MCHC RDW Std Deviation RDW Coeff of Grey Plt Count MPV Immature Gran % (Auto) Neut % (Auto) Lymph % (Auto) Anderson % (Auto) Eos % (Auto) Baso % (Auto) Neut # (Auto) Lymph # (Auto) Anderson # (Auto) Eos # (Auto) Baso # (Auto) Immature Gran # (Auto) Toxic Vacuolation Sodium Potassium Chloride Carbon Dioxide Anion Gap BUN Creatinine Est Cr Clr Drug Dosing Est GFR ( Amer) Est GFR (Non-Af Amer) BUN/Creatinine Ratio Glucose POC Glucose 143 H Calcium Magnesium Troponin I High Sens 696.9 H* D Streptococcus sp PCR DETECTED A Bld Cult ID Panel PCR See PCR Comment 09/26/22 09/27/22 09/27/22 20:27 06:45 06:45 WBC 22.52 H RBC 3.55 L Hgb 10.4 L Hct 32.9 L MCV 92.7 MCH 29.3 MCHC 31.6 L RDW Std Deviation 47.2 H RDW Coeff of Grey 13.8 Plt Count 160 MPV 10.7 Immature Gran % (Auto) 0.6 Neut % (Auto) 93.6 Lymph % (Auto) 2.4 Anderson % (Auto) 3.2 Eos % (Auto) 0.0 Baso % (Auto) 0.2 Neut # (Auto) 21.07 H Lymph # (Auto) 0.55 L Anderson # (Auto) 0.73 H Eos # (Auto) 0.00 Baso # (Auto) 0.04 Immature Gran # (Auto) 0.13 Toxic Vacuolation 1+ Sodium 139 Potassium 4.0 Chloride 104 Carbon Dioxide 31 Anion Gap 4 BUN 25 H Creatinine 1.43 H Est Cr Clr Drug Dosing 37.0 Est GFR ( Amer) 39.4 Est GFR (Non-Af Amer) 34.0 BUN/Creatinine Ratio 17.5 Glucose 176 H POC Glucose 182 H Calcium 9.7 Magnesium 1.1 L Troponin I High Sens Streptococcus sp PCR Bld Cult ID Panel PCR 09/27/22 09/27/22 07:35 11:47 WBC RBC Hgb Hct MCV MCH MCHC RDW Std Deviation RDW Coeff of Grey Plt Count MPV Immature Gran % (Auto) Neut % (Auto) Lymph % (Auto) Anderson % (Auto) Eos % (Auto) Baso % (Auto) Neut # (Auto) Lymph # (Auto) Anderson # (Auto) Eos # (Auto) Baso # (Auto) Immature Gran # (Auto) Toxic Vacuolation Sodium Potassium Chloride Carbon Dioxide Anion Gap BUN Creatinine Est Cr Clr Drug Dosing Est GFR ( Amer) Est GFR (Non-Af Amer) BUN/Creatinine Ratio Glucose POC Glucose 189 H 177 H Calcium Magnesium Troponin I High Sens Streptococcus sp PCR Bld Cult ID Panel PCR Medications Administered Current Inpatient Medications Acetaminophen (Acetaminophen 500 Mg Tab) 1,000 mg PO HS CARLOS EDUARDO Stop: 10/26/22 20:59 Last Admin: 09/26/22 20:43 Dose: 1,000 mg Acetaminophen (Acetaminophen 325 Mg Tab) 650 mg PO Q4 PRN PRN Reason: Pain Stop: 10/26/22 14:45 Last Admin: 09/27/22 13:06 Dose: 650 mg Albuterol (Albuterol 0.083% Nebu Soln 3 Ml Vial) 2.5 mg INH Q4H PRN; Protocol PRN Reason: Shortness Of Breath Or Wheezing Stop: 10/26/22 14:45 Albuterol (Albuterol Hfa 8 Gm Inhaler) 2 puffs INH Q4 PRN PRN Reason: Shortness Of Breath Or Wheezing Stop: 10/26/22 14:45 Amlodipine Besylate (Amlodipine Besylate 5 Mg Tab) 10 mg PO DAILY CARLOS EDUARDO Stop: 10/27/22 08:59 Last Admin: 09/27/22 08:08 Dose: 10 mg Calcium Polycarbophil (Calcium Polycarbophil 625mg Tab) 625 mg PO DAILY PRN PRN Reason: Constipation Stop: 10/26/22 14:45 Cetirizine HCl (Cetirizine Hcl 10 Mg Tablet) 10 mg PO DAILY CARLOS EDUARDO Stop: 10/27/22 08:59 Last Admin: 09/27/22 08:09 Dose: 10 mg Citalopram Hydrobromide (Citalopram 40 Mg Tab) 40 mg PO DAILY CARLOS EDUARDO Stop: 10/27/22 08:59 Last Admin: 09/27/22 08:09 Dose: 40 mg Cyanocobalamin (Cyanocobalamin 1000 Mcg/Ml Vial) 1,000 mcg IM Q30D CARLOS EDUARDO Stop: 11/03/22 08:59 Dextrose (Dextrose 50% 50 Ml Syringe) 25 - 50 ml IV UD PRN; Protocol PRN Reason: Hypoglycemia Protocol Stop: 10/26/22 15:14 Diphenhydramine HCl (Diphenhydramine Capsule 25 Mg Cap) 50 mg PO HS CARLOS EDUARDO Stop: 10/26/22 20:59 Last Admin: 09/26/22 20:44 Dose: 50 mg Ergocalciferol (Ergocalciferol 50,000 Units 1250 Mcg Cap) 50,000 units PO MoTh CARLOS EDUARDO Stop: 10/27/22 08:59 Last Admin: 09/27/22 08:09 Dose: 50,000 units Ferrous Sulfate (Ferrous Sulfate 325 Mg Tab) 325 mg PO DAILY CARLOS EDUARDO Stop: 10/27/22 08:59 Last Admin: 09/27/22 08:09 Dose: 325 mg Fluticasone Furoate (Fluticasone Furoate 200mcg 14 Puffs/Inhaler) 1 puffs INH DAILY [facility]LOS EDUARDO Stop: 10/27/22 08:59 Last Admin: 09/27/22 08:10 Dose: 1 puffs Glucagon (Glucagon For Inj 1 Mg Vial) 1 mg IM UD PRN; Protocol PRN Reason: Hypoglycemia Protocol Stop: 10/26/22 15:14 Glucose (Glucose 40% Gel 15 Gm Tube) 15 - 30 gm PO UD PRN; Protocol PRN Reason: Hypoglycemia Protocol Stop: 10/26/22 15:14 Glucose (Glucose 10 Tab/Tube) 4 - 8 tab PO UD PRN; Protocol PRN Reason: Hypoglycemia Protocol Stop: 10/26/22 15:14 Vancomycin HCl 1,250 mg/ (Sodium Chloride) 275 mls @ 200 mls/hr IV Q24H [facility]; Protocol Stop: 10/03/22 20:59 Last Infusion: 09/26/22 22:40 Dose: Infused Cefepime HCl 1,000 mg/ Syringe 10 mls @ 5 mls/min IV Q12H [facility]; Protocol Stop: 10/03/22 11:59 Last Admin: 09/27/22 12:53 Dose: 5 mls/min Insulin Aspart (Insulin Aspart Per Unit) 0 units SC ACHS [facility] Stop: 10/26/22 16:29 Last Admin: 09/27/22 11:56 Dose: 2 units Insulin Glargine (Lantus Per Unit Charge) 40 units SQ HS [facility] Stop: 10/27/22 20:59 Levothyroxine Sodium (Levothyroxine Sodium 25 Mcg Tablet) 25 mcg PO DAILYBB [facility] Stop: 10/27/22 06:29 Last Admin: 09/27/22 05:52 Dose: 25 mcg Magnesium Oxide (Magnesium Oxide 400 Mg Tab) 400 mg PO DAILY [facility] EDUARDO Stop: 10/27/22 08:59 Last Admin: 09/27/22 08:09 Dose: 400 mg Miscellaneous (Welchol~Order Awaiting Action) 1 each N/A QS [facility] Stop: 10/26/22 15:59 Last Admin: 09/27/22 08:08 Dose: Not Given Miscellaneous (Mucinex Dm~Order Awaiting Action) 1 each N/A QS [facility] Stop: 10/26/22 15:59 Last Admin: 09/27/22 08:08 Dose: Not Given Miscellaneous (Carbohydrates For Hypoglycemia ) 15 - 30 gm PO UD PRN PRN Reason: Hypoglycemia Treatment Stop: 10/26/22 15:14 Miscellaneous Information (Vancomycin Consult Active) 1 each N/A UD PRN PRN Reason: Consult Stop: 10/26/22 08:01 Pantoprazole Sodium (Pantoprazole 40 Mg Tab) 40 mg PO DAILY [facility] Stop: 10/27/22 08:59 Last Admin: 09/27/22 08:09 Dose: 40 mg Prednisone (Prednisone 20 Mg Tab) 40 mg PO DAILY [facility] EDUARDO Stop: 10/28/22 08:59 Rivaroxaban (Rivaroxaban 20 Mg Tab) 20 mg PO DAILY [facility] Stop: 10/27/22 08:59 Last Admin: 09/27/22 08:09 Dose: 20 mg (1) UTI (urinary tract infection) Hematuria presence: with hematuria Urinary tract infection type: acute cystitis Qualified Code(s): N30.01 - Acute cystitis with hematuria (2) Sepsis Sepsis type: sepsis due to unspecified organism Qualified Code(s): A41.9 - Sepsis, unspecified organism
[2022-09-27] MEDS ORDERED: carvediloL 3.125 MG TAB PO ONE (15:38)
[2022-09-27] MEDS: ALBUTEROL 0.083% NEBU SOLN 3 ML VIAL INH PRN (16:54)
[2022-09-27] MEDS: carvediloL 3.125 MG TAB PO SCH (19:40)
[2022-09-27] MEDS: ACETAMINOPHEN 500 MG TAB PO SCH (19:40)
[2022-09-27] MEDS: diphenhydrAMINE Capsule 25 MG CAP PO SCH (19:40)
[2022-09-27] MEDS: VANCOMYCIN HCL 1,250 MG in SODIUM CHLORIDE 0.9% 250 ML IV SCH (20:46)
[2022-09-27] MEDS ORDERED: LANTUS PER UNIT CHARGE SQ SCH (21:00)
[2022-09-28] MEDS: LEVOTHYROXINE SODIUM 25 MCG TABLET PO SCH (04:36)
[2022-09-28] MEDS: ALBUTEROL 0.083% NEBU SOLN 3 ML VIAL INH PRN (05:23)
[2022-09-28 07:16] LABS: Hemoglobin 11.5 g/dl (12.0-16.0); Mean Corpuscular Hgb Conc 31.9 g/dL (32.0-36.0); Mean Corpuscular Volume 90.7 fL (80.0-100.0); Mean Platelet Volume 10.5 fL (9.4-12.4); Platelet Count 175 K/uL (130-400); RDW Coefficient of Variation 13.6 % (11.5-14.5); RDW Standard Deviation 45.5 fL (36.4-46.3); Red Blood Count 3.97 M/uL (4.20-5.40); White Blood Count 23.18 K/ul (4.8-10.8)
[2022-09-28 07:43] LABS: Calcium 10.3 mg/dl (8.5-10.1); Magnesium 1.5 mg/dl (1.7-2.4); Potassium 3.8 mmol/L (3.5-5.1)
[2022-09-28 07:48] LABS: BUN Creatinine Ratio 18.5 (10-20); Creatinine Clr Calc Pharmacy 39.1 ml/min; Est GFR (African American) 42.3 ml/min; Est GFR (Non-African American) 36.5 ml/min
--- NOTE | 2022-09-28 08:47 | Pharmacy Report ---
Pharmacy PK ABX Note - Date of Service September 28, 2022 - Assessment and Plan Assessment 82 year old F receiving vancomycin and cefepime for treatment of cellulitis. Blood cultures pending from 09/26 (+) Group C Beta Strep in 09/05 (? contaminant). Repeat BCx pending. WBC trending up. Renal function stable. Plan Vancomycin * Random level this AM (~10hr level) - 17.6mcg/mL which is predicted to achieve a steady state AUC/EWA of 500mg/L.hr - therapeutic. * Continue maintenance dose: 1250 mg IV every 24 hours * Will obtain another level in ~48hr if vancomycin continued Pharmacy will continue to follow and will adjust dose/frequency as necessary. Thank you. Pharmacy has transitioned to AUC monitoring for vancomycin. AUC/EWA is the preferred PK/PD target and is associated with decreased risk of nephrotoxicity compared to traditional trough targets.
[2022-09-28] MEDS: carvediloL 3.125 MG TAB PO SCH ×2 (08:50→20:47)
[2022-09-28] MEDS: FERROUS SULFATE 325 MG TAB PO SCH (08:51)
[2022-09-28] MEDS: MAGNESIUM OXIDE 400 MG TAB PO SCH (08:51)
[2022-09-28] MEDS: CETIRIZINE HCL 10 MG TABLET PO SCH (08:51)
[2022-09-28] MEDS: CITALOPRAM 40 MG TAB PO SCH (08:51)
[2022-09-28] MEDS: PANTOprazole 40 MG TAB PO SCH (08:51)
[2022-09-28] MEDS: RIVAROXABAN 20 MG TAB PO SCH (08:51)
[2022-09-28] MEDS: amLODIPine BESYLATE 5 MG TAB PO SCH (08:51)
[2022-09-28] MEDS: FLUTICASONE FUROATE 200MCG 14 PUFFS/INHALER INH SCH (08:54)
[2022-09-28] MEDS ORDERED: predniSONE 20 MG TAB PO SCH (09:00)
[2022-09-28] MEDS: INSULIN ASPART PER UNIT SC SCH ×4 (09:03→21:24)
[2022-09-28] MEDS ORDERED: PHARMACY GLYCEMIC MGMT CONSULT PRN (09:53)
[2022-09-28] MEDS: ALBUTEROL 0.083% NEBU SOLN 3 ML VIAL INH SCH ×4 (09:57→22:00)
[2022-09-28] MEDS ORDERED: FUROSEMIDE 40 MG/4 ML VIAL IV ONE (10:11)
--- NOTE | 2022-09-28 10:17 | Cardiology Progress Note ---
Date of Service September 28, 2022 Assessment & Plan (1) Sepsis: (2) AMS (altered mental status): (3) UTI (urinary tract infection): (4) Troponin level elevated: Plan The patient is in respiratory extremis. I do not believe that this is reactive airways or COPD. It is more likely to be pulmonary edema from heart failure and IV fluids given to her during this hospital admission. I have given her 40 of Lasix IV now and she will be started on a twice daily dose of Lasix at 40 mg. BiPAP may be beneficial at this time. Admission and Anticipated Discharge Date Admission Date: September 26, 2022 Subjective The patient is receiving an aerosol treatment and is in respiratory extremis Review of Systems Review of Systems: Not obtainable Physical Exam Physical Exam: General: no acute distress and stated age Head: normocephalic, no masses, lesions, tenderness or abnormalities Eyes: conjunctiva are pink and non-injected, sclera clear Neck: supple, no adenopathy, no bruits, normal jugular venous pulse, no hepatojugular reflux Chest: normal shape and normal respiratory effort Lungs: Wheezing and rhonchi throughout Cardiac Exam: - regular rate & rhythm, no murmurs gallops or rubs - normal S1, normal S2 Pulses: 2(+) throughout Abdomen: abdomen soft, non-tender, no abnormal masses and no hepatosplenomegaly Musculoskeletal: no gait disturbance, no joint inflammation, no deforming arthritis Extremities: Bilateral lower extremity edema with possible cellulitis Neuro: grossly normal exam Results & Data ([facility]) Vital Signs (Past 12 Hours) Vital Signs Temp Pulse Pulse Pulse Resp BP BP 09/28/22 07:32 36.8 C 106 H 24 169/98 H 09/28/22 05:23 100 H 23 09/28/22 03:48 36.6 C 92 H 24 173/87 H 09/28/22 00:04 36.5 C 89 24 168/84 H 09/27/22 23:53 86 Pulse Ox O2 Del Method O2 Flow Rate 09/28/22 07:32 90 Nasal Cannula 4 09/28/22 05:23 93 Nasal Cannula 3 09/28/22 03:48 96 Nasal Cannula 3 09/28/22 00:04 93 Nasal Cannula 3.0 09/27/22 23:53 Laboratory Results Laboratory Results - last 24 hr 09/27/22 09/27/22 09/27/22 06:45 11:47 16:19 WBC RBC Hgb Hct MCV MCH MCHC RDW Std Deviation RDW Coeff of Grey Plt Count MPV Immature Gran % (Auto) 0.6 Neut % (Auto) 93.6 Lymph % (Auto) 2.4 [place] % (Auto) 3.2 Eos % (Auto) 0.0 Baso % (Auto) 0.2 Neut # (Auto) 21.07 H Lymph # (Auto) 0.55 L [place] # (Auto) 0.73 H Eos # (Auto) 0.00 Baso # (Auto) 0.04 Immature Gran # (Auto) 0.13 Toxic Vacuolation 1+ Sodium Potassium Chloride Carbon Dioxide Anion Gap BUN Creatinine Est Cr Clr Drug Dosing Est GFR ( Amer) Est GFR (Non-Af Amer) BUN/Creatinine Ratio Glucose POC Glucose 177 H 156 H Calcium Magnesium Random Vancomycin 09/27/22 09/28/22 09/28/22 21:33 06:54 06:54 WBC 23.18 H RBC 3.97 L Hgb 11.5 L Hct 36.0 L MCV 90.7 MCH 29.0 MCHC 31.9 L RDW Std Deviation 45.5 RDW Coeff of Grey 13.6 Plt Count 175 MPV 10.5 Immature Gran % (Auto) Neut % (Auto) Lymph % (Auto) [place] % (Auto) Eos % (Auto) Baso % (Auto) Neut # (Auto) Lymph # (Auto) [place] # (Auto) Eos # (Auto) Baso # (Auto) Immature Gran # (Auto) Toxic Vacuolation Sodium 139 Potassium 3.8 Chloride 100 Carbon Dioxide 33 H Anion Gap 6 BUN 25 H Creatinine 1.35 H Est Cr Clr Drug Dosing 39.1 Est GFR ( Amer) 42.3 Est GFR (Non-Af Amer) 36.5 BUN/Creatinine Ratio 18.5 Glucose 118 H POC Glucose 185 H Calcium 10.3 H Magnesium 1.5 L Random Vancomycin 09/28/22 09/28/22 06:54 07:16 WBC RBC Hgb Hct MCV MCH MCHC RDW Std Deviation RDW Coeff of Grey Plt Count MPV Immature Gran % (Auto) Neut % (Auto) Lymph % (Auto) [place] % (Auto) Eos % (Auto) Baso % (Auto) Neut # (Auto) Lymph # (Auto) [place] # (Auto) Eos # (Auto) Baso # (Auto) Immature Gran # (Auto) Toxic Vacuolation Sodium Potassium Chloride Carbon Dioxide Anion Gap BUN Creatinine Est Cr Clr Drug Dosing Est GFR ( Amer) Est GFR (Non-Af Amer) BUN/Creatinine Ratio Glucose POC Glucose 120 H Calcium Magnesium Random Vancomycin 17.6 Medications Administered Current Inpatient Medications Acetaminophen (Acetaminophen 500 Mg Tab) 1,000 mg PO HS [facility]UARD[facility] Stop: 10/26/22 20:59 Last Admin: 09/27/22 19:40 Dose: 1,000 mg Acetaminophen (Acetaminophen 325 Mg Tab) 650 mg PO Q4 PRN PRN Reason: Pain Stop: 10/26/22 14:45 Last Admin: 09/27/22 13:06 Dose: 650 mg Albuterol (Albuterol Hfa 8 Gm Inhaler) 2 puffs INH Q4 PRN PRN Reason: Shortness Of Breath Or Wheezing Stop: 10/26/22 14:45 Albuterol (Albuterol 0.083% Nebu Soln 3 Ml Vial) 2.5 mg INH Q4R [facility] EDUARDO; Protocol Stop: 10/28/22 09:59 Last Admin: 09/28/22 09:57 Dose: Not Given Amlodipine Besylate (Amlodipine Besylate 5 Mg Tab) 10 mg PO DAILY [facility] EDUARD[facility] Stop: 10/27/22 08:59 Last Admin: 09/28/22 08:51 Dose: 10 mg Calcium Polycarbophil (Calcium Polycarbophil 625mg Tab) 625 mg PO DAILY PRN PRN Reason: Constipation Stop: 10/26/22 14:45 Last Admin: 09/28/22 08:51 Dose: 625 mg Carvedilol (Carvedilol 3.125 Mg Tab) 3.125 mg PO BID [facility] Stop: 10/27/22 20:59 Last Admin: 09/28/22 08:50 Dose: 3.125 mg Cetirizine HCl (Cetirizine Hcl 10 Mg Tablet) 10 mg PO DAILY [facility] Stop: 10/27/22 08:59 Last Admin: 09/28/22 08:51 Dose: 10 mg Citalopram Hydrobromide (Citalopram 40 Mg Tab) 40 mg PO DAILY [facility] Stop: 10/27/22 08:59 Last Admin: 09/28/22 08:51 Dose: 40 mg Cyanocobalamin (Cyanocobalamin 1000 Mcg/Ml Vial) 1,000 mcg IM Q30D [facility] Stop: 11/03/22 08:59 Dextrose (Dextrose 50% 50 Ml Syringe) 25 - 50 ml IV UD PRN; Protocol PRN Reason: Hypoglycemia Protocol Stop: 10/26/22 15:14 Diphenhydramine HCl (Diphenhydramine Capsule 25 Mg Cap) 50 mg PO HS [facility] Stop: 10/26/22 20:59 Last Admin: 09/27/22 19:40 Dose: 50 mg Ergocalciferol (Ergocalciferol 50,000 Units 1250 Mcg Cap) 50,000 units PO MoTh [facility] EDUARD[facility] Stop: 10/27/22 08:59 Last Admin: 09/27/22 08:09 Dose: 50,000 units Ferrous Sulfate (Ferrous Sulfate 325 Mg Tab) 325 mg PO DAILY [facility] Stop: 10/27/22 08:59 Last Admin: 09/28/22 08:51 Dose: 325 mg Fluticasone Furoate (Fluticasone Furoate 200mcg 14 Puffs/Inhaler) 1 puffs INH DAILY [facility] Stop: 10/27/22 08:59 Last Admin: 09/28/22 08:54 Dose: 1 puffs Furosemide (Furosemide 40 Mg/4 Ml Vial) 40 mg IV ONE ONE Stop: 09/28/22 10:12 Furosemide (Furosemide 40 Mg/4 Ml Vial) 40 mg IV BID [facility] Stop: 10/28/22 20:59 Glucagon (Glucagon For Inj 1 Mg Vial) 1 mg IM UD PRN; Protocol PRN Reason: Hypoglycemia Protocol Stop: 10/26/22 15:14 Glucose (Glucose 40% Gel 15 Gm Tube) 15 - 30 gm PO UD PRN; Protocol PRN Reason: Hypoglycemia Protocol Stop: 10/26/22 15:14 Glucose (Glucose 10 Tab/Tube) 4 - 8 tab PO UD PRN; Protocol PRN Reason: Hypoglycemia Protocol Stop: 10/26/22 15:14 Vancomycin HCl 1,250 mg/ (Sodium Chloride) 275 mls @ 200 mls/hr IV Q24H [facility]; Protocol Stop: 10/03/22 20:59 Last Infusion: 09/27/22 22:17 Dose: Infused Cefepime HCl 1,000 mg/ Syringe 10 mls @ 5 mls/min IV Q12H [facility]; Protocol Stop: 10/03/22 11:59 Last Admin: 09/27/22 22:56 Dose: 5 mls/min Magnesium Sulfate/Dextrose (Magnesium Sulfate / D5w) 1 gm in 100 mls @ 50 mls/hr IV Q2H [facility] Stop: 09/28/22 13:14 Methylprednisolone 20 mg/ (Syringe) 0.32 mls @ 1.5 mls/min IV Q8H [facility] Stop: 10/28/22 10:14 Insulin Aspart (Insulin Aspart Per Unit) 0 units SC ACHS [facility] Stop: 10/26/22 16:29 Last Admin: 09/28/22 09:03 Dose: 4 units Insulin Glargine (Lantus Per Unit Charge) 40 units SQ HS [facility] Stop: 10/27/22 20:59 Last Admin: 09/27/22 22:47 Dose: 40 units Levothyroxine Sodium (Levothyroxine Sodium 25 Mcg Tablet) 25 mcg PO DAILYBB [facility] Stop: 10/27/22 06:29 Last Admin: 09/28/22 04:36 Dose: 25 mcg Magnesium Oxide (Magnesium Oxide 400 Mg Tab) 400 mg PO DAILY [facility] Stop: 10/27/22 08:59 Last Admin: 09/28/22 08:51 Dose: 400 mg Miscellaneous (Welchol~Order Awaiting Action) 1 each N/A QS [facility] Stop: 10/26/22 15:59 Last Admin: 09/27/22 23:18 Dose: Not Given Miscellaneous (Mucinex Dm~Order Awaiting Action) 1 each N/A QS [facility] Stop: 10/26/22 15:59 Last Admin: 09/27/22 23:18 Dose: Not Given Miscellaneous (Carbohydrates For Hypoglycemia ) 15 - 30 gm PO UD PRN PRN Reason: Hypoglycemia Treatment Stop: 10/26/22 15:14 Miscellaneous Information (Vancomycin Consult Active) 1 each N/A UD PRN PRN Reason: Consult Stop: 10/26/22 08:01 Miscellaneous Information (Pharmacy Glycemic Mgmt Consult) 1 each N/A UD PRN; Protocol PRN Reason: Consult Stop: 10/28/22 09:52 Pantoprazole Sodium (Pantoprazole 40 Mg Tab) 40 mg PO DAILY [facility] Stop: 10/27/22 08:59 Last Admin: 09/28/22 08:51 Dose: 40 mg Rivaroxaban (Rivaroxaban 20 Mg Tab) 20 mg PO DAILY [facility] Stop: 10/27/22 08:59 Last Admin: 09/28/22 08:51 Dose: 20 mg (1) Sepsis Sepsis type: sepsis due to unspecified organism Qualified Code(s): A41.9 - Sepsis, unspecified organism (2) UTI (urinary tract infection) Hematuria presence: with hematuria Urinary tract infection type: acute cystitis Qualified Code(s): N30.01 - Acute cystitis with hematuria
--- NOTE | 2022-09-28 10:21 | Pharmacy Report ---
Pharmacy Glycemic Short Note 2 - Date of Service September 28, 2022 - Glycemic Short BSG Results (Last 24 hours): 09/27/22 09/27/22 09/27/22 11:47 16:19 21:33 Glucose POC Glucose 177 H 156 H 185 H 09/28/22 09/28/22 06:54 07:16 Glucose 118 H POC Glucose 120 H OUTPATIENT ANTIDIABETIC REGIMEN: * Lantus 40 units SQ HS * Novolog 10 units TIDM * metformin 500mg PO BID HbA1C: __ ASSESSMENT: * Patient is an 82 year old female admitted with sepsis and altered mental status. Past medical history significant for type 2 DM requiring insulin. Pharmacy consulted to assist with glycemic management in setting of steroid titration. * BSGs within goal the last 24h: [phone]/dL. Patient received 40 units of basal and 7 units of bolus insulin yesterday. * Tolerating diet. Was receiving methylprednisolone 20mg IV q12h yesterday that was titrated to q8h today, in addition to 40mg PO prednisone. On IV antibiotics for cellulitis. * Given fasting BSG within goal this AM, will not make adjustments to basal insulin today. Anticipate steroid induced hyperglycemia secondary to steroid titration. Will tighten Novolog carb ratio to start at lunch today and follow/adjust pending BSG trend. PLAN FOR INPATIENT GLYCEMIC CONTROL: * Hold outpatient oral diabetes medications * Basal insulin * Lantus 40 units SQ HS * Bolus insulin * NovoLog per scale ACHS or Q6hrs while NPO * Goal Range: Low 110 mg/dL - High 140 mg/dL * Correction Factor: 25 mg/dL/unit * Nutritional / Prandial insulin per carb ratio of 1 unit per 8 grams CHO consumed
--- NOTE | 2022-09-28 10:30 | XRay Report ---
XR chest 1V portable HISTORY: Shortness of breath. COMPARISON: Chest 09/27/2022. FINDINGS: There are low lung volumes. No pneumothorax. The heart remains mildly enlarged. There is pr ogressive interstitial/vascular thickening consistent with mild pulmonary edema. There is a trace rig ht pleural effusion. Calcified granulomas again noted within the right lung. IMPRESSION: Interval development of mild interstitial pulmonary edema and a trace right pleural effusion. ACT 112: Negative or not required by law. Electronically signed by: Jose Francisco Fitch M.D. 09/28/2022 10:29 AM
[2022-09-28] MEDS: methylPREDNISolone 20 MG in SYRINGE 0 ML IV SCH ×2 (10:41→17:55)
[2022-09-28] MEDS: MAGNESIUM SULFATE / D5W 1 GM/100 ML BAG IV SCH ×2 (10:41→11:35)
[2022-09-28] MEDS: CEFEPIME 1,000 MG in SYRINGE 0 ML IV SCH ×2 (12:38→23:47)
--- NOTE | 2022-09-28 14:45 | Hospitalist Progress Note ---
Date of Service September 28, 2022 Assessment & Plan (1) AMS (altered mental status): Plan: Acute metabolic encephalopathy Likely Multifactorial: Sepsis, Hypoxia Mental status seemed to be improved Elevated Troponin Likely Type II LA In setting of Hypertensive Urgency, Hypoxia, Tachycardia -CXR:No acute cardiopulmonary findings. No significant change in appearance of the chest. -ECHO: Moderate concentric LVH, EF 60 to 65%, severe mitral calcification, mild mitral regurgitation. Left ventricular wall motion is normal. -EKG: Nonspecific ST-T wave changes Appreciate Cardiology Input (2) Sepsis: Plan: Sepsis Bilateral Leg cellulitis Bacteremia-POA --Left Leg CT:Lateral left thigh skin thickening with subcutaneous stranding. This could reflect edema, cellulitis or a contusion. No fluid collection to suggest abscess or significant hematoma. No soft tissue gas. No fracture within the left femur. Subcutaneous edema of the visualized left lower leg. --Blood Culture: 09/05 growing Group C Beta Strep --Repeat Blood Cx: pending --ECHO:as above -- Continue vancomycin, cefepime Consider ID evaluation when appropriate Continue wound care Acute on chronic respiratory failure with hypoxia Chronic oxygen dependency Acute COPD exacerbation Pulmonary Edema Continue IV Solu-Medrol, nebs Also on antibiotics as above Supplemental oxygen to keep saturations 88 to 92% IV lasix to help with Pulm edema Pulmonology consulted BiPAP PRN Hypomagnesemia Replete electrolytes as needed Monitor Left adrenal nodule Left apex nodule --CT Chest:Overall, no significant change compared to the prior study. Prior granulomatous disease with stable scarlike density within the right lung apex. Stable 1.1 cm spiculated nodule within the left lung apex. Emphysema. --CT ABD:No acute abnormalities are seen. Bilateral perinephric stranding is nonspecific. Diverticulosis without diverticulitis. Left adrenal gland nodule is again seen. Nonemergent CT or MRI adrenal mass protocol can be performed if further characterization is desired. --Needs follow up as outpatient (3) HTN (hypertension): Plan: Hypertensive Urgency Continue amlodipine Started on Carvedilol Adjust medications as needed Monitor (4) Diabetes mellitus type II, uncontrolled: Plan: Continue insulin therapy Monitor BGs (5) Acute respiratory failure with hypoxia: Plan: as above (6) Acute exacerbation of chronic obstructive airways disease: Plan: as above (7) DVT (deep venous thrombosis): Plan: on Xarelto (8) GERD (gastroesophageal reflux disease): Plan: Continue PPI DVT Px: Xarelto CODE STATUS DNR/DNI Admission and Anticipated Discharge Date Admission Date: September 26, 2022 Subjective Patient is seen and examined at bedside Noted to have significant dyspnea and wheezing this morning Still has left leg pain Denies any chest pain, dizziness, nausea, abdominal pain Review of Systems Review of Systems: All systems reviewed & are unremarkable except as noted in Subjective Physical Exam Physical Exam: Physical Exam: Vitals signs as noted above General Appearance:Moderately built and nourished, no apparent distress Head: normocephalic, Atraumatic Eyes: normal inspection, EOMI Neck: supple, Trachea midline Respiratory/Chest: Decreased breath sounds, B/L wheezing, Crackles, +accessory muscle use Cardiovascular: S1, S2, Tachycardia, No murmur Abdomen/GI:Soft, Non tender, Bowel sounds present Extremities/Musculoskeletal:normal inspection, Trace edema, B/L LE wounds in dressing, L thigh erythematous, tender Neurologic/Psych:AAOX2, grossly no focal neurological deficits Skin: normal color, warm Results & Data Results & Data ([facility]) Vital Signs (Past 12 Hours) Vital Signs Temp Pulse Pulse Pulse Resp BP Pulse Ox 09/28/22 08:00 09/28/22 08:00 108 H 09/28/22 08:00 09/28/22 11:37 37.2 C 106 H 23 135/79 97 09/28/22 10:54 114 H 28 H 92 09/28/22 07:32 36.8 C 106 H 24 169/98 H 90 09/28/22 05:23 100 H 23 93 09/28/22 03:48 36.6 C 92 H 24 173/87 H 96 O2 Del Method O2 Del Method O2 Flow Rate O2 Flow Rate FiO2 09/28/22 08:00 Nasal Cannula 3 09/28/22 08:00 09/28/22 08:00 Nasal Cannula 3 09/28/22 11:37 BiPAP 09/28/22 10:54 50 09/28/22 07:32 Nasal Cannula 4 09/28/22 05:23 Nasal Cannula 3 09/28/22 03:48 Nasal Cannula 3 Laboratory Results Short CBC 09/28/22 Range/Units 06:54 WBC 23.18 H (4.8-10.8) K/ul Hgb 11.5 L (12.0-16.0) g/dl Hct 36.0 L (37.0-47.0) % Plt Count 175 (130-400) K/uL BMP 09/28/22 06:54 Sodium 139 Potassium 3.8 Chloride 100 Carbon Dioxide 33 H BUN 25 H Creatinine 1.35 H Glucose 118 H Calcium 10.3 H (1) Sepsis Sepsis type: sepsis due to unspecified organism Qualified Code(s): A41.9 - Sepsis, unspecified organism
--- NOTE | 2022-09-28 17:45 | Pulmonary Consultation ---
Date of Consultation September 28, 2022 Assessment & Plan (1) Acute exacerbation of chronic obstructive airways disease: Suspect COPD based on clinical history. Patient has a history of tobacco abuse and quit about 20 years ago. She smoked about 1 pack/day for 35 years. She also has a history of chronic hypercapnic respiratory failure. Continue BiPAP when sleeping. Start LABA/LAMA/ICS inhaler regimen. Recommend steroid course of no longer than 5 days. Obtain morning ABG. 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 She is not a candidate for tracheoplasty or stenting. Would recommend positive pressure therapy with BiPAP. Consider polysomnography as an outpatient along with PFTs. Minimize outpatient steroids as this can worsen her tracheomalacia. (3) Acute diastolic heart failure: Agree with diuresis. Recommend controlling her blood pressure and maintaining systolic blood pressure under 140 and diastolic under 90. (4) Hypoxia: Avoid hyperoxia. Maintain oxygen saturations of 88 to 92%. I weaned her down to 4 L of oxygen. (5) Nodule of left lung: Stable over the past 2 years. Plan Thank you for the consult. Please call with questions. History of Present Illness Reason for Consultation: "COPD exacerbation" Attending Physician: Franklyn Mcdowell MD History of Present Illness 82-year-old female past medical history of PE, DVT, hypertension, rheumatoid arthritis and type 2 diabetes mellitus who presented from [facility] due to altered mental status. She is currently being treated for UTI. She had an x-ray today which revealed mild coarse interstitial thickening likely secondary to pulmonary edema. She is currently requiring low-flow oxygen and maintaining saturations in the mid 90s. She had a CT of her chest completed on the which was a very poor study due to respiratory motion artifact. She has evidence of tracheomalacia. There is a new right apical scar with calcifications noted. She has several granulomas noted throughout the right lung. To the left upper lobe nodule measuring 1.1 cm. This left upper lobe nodule is largely stable compared to the CT chest that she had 04/12/2022, and 08/29/2020. Echo completed today reveals a normal ejection fraction with severe mitral annular calcifications. She denies any shortness of breath at present. She does note that last couple days she has had some chest tightness and shortness of breath. She notes that her mobility is very poor at baseline. She does have an occasional cough that is mostly dry. She denies any fevers, chills or night sweats. She denies any UTI symptoms. Allergies Allergy/AdvReac Type Severity Reaction Status Date / Time atorvastatin Allergy Unknown UNKN Verified 09/26/22 11:45 bee venom protein (honey bee) Allergy Unknown Unknown Verified 09/26/22 11:45 formaldehyde Allergy Unknown HYPERSENSIT Verified 09/26/22 11:45 IVITY oxycodone Allergy Unknown UNKN Verified 09/26/22 11:45 peanut Allergy Unknown Unknown Verified 09/26/22 11:45 Sulfa (Sulfonamide Allergy Unknown Unknown Verified 09/26/22 11:45 Antibiotics) Home Medications Medication Instructions Recorded Confirmed Type acetaminophen 325 mg tablet 650 mg PO DAILY .HIP & KNEE PAIN 09/26/22 09/26/22 History (Tylenol) acetaminophen 325 mg tablet 650 mg PO Q4 PRN Pain 09/26/22 09/26/22 History (Tylenol) albuterol sulfate 2.5 mg/3 mL 2.5 mg inhalation Q4H PRN 09/26/22 09/26/22 History (0.083 %) solution for nebulization Shortness Of Breath Or Wheezing albuterol sulfate 90 mcg/actuation 2 puff inhalation Q4 PRN Shortness 09/26/22 09/26/22 History aerosol inhaler (Ventolin HFA) Of Breath Or Wheezing amlodipine 10 mg tablet 10 mg PO DAILY 09/26/22 09/26/22 History budesonide 90 mcg/actuation breath 1 inh inhalation BID 09/26/22 09/26/22 History activated powder inhaler (Pulmicort Flexhaler) calcium polycarbophil 625 mg 625 mg PO DAILY PRN Constipation 09/26/22 09/26/22 History tablet (Fiber-Lax) cetirizine 10 mg tablet 10 mg PO DAILY 09/26/22 09/26/22 History citalopram 40 mg tablet 40 mg PO DAILY 09/26/22 09/26/22 History colesevelam 625 mg tablet (WelChol) 625 mg PO DAILY 09/26/22 09/26/22 History cyanocobalamin (vitamin B-12) 1,000 mcg IM .MONTH 09/26/22 09/26/22 History 1,000 mcg/mL injection solution dextromethorphan-guaifenesin 30 1 tab PO Q12H PRN Congestion 09/26/22 09/26/22 History mg-600 mg tablet extended [id number] hr (Mucinex DM) diphenhydramine 25 2 tab PO HS 09/26/22 09/26/22 History mg-acetaminophen 500 mg tablet (Tylenol PM Extra Strength) epinephrine 0.3 mg/0.3 mL 0.3 mg IM DIRECTED PRN Allergic 09/26/22 09/26/22 History injection, auto-injector Reaction ergocalciferol (vitamin D2) 1,250 50,000 unit PO 2XWK 09/26/22 09/26/22 History mcg (50,000 unit) capsule (Vitamin D2) ferrous sulfate 325 mg (65 mg 325 mg PO DAILY 09/26/22 09/26/22 History iron) tablet furosemide 20 mg tablet 20 mg PO MOWEFR 09/26/22 09/26/22 History insulin aspart U-100 100 unit/mL 10 unit subcut TIDM 09/26/22 09/26/22 History (3 mL) subcutaneous pen (Novolog FlexPen U-100 Insulin aspart) insulin glargine U-300 conc 300 40 unit subcut HS 09/26/22 09/26/22 History unit/mL (1.5 mL) subcutaneous pen (Toujeo SoloStar U-300 Insulin) levothyroxine 25 mcg tablet 25 mcg PO DAILY 09/26/22 09/26/22 History loperamide 2 mg tablet (Imodium 2 mg PO Q4H PRN Diarrhea 09/26/22 09/26/22 History A-D) magnesium oxide,aspartate,citr 400 mg PO DAILY 09/26/22 09/26/22 History metformin 1,000 mg tablet 500 mg PO Q12 09/26/22 09/26/22 History omeprazole 20 mg capsule,delayed 20 mg PO DAILY 09/26/22 09/26/22 History release prednisone 5 mg tablet 5 mg PO DAILY 09/26/22 09/26/22 History rivaroxaban 20 mg tablet (Xarelto) 20 mg PO DAILY 09/26/22 09/26/22 History Patient History Medical History (Updated 09/28/22 @ 18:16 by Jameson Lynch MD) A-fib Acute diastolic heart failure Acute respiratory acidosis Asthma Bacteremia Depression Diabetes mellitus, type II Encephalopathy GERD (gastroesophageal reflux disease) High cholesterol History of DVT (deep vein thrombosis) Hypertension Hypomagnesemia Hypothyroid Hypoxia Nephrolithiasis Nodule of left lung On home oxygen therapy Pneumonia Sepsis Tracheomalacia UTI (urinary tract infection) Surgical History History of cataract surgery (10/18/21) left History of cholecystectomy History of hysterectomy Hx of tonsillectomy Family History Other Diabetes Hypertension Stroke Social History Smoking Status: Unknown if ever smoked Second Hand Exposure: No; Hx Alcohol Use: No Hx Substance Use: No Preferred Language: Yoruba Communication Ability: Effective Child Life Specialist Required: No Beliefs That Will Affect Care: None marital status: / Current Living Situation: Personal Care Facility Current Living Situation Comment: Lives at [facility] Feels Safe at Home: Yes Assistive Devices: Walker Review of Systems Review of Systems: All systems reviewed & are unremarkable except as noted in HPI & below Physical Exam Physical Exam: Constitutional: Patient appears to be of their stated age. Patient is in no apparent distress. Patient is well-developed. Eyes: Pupils are equal round and reactive to light. Conjunctivae are normal. Anicteric sclera. Ears nose, mouth and throat: Mallampati class 2. Normal posterior oropharynx. Uvula is midline. Neck: Trachea is midline. Visual inspection is normal. Respiratory: Mild tachypnea. Bilateral lower lobe crackles noted. Cardiovascular: Regular rate and rhythm. No murmurs. No edema. Gastrointestinal: Normal bowel sounds, soft, nontender and nondistended. No hepatosplenomegaly noted. Musculoskeletal: No cyanosis. Patient is able to move all extremities. Diffusely weak. Skin: No rashes, warm dry and intact. Neurologic: No obvious focal neurological deficits seen. Psychiatric: Alert and oriented x3 with a euthymic affect. Results & Data Results & Data ([facility]) Vital Signs (Past 12 Hours) Vital Signs Temp Pulse Pulse Pulse Resp BP BP 09/28/22 15:20 102 H 22 09/28/22 15:18 37.2 C 102 H 18 172/80 H 09/28/22 08:00 09/28/22 08:00 108 H 09/28/22 08:00 09/28/22 11:37 37.2 C 106 H 23 135/79 09/28/22 10:54 114 H 28 H 09/28/22 07:32 36.8 C 106 H 24 169/98 H Pulse Ox O2 Del Method O2 Del Method O2 Flow Rate O2 Flow Rate FiO2 09/28/22 15:20 96 Nasal Cannula 6 09/28/22 15:18 95 Nasal Cannula 6 09/28/22 08:00 Nasal Cannula 3 09/28/22 08:00 09/28/22 08:00 Nasal Cannula 3 09/28/22 11:37 97 BiPAP 09/28/22 10:54 92 50 09/28/22 07:32 90 Nasal Cannula 4 PG Care Time/CCT Total # of Minutes Spent Total Time Spent with Patient: Total time spent is greater than 50% in coordination of care (as documented) at patient's floor/unit and/or counseling patient: Coding Level of Care Code 97963 INT INP/OBS CARE MIN Diagnoses Acute exacerbation of chronic obstructive airways disease J44.1 Tracheomalacia J39.8 Acute diastolic heart failure I50.31 Hypoxia R09.02 Nodule of left lung R91.1
[2022-09-28] MEDS: WELCHOL~ORDER AWAITING ACTION SCH ×2 (19:37→19:39)
[2022-09-28] MEDS: MUCINEX DM~ORDER AWAITING ACTION SCH ×2 (19:37→19:39)
[2022-09-28] MEDS: ACETAMINOPHEN 500 MG TAB PO SCH (20:46)
[2022-09-28] MEDS: diphenhydrAMINE Capsule 25 MG CAP PO SCH (20:47)
[2022-09-28] MEDS: VANCOMYCIN HCL 1,250 MG in SODIUM CHLORIDE 0.9% 250 ML IV SCH (20:47)
[2022-09-28] MEDS: FLUTICASONE/VILANTEROL 100/25MCG 14 PUFFS/INHALER INH SCH (20:48)
[2022-09-28] MEDS: FUROSEMIDE 40 MG/4 ML VIAL IV SCH (20:49)
[2022-09-28] MEDS ORDERED: LANTUS PER UNIT CHARGE SQ SCH (21:00)
[2022-09-29] MEDS: MUCINEX DM~ORDER AWAITING ACTION SCH ×3 (00:45→23:32)
[2022-09-29] MEDS: WELCHOL~ORDER AWAITING ACTION SCH ×3 (00:45→23:32)
[2022-09-29] MEDS: amLODIPine BESYLATE 5 MG TAB PO SCH (00:52)
[2022-09-29] MEDS: ALBUTEROL 0.083% NEBU SOLN 3 ML VIAL INH SCH ×2 (02:02→06:59)
[2022-09-29] MEDS: methylPREDNISolone 20 MG in SYRINGE 0 ML IV SCH ×2 (02:51→09:04)
[2022-09-29] MEDS: LEVOTHYROXINE SODIUM 25 MCG TABLET PO SCH (05:32)
[2022-09-29] MEDS: carvediloL 6.25 MG TAB PO SCH ×2 (05:32→20:41)
[2022-09-29 06:20] LABS: Base Excess ABG 15.3 mEq/L (-9-1.8); HCO3 ABG 41 mmol/L (19-24); Oxygen Saturation ABG 88.6 % (90-95); PCO2 ABG 54 mmHg (35-46); PO2 ABG 52 mmHg (80-95); pH ABG 7.49 (7.35-7.45)
[2022-09-29 06:26] LABS: Allen Test Pos (Pos)
[2022-09-29 06:28] LABS: Hematocrit (blood only) 36.3 % (37.0-47.0); Hemoglobin 11.8 g/dl (12.0-16.0); Mean Corpuscular Hemoglobin 28.9 pg (25.0-34.0); Mean Corpuscular Hgb Conc 32.5 g/dL (32.0-36.0); Platelet Count 201 K/uL (130-400); RDW Coefficient of Variation 13.3 % (11.5-14.5); RDW Standard Deviation 43.6 fL (36.4-46.3); Red Blood Count 4.08 M/uL (4.20-5.40); White Blood Count 15.25 K/ul (4.8-10.8)
[2022-09-29 06:44] LABS: Magnesium 1.6 mg/dl (1.7-2.4); Potassium 3.6 mmol/L (3.5-5.1)
[2022-09-29 06:49] LABS: BUN Creatinine Ratio 22.3 (10-20); Creatinine Clr Calc Pharmacy 35.7 ml/min; Est GFR (African American) 37.8 ml/min; Est GFR (Non-African American) 32.6 ml/min
[2022-09-29] MEDS ORDERED: MAGNESIUM SULFATE / D5W 1 GM/100 ML BAG IV ONE (08:31)
[2022-09-29 08:32] LABS: Estimated Average Glucose 169 mg/dl; Hemoglobin A1C 7.5 % (4.5-5.6)
[2022-09-29] MEDS ORDERED: LANTUS PER UNIT CHARGE SQ ONE ×2 (09:00→12:00)
[2022-09-29] MEDS: CETIRIZINE HCL 10 MG TABLET PO SCH (09:03)
[2022-09-29] MEDS: RIVAROXABAN 20 MG TAB PO SCH (09:03)
[2022-09-29] MEDS: CITALOPRAM 40 MG TAB PO SCH (09:03)
[2022-09-29] MEDS: PANTOprazole 40 MG TAB PO SCH (09:03)
[2022-09-29] MEDS: FERROUS SULFATE 325 MG TAB PO SCH (09:03)
[2022-09-29] MEDS: FLUTICASONE/VILANTEROL 100/25MCG 14 PUFFS/INHALER INH SCH (09:04)
[2022-09-29] MEDS: FUROSEMIDE 40 MG/4 ML VIAL IV SCH ×2 (09:05→20:40)
[2022-09-29] MEDS: FLUTICASONE FUROATE 200MCG 14 PUFFS/INHALER INH SCH (09:05)
[2022-09-29] MEDS: UMECLIDINIUM BROMIDE 62.5MCG/BLISTER 7 PUFFS/INHALER INH SCH (09:07)
[2022-09-29] MEDS: INSULIN ASPART PER UNIT SC SCH ×4 (09:09→20:50)
[2022-09-29] MEDS: MAGNESIUM OXIDE 400 MG TAB PO SCH (09:13)
[2022-09-29] MEDS: POTASSIUM CHLORIDE 10 MEQ TABCR PO SCH ×2 (09:14→20:41)
[2022-09-29] MEDS: acetaZOLAMIDE 250 MG TAB PO SCH ×2 (09:45→20:41)
--- NOTE | 2022-09-29 10:15 | Pulmonology Progress Note ---
Date of Service September 29, 2022 Assessment & Plan (1) Acute exacerbation of chronic obstructive airways disease: Plan: Suspect COPD based on clinical history. Patient has a history of tobacco abuse and quit about 20 years ago. She smoked about 1 pack/day for 35 years. She also has a history of chronic hypercapnic respiratory failure. Continue BiPAP when sleeping. Continue LABA/LAMA/ICS. Systemic corticosteroids for total 5 days. Transition to oral 20 mg. Morning ABG with evidence of chronic hypercapnic respiratory failure and metabolic alkalosis. Due to chronic hypercapnic respiratory failure consequent to COPD and tracheomalacia, the patient now requires a noninvasive home ventilator. Bilevel therapy with and without a rate would be ineffective as patient requires a volume targeted mode. Ventilation is required to decrease work of breathing and improve pulmonary status. Interruption of ventilator support would lead to decline of health status. NIMV settings should be AVAPS-AE; Breath rate: auto; Inspiratory time: auto; Sigh: off; Tidal Volume: [400-450], PS min: [4-10 PS max: 12-20]; EPAP min: [6- 10]; EPAP max: [10-16]; AVAPS rate: [14 during sleep and as needed] (2) Tracheomalacia: Plan: She has evidence of very significant tracheomalacia on CT chest. She is not a candidate for tracheoplasty or stenting. Would recommend positive pressure therapy with BiPAP/trilogy. Consider polysomnography as an outpatient along with PFTs. Minimize outpatient steroids as this can worsen her tracheomalacia. (3) Acute diastolic heart failure: Plan: Agree with diuresis. She is quite alkalemia on her ABG today. Added acetazolamide 250 mg twice daily. Recommend controlling her blood pressure and maintaining systolic blood pressure under 140 and diastolic under 90. (4) Hypoxia: Plan: Avoid hyperoxia. Maintain oxygen saturations of 88 to 92%. I weaned her down to 2 L of oxygen. (5) Nodule of left lung: Plan: Stable over the past 2 years. (6) Chronic hypercapnic respiratory failure: Plan: NIV as above (7) Metabolic alkalosis: Plan: Largely secondary to chronic hypercapnic respiratory failure with an acute component of contraction alkalosis. Acetazolamide ordered as noted above. Plan Thank you for the consult. Please call with questions. Admission and Anticipated Discharge Date Admission Date: September 26, 2022 Subjective Patient seen and examined this morning. No significant events overnight. She does not some tightness in her chest. Denies any shortness of breath at rest. Currently saturating well on 2 L nasal cannula. Review of Systems Review of Systems: All systems reviewed & are unremarkable except as noted in HPI & below Physical Exam Physical Exam: Constitutional: Patient appears to be of their stated age. Patient is in no apparent distress. Patient is well-developed. Eyes: Pupils are equal round and reactive to light. Conjunctivae are normal. Anicteric sclera. Ears nose, mouth and throat: Mallampati class 2. Normal posterior oropharynx. Uvula is midline. Neck: Trachea is midline. Visual inspection is normal. Respiratory: Mild tachypnea. Bilateral lower lobe crackles noted. Cardiovascular: Regular rate and rhythm. No murmurs. No edema. Gastrointestinal: Normal bowel sounds, soft, nontender and nondistended. No hepatosplenomegaly noted. Musculoskeletal: No cyanosis. Patient is able to move all extremities. Diffusely weak. Skin: No rashes, warm dry and intact. Neurologic: No obvious focal neurological deficits seen. Psychiatric: Alert and oriented x3 with a euthymic affect. Results & Data Results & Data ([facility]) Vital Signs (Past 12 Hours) Vital Signs Temp Pulse Resp BP Pulse Ox O2 Del Method O2 Flow Rate 09/29/22 07:20 36.6 C 85 20 161/73 H 95 Nasal Cannula 3 09/29/22 07:00 84 18 93 Nasal Cannula 3 09/29/22 02:46 36.6 C 90 20 171/81 H 95 Nasal Cannula 3.0 09/29/22 02:03 89 16 96 Nasal Cannula 3 09/28/22 23:57 36.8 C 86 16 185/95 H 95 Nasal Cannula 2 PG Care Time/CCT Total # of Minutes Spent Total Time Spent with Patient: Total time spent is greater than 50% in coordination of care (as documented) at patient's floor/unit and/or counseling patient: Coding Level of Care Code 79043 SUB INP/OBS CARE 2/35MIN Diagnoses Acute exacerbation of chronic obstructive airways disease J44.1 Tracheomalacia J39.8 Acute diastolic heart failure I50.31 Hypoxia R09.02 Nodule of left lung R91.1 Chronic hypercapnic respiratory failure J96.12 Metabolic alkalosis E87.3
[2022-09-29] MEDS ORDERED: ALBUTEROL 0.083% NEBU SOLN 3 ML VIAL INH PRN (10:54)
[2022-09-29] MEDS: CEFEPIME 1,000 MG in SYRINGE 0 ML IV SCH ×2 (12:13→23:32)
--- NOTE | 2022-09-29 13:42 | Cardiology Progress Note ---
Date of Service September 29, 2022 Assessment & Plan (1) UTI (urinary tract infection): (2) Troponin level elevated: (3) Acute diastolic heart failure: (4) Chronic hypercapnic respiratory failure: (5) Tracheomalacia: Plan - Pulmonary input noted and appreciated with regards to patient's history of hypercapnic respiratory failure, tracheomalacia, and need for positive pressure ventilation. -Continue IV furosemide 40 mg IV twice daily. LVEF 60 to 65% this admission. -Diuretic therapy especially important given ongoing administration of IV antibiotic therapy. -Continue potassium supplementation. -Acetazolamide added per pulmonary 09/29/2022. DVT prophylaxis: Patient is on Xarelto given her history of past DVT/PE and this will be continued. Admission and Anticipated Discharge Date Admission Date: September 26, 2022 Subjective Patient seen in cardiology follow-up. She was receiving inhaled bronchodilator treatment at the time of my assessment. She describes no acute complaints. Telemetry revealed sinus rhythm in the range of 80 to 90 bpm. Physical Exam Constitutional: no acute distress Respiratory: no labored breathing Auscultation: + diminished lung sounds (Mildly reduced breath sounds); no crackles and no rales Cardiovascular: Rate/Rhythm: regular rate and regular rhythm Vessels: no JVD Extremities: + edema (Trace lower extremity edema, lower extremities wrapped) Neurologic: PERRL, EOMI, accommodation nl, no face palsy, no dysarthria Results & Data ([facility]) Vital Signs (Past 12 Hours) Vital Signs Temp Pulse Resp BP Pulse Ox O2 Del Method O2 Flow Rate 09/29/22 12:10 92 H 20 94 Nasal Cannula 3 09/29/22 11:09 36.7 C 89 22 175/84 H 93 Nasal Cannula 2 09/29/22 07:20 36.6 C 85 20 161/73 H 95 Nasal Cannula 3 09/29/22 07:00 84 18 93 Nasal Cannula 3 09/29/22 02:46 36.6 C 90 20 171/81 H 95 Nasal Cannula 3.0 09/29/22 02:03 89 16 96 Nasal Cannula 3 Laboratory Results CBC 09/29/22 Range/Units 05:55 WBC 15.25 H (4.8-10.8) K/ul RBC 4.08 L (4.20-5.40) M/uL Hgb 11.8 L (12.0-16.0) g/dl Hct 36.3 L (37.0-47.0) % Plt Count 201 (130-400) K/uL Comprehensive Metabolic Panel 09/29/22 Range/Units 05:55 Sodium 138 (136-145) mmol/L Potassium 3.6 (3.5-5.1) mmol/L Chloride 93 L (98-107) mmol/L Carbon Dioxide 39 H (21-32) mmol/L BUN 33 H (6-23) mg/dl Creatinine 1.48 H (0.6-1.2) mg/dl Glucose 172 H (70-99(Fasting)) mg/dl Calcium 10.0 (8.5-10.1) mg/dl Intake and Output 09/28/22 09/29/22 09/29/22 22:59 06:59 14:59 Intake Total 275 / 740 100 / 100 Output Total 1150 / 4650 800 / 4650 Balance -875 / -3910 -800 / -3910 100 / 100 Intake: IV 275 / 420 100 / 100 Magnesium Sulfate / D5w 1 gm In 100 / 100 100 ml @ 50 mls/hr IV ONE ONE Rx#:[id number] Vancomycin HCl 1,250 mg In 275 / 275 Sodium Chloride 0.9% 250 ml @ 200 mls/hr IV Q24H [facility] Rx#: [id number] Output: Urine Amount (Catheter) 1150 / 4650 800 / 4650 Frey/Indwelling 1150 / 4650 800 / 4650 Other: Other Intake Source Sips (1) UTI (urinary tract infection) Hematuria presence: with hematuria Urinary tract infection type: acute cystitis Qualified Code(s): N30.01 - Acute cystitis with hematuria
--- NOTE | 2022-09-29 13:55 | Hospitalist Progress Note ---
Date of Service September 29, 2022 Assessment & Plan (1) AMS (altered mental status): Plan: Acute metabolic encephalopathy Likely Multifactorial: Sepsis, Hypoxia Mental status improved Elevated Troponin Likely Type II DE In setting of Hypertensive Urgency, Hypoxia, Tachycardia -CXR:No acute cardiopulmonary findings. No significant change in appearance of the chest. -ECHO: Moderate concentric LVH, EF 60 to 65%, severe mitral calcification, mild mitral regurgitation. Left ventricular wall motion is normal. -EKG: Nonspecific ST-T wave changes Appreciate Cardiology Input (2) Sepsis: Plan: Sepsis Bilateral Leg cellulitis Bacteremia-POA --Left Leg CT:Lateral left thigh skin thickening with subcutaneous stranding. This could reflect edema, cellulitis or a contusion. No fluid collection to suggest abscess or significant hematoma. No soft tissue gas. No fracture within the left femur. Subcutaneous edema of the visualized left lower leg. --Blood Culture: 09/05 growing Group C Beta Strep --Repeat Blood Cx: No growth --ECHO:as above -- Continue vancomycin, cefepime Consulted ID Continue wound care Acute on chronic respiratory failure with hypoxia and Hypercarbia Chronic oxygen dependency Acute COPD exacerbation Tracheomalacia IV Solu-Medrol transitioned to prednisone Continue nebs Also on antibiotics as above Supplemental oxygen to keep saturations 88 to 92% Appreciate Pulmonology Input BiPAP PRN Plan to discontinue prednisone after completing short course Thought to be not a candidate for tracheoplasty or stenting. Needs Triology ventilator arranged upon discharge Needs outpatient PFTs. Acute diastolic heart failure Continue IV diuretics as above EF 60 to 65% Also added acetazolamide Appreciate cardiology input Hypomagnesemia Replete electrolytes as needed Monitor Left adrenal nodule Left apex nodule --CT Chest:Overall, no significant change compared to the prior study. Prior granulomatous disease with stable scarlike density within the right lung apex. Stable 1.1 cm spiculated nodule within the left lung apex. Emphysema. --CT ABD:No acute abnormalities are seen. Bilateral perinephric stranding is nonspecific. Diverticulosis without diverticulitis. Left adrenal gland nodule is again seen. Nonemergent CT or MRI adrenal mass protocol can be performed if further characterization is desired. --Needs follow up as outpatient (3) HTN (hypertension): Plan: Hypertensive Urgency Continue amlodipine Started on Carvedilol Adjust medications as needed Monitor (4) Diabetes mellitus type II, uncontrolled: Plan: Continue insulin therapy Monitor BGs (5) Acute respiratory failure with hypoxia: Plan: as above (6) Acute exacerbation of chronic obstructive airways disease: Plan: as above (7) DVT (deep venous thrombosis): Plan: on Xarelto (8) GERD (gastroesophageal reflux disease): Plan: Continue PPI DVT Px: Xarelto CODE STATUS DNR/DNI Admission and Anticipated Discharge Date Admission Date: September 26, 2022 Subjective Patient is seen and examined at bedside Less cough, dyspnea today Left leg pain is improving Saturating well on 3 L supplemental Oxygen Discussed with Pulmonology today Denies any chest pain, dizziness, nausea, abdominal pain Review of Systems Review of Systems: All systems reviewed & are unremarkable except as noted in Subjective Physical Exam Physical Exam: Physical Exam: Vitals signs as noted above General Appearance:Moderately built and nourished, no apparent distress Head: normocephalic, Atraumatic Eyes: normal inspection, EOMI Neck: supple, Trachea midline Respiratory/Chest: Decreased breath sounds, Basal crackles, no accessory muscle use Cardiovascular: S1, S2, Tachycardia, No murmur Abdomen/GI:Soft, Non tender, Bowel sounds present Extremities/Musculoskeletal:normal inspection, Trace edema, B/L LE wounds in dressing, L thigh erythematous, tender Neurologic/Psych:AAOX2, grossly no focal neurological deficits Skin: normal color, warm Results & Data Results & Data ([facility]) Vital Signs (Past 12 Hours) Vital Signs Temp Pulse Resp BP Pulse Ox O2 Del Method O2 Flow Rate 09/29/22 12:10 92 H 20 94 Nasal Cannula 3 09/29/22 11:09 36.7 C 89 22 175/84 H 93 Nasal Cannula 2 09/29/22 07:20 36.6 C 85 20 161/73 H 95 Nasal Cannula 3 09/29/22 07:00 84 18 93 Nasal Cannula 3 09/29/22 02:46 36.6 C 90 20 171/81 H 95 Nasal Cannula 3.0 09/29/22 02:03 89 16 96 Nasal Cannula 3 Laboratory Results Short CBC 09/29/22 Range/Units 05:55 WBC 15.25 H (4.8-10.8) K/ul Hgb 11.8 L (12.0-16.0) g/dl Hct 36.3 L (37.0-47.0) % Plt Count 201 (130-400) K/uL BMP 09/29/22 05:55 Sodium 138 Potassium 3.6 Chloride 93 L Carbon Dioxide 39 H BUN 33 H Creatinine 1.48 H Glucose 172 H Calcium 10.0 (1) Sepsis Sepsis type: sepsis due to unspecified organism Qualified Code(s): A41.9 - Sepsis, unspecified organism
[2022-09-29] MEDS: diphenhydrAMINE Capsule 25 MG CAP PO SCH (20:49)
[2022-09-29] MEDS: ACETAMINOPHEN 500 MG TAB PO SCH (20:49)
[2022-09-29] MEDS: VANCOMYCIN HCL 1,250 MG in SODIUM CHLORIDE 0.9% 250 ML IV SCH (20:49)
[2022-09-29] MEDS: LANTUS PER UNIT CHARGE SQ SCH (20:50)
[2022-09-30] MEDS: carvediloL 3.125 MG TAB PO SCH ×2 (03:29→21:55)
[2022-09-30] MEDS: LEVOTHYROXINE SODIUM 25 MCG TABLET PO SCH (05:16)
[2022-09-30 06:18] LABS: Hematocrit (blood only) 38.2 % (37.0-47.0); Hemoglobin 12.2 g/dl (12.0-16.0); Mean Corpuscular Hemoglobin 28.7 pg (25.0-34.0); Mean Corpuscular Hgb Conc 31.9 g/dL (32.0-36.0); Mean Corpuscular Volume 89.9 fL (80.0-100.0); Mean Platelet Volume 10.7 fL (9.4-12.4); Platelet Count 211 K/uL (130-400); RDW Coefficient of Variation 13.5 % (11.5-14.5); RDW Standard Deviation 44.2 fL (36.4-46.3); Red Blood Count 4.25 M/uL (4.20-5.40); White Blood Count 14.72 K/ul (4.8-10.8)
[2022-09-30 06:48] LABS: Calcium 9.7 mg/dl (8.5-10.1); Magnesium 1.6 mg/dl (1.7-2.4); Potassium 3.2 mmol/L (3.5-5.1)
[2022-09-30 06:54] LABS: BUN Creatinine Ratio 27.6 (10-20); Creatinine Clr Calc Pharmacy 29.2 ml/min; Est GFR (African American) 29.7 ml/min; Est GFR (Non-African American) 25.6 ml/min
[2022-09-30] MEDS ORDERED: POTASSIUM CHLORIDE CRTAB 20 MEQ TABCR PO ONE (07:46)
[2022-09-30] MEDS ORDERED: MAGNESIUM SULFATE / D5W 1 GM/100 ML BAG IV ONE (07:46)
[2022-09-30] MEDS ORDERED: DAPTOmycin 325 MG in SYRINGE 0 ML IV SCH (09:00)
[2022-09-30] MEDS: MAGNESIUM OXIDE 400 MG TAB PO SCH (09:25)
[2022-09-30] MEDS: INSULIN ASPART PER UNIT SC SCH ×4 (09:26→21:54)
[2022-09-30] MEDS: LANTUS PER UNIT CHARGE SQ SCH ×2 (09:26→21:54)
[2022-09-30] MEDS: acetaZOLAMIDE 250 MG TAB PO SCH ×2 (09:27→21:56)
[2022-09-30] MEDS: UMECLIDINIUM BROMIDE 62.5MCG/BLISTER 7 PUFFS/INHALER INH SCH (09:27)
[2022-09-30] MEDS: FERROUS SULFATE 325 MG TAB PO SCH (09:28)
[2022-09-30] MEDS: RIVAROXABAN 20 MG TAB PO SCH (09:28)
[2022-09-30] MEDS: PANTOprazole 40 MG TAB PO SCH (09:28)
[2022-09-30] MEDS: CITALOPRAM 40 MG TAB PO SCH (09:28)
[2022-09-30] MEDS: amLODIPine BESYLATE 5 MG TAB PO SCH (09:28)
[2022-09-30] MEDS: FLUTICASONE/VILANTEROL 100/25MCG 14 PUFFS/INHALER INH SCH (09:29)
[2022-09-30] MEDS: predniSONE 20 MG TAB PO SCH (09:29)
[2022-09-30] MEDS: FLUTICASONE FUROATE 200MCG 14 PUFFS/INHALER INH SCH (09:29)
[2022-09-30] MEDS: CETIRIZINE HCL 10 MG TABLET PO SCH (09:29)
--- NOTE | 2022-09-30 10:46 | Pulmonology Progress Note ---
Date of Service September 30, 2022 Assessment & Plan (1) Acute exacerbation of chronic obstructive airways disease: Plan: Suspect COPD based on clinical history. Patient has a history of tobacco abuse and quit about 20 years ago. She smoked about 1 pack/day for 35 years. She also has a history of chronic hypercapnic respiratory failure. Continue BiPAP when sleeping. Continue LABA/LAMA/ICS. Systemic corticosteroids for total 5 days. Transition to oral 20 mg. Patient would greatly benefit from noninvasive ventilation due to frequent admissions and hypercapnic respiratory failure. However, the patient has been intolerant of BiPAP therapy and I am not sure that she would be compliant with therapy as an outpatient. I am consulting palliative care for further evaluation given her significant comorbidities and readmissions. 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 She is not a candidate for tracheoplasty or stenting. Would recommend positive pressure therapy with BiPAP/trilogy. Consider polysomnography as an outpatient along with PFTs. Minimize outpatient steroids as this can worsen her tracheomalacia. (3) Acute diastolic heart failure: Plan: I discontinued Lasix today given the elevated creatinine and continued metabolic alkalosis. Continue acetazolamide for the time being and reevaluate the need daily with daily BMP. (4) Hypoxia: Plan: Avoid hyperoxia. Maintain oxygen saturations of 88 to 92%. (5) Nodule of left lung: Plan: Stable over the past 2 years. (6) Chronic hypercapnic respiratory failure: Plan: NIV as above if tolerates (7) Metabolic alkalosis: Plan: Largely secondary to chronic hypercapnic respiratory failure with an acute component of contraction alkalosis. Continue acetazolamide. (8) Goals of care, counseling/discussion: Plan: Discussed with the patient that overall her prognosis is guarded. She notes that her and she asked the question at this time, "what do I have to live for since my ." We will consult palliative care. Plan Thank you for the consult. We will continue to follow. Admission and Anticipated Discharge Date Admission Date: September 26, 2022 Subjective No significant events overnight. Patient did not use BiPAP yesterday evening as she was intolerant to several different masks. She denies any fevers, chills or night sweats. She does have some shortness of breath when eating breakfast. She does endorse a mild cough. Review of Systems Review of Systems: All systems reviewed & are unremarkable except as noted in HPI & below Results & Data Results & Data ([facility]) Vital Signs (Past 12 Hours) Vital Signs Temp Pulse Resp BP Pulse Ox O2 Del Method O2 Flow Rate 09/30/22 07:14 36.7 C 75 23 155/75 H 95 Nasal Cannula 3 09/30/22 05:16 182/84 H 09/30/22 04:55 92 Nasal Cannula 3 09/30/22 04:27 94 Nasal Cannula 4 09/30/22 03:30 36.7 C 81 18 213/97 H 98 Nasal Cannula 4 09/29/22 23:39 173/83 H PG Care Time/CCT Total # of Minutes Spent Total Time Spent with Patient: Total time spent is greater than 50% in coordination of care (as documented) at patient's floor/unit and/or counseling patient: Coding Level of Care Code 67872 SUB INP/OBS CARE 2/35MIN Diagnoses Acute exacerbation of chronic obstructive airways disease J44.1 Tracheomalacia J39.8 Acute diastolic heart failure I50.31 Hypoxia R09.02 Nodule of left lung R91.1 Chronic hypercapnic respiratory failure J96.12 Metabolic alkalosis E87.3 Goals of care, counseling/discussion Z71.89
--- NOTE | 2022-09-30 12:11 | Pharmacy Report ---
Pharmacy Glycemic Short Note 2 - Date of Service September 30, 2022 - Glycemic Short BSG Results (Last 24 hours): 09/29/22 09/29/22 09/30/22 16:10 20:20 05:59 Glucose 172 H POC Glucose 132 H 204 H 09/30/22 09/30/22 07:16 11:15 Glucose POC Glucose 195 H 143 H OUTPATIENT ANTIDIABETIC REGIMEN: * Lantus 40 units SQ HS * Novolog 10 units TIDM * metformin 500mg PO BID HbA1C: 7.5% ASSESSMENT: 09/30/22 * BSGs yesterday were [phone] mg/dL. Patient received 84 units (50 UNITS of basal and 34 units of bolus). * Patient transitioned from Solu-Medrol 20 mg IV q8 (last dose at 1000) to prednisone 20 mg daily. * Will continue Lantus at 20 units SQ BID. Fasting today is 195 mg/dL. * Continue Novolog- this was tightened significantly yesterday. It does not appear that CR was sufficient yesterday but may be effective for new steroid. BACKGROUND * Patient is an 82 year old female admitted with sepsis and altered mental status. Past medical history significant for type 2 DM requiring insulin. Pharmacy consulted to assist with glycemic management in setting of steroid titration. * BSGs within goal the last 24h: [phone]/dL. Patient received 40 units of basal and 7 units of bolus insulin yesterday. * Tolerating diet. Was receiving methylprednisolone 20mg IV q12h yesterday that was titrated to q8h today, in addition to 40mg PO prednisone. On IV antib iotics for cellulitis. * Given fasting BSG within goal this AM, will not make adjustments to basal insulin today. Anticipate steroid induced hyperglycemia secondary to steroid titration. Will tighten Novolog carb ratio to start at lunch today and follow/adjust pending BSG trend. PLAN FOR INPATIENT GLYCEMIC CONTROL: * Hold outpatient oral diabetes medications * Basal insulin * Lantus 20 units SQ BID * Bolus insulin * NovoLog per scale ACHS or Q6hrs while NPO * Goal Range: Low 110 mg/dL - High 140 mg/dL * Correction Factor: 15 mg/dL/unit * Nutritional / Prandial insulin per carb ratio of 1 unit per 5 grams CHO consumed
[2022-09-30] MEDS: CEFEPIME 1,000 MG in SYRINGE 0 ML IV SCH (13:34)
--- NOTE | 2022-09-30 14:39 | Cardiology Progress Note ---
Date of Service September 30, 2022 Assessment & Plan (1) UTI (urinary tract infection): (2) Troponin level elevated: (3) Acute diastolic heart failure: (4) Chronic hypercapnic respiratory failure: (5) Tracheomalacia: Plan - Pulmonary input noted and appreciated with regards to patient's history of hypercapnic respiratory failure, tracheomalacia, and need for positive pressure ventilation. LVEF 60 to 65% this admission. -Patient with noted hypertension overnight last night that has improved. Carvedilol titrated to 9.375 twice daily. -2.5 L of urine output noted in the last 24 hours. -Furosemide held by the primary team with creatinine having trended up to 1.8. -Will reassess renal function tomorrow, however I anticipate will need ongoing IV antibiotic therapy. -Diuretic therapy especially important given ongoing administration of IV antibiotic therapy. -Continue potassium supplementation. -Acetazolamide added per pulmonary 09/29/2022. DVT prophylaxis: Patient is on Xarelto given her history of past DVT/PE and this will be continued. Admission and Anticipated Discharge Date Admission Date: September 26, 2022 Subjective Patient seen in cardiology follow-up. Resting comfortably. No acute complaints. Telemetry reveals sinus rhythm in the 70s. Physical Exam Constitutional: no acute distress Respiratory: no labored breathing Auscultation: + diminished lung sounds (Mildly reduced breath sounds); no crackles and no rales Cardiovascular: Rate/Rhythm: regular rate and regular rhythm Vessels: no JVD Extremities: + edema (Trace lower extremity edema, lower extremities wrapped) Neurologic: PERRL, EOMI, accommodation nl, no face palsy, no dysarthria Results & Data ([facility]) Vital Signs (Past 12 Hours) Vital Signs Temp Pulse Resp BP Pulse Ox O2 Del Method O2 Flow Rate 09/30/22 10:54 36.6 C 69 22 152/71 H 92 Nasal Cannula 3 09/30/22 07:14 36.7 C 75 23 155/75 H 95 Nasal Cannula 3 09/30/22 05:16 182/84 H 09/30/22 04:55 92 Nasal Cannula 3 09/30/22 04:27 94 Nasal Cannula 4 09/30/22 03:30 36.7 C 81 18 213/97 H 98 Nasal Cannula 4 (1) UTI (urinary tract infection) Hematuria presence: with hematuria Urinary tract infection type: acute cystitis Qualified Code(s): N30.01 - Acute cystitis with hematuria
--- NOTE | 2022-09-30 15:05 | Hospitalist Progress Note ---
Date of Service September 30, 2022 Assessment & Plan (1) AMS (altered mental status): Plan: Acute metabolic encephalopathy Likely Multifactorial: Sepsis, Hypoxia Mental status improved (2) Sepsis: Plan: Sepsis Bilateral Leg cellulitis Bacteremia-POA --Left Leg CT:Lateral left thigh skin thickening with subcutaneous stranding. This could reflect edema, cellulitis or a contusion. No fluid collection to suggest abscess or significant hematoma. No soft tissue gas. No fracture within the left femur. Subcutaneous edema of the visualized left lower leg. --Blood Culture: 09/05 growing Group C Beta Strep --Repeat Blood Cx: No growth --ECHO:as above -- Continue vancomycin, cefepime>> changed to daptomycin, cefepime Consulted ID Continue wound care Leukocytosis trending down Acute on chronic respiratory failure with hypoxia and Hypercarbia Chronic oxygen dependency Acute COPD exacerbation Tracheomalacia IV Solu-Medrol transitioned to prednisone Continue nebs Also on antibiotics as above Supplemental oxygen to keep saturations 88 to 92% Appreciate Pulmonology Input BiPAP PRN Plan to discontinue prednisone after completing short course Thought to be not a candidate for tracheoplasty or stenting. Needs Triology ventilator but patient intolerant to BiPAP Needs outpatient PFTs. Palliative care consulted to address goals of care Acute diastolic heart failure IV diuretics held due to IVAN EF 60 to 65% Also added acetazolamide Appreciate cardiology input Elevated Troponin Likely Type II WA In setting of Hypertensive Urgency, Hypoxia, Tachycardia -CXR:No acute cardiopulmonary findings. No significant change in appearance of the chest. -ECHO: Moderate concentric LVH, EF 60 to 65%, severe mitral calcification, mild mitral regurgitation. Left ventricular wall motion is normal. 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 Prior granulomatous disease with stable scarlike density within the right lung apex. Stable 1.1 cm spiculated nodule within the left lung apex. Emphysema. --CT ABD:No acute abnormalities are seen. Bilateral perinephric stranding is nonspecific. Diverticulosis without diverticulitis. Left adrenal gland nodule is again seen. Nonemergent CT or MRI adrenal mass protocol can be performed if further characterization is desired. --Needs follow up as outpatient (3) HTN (hypertension): Plan: Hypertensive Urgency Continue amlodipine Started on Carvedilol Adjust medications as needed Monitor (4) Diabetes mellitus type II, uncontrolled: Plan: Continue insulin therapy Monitor BGs (5) Acute respiratory failure with hypoxia: Plan: as above (6) Acute exacerbation of chronic obstructive airways disease: Plan: as above (7) DVT (deep venous thrombosis): Plan: on Xarelto (8) GERD (gastroesophageal reflux disease): Plan: Continue PPI DVT Px: Xarelto CODE STATUS DNR/DNI Admission and Anticipated Discharge Date Admission Date: September 26, 2022 Subjective Patient is seen and examined at bedside Left leg pain much improved but still has some tenderness Minimal Cough Reports having transient left sided spasms yesterday which resolved Denies any dyspnea today Denies any chest pain, dizziness, nausea, abdominal pain Review of Systems Review of Systems: All systems reviewed & are unremarkable except as noted in Subjective Physical Exam Physical Exam: Physical Exam: Vitals signs as noted above General Appearance:Moderately built and nourished, no apparent distress Head: normocephalic, Atraumatic Eyes: normal inspection, EOMI Neck: supple, Trachea midline Respiratory/Chest: Decreased breath sounds, Basal crackles, no accessory muscle use Cardiovascular: S1, S2, Tachycardia, No murmur Abdomen/GI:Soft, Non tender, Bowel sounds present Extremities/Musculoskeletal:normal inspection, Trace edema, B/L LE wounds in dressing, L thigh erythematous, tender Neurologic/Psych:AAOX2, grossly no focal neurological deficits Skin: normal color, warm Results & Data Results & Data ([facility]) Vital Signs (Past 12 Hours) Vital Signs Temp Pulse Resp BP Pulse Ox O2 Del Method O2 Flow Rate 09/30/22 10:54 36.6 C 69 22 152/71 H 92 Nasal Cannula 3 09/30/22 07:14 36.7 C 75 23 155/75 H 95 Nasal Cannula 3 09/30/22 05:16 182/84 H 09/30/22 04:55 92 Nasal Cannula 3 09/30/22 04:27 94 Nasal Cannula 4 09/30/22 03:30 36.7 C 81 18 213/97 H 98 Nasal Cannula 4 Laboratory Results Short CBC 09/30/22 Range/Units 05:59 WBC 14.72 H (4.8-10.8) K/ul Hgb 12.2 (12.0-16.0) g/dl Hct 38.2 (37.0-47.0) % Plt Count 211 (130-400) K/uL [facility] 09/30/22 05:59 Sodium 138 Potassium 3.2 L Chloride 93 L Carbon Dioxide 39 H BUN 50 H Creatinine 1.81 H D Glucose 172 H Calcium 9.7 (1) Sepsis Sepsis type: sepsis due to unspecified organism Qualified Code(s): A41.9 - Sepsis, unspecified organism
[2022-09-30] MEDS: MUCINEX DM~ORDER AWAITING ACTION SCH ×3 (21:37→23:46)
[2022-09-30] MEDS: WELCHOL~ORDER AWAITING ACTION SCH ×2 (21:38→23:46)
[2022-09-30] MEDS: diphenhydrAMINE Capsule 25 MG CAP PO SCH (21:55)
[2022-09-30] MEDS: ACETAMINOPHEN 500 MG TAB PO SCH (21:55)
[2022-10-01] MEDS: CEFEPIME 1,000 MG in SYRINGE 0 ML IV SCH (00:08)
[2022-10-01] MEDS: LEVOTHYROXINE SODIUM 25 MCG TABLET PO SCH (05:01)
[2022-10-01 06:01] LABS: Hematocrit (blood only) 40.1 % (37.0-47.0); Hemoglobin 12.4 g/dl (12.0-16.0); Mean Corpuscular Hemoglobin 28.3 pg (25.0-34.0); Mean Corpuscular Hgb Conc 30.9 g/dL (32.0-36.0); Mean Corpuscular Volume 91.6 fL (80.0-100.0); Mean Platelet Volume 10.5 fL (9.4-12.4); Platelet Count 226 K/uL (130-400); RDW Coefficient of Variation 13.6 % (11.5-14.5); RDW Standard Deviation 46.4 fL (36.4-46.3); Red Blood Count 4.38 M/uL (4.20-5.40)
[2022-10-01 06:23] LABS: Magnesium 1.9 mg/dl (1.7-2.4); Potassium 3.3 mmol/L (3.5-5.1)
[2022-10-01 06:28] LABS: BUN Creatinine Ratio 28.7 (10-20); Creatinine Clr Calc Pharmacy 22.2 ml/min; Est GFR (Non-African American) 19.9 ml/min
[2022-10-01] MEDS: INSULIN ASPART PER UNIT SC SCH ×4 (09:09→22:25)
[2022-10-01] MEDS: amLODIPine BESYLATE 5 MG TAB PO SCH (09:14)
[2022-10-01] MEDS: carvediloL 3.125 MG TAB PO SCH ×2 (09:14→20:27)
[2022-10-01] MEDS: RIVAROXABAN 20 MG TAB PO SCH (09:14)
[2022-10-01] MEDS: CETIRIZINE HCL 10 MG TABLET PO SCH (09:14)
[2022-10-01] MEDS: PANTOprazole 40 MG TAB PO SCH (09:14)
[2022-10-01] MEDS: predniSONE 20 MG TAB PO SCH (09:15)
[2022-10-01] MEDS: ERGOCALCIFEROL 50,000 UNITS 1250 MCG CAP PO SCH (09:15)
[2022-10-01] MEDS: acetaZOLAMIDE 250 MG TAB PO SCH (09:15)
[2022-10-01] MEDS: FERROUS SULFATE 325 MG TAB PO SCH (09:15)
[2022-10-01] MEDS: CITALOPRAM 40 MG TAB PO SCH (09:15)
[2022-10-01] MEDS: UMECLIDINIUM BROMIDE 62.5MCG/BLISTER 7 PUFFS/INHALER INH SCH (09:16)
[2022-10-01] MEDS: FLUTICASONE FUROATE 200MCG 14 PUFFS/INHALER INH SCH (09:16)
[2022-10-01] MEDS: FLUTICASONE/VILANTEROL 100/25MCG 14 PUFFS/INHALER INH SCH (09:16)
[2022-10-01] MEDS: MAGNESIUM OXIDE 400 MG TAB PO SCH (09:18)
[2022-10-01] MEDS ORDERED: POTASSIUM CHLORIDE CRTAB 20 MEQ TABCR PO ONE (09:27)
--- NOTE | 2022-10-01 09:38 | Palliative Care Consultation ---
Date of Consultation October 01, 2022 Assessment & Plan (1) Palliative care encounter: Met with pt/family. Provided overview of Palliative Medicine, a subspecialty that provides specialized medical care for people living with a serious illness by offering a focus on quality of life. Palliative Medicine is often conflated with hospice: I advised patient/family that Palliative and hospice can be partners but we are not the same. It is important to understand the difference so that we may be informed, and not afraid. Palliative Medicine works to improve QOL through reduction of symptom burden/more control over their illness, for both the patient and family. Palliative medicine clinicians are board certified, specially-trained and another member of the patient's medical care team. We often provide an extra layer of support because our care is based on the needs of the patient, not the prognosis; as such, it's appropriate at any age/advancing stage of a serious illness and can be provided along with curative treatment. Palliative Medicine clinicians are also trained in advanced communication methodologies, to facilitate complex discussions about advanced illness planning, which are needed to help assure that the treatment choices match the patient's goals, aka delivering Goal Concordant care. Finally, we discussed that hospice is a visiting nurse service that focuses on care delivered at the very end of life for patients with terminal illness, with life expectancy less than 6 month. (2) Goals of care, counseling/discussion: A 30-minute [id number] goals of care and advance care planning discussion was held: Kim states that she is tired of coming back and forth to the hospital, and feels that she does not dramatically get better. She acknowledges conversation with providers today reviewing the progression of her overall chronic issues. She tells me about her who several years ago. She has been struggling with the loneliness and isolation since his departure. She also notes that her health has been steadily failing and her quality of life has been affected. She really does not want to come back and forth to the hospital. We talked about transitioning to a plan of care that would be more focused on her comfort with good symptom management and quality of life as the optimal goal. She was in agreement for this especially with a focus of no longer returning to the hospital and preferring to have a can be managed at the prison simply managed at the prison. We talked about the addition of hospice and what it would entail.I have provided education about the hospice benefit. Hospice is an interdisciplinary program offered by nurses, nurses aides, social workers, chaplains and a medical physics teacher for patients with a terminal condition and a life expectancy of less than 6 months. The goal would be to improve the quality of life of the patient in their home setting (home, prison, inpatient hospice setting) by providing symptoms management, psychosocial and spiritual support. However, they cannot offer 24 hours care and if the family is unable to provide that care, they will have to consider personal care with out of pocket cost vs. prison placement. She would like to return to the prison with the addition of hospice. She would like a transition to focus to be more about comfort and quality of care without any further returns to the hospital. She understands that she has se veral chronically progressing medical issues that are not curable or fixable. She does not want any aggressive or invasive interventions for her medical issues. She is comfortable with her mortality fearful only of discomfort and suffering. As long as she can be assured of good symptom management and relief especially from air hunger and anxiety that arises with that, she is content to have her care at the prison. Recommend patient be returned to the prison with the addition of hospice. (3) Chronic hypercapnic respiratory failure: Likely COPD/smoking related lung disease, former 35PY smoker (4) Tracheomalacia: follow pulm med reccs (5) Acute diastolic heart failure: Acute diastolic heart failure: diurese as hemodynamics and renal function will allow Plan Patient would like to return to the prison with the addition of hospice. She does not want to come back and forth to the hospital. She does not desire any aggressive, invasive interventions. She wants to have a focus that is more about quality of life with symptom management especially attention to the relief of suffering. She is comfortable with her mortality and notes that her quality of life has been steadily declining for years. She is no longer happy with the quality of life that she has and she states "I'm ready to be [facility] She reaffirms code selection of no code, DNR/DNI. I have updated the primary team, pulmonary medicine and care management. She does not have any acute symptoms at this moment for me to treat. Palliative medicine will follow this patient more peripherally as she does not have any acute inpatient needs at this time. We were asked to assess her for goals of care which have been documented above in our discussion. Nicolette Mitchell DNP Clinical Director, Palliative Medicine History of Present Illness Reason for Consultation: On 09/30/22 @ 10:42 Jameson Lynch Wrote To JasAlejandra Rodney Multiple comorbidities with limited mobility Attending Physician: Franklyn Mcdowell MD History of Present Illness Per ED note 09/26/22: "This is a an 82-year-old female who presents to the ED with a chief complaint of an altered mental status. She presents from [facility]. The patient had a prehospital blood sugar 175. I did speak with EMS about the patient's presentation. They report a history of UTIs. The patient is unable provide any history. She is currently nonverbal and not interacting to an extent to get any information out of her. She is awake and appears to be alert. The patient appears to have dry mucous membranes on exam. She is febrile. She is also noted to be hypoxic on her typical 3 L of oxygen that she uses at home with saturations of 88%. Diminished breath sounds bilaterally. Tachycardic. A twelve-lead EKG shows a sinus tachycardia at a rate of 128. White blood cell count is elevated at 17.8. Hemoglobin did not show a significant leukocytosis. Bio fire was negative. Lactic acid is 1.7. Chemistry panel was unremarkable. Urine did not show obvious infection. CT scan of the abdomen pelvis and chest are pending since no clear source of the fever was obtained. She was empirically treated with IV cefepime, IV fluids and IV vancomycin. She was given 1.5 L of normal saline and she received at least 500 cc of fluid with her vancomycin. The patient does have a history of congestive heart failure. There was concerns with some fluid overload and therefore no additional fluids were given at this time. I spoke with the hospitalist who will see the patient for further inpatient evaluation and care." Patient has the following acute issues: * Acute exacerbation of chronic obstructive airways disease: likely COPD - +history of tobacco abuse and quit x 20 years, former 1PPD x 35yr; also has hx chronic hypercapnic respiratory failure and using BiPAP. Pulmonary med has started LABA/LAMA/ICS inhaler regimen + steroid course of no longer than 5 days. Pulm med had GOC discussion with pt: "Discussed with the patient that overall her prognosis is guarded. She notes that her and she asked the question at this time, "what do I have to live for since my ." We will consult palliative care." * Tracheomalacia: +evidence of very significant tracheomalacia on CT chest. She is not a candidate for tracheoplasty or stenting. Would recommend positive pressure therapy with BiPAP. Consider polysomnography as an outpatient along with PFTs. Minimize outpatient steroids as this can worsen her tracheomalacia. * Acute diastolic heart failure: diuresis underway * Hypoxia: Target SpO2 88 -92%. * Left lung nodule: stable x 2 yrs Patient is seen bedside, no family present. She is out of bed to chair and enjoying lunch when I visited. She tells me that she gets short of breath easily and sometimes eating or drinking can make her more short of breath. She feels herself getting weaker and questions if it is worth coming back and forth to the hospital all the time, acknowledging that she does not believe she has a lot of fixable issues. Allergies Allergy/AdvReac Type Severity Reaction Status Date / Time atorvastatin Allergy Unknown UNKN Verified 09/26/22 11:45 bee venom protein (honey bee) Allergy Unknown Unknown Verified 09/26/22 11:45 formaldehyde Allergy Unknown HYPERSENSIT Verified 09/26/22 11:45 IVITY oxycodone Allergy Unknown UNKN Verified 09/26/22 11:45 peanut Allergy Unknown Unknown Verified 09/26/22 11:45 Sulfa (Sulfonamide Allergy Unknown Unknown Verified 09/26/22 11:45 Antibiotics) Home Medications Medication Instructions Recorded Confirmed Type acetaminophen 325 mg tablet 650 mg PO DAILY .HIP & KNEE PAIN 09/26/22 09/26/22 History (Tylenol) acetaminophen 325 mg tablet 650 mg PO Q4 PRN Pain 09/26/22 09/26/22 History (Tylenol) albuterol sulfate 2.5 mg/3 mL 2.5 mg inhalation Q4H PRN 09/26/22 09/26/22 History (0.083 %) solution for nebulization Shortness Of Breath Or Wheezing albuterol sulfate 90 mcg/actuation 2 puff inhalation Q4 PRN Shortness 09/26/22 09/26/22 History aerosol inhaler (Ventolin HFA) Of Breath Or Wheezing amlodipine 10 mg tablet 10 mg PO DAILY 09/26/22 09/26/22 History budesonide 90 mcg/actuation breath 1 inh inhalation BID 09/26/22 09/26/22 History activated powder inhaler (Pulmicort Flexhaler) calcium polycarbophil 625 mg 625 mg PO DAILY PRN Constipation 09/26/22 09/26/22 History tablet (Fiber-Lax) cetirizine 10 mg tablet 10 mg PO DAILY 09/26/22 09/26/22 History citalopram 40 mg tablet 40 mg PO DAILY 09/26/22 09/26/22 History colesevelam 625 mg tablet (WelChol) 625 mg PO DAILY 09/26/22 09/26/22 History cyanocobalamin (vitamin B-12) 1,000 mcg IM .MONTH 09/26/22 09/26/22 History 1,000 mcg/mL injection solution dextromethorphan-guaifenesin 30 1 tab PO Q12H PRN Congestion 09/26/22 09/26/22 History mg-600 mg tablet extended urjnymm18 hr (Mucinex DM) diphenhydramine 25 2 tab PO HS 09/26/22 09/26/22 History mg-acetaminophen 500 mg tablet (Tylenol PM Extra Strength) epinephrine 0.3 mg/0.3 mL 0.3 mg IM DIRECTED PRN Allergic 09/26/22 09/26/22 History injection, auto-injector Reaction ergocalciferol (vitamin D2) 1,250 50,000 unit PO 2XWK 09/26/22 09/26/22 History mcg (50,000 unit) capsule (Vitamin D2) ferrous sulfate 325 mg (65 mg 325 mg PO DAILY 09/26/22 09/26/22 History iron) tablet furosemide 20 mg tablet 20 mg PO MOWEFR 09/26/22 09/26/22 History insulin aspart U-100 100 unit/mL 10 unit subcut TIDM 09/26/22 09/26/22 History (3 mL) subcutaneous pen (Novolog FlexPen U-100 Insulin aspart) insulin glargine U-300 conc 300 40 unit subcut HS 09/26/22 09/26/22 History unit/mL (1.5 mL) subcutaneous pen (Toujeo SoloStar U-300 Insulin) levothyroxine 25 mcg tablet 25 mcg PO DAILY 09/26/22 09/26/22 History loperamide 2 mg tablet (Imodium 2 mg PO Q4H PRN Diarrhea 09/26/22 09/26/22 History A-D) magnesium oxide,aspartate,citr 400 mg PO DAILY 09/26/22 09/26/22 History metformin 1,000 mg tablet 500 mg PO Q12 09/26/22 09/26/22 History omeprazole 20 mg capsule,delayed 20 mg PO DAILY 09/26/22 09/26/22 History release prednisone 5 mg tablet 5 mg PO DAILY 09/26/22 09/26/22 History rivaroxaban 20 mg tablet (Xarelto) 20 mg PO DAILY 09/26/22 09/26/22 History Patient History Medical History (Updated 10/01/22 @ 12:19 by Nicolette Mitchell DNP) A-fib Acute diastolic heart failure Acute respiratory acidosis Asthma Bacteremia Chronic hypercapnic respiratory failure Depression Diabetes mellitus, type II Encephalopathy GERD (gastroesophageal reflux disease) Goals of care, counseling/discussion High cholesterol History of DVT (deep vein thrombosis) Hypertension Hypomagnesemia Hypothyroid Hypoxia Metabolic alkalosis Nephrolithiasis Nodule of left lung On home oxygen therapy Palliative care encounter Pneumonia Sepsis Tracheomalacia UTI (urinary tract infection) Surgical History History of cataract surgery (10/18/21) left History of cholecystectomy History of hysterectomy Hx of tonsillectomy Family History Other Diabetes Hypertension Stroke Social History Smoking Status: Unknown if ever smoked Second Hand Exposure: No; Hx Alcohol Use: No Hx Substance Use: No Preferred Language: Lao Communication Ability: Effective Owner Manager Required: No Beliefs That Will Affect Care: None marital status: / Current Living Situation: Personal Care Facility Current Living Situation Comment: Lives at [facility] Feels Safe at Home: Yes Assistive Devices: Walker Review of Systems Review of Systems: All systems reviewed & are unremarkable except as noted in Subjective Physical Exam Physical Exam: Chronically ill-appearing elderly female, out of bed to chair. She is awake, alert and oriented x3. She is slightly hard of hearing, her right side is better than her left. Her neck is supple and without stridor. Her pharynx is pink and her mucosa are moist. Dentition is fair. Anterior chest wall exam with decreased breath sounds, few faint crackles, and no wheezing. There is conversational dyspnea noted with prolonged discussion. There is no use of accessory muscles at rest. Heart tones are S1-S2, abdomen is soft, obese, nontender to palpation. There is generalized weakness in both upper and lower extremities. Her skin is pale with scattered ecchymoses, and cool to touch. Her mood is subdued. Results & Data ([facility]) Vital Signs (Past 12 Hours) Vital Signs Temp Pulse Pulse Resp BP Pulse Ox O2 Del Method 10/01/22 07:41 36.9 C 73 16 170/95 H 96 Oxymask 10/01/22 02:32 36.4 C L 68 17 142/70 H 94 Nasal Cannula 09/30/22 22:30 83 L Nasal Cannula 09/30/22 21:54 Nasal Cannula 09/30/22 22:48 36.3 C L 75 18 152/78 H 94 Oxymask O2 Flow Rate 10/01/22 07:41 2 10/01/22 02:32 2 09/30/22 22:30 3 09/30/22 21:54 3 09/30/22 22:48 2 Laboratory Results Data reviewed Diagnostic Findings Data reviewed PG Care Time/CCT Total # of Minutes Spent Total Time Spent: 75 Total Time Spent with Patient: Total time spent is greater than 50% in coordination of care (as documented) at patient's floor/unit and/or counseling patient: I spent 75 minutes overall addressing this case: 10 in medical data review/discussion with referring provider(s) and/or preparation for the visit 15 in direct interaction with the patient 30 Advance Care Planning/Goals of Care discussions as detailed above in note (must be >16min) 10 in subsequent review and synthesis of assessment and plan 10 in communicating with other providers regarding the patient's case: primary, pulm,cm Prolonged Care Time Prolonged Care Time: Yes Advanced Care Planning 53884 Advanced Care Planning 30 Min Coding Level of Care Code New Pt INP/OBS CONSULT LVL 5, 80 MIN Patient Type New History Comprehensive Exam Comprehensive Medical Decision Making Moderate Complexity Diagnoses Palliative care encounter Z51.5 Goals of care, counseling/discussion Z71.89 Chronic hypercapnic respiratory failure J96.12 Tracheomalacia J39.8 Acute diastolic heart failure I50.31 Additional Codes Prolonged Care Time - Prolonged Care Time: Yes ([id number]) Advanced Care Planning - 90751 Advanced Care Planning 30 Min: 88932 Advanced Care Planning 30 Min ([id number])
--- NOTE | 2022-10-01 10:58 | Pulmonology Progress Note ---
Date of Service October 01, 2022 Assessment & Plan (1) Acute exacerbation of chronic obstructive airways disease: (2) Tracheomalacia: (3) Acute diastolic heart failure: (4) Hypoxia: (5) Nodule of left lung: (6) Chronic hypercapnic respiratory failure: (7) Metabolic alkalosis: (8) Goals of care, counseling/discussion: Plan CT chest 09/26/2022 personally reviewed: Motion degraded study with centrilobular emphysema Multiple calcified pulmonary nodules appreciated bilaterally, left upper lobe 1.1 cm nodularity Dilated upper third of the esophagus, signs of dynamic collapse of central airways No mediastinal adenopathy, cardiomegaly 2D echo 09/27/2022: EF 60-65%, moderate concentric LVH, grade 1 diastolic dy sfunction, mild MR, RV systolic function normal ABG 09/29/2022: 7.49/54/52 on 3 L -- Acute hypoxic respiratory failure Multifactorial Acute COPD exacerbation Diastolic CHF Continue with O2 supplementation to keep oxygen saturation between 88-92%, avoid over oxygenation -- COPD with emphysema On Pulmicort at home along with albuterol Would recommend patient to be discharged on Stiolto/Anoro on a daily basis -- Probable DIPAK/OHS Would benefit from polysomnography as an outpatient -- 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 It may contain grammatical, syntax or spelling errors.Any formal questions or concerns about the content, text or information contained within the body of this dictation should be directly addressed to the provider for clarification. Admission and Anticipated Discharge Date Admission Date: September 26, 2022 Subjective Patient seen and examined at bedside. No acute distress, no adverse events overnight Case was discussed with outgoing law reporter. At the time of examination patient was saturating 94-95% on 2 L nasal cannula. She is a poor historian. Denies any chest pain, no shortness of breath She was answering questions with yes and no. Denied any headache, no nausea vomiting Abdominal pain Review of Systems Review of Systems: All systems reviewed & are unremarkable except as noted in Subjective Physical Exam Physical Exam: Constitutional: No acute distress HEENT: EOMI, PERRLA Respiratory system: Decreased air entry bilaterally, no wheeze, no rhonchi, positive crackles bilateral lower lobes CVS: S1-S2 positive, no murmurs or gallops Abdomen: Soft, nontender, nondistended, positive bowel sounds x4, obese Extremities: +2 pulses bilaterally radialis/ dorsalis pedis, no cyanosis, +1 pitting edema bilateral lower extremity Neuro: Awake alert oriented to self Psych: Normal mood and affect G/U: Positive Frey Skin: no rashes, warm and dry Lymphatic: no cervical or axillary lymphadenopathy Results & Data Results & Data ([facility]) Vital Signs (Past 12 Hours) Vital Signs Temp Pulse Pulse Resp BP Pulse Ox O2 Del Method 10/01/22 07:41 36.9 C 73 16 170/95 H 96 Oxymask 10/01/22 02:32 36.4 C L 68 17 142/70 H 94 Nasal Cannula O2 Flow Rate 10/01/22 07:41 2 10/01/22 02:32 2 Laboratory Results 10/01/22 05:47 10/01/22 05:47 PG Care Time/CCT Total # of Minutes Spent Total Time Spent with Patient: Total time spent is greater than 50% in coordination of care (as documented) at patient's floor/unit and/or counseling patient: Coding Level of Care Code 13305 SUB INP/OBS CARE 3/50MIN Diagnoses Acute exacerbation of chronic obstructive airways disease J44.1 Tracheomalacia J39.8 Acute diastolic heart failure I50.31 Hypoxia R09.02 Nodule of left lung R91.1 Chronic hypercapnic respiratory failure J96.12 Metabolic alkalosis E87.3 Goals of care, counseling/discussion Z71.89
--- NOTE | 2022-10-01 12:07 | Ultrasound Report ---
RENAL ULTRASOUND HISTORY: Acute kidney injury Karen COMPARISON: CT abdomen and pelvis 09/26/2022 FINDINGS: Right kidney: 10.9 No hydronephrosis. Decreased corticomedullary differentiation with increased paren chymal echogenicity. Left kidney: 11.1 No hydronephrosis. Decreased corticomedullary differentiation with increased parenc hymal echogenicity. 5.8 cm left renal cyst. Bladder: Decompressed urinary bladder with Frey catheter in place. IMPRESSION: 1. No renal calculi or hydronephrosis. 2. Increased echogenicity of the renal parenchyma suggestive of chronic medical renal disease. ACT 112: Negative or not required by law. Electronically signed by: Juan Woods M.D. 10/01/2022 12:05 PM
--- NOTE | 2022-10-01 13:03 | Cardiology Progress Note ---
Date of Service October 01, 2022 Assessment & Plan (1) UTI (urinary tract infection): (2) Troponin level elevated: (3) Acute diastolic heart failure: (4) Chronic hypercapnic respiratory failure: (5) Tracheomalacia: Plan - Pulmonary input noted and appreciated with regards to patient's history of hypercapnic respiratory failure, tracheomalacia, and need for positive pressure ventilation. LVEF 60 to 65% this admission. - Carvedilol titrated to 9.375 twice daily. -Creatinine increased to 2.23, furosemide and acetazolamide discontinued. -Potassium supplemented. DVT prophylaxis: Patient is on Xarelto given her history of past DVT/PE and this will be continued.Given GFR less than 50 ml/min/m2 reduce dose to 15 mg daily Admission and Anticipated Discharge Date Admission Date: September 26, 2022 Subjective Pt seen in follow up of shortness of breath. Sitting in bedside chair . No acute complaints. Telemetry reveals SR in the 70s. Physical Exam Constitutional: no acute distress Respiratory: no labored breathing Auscultation: + diminished lung sounds (Mildly reduced breath sounds); no crackles and no rales Cardiovascular: Rate/Rhythm: regular rate and regular rhythm Vessels: no JVD Extremities: + edema (Trace lower extremity edema, lower extremities wrapped) Neurologic: PERRL, EOMI, accommodation nl, no face palsy, no dysarthria Genitourinary: Frey catheter in place , draining clear yellow urine Results & Data ([facility]) Vital Signs (Past 12 Hours) Vital Signs Temp Pulse Pulse Resp BP Pulse Ox O2 Del Method 10/01/22 11:40 36.4 C L 68 18 119/60 96 Nasal Cannula 10/01/22 07:41 36.9 C 73 16 170/95 H 96 Oxymask 10/01/22 02:32 36.4 C L 68 17 142/70 H 94 Nasal Cannula O2 Flow Rate 10/01/22 11:40 2 10/01/22 07:41 2 10/01/22 02:32 2 Laboratory Results CBC 10/01/22 Range/Units 05:47 WBC 13.30 H (4.8-10.8) K/ul RBC 4.38 (4.20-5.40) M/uL Hgb 12.4 (12.0-16.0) g/dl Hct 40.1 (37.0-47.0) % Plt Count 226 (130-400) K/uL Comprehensive Metabolic Panel 10/01/22 Range/Units 05:47 Sodium 140 (136-145) mmol/L Potassium 3.3 L (3.5-5.1) mmol/L Chloride 98 (98-107) mmol/L Carbon Dioxide 37 H (21-32) mmol/L BUN 64 H (6-23) mg/dl Creatinine 2.23 H D (0.6-1.2) mg/dl Glucose 80 (70-99(Fasting)) mg/dl Calcium 10.0 (8.5-10.1) mg/dl Intake and Output 09/30/22 10/01/22 10/01/22 22:59 06:59 14:59 Output Total 300 / 1100 400 / 1100 Balance -300 / -335 -400 / -335 Output: Urine Amount (Catheter) 300 / 1100 400 / 1100 Frey/Indwelling 300 / 1100 400 / 1100 Other: Weight 92 kg Weight Measurement Method Built in [facility] (1) UTI (urinary tract infection) Hematuria presence: with hematuria Urinary tract infection type: acute cystitis Qualified Code(s): N30.01 - Acute cystitis with hematuria
[2022-10-01] MEDS ORDERED: LANTUS PER UNIT CHARGE SQ STA (13:05)
[2022-10-01] MEDS: cefTRIAXone SODIUM 2,000 MG in DEXTROSE 5% 50 ML IV SCH (13:11)
--- NOTE | 2022-10-01 13:11 | Pharmacy Report ---
Pharmacy Glycemic Short Note 2 - Date of Service October 01, 2022 - Glycemic Short BSG Results (Last 24 hours): 09/30/22 09/30/22 10/01/22 16:14 19:54 05:47 Glucose 80 POC Glucose 208 H 231 H 10/01/22 10/01/22 07:17 12:46 Glucose POC Glucose 91 173 H OUTPATIENT ANTIDIABETIC REGIMEN: * Lantus 40 units SC HS * Novolog 10 units SC TIDM * Metformin 500mg PO BID * HbA1C: 7.5% (09/29/22) ASSESSMENT: 10/01: * Kim received a total of 81 units of insulin yesterday, 40 units basal + 41 units bolus. BSGs were: [phone] mg/dL. * Fasting BSG was 91 mg/dL this AM. Significant decrease and below goal. Likely related to basal dose in addition to worsening IVAN. Will reduce basal by 50% today. Consider transitioning to NPH tomorrow AM as patient remains on Prednisone 20 mg daily and NPH more closely mimics the PK profile of Prednisone. * Postprandial hyperglycemia yesterday which is expected with steroid use. Tightened carb ratio this AM. 09/30: * BSGs yesterday were [phone] mg/dL. Patient received 84 units (50 UNITS of basal and 34 units of bolus). * Patient transitioned from Solu-Medrol 20 mg IV q8 (last dose at 1000) to prednisone 20 mg daily. * Will continue Lantus at 20 units SQ BID. Fasting today is 195 mg/dL. * Continue Novolog- this was tightened significantly yesterday. It does not appear that CR was sufficient yesterday but may be effective for new steroid. BACKGROUND * Patient is an 82 year old female admitted with sepsis and altered mental status. Past medical history significant for type 2 DM requiring insulin. Brigida shrestha consulted to assist with glycemic management in setting of steroid titration. * BSGs within goal the last 24h: [phone]/dL. Patient received 40 units of basal and 7 units of bolus insulin yesterday. * Tolerating diet. Was receiving methylprednisolone 20mg IV q12h yesterday that was titrated to q8h today, in addition to 40mg PO prednisone. On IV antibiotics for cellulitis. * Given fasting BSG within goal this AM, will not make adjustments to basal insulin today. Anticipate steroid induced hyperglycemia secondary to steroid titration. Will tighten Novolog carb ratio to start at lunch today and follow/adjust pending BSG trend. PLAN FOR INPATIENT GLYCEMIC CONTROL: * Hold outpatient oral diabetes medications * Basal insulin * Lantus 20 units SC x 1 * Bolus insulin * NovoLog per scale ACHS or Q6hrs while NPO * Goal Range: Low 110 mg/dL - High 140 mg/dL * Correction Factor: 15 mg/dL/unit * Nutritional / Prandial insulin per carb ratio of 1 unit per 4 grams CHO consumed
--- NOTE | 2022-10-01 15:45 | Hospitalist Progress Note ---
Date of Service October 01, 2022 Assessment & Plan (1) AMS (altered mental status): Plan: Acute metabolic encephalopathy Likely Multifactorial: Sepsis, Hypoxia Mental status improved (2) Sepsis: Plan: Sepsis Bilateral Leg cellulitis Bacteremia-POA --Left Leg CT:Lateral left thigh skin thickening with subcutaneous stranding. This could reflect edema, cellulitis or a contusion. No fluid collection to suggest abscess or significant hematoma. No soft tissue gas. No fracture within the left femur. Subcutaneous edema of the visualized left lower leg. --Blood Culture: 09/05 growing Group C Beta Strep --Repeat Blood Cx: No growth --ECHO:as above -- Continue vancomycin, cefepime>> changed to daptomycin, ceftriaxone Consulted ID--pending Continue wound care Clinically improving Acute on chronic respiratory failure with hypoxia and Hypercarbia Chronic oxygen dependency Acute COPD exacerbation Tracheomalacia IV Solu-Medrol transitioned to prednisone Continue nebs Also on antibiotics as above Supplemental oxygen to keep saturations 88 to 92% Appreciate Pulmonology Input BiPAP PRN Plan to discontinue prednisone after completing short course Thought to be not a candidate for tracheoplasty or stenting. Needs Triology ventilator but patient intolerant to BiPAP Needs outpatient PFTs. Appreciate Palliative care Input Goal is comfort. Plan to transition to hospice upon discharge Acute diastolic heart failure IV diuretics held due to IVAN EF 60 to 65% Acetazolamide discontinued Appreciate cardiology input Elevated Troponin Likely Type II ID In setting of Hypertensive Urgency, Hypoxia, Tachycardia -CXR:No acute cardiopulmonary findings. No significant change in appearance of the chest. -ECHO: Moderate concentric LVH, EF 60 to 65%, severe mitral calcification, mild mitral regurgitation. Left ventricular wall motion is normal. 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 Increased echogenicity of the renal parenchyma suggestive of chronic medical renal disease. Due to diuretics Cr 1.8>2.23 Avoid Nephrotoxic agents as able Monitor renal function Hypomagnesemia Hypokalemia Replete electrolytes as needed Monitor Left adrenal nodule Left apex nodule --CT Chest:Overall, no significant change compared to the prior study. Prior granulomatous disease with stable scarlike density within the right lung apex. Stable 1.1 cm spiculated nodule within the left lung apex. Emphysema. --CT ABD:No acute abnormalities are seen. Bilateral perinephric stranding is nonspecific. Diverticulosis without diverticulitis. Left adrenal gland nodule is again seen. Nonemergent CT or MRI adrenal mass protocol can be performed if further characterization is desired. --Needs follow up as outpatient (3) HTN (hypertension): Plan: Hypertensive Urgency Continue amlodipine Increased Carvedilol 9.375 mg BID Adjust medications as needed Monitor (4) Diabetes mellitus type II, uncontrolled: Plan: Continue insulin therapy Monitor BGs (5) Acute respiratory failure with hypoxia: Plan: as above (6) Acute exacerbation of chronic obstructive airways disease: Plan: as above (7) DVT (deep venous thrombosis): Plan: on Xarelto (8) GERD (gastroesophageal reflux disease): Plan: Continue PPI DVT Px: Xarelto CODE STATUS DNR/DNI Admission and Anticipated Discharge Date Admission Date: September 26, 2022 Subjective Patient is seen and examined at bedside Sitting in chair comfortably Renal function worsening Discussed with Palliative care today Left leg pain continues to improve Cough improving as well Denies any chest pain, dyspnea, dizziness, nausea, abdominal pain Review of Systems Review of Systems: All systems reviewed & are unremarkable except as noted in Subjective Physical Exam Physical Exam: Physical Exam: Vitals signs as noted above General Appearance:Moderately built and nourished, no apparent distress Head: normocephalic, Atraumatic Eyes: normal inspection, EOMI Neck: supple, Trachea midline Respiratory/Chest: Decreased breath sounds, minmal Basal crackles, no accessory muscle use Cardiovascular: S1, S2, Tachycardia, No murmur Abdomen/GI:Soft, Non tender, Bowel sounds present Extremities/Musculoskeletal:normal inspection, Trace edema, B/L LE wounds in dressing, L thigh erythematous, tender Neurologic/Psych:AAOX2, grossly no focal neurological deficits Skin: normal color, warm Results & Data Results & Data ([facility]) Vital Signs (Past 12 Hours) Vital Signs Temp Pulse Resp BP Pulse Ox O2 Del Method O2 Flow Rate 10/01/22 11:40 36.4 C L 68 18 119/60 96 Nasal Cannula 2 10/01/22 07:41 36.9 C 73 16 170/95 H 96 Oxymask 2 Laboratory Results Short CBC 10/01/22 Range/Units 05:47 WBC 13.30 H (4.8-10.8) K/ul Hgb 12.4 (12.0-16.0) g/dl Hct 40.1 (37.0-47.0) % Plt Count 226 (130-400) K/uL BMP 10/01/22 05:47 Sodium 140 Potassium 3.3 L Chloride 98 Carbon Dioxide 37 H BUN 64 H Creatinine 2.23 H D Glucose 80 Calcium 10.0 (1) Sepsis Sepsis type: sepsis due to unspecified organism Qualified Code(s): A41.9 - Sepsis, unspecified organism
[2022-10-01] MEDS: ACETAMINOPHEN 500 MG TAB PO SCH (20:26)
[2022-10-01] MEDS: diphenhydrAMINE Capsule 25 MG CAP PO SCH (20:26)
[2022-10-02] MEDS: LEVOTHYROXINE SODIUM 25 MCG TABLET PO SCH (05:06)
[2022-10-02 07:13] LABS: Hematocrit (blood only) 39.6 % (37.0-47.0); Hemoglobin 12.5 g/dl (12.0-16.0); Mean Corpuscular Hemoglobin 28.5 pg (25.0-34.0); Mean Corpuscular Hgb Conc 31.6 g/dL (32.0-36.0); Mean Corpuscular Volume 90.4 fL (80.0-100.0); Mean Platelet Volume 10.8 fL (9.4-12.4); Platelet Count 242 K/uL (130-400); RDW Coefficient of Variation 13.5 % (11.5-14.5); RDW Standard Deviation 45.5 fL (36.4-46.3); Red Blood Count 4.38 M/uL (4.20-5.40); White Blood Count 13.83 K/ul (4.8-10.8)
[2022-10-02 07:36] LABS: BUN Creatinine Ratio 32.7 (10-20); Calcium 9.9 mg/dl (8.5-10.1); Creatinine Clr Calc Pharmacy 22.9 ml/min; Est GFR (African American) 23.8 ml/min; Est GFR (Non-African American) 20.5 ml/min; Magnesium 1.9 mg/dl (1.7-2.4); Potassium 3.7 mmol/L (3.5-5.1)
[2022-10-02] MEDS: INSULIN HUMAN NPH SC SCH (09:00)
[2022-10-02] MEDS: MAGNESIUM OXIDE 400 MG TAB PO SCH (09:31)
[2022-10-02] MEDS: amLODIPine BESYLATE 5 MG TAB PO SCH (09:32)
[2022-10-02] MEDS: carvediloL 3.125 MG TAB PO SCH ×2 (09:33→20:11)
[2022-10-02] MEDS: CETIRIZINE HCL 10 MG TABLET PO SCH (09:34)
[2022-10-02] MEDS: CITALOPRAM 40 MG TAB PO SCH (09:35)
[2022-10-02] MEDS: FERROUS SULFATE 325 MG TAB PO SCH (09:35)
[2022-10-02] MEDS: FLUTICASONE FUROATE 200MCG 14 PUFFS/INHALER INH SCH (09:36)
[2022-10-02] MEDS: PANTOprazole 40 MG TAB PO SCH (09:37)
[2022-10-02] MEDS: FLUTICASONE/VILANTEROL 100/25MCG 14 PUFFS/INHALER INH SCH (09:37)
[2022-10-02] MEDS: predniSONE 20 MG TAB PO SCH (09:38)
[2022-10-02] MEDS: RIVAROXABAN 15 MG TAB PO SCH (09:39)
[2022-10-02] MEDS: UMECLIDINIUM BROMIDE 62.5MCG/BLISTER 7 PUFFS/INHALER INH SCH (09:40)
[2022-10-02] MEDS: INSULIN ASPART PER UNIT SC SCH ×4 (09:52→20:21)
--- NOTE | 2022-10-02 11:49 | Pulmonology Progress Note ---
Date of Service October 02, 2022 Assessment & Plan (1) Acute exacerbation of chronic obstructive airways disease: (2) Tracheomalacia: (3) Acute diastolic heart failure: (4) Hypoxia: (5) Nodule of left lung: (6) Chronic hypercapnic respiratory failure: (7) Metabolic alkalosis: (8) Goals of care, counseling/discussion: Plan CT chest 09/26/2022 personally reviewed: Motion degraded study with centrilobular emphysema Multiple calcified pulmonary nodules appreciated bilaterally, left upper lobe 1.1 cm nodularity Dilated upper third of the esophagus, signs of dynamic collapse of central airways No mediastinal adenopathy, cardiomegaly 2D echo 09/27/2022: EF 60-65%, moderate concentric LVH, grade 1 diastolic dy sfunction, mild MR, RV systolic function normal ABG 09/29/2022: 7.49/54/52 on 3 L -- Acute hypoxic respiratory failure Multifactorial Acute COPD exacerbation Diastolic CHF Continue with O2 supplementation to keep oxygen saturation between 88-92%, avoid over oxygenation -- COPD with emphysema On Pulmicort at home along with albuterol Would recommend patient to be discharged on Stiolto/Anoro on a daily basis -- Probable DIPAK/OHS Would benefit from polysomnography as an outpatient -- 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 She will not be a good candidate for trilogy machine If she is willing to use BiPAP/CPAP and outpatient polysomnography will be recommended. Try to keep O2 saturation between 88-92%. Do not over oxygenate the patient. Discharge the patient on Anoro/Stiolto along with as needed albuterol Case was discussed with Dr. Mcdowell, ARIELLA Lee at bedside No further recommendation from my perspective. We will sign off Please call directly with any questions Please note the above document was generated using voice recognition software. It may contain grammatical, syntax or spelling errors.Any formal questions or concerns about the content, text or information contained within the body of this dictation should be directly addressed to the provider for clarification. Admission and Anticipated Discharge Date Admission Date: September 26, 2022 Subjective Patient seen and examined at bedside. No acute distress, no adverse events overnight. Patient was saturating 97% on 2 L nasal cannula at the time of examination. She denied any chest pain, no shortness of breath Did answer questions appropriately. No headache, no nausea or vomiting Fair appetite Review of Systems Review of Systems: All systems reviewed & are unremarkable except as noted in Subjective Physical Exam Physical Exam: Constitutional: No acute distress HEENT: EOMI, PERRLA Respiratory system: Decreased air entry bilaterally, no wheeze, no rhonchi, posi tive crackles bilateral lower lobes CVS: S1-S2 positive, no murmurs or gallops Abdomen: Soft, nontender, nondistended, positive bowel sounds x4, obese Extremities: +2 pulses bilaterally radialis/ dorsalis pedis, no cyanosis, +1 pitting edema bilateral lower extremity Neuro: Awake alert oriented to self Psych: Normal mood and affect G/U: Positive Frey Skin: no rashes, warm and dry Lymphatic: no cervical or axillary lymphadenopathy Results & Data Results & Data ([facility]) Vital Signs (Past 12 Hours) Vital Signs Temp Pulse Resp BP Pulse Ox O2 Del Method O2 Flow Rate 10/02/22 11:00 36.6 C 75 22 154/67 H 90 Nasal Cannula 1 10/02/22 09:29 76 139/68 10/02/22 07:30 36.4 C L 77 20 173/94 H 97 Nasal Cannula 2 10/02/22 03:46 36.5 C 71 21 146/73 H 92 Nasal Cannula 2 Laboratory Results 10/02/22 06:51 10/02/22 06:51 PG Care Time/CCT Total # of Minutes Spent Total Time Spent with Patient: Total time spent is greater than 50% in coordination of care (as documented) at patient's floor/unit and/or counseling patient: Coding Level of Care Code 39765 SUB INP/OBS CARE 2/35MIN Diagnoses Acute exacerbation of chronic obstructive airways disease J44.1 Tracheomalacia J39.8 Acute diastolic heart failure I50.31 Hypoxia R09.02 Nodule of left lung R91.1 Chronic hypercapnic respiratory failure J96.12 Metabolic alkalosis E87.3 Goals of care, counseling/discussion Z71.89
[2022-10-02] MEDS: cefTRIAXone SODIUM 2,000 MG in DEXTROSE 5% 50 ML IV SCH (12:15)
--- NOTE | 2022-10-02 13:38 | Pharmacy Report ---
Pharmacy Glycemic Short Note 2 - Date of Service October 02, 2022 - Glycemic Short BSG Results (Last 24 hours): 10/01/22 10/01/22 10/02/22 16:37 20:42 06:51 Glucose 108 H POC Glucose 102 H 140 H 10/02/22 10/02/22 07:41 11:31 Glucose POC Glucose 101 H 203 H OUTPATIENT ANTIDIABETIC REGIMEN: * Lantus 40 units SC HS * Novolog 10 units SC TIDM * Metformin 500mg PO BID * HbA1C: 7.5% (09/29/22) ASSESSMENT: 10/02: * BSGs [phone]/dL the last 24h. Received 20 units of basal and 18 units of bolus insulin yesterday. * Continues on prednisone 20mg daily and ordered a diet. SCr trending down today. * Basal transitioned from Lantus to NPH (same dose) this AM for better prandial coverage and shorter duration of action. No change to Novolog parameters today. Minimal PO intake thus far today -- monitor closely and reassess basal in AM as may need further reduction. 10/01: * Gwendoline received a total of 81 units of insulin yesterday, 40 units basal + 41 units bolus. BSGs were: [phone] mg/dL. * Fasting BSG was 91 mg/dL this AM. Significant decrease and below goal. Likely related to basal dose in addition to worsening IVAN. Will reduce basal by 50% today. Consider transitioning to NPH tomorrow AM as patient remains on Prednisone 20 mg daily and NPH more closely mimics the PK profile of Prednisone. * Postprandial hyperglycemia yesterday which is expected with steroid use. Tigh tened carb ratio this AM. 09/30: * BSGs yesterday were [phone] mg/dL. Patient received 84 units (50 UNITS of basal and 34 units of bolus). * Patient transitioned from Solu-Medrol 20 mg IV q8 (last dose at 1000) to prednisone 20 mg daily. * Will continue Lantus at 20 units SQ BID. Fasting today is 195 mg/dL. * Continue Novolog- this was tightened significantly yesterday. It does not appear that CR was sufficient yesterday but may be effective for new steroid. BACKGROUND * Patient is an 82 year old female admitted with sepsis and altered mental statu s. Past medical history significant for type 2 DM requiring insulin. Pharmacy consulted to assist with glycemic management in setting of steroid titration. * BSGs within goal the last 24h: [phone]/dL. Patient received 40 units of basal and 7 units of bolus insulin yesterday. * Tolerating diet. Was receiving methylprednisolone 20mg IV q12h yesterday that was titrated to q8h today, in addition to 40mg PO prednisone. On IV antibiotics for cellulitis. * Given fasting BSG within goal this AM, will not make adjustments to basal insulin today. Anticipate steroid induced hyperglycemia secondary to steroid titration. Will tighten Novolog carb ratio to start at lunch today and follow/adjust pending BSG trend. PLAN FOR INPATIENT GLYCEMIC CONTROL: * Hold outpatient oral diabetes medications * Basal insulin * NPH 20 units SC qAM * Bolus insulin * NovoLog per scale ACHS or Q6hrs while NPO * Goal Range: Low 110 mg/dL - High 140 mg/dL * Correction Factor: 15 mg/dL/unit * Nutritional / Prandial insulin per carb ratio of 1 unit per 4 grams CHO consumed
--- NOTE | 2022-10-02 16:11 | Hospitalist Progress Note ---
Date of Service October 02, 2022 Assessment & Plan (1) AMS (altered mental status): Plan: Acute metabolic encephalopathy Likely Multifactorial: Sepsis, Hypoxia Mental status improved (2) Sepsis: Plan: Sepsis Bilateral Leg cellulitis Bacteremia-POA --Left Leg CT:Lateral left thigh skin thickening with subcutaneous stranding. This could reflect edema, cellulitis or a contusion. No fluid collection to suggest abscess or significant hematoma. No soft tissue gas. No fracture within the left femur. Subcutaneous edema of the visualized left lower leg. --Blood Culture: 09/05 growing Group C Beta Strep --Repeat Blood Cx: No growth --ECHO:as above -- Continue vancomycin, cefepime>> changed to ceftriaxone Consulted ID--pending Afebrile today Acute on chronic respiratory failure with hypoxia and Hypercarbia Chronic oxygen dependency Acute COPD exacerbation Tracheomalacia IV Solu-Medrol transitioned to prednisone Continue nebs Also on antibiotics as above Supplemental oxygen to keep saturations 88 to 92% Appreciate Pulmonology Input BiPAP PRN Plan to discontinue prednisone after completing short course Thought to be not a candidate for tracheoplasty or stenting. Needs Triology ventilator but patient intolerant to BiPAP Needs outpatient PFTs. Appreciate Palliative care Input Goal is comfort. Plan to transition to hospice upon discharge Plan to discharge on Anoro/Stiolto and as needed albuterol upon discharge Acute diastolic heart failure IV diuretics held due to IVAN EF 60 to 65% Acetazolamide discontinued Appreciate cardiology input Elevated Troponin Likely Type II [place] In setting of Hypertensive Urgency, Hypoxia, Tachycardia -CXR:No acute cardiopulmonary findings. No significant change in appearance of the chest. -ECHO: Moderate concentric LVH, EF 60 to 65%, severe mitral calcification, mild mitral regurgitation. Left ventricular wall motion is normal. 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 Increased echogenicity of the renal parenchyma suggestive of chronic medical renal disease. Due to diuretics Cr 1.8>2.23 >2.17 Avoid Nephrotoxic agents as able Monitor renal function Hypomagnesemia Hypokalemia Replete electrolytes as needed Monitor Left adrenal nodule Left apex nodule --CT Chest:Overall, no significant change compared to the prior study. Prior granulomatous disease with stable scarlike density within the right lung apex. Stable 1.1 cm spiculated nodule within the left lung apex. Emphysema. --CT ABD:No acute abnormalities are seen. Bilateral perinephric stranding is nonspecific. Diverticulosis without diverticulitis. Left adrenal gland nodule is again seen. Nonemergent CT or MRI adrenal mass protocol can be performed if further characterization is desired. --Needs follow up as outpatient (3) HTN (hypertension): Plan: Hypertensive Urgency Continue amlodipine Increased Carvedilol 9.375 mg BID Adjust medications as needed Monitor (4) Diabetes mellitus type II, uncontrolled: Plan: Continue insulin therapy Monitor BGs (5) Acute respiratory failure with hypoxia: Plan: as above (6) Acute exacerbation of chronic obstructive airways disease: Plan: as above (7) DVT (deep venous thrombosis): Plan: on Xarelto (8) GERD (gastroesophageal reflux disease): Plan: Continue PPI DVT Px: Xarelto CODE STATUS DNR/DNI Admission and Anticipated Discharge Date Admission Date: September 26, 2022 Subjective Patient seen and examined at bedside. No new complaints Saturating well on 2 L supplemental oxygen Denied any chest pain, dyspnea, dizziness, nausea, abd pain Still has some leg tenderness, intermittent cough Renal function slowly improving Review of Systems Review of Systems: All systems reviewed & are unremarkable except as noted in Subjective Physical Exam Physical Exam: Physical Exam: Vitals signs as noted above General Appearance:Moderately built and nourished, no apparent distress Head: normocephalic, Atraumatic Eyes: normal inspection, EOMI Neck: supple, Trachea midline Respiratory/Chest: Decreased breath sounds, minimal Basal crackles, no accessory muscle use Cardiovascular: S1, S2, Tachycardia, No murmur Abdomen/GI:Soft, Non tender, Bowel sounds present Extremities/Musculoskeletal:normal inspection, Trace edema, B/L LE wounds in dressing, L thigh erythematous, tender Neurologic/Psych:AAOX2, grossly no focal neurological deficits Skin: normal color, warm Results & Data Results & Data ([facility]) Vital Signs (Past 12 Hours) Vital Signs Temp Pulse Resp BP Pulse Ox O2 Del Method O2 Flow Rate 10/02/22 15:38 36.6 C 69 18 164/75 H 92 Nasal Cannula 2 10/02/22 11:00 36.6 C 75 22 154/67 H 90 Nasal Cannula 1 10/02/22 09:29 76 139/68 10/02/22 07:30 36.4 C L 77 20 173/94 H 97 Nasal Cannula 2 Laboratory Results Short CBC 10/02/22 Range/Units 06:51 WBC 13.83 H (4.8-10.8) K/ul Hgb 12.5 (12.0-16.0) g/dl Hct 39.6 (37.0-47.0) % Plt Count 242 (130-400) K/uL BMP 10/02/22 06:51 Sodium 140 Potassium 3.7 Chloride 101 Carbon Dioxide 35 H BUN 71 H Creatinine 2.17 H Glucose 108 H Calcium 9.9 (1) Sepsis Sepsis type: sepsis due to unspecified organism Qualified Code(s): A41.9 - Sepsis, unspecified organism
[2022-10-02] MEDS: ACETAMINOPHEN 500 MG TAB PO SCH (20:10)
[2022-10-02] MEDS: diphenhydrAMINE Capsule 25 MG CAP PO SCH (20:11)
[2022-10-03] MEDS: LEVOTHYROXINE SODIUM 25 MCG TABLET PO SCH (05:05)
[2022-10-03] MEDS: MUCINEX DM~ORDER AWAITING ACTION SCH ×5 (06:26→23:08)
[2022-10-03] MEDS: WELCHOL~ORDER AWAITING ACTION SCH ×5 (06:26→23:08)
[2022-10-03 07:58] LABS: Calcium 9.8 mg/dl (8.5-10.1); Creatinine Clr Calc Pharmacy 24.5 ml/min; Est GFR (African American) 25.8 ml/min; Est GFR (Non-African American) 22.3 ml/min; Magnesium 1.9 mg/dl (1.7-2.4); Potassium 3.6 mmol/L (3.5-5.1)
[2022-10-03] MEDS: FLUTICASONE/VILANTEROL 100/25MCG 14 PUFFS/INHALER INH SCH (09:37)
[2022-10-03] MEDS: FLUTICASONE FUROATE 200MCG 14 PUFFS/INHALER INH SCH (09:37)
[2022-10-03] MEDS: UMECLIDINIUM BROMIDE 62.5MCG/BLISTER 7 PUFFS/INHALER INH SCH (09:37)
[2022-10-03] MEDS: PANTOprazole 40 MG TAB PO SCH (09:38)
[2022-10-03] MEDS: predniSONE 20 MG TAB PO SCH (09:38)
[2022-10-03] MEDS: FERROUS SULFATE 325 MG TAB PO SCH (09:38)
[2022-10-03] MEDS: CETIRIZINE HCL 10 MG TABLET PO SCH (09:38)
[2022-10-03] MEDS: CITALOPRAM 40 MG TAB PO SCH (09:38)
[2022-10-03] MEDS: RIVAROXABAN 15 MG TAB PO SCH (09:38)
[2022-10-03] MEDS: amLODIPine BESYLATE 5 MG TAB PO SCH (09:38)
[2022-10-03] MEDS: MAGNESIUM OXIDE 400 MG TAB PO SCH (09:40)
[2022-10-03] MEDS: INSULIN HUMAN NPH SC SCH (09:41)
[2022-10-03] MEDS: INSULIN ASPART PER UNIT SC SCH ×4 (09:42→20:47)
[2022-10-03] MEDS: carvediloL 12.5 MG TAB PO SCH ×2 (09:46→20:45)
--- NOTE | 2022-10-03 10:07 | Pharmacy Report ---
Pharmacy Glycemic Short Note 2 - Date of Service October 03, 2022 - Glycemic Short BSG Results (Last 24 hours): 10/02/22 10/02/22 10/02/22 11:31 16:25 20:17 Glucose POC Glucose 203 H 197 H 219 H 10/03/22 10/03/22 06:38 07:28 Glucose 103 H POC Glucose 109 H OUTPATIENT ANTIDIABETIC REGIMEN: * Lantus 40 units SC HS * Novolog 10 units SC TIDM * Metformin 500mg PO BID * HbA1C: 7.5% (09/29/22) ASSESSMENT: 10/03: * Stressors stable - prednisone continues. However, this is the last day. * Plan to transition to hospice on discharge - glycemic goal is to avoid lows and *severe* high's, but permissive BSG's above goal range is reasonable and aggressive changes for tight glycemic control should be avoided * AM fasting BSG in goal range. Continue NPH, but last dose today 2nd predisone stopping. May transition to Lantus tomorrow, attempting to give later in the day to transition back to HS administration as an outpatient * Post-prandial BSG's ranged 197-219 mg/dL yesterday, although very minimal po intake charted. Will slightly tighten correction factor. Plan to loosen correction factor and CHO ratio significantly tomorrow given steroid discontinuation 10/02: * BSGs 671-105-550-203mg/dL the last 24h. Received 20 units of basal and 18 units of bolus insulin yesterday. * Continues on prednisone 20mg daily and ordered a diet. SCr trending down today. * Basal transitioned from Lantus to NPH (same dose) this AM for better prandial coverage and shorter duration of action. No change to Novolog parameters today. Minimal PO intake thus far today -- monitor closely and reassess basal in AM as may need further reduction. 10/01: * Gwendoline received a total of 81 units of insulin yesterday, 40 units basal + 41 units bolus. BSGs were: 407-576-249-231 mg/dL. * Fasting BSG was 91 mg/dL this AM. Significant decrease and below goal. Likely related to basal dose in addition to worsening IVAN. Will reduce basal by 50% today. Consider transitioning to NPH tomorrow AM as patient remains on Pre dnisone 20 mg daily and NPH more closely mimics the PK profile of Prednisone. * Postprandial hyperglycemia yesterday which is expected with steroid use. Tightened carb ratio this AM. 09/30: * BSGs yesterday were 527-283-915-204 mg/dL. Patient received 84 units (50 UNITS of basal and 34 units of bolus). * Patient transitioned from Solu-Medrol 20 mg IV q8 (last dose at 1000) to prednisone 20 mg daily. * Will continue Lantus at 20 units SQ BID. Fasting today is 195 mg/dL. * Continue Novolog- this was tightened significantly yesterday. It does not appear that CR was sufficient yesterday but may be effective for new steroid. BACKGROUND * Patient is an 82 year old female admitted with sepsis and altered mental status. Past medical history significant for type 2 DM requiring insulin. Pharmacy consulted to assist with glycemic management in setting of steroid titration. * BSGs within goal the last 24h: 620-143-763-120mg/dL. Patient received 40 units of basal and 7 units of bolus insulin yesterday. * Tolerating diet. Was receiving methylprednisolone 20mg IV q12h yesterday that was titrated to q8h today, in addition to 40mg PO prednisone. On IV antibiotics for cellulitis. * Given fasting BSG within goal this AM, will not make adjustments to basal insulin today. Anticipate steroid induced hyperglycemia secondary to steroid titration. Will tighten Novolog carb ratio to start at lunch today and follow/adjust pending BSG trend. PLAN FOR INPATIENT GLYCEMIC CONTROL: * Hold outpatient oral diabetes medications * Basal insulin * NPH 20 units SC qAM * Bolus insulin * NovoLog per scale ACHS or Q6hrs while NPO * Goal Range: Low 110 mg/dL - High 140 mg/dL * Correction Factor: 15 mg/dL/unit * Nutritional / Prandial insulin per carb ratio of 1 unit per 4 grams CHO consumed
[2022-10-03] MEDS: cefTRIAXone SODIUM 2,000 MG in DEXTROSE 5% 50 ML IV SCH (12:42)
--- NOTE | 2022-10-03 16:06 | Hospitalist Progress Note ---
Date of Service October 03, 2022 Assessment & Plan (1) AMS (altered mental status): Plan: Acute metabolic encephalopathy Likely Multifactorial: Sepsis, Hypoxia Mental status improved (2) Sepsis: Plan: Sepsis Bilateral Leg cellulitis Bacteremia-POA --Left Leg CT:Lateral left thigh skin thickening with subcutaneous stranding. This could reflect edema, cellulitis or a contusion. No fluid collection to suggest abscess or significant hematoma. No soft tissue gas. No fracture within the left femur. Subcutaneous edema of the visualized left lower leg. --Blood Culture: 09/05 growing Group C Beta Strep --Repeat Blood Cx: No growth --ECHO:as above -- Continue vancomycin, cefepime>> changed to ceftriaxone Consulted ID--pending Improving clinically Acute on chronic respiratory failure with hypoxia and Hypercarbia Chronic oxygen dependency Acute COPD exacerbation Tracheomalacia IV Solu-Medrol transitioned to prednisone Continue nebs Also on antibiotics as above Supplemental oxygen to keep saturations 88 to 92% Appreciate Pulmonology Input BiPAP PRN Plan to discontinue prednisone after completing short course Thought to be not a candidate for tracheoplasty or stenting. Needs Triology ventilator but patient intolerant to BiPAP Needs outpatient PFTs. Appreciate Palliative care Input Goal is comfort per patient. Plan to transition to hospice upon discharge Plan to discharge on Anoro/Stiolto and as needed albuterol upon discharge Acute diastolic heart failure IV diuretics held due to IVAN EF 60 to 65% Acetazolamide discontinued Appreciate cardiology input Elevated Troponin Likely Type II DC In setting of Hypertensive Urgency, Hypoxia, Tachycardia -CXR:No acute cardiopulmonary findings. No significant change in appearance of the chest. -ECHO: Moderate concentric LVH, EF 60 to 65%, severe mitral calcification, mild mitral regurgitation. Left ventricular wall motion is normal. 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 Increased echogenicity of the renal parenchyma suggestive of chronic medical renal disease. Due to diuretics Cr 1.8>2.23 >2.17>2.03 Avoid Nephrotoxic agents as able Monitor renal function Hypomagnesemia Hypokalemia Replete electrolytes as needed Monitor Left adrenal nodule Left apex nodule --CT Chest:Overall, no significant change compared to the prior study. Prior granulomatous disease with stable scarlike density within the right lung apex. Stable 1.1 cm spiculated nodule within the left lung apex. Emphysema. --CT ABD:No acute abnormalities are seen. Bilateral perinephric stranding is nonspecific. Diverticulosis without diverticulitis. Left adrenal gland nodule is again seen. Nonemergent CT or MRI adrenal mass protocol can be performed if further characterization is desired. --Needs follow up as outpatient (3) HTN (hypertension): Plan: Hypertensive Urgency Continue amlodipine Increased Carvedilol 12.5 mg BID Adjust medications as needed Monitor (4) Diabetes mellitus type II, uncontrolled: Plan: Continue insulin therapy Monitor BGs (5) Acute respiratory failure with hypoxia: Plan: as above (6) Acute exacerbation of chronic obstructive airways disease: Plan: as above (7) DVT (deep venous thrombosis): Plan: on Xarelto (8) GERD (gastroesophageal reflux disease): Plan: Continue PPI DVT Px: Xarelto CODE STATUS DNR/DNI Admission and Anticipated Discharge Date Admission Date: September 26, 2022 Subjective Patient seen and examined at bedside. States feeling well today Left leg tenderness continues to improve Denies any chest pain, dyspnea, dizziness, nausea, abd pain Renal function continues to improve Saturating well on 2 L supplemental oxygen BP elevated this morning Review of Systems Review of Systems: All systems reviewed & are unremarkable except as noted in Subjective Physical Exam Physical Exam: Physical Exam: Vitals signs as noted above General Appearance:Moderately built and nourished, no apparent distress Head: normocephalic, Atraumatic Eyes: normal inspection, EOMI Neck: supple, Trachea midline Respiratory/Chest: Decreased breath sounds, minimal Basal crackles, no accessory muscle use Cardiovascular: S1, S2, No murmur Abdomen/GI:Soft, Non tender, Bowel sounds present Extremities/Musculoskeletal:normal inspection, Trace edema, B/L LE wounds in dressing, L thigh erythematous improving, mild tender Neurologic/Psych:AAOX2, grossly no focal neurological deficits Skin: normal color, warm Results & Data Results & Data ([facility]) Vital Signs (Past 12 Hours) Vital Signs Temp Pulse Resp BP Pulse Ox O2 Del Method O2 Flow Rate 10/03/22 15:47 36.6 C 64 18 133/59 L 94 Nasal Cannula 2 10/03/22 10:52 36.6 C 68 20 158/64 H 94 Nasal Cannula 2 10/03/22 07:44 36.8 C 78 18 185/96 H 97 Nasal Cannula 2 Laboratory Results BMP 10/03/22 06:38 Sodium 140 Potassium 3.6 Chloride 102 Carbon Dioxide 33 H BUN 65 H Creatinine 2.03 H Glucose 103 H Calcium 9.8 (1) Sepsis Sepsis type: sepsis due to unspecified organism Qualified Code(s): A41.9 - Sepsis, unspecified organism
[2022-10-03] MEDS: ACETAMINOPHEN 500 MG TAB PO SCH (20:47)
--- NOTE | 2022-10-03 20:47 | Palliative Care Progress Note ---
Date of Service October 03, 2022 Assessment & Plan (1) Palliative care encounter: Plan: Met with pt family. Provided overview of Palliative Medicine, a subspecialty that provides specialized medical care for people living with a serious illness by offering a focus on quality of life. Palliative Medicine is often conflated with hospice: I advised patient/family that Palliative and hospice can be partners but we are not the same. It is important to understand the difference so that we may be informed, and not afraid. Palliative Medicine works to improve QOL through reduction of symptom burden/more control over their illness, for both the patient and family. Palliative medicine clinicians are board certified, specially-trained and another member of the patient's medical care team. We often provide an extra layer of support because our care is based on the needs of the patient, not the prognosis; as such, it's appropriate at any age/advancing stage of a serious illness and can be provided along with curative treatment. Palliative Medicine clinicians are also trained in advanced communication methodologies, to facilitate complex discussions about advanced illness planning, which are needed to help assure that the treatment choices match the patient's goals, aka delivering Goal Concordant care. Finally, we discussed that hospice is a visiting nurse service that focuses on care delivered at the very end of life for patients with terminal illness, with life expectancy less than 6 month. (2) Goals of care, counseling/discussion: Plan: Telephonic goals of care/advance care planning discussion was held with patient's daughters Devika and Letty by phone from [phone]. Reviewed discussion with patient from my initial consultation and the wishes she expressed for transitioning to a plan of care that is more focused on comfort and quality of life. Devika had some struggles with excepting this, stating that she was unaware patient's medical conditions were advanced to her with the serious nature. Letty responded that she was aware of patient's condition was steadily worsening and that her quality of life has been declining over the past 6 months to a year. Letty is a nurse and acknowledges a deeper understanding of patient's complex medical issues particularly that her cardiopulmonary disease is progressive, incurable" her chronic diseases have been steadily worsening and they are not fixable." We discussed the options for care including returning to her personal half-way with the addition of hospice versus needing to be moved over to the fdc or nursing home section of her facility with or without the addition of hospice depending on insurance coverage. I advised him that I would need care management to investigate this to provide more answers as I was unsure. I am also unsure if patient at this point can return back to the personal care section of her facility given her overall decline and the likelihood that she is not going to be able to sustain any level of independent living. They are in agreement about patient's decline but unsure if she would be able to go back to personal half-way versus the fdc and would appreciate more insight from care management with regards to this. I also advised them that not all nursing homes have a ready partnership with hospice is and sometimes they would require a patient comes back to them on their own internal "comfort care" protocol but without the addition of hospice. This may at times be insurance dependent as Medicare will pay for either the fdc or hospice but they will not pay for both. If patients have a secondary insurance and it is possible sometimes that the secondary insurance would be able to pay for the fdc bed and board fees and that Medicare would be able to pay for hospice because it is a federal hospice benefit. They verbalized understanding of above. They are supportive of patient's wish to be more focused on comfort and quality of life. They are less sure about the agreement to move into engaging hospice as they struggle with the implications of what this means and also with the misunderstandings that hospice is only for patients who are actively dying.I have provided education about the hospice benefit. Hospice is an interdisciplinary program offered by nurses, nurses aides, social workers, chaplains and a director of medical services for patients with a terminal condition and a life expectancy of less than 6 months. The goal would be to improve the quality of life of the patient in their home setting (home, fdc, inpatient hospice setting) by providing symptoms management, psychosocial and spiritual support. However, they cannot offer 24 hours care and if the family is unable to provide that care, they will have to consider personal care with out of pocket cost vs. fdc placement. (3) Chronic hypercapnic respiratory failure: (4) Tracheomalacia: (5) Acute diastolic heart failure: Plan Patient's daughters are in agreement that her overall medical conditions are worsening, incurable, and reaching their end stages. They are also in agreement that they do not want patient to have any distress and would like her to be as comfortable as possible with good quality of life. They agree that they do not want her coming back and forth to the hospital and would like to see more of her needs manage at the fdc to avoid the return to the hospital. They are a little less sure about hospice but are willing to hear more about it depending on what the coverage may be at patient's current personal half-way and for this we will asked care management for input. I have updated care management with regards to this discussion. Nicolette Mitchell DNP Clinical Director, Palliative Medicine Admission and Anticipated Discharge Date Admission Date: September 26, 2022 Subjective Family meeting held with patient's daughters Katie and Letty by telephone to provide update and summary of patient wishes for transition that is more focused on comfort and quality of life. Results & Data ([facility]) Vital Signs (Past 12 Hours) Vital Signs Temp Pulse Resp BP Pulse Ox O2 Del Method O2 Flow Rate 10/03/22 19:57 Nasal Cannula 1 10/03/22 19:17 36.5 C 70 18 145/66 H 90 Nasal Cannula 10/03/22 15:47 36.6 C 64 18 133/59 L 94 Nasal Cannula 2 10/03/22 10:52 36.6 C 68 20 158/64 H 94 Nasal Cannula 2 PG Care Time/CCT Total # of Minutes Spent Total Time Spent: 39 Total Time Spent with Patient: Total time spent is greater than 50% in coordination of care (as documented) at patient's floor/unit and/or counseling patient: Coding [place] [address] SUB INP/OBS CARE 2/35MIN Patient Type Established Medical Decision Making Moderate Complexity Diagnoses Palliative care encounter Z51.5 Goals of care, counseling/discussion Z71.89 Chronic hypercapnic respiratory failure J96.12 Tracheomalacia J39.8 Acute diastolic heart failure I50.31
[2022-10-03] MEDS: diphenhydrAMINE Capsule 25 MG CAP PO SCH (20:48)
[2022-10-04] MEDS: LEVOTHYROXINE SODIUM 25 MCG TABLET PO SCH (05:48)
[2022-10-04] MEDS: MUCINEX DM~ORDER AWAITING ACTION SCH ×2 (07:33→16:51)
[2022-10-04] MEDS: WELCHOL~ORDER AWAITING ACTION SCH ×2 (07:34→16:51)
[2022-10-04] MEDS: FERROUS SULFATE 325 MG TAB PO SCH (07:35)
[2022-10-04] MEDS: CITALOPRAM 40 MG TAB PO SCH (07:35)
[2022-10-04] MEDS: amLODIPine BESYLATE 5 MG TAB PO SCH (07:35)
[2022-10-04] MEDS: PANTOprazole 40 MG TAB PO SCH (07:36)
[2022-10-04] MEDS: CETIRIZINE HCL 10 MG TABLET PO SCH (07:36)
[2022-10-04] MEDS: RIVAROXABAN 15 MG TAB PO SCH (07:36)
[2022-10-04] MEDS: ERGOCALCIFEROL 50,000 UNITS 1250 MCG CAP PO SCH (07:37)
[2022-10-04] MEDS: FLUTICASONE/VILANTEROL 100/25MCG 14 PUFFS/INHALER INH SCH (07:37)
[2022-10-04] MEDS: FLUTICASONE FUROATE 200MCG 14 PUFFS/INHALER INH SCH (07:38)
[2022-10-04] MEDS: carvediloL 12.5 MG TAB PO SCH ×2 (07:38→22:02)
[2022-10-04] MEDS: UMECLIDINIUM BROMIDE 62.5MCG/BLISTER 7 PUFFS/INHALER INH SCH (07:38)
[2022-10-04] MEDS: MAGNESIUM OXIDE 400 MG TAB PO SCH (07:44)
[2022-10-04] MEDS: INSULIN ASPART PER UNIT SC SCH ×4 (08:32→22:02)
[2022-10-04 08:56] LABS: Calcium 9.9 mg/dl (8.5-10.1); Potassium 3.9 mmol/L (3.5-5.1)
[2022-10-04] MEDS ORDERED: CYANOCOBALAMIN 1000 MCG/ML VIAL IM SCH (09:00)
[2022-10-04 09:01] LABS: BUN Creatinine Ratio 30.7 (10-20); Creatinine Clr Calc Pharmacy 24.6 ml/min; Est GFR (Non-African American) 22.4 ml/min
[2022-10-04] MEDS: cephALEXin 250 MG CAP PO SCH ×3 (10:37→22:01)
[2022-10-04 13:56] LABS: Creatinine Clr Calc Pharmacy 24.3 ml/min; Est GFR (African American) 25.7 ml/min; Est GFR (Non-African American) 22.1 ml/min
--- NOTE | 2022-10-04 16:16 | Hospitalist Progress Note ---
Date of Service October 04, 2022 Assessment & Plan (1) AMS (altered mental status): Plan: Acute metabolic encephalopathy Likely Multifactorial: Sepsis, Hypoxia Mental status improved (2) Sepsis: Plan: Sepsis Bilateral Leg cellulitis Bacteremia-POA --Left Leg CT:Lateral left thigh skin thickening with subcutaneous stranding. This could reflect edema, cellulitis or a contusion. No fluid collection to suggest abscess or significant hematoma. No soft tissue gas. No fracture within the left femur. Subcutaneous edema of the visualized left lower leg. --Blood Culture: 09/05 growing Group C Beta Strep --Repeat Blood Cx: No growth --ECHO:as above -- Continue vancomycin, cefepime>> changed to ceftriaxone Consulted ID--pending IV antibiotics transition to Keflex Likely discharge tomorrow Acute on chronic respiratory failure with hypoxia and Hypercarbia Chronic oxygen dependency Acute COPD exacerbation Tracheomalacia IV Solu-Medrol transitioned to prednisone Continue nebs Also on antibiotics as above Supplemental oxygen to keep saturations 88 to 92% Appreciate Pulmonology Input BiPAP PRN Plan to discontinue prednisone after completing short course Thought to be not a candidate for tracheoplasty or stenting. Needs Triology ventilator but patient intolerant to BiPAP Needs outpatient PFTs. Appreciate Palliative care Input Goal is comfort per patient. Plan to transition to hospice upon discharge Plan to discharge on Anoro/Stiolto and as needed albuterol upon discharge Continue current management Acute diastolic heart failure IV diuretics held due to IVAN EF 60 to 65% Acetazolamide discontinued Appreciate cardiology input Elevated Troponin Likely Type II [place] In setting of Hypertensive Urgency, Hypoxia, Tachycardia -CXR:No acute cardiopulmonary findings. No significant change in appearance of the chest. -ECHO: Moderate concentric LVH, EF 60 to 65%, severe mitral calcification, mild mitral regurgitation. Left ventricular wall motion is normal. 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 Increased echogenicity of the renal parenchyma suggestive of chronic medical renal disease. Due to diuretics Cr 1.8>2.23 >2.17>2.0 Avoid Nephrotoxic agents as able Monitor renal function Hypomagnesemia Hypokalemia Replete electrolytes as needed Monitor Left adrenal nodule Left apex nodule --CT Chest:Overall, no significant change compared to the prior study. Prior granulomatous disease with stable scarlike density within the right lung apex. Stable 1.1 cm spiculated nodule within the left lung apex. Emphysema. --CT ABD:No acute abnormalities are seen. Bilateral perinephric stranding is nonspecific. Diverticulosis without diverticulitis. Left adrenal gland nodule is again seen. Nonemergent CT or MRI adrenal mass protocol can be performed if further characterization is desired. --Needs follow up as outpatient (3) HTN (hypertension): Plan: Hypertensive Urgency Continue amlodipine Increased Carvedilol 12.5 mg BID Adjust medications as needed Monitor (4) Diabetes mellitus type II, uncontrolled: Plan: Continue insulin therapy Monitor BGs (5) Acute respiratory failure with hypoxia: Plan: as above (6) Acute exacerbation of chronic obstructive airways disease: Plan: as above (7) DVT (deep venous thrombosis): Plan: on Xarelto (8) GERD (gastroesophageal reflux disease): Plan: Continue PPI DVT Px: Xarelto CODE STATUS DNR/DNI Disposition [facility] likely tomorrow Admission and Anticipated Discharge Date Admission Date: September 26, 2022 Subjective Patient seen and examined at bedside. Feels tired No new complaints Renal function stable Palliative care discussed with Family today Denies any significant leg pain Also denies any chest pain, dyspnea, dizziness, nausea, abd pain Review of Systems Review of Systems: All systems reviewed & are unremarkable except as noted in Subjective Physical Exam Physical Exam: Physical Exam: Vitals signs as noted above General Appearance:Moderately built and nourished, no apparent distress Head: normocephalic, Atraumatic Eyes: normal inspection, EOMI Neck: supple, Trachea midline Respiratory/Chest: Decreased breath sounds, minimal Basal crackles, no accessory muscle use Cardiovascular: S1, S2, No murmur Abdomen/GI:Soft, Non tender, Bowel sounds present Extremities/Musculoskeletal:normal inspection, Trace edema, B/L LE wounds in dressing, L thigh erythema improving Neurologic/Psych:AAOX2, grossly no focal neurological deficits Skin: normal color, warm Results & Data Results & Data ([facility]) Vital Signs (Past 12 Hours) Vital Signs Temp Pulse Pulse Pulse Resp BP Pulse Ox 10/04/22 15:44 36.6 C 64 18 138/72 94 10/04/22 13:23 10/04/22 10:50 36.7 C 67 18 123/51 L 90 02/02/23 10:34 67 10/04/22 07:21 68 18 164/96 H 91 O2 Del Method O2 Flow Rate 10/04/22 15:44 Nasal Cannula 2 10/04/22 13:23 Nasal Cannula 2 10/04/22 10:50 Nasal Cannula 2 10/04/22 10:34 10/04/22 07:21 Nasal Cannula 2 Laboratory Results [facility] 10/04/22 10/04/22 06:56 12:47 Sodium 141 Potassium 3.9 Chloride 104 Carbon Dioxide 31 BUN 62 H Creatinine 2.02 H 2.04 H Glucose 117 H Calcium 9.9 (1) Sepsis Sepsis type: sepsis due to unspecified organism Qualified Code(s): A41.9 - Sepsis, unspecified organism
[2022-10-04] MEDS ORDERED: LANTUS PER UNIT CHARGE SQ ONE (16:30)
[2022-10-04] MEDS: diphenhydrAMINE Capsule 25 MG CAP PO SCH (22:01)
[2022-10-04] MEDS: ACETAMINOPHEN 500 MG TAB PO SCH (22:01)
[2022-10-05] MEDS: MUCINEX DM~ORDER AWAITING ACTION SCH ×2 (01:35→07:30)
[2022-10-05] MEDS: WELCHOL~ORDER AWAITING ACTION SCH ×2 (01:35→07:30)
[2022-10-05 06:57] LABS: Anion Gap 6 (3-11); BUN Creatinine Ratio 29.5 (10-20); Blood Urea Nitrogen 65 mg/dl (6-23); Calcium 9.4 mg/dl (8.5-10.1); Carbon Dioxide 27 mmol/L (21-32); Chloride 105 mmol/L (98-107); Creatinine Clr Calc Pharmacy 22.6 ml/min; Est GFR (African American) 23.4 ml/min; Est GFR (Non-African American) 20.2 ml/min; Glucose 138 mg/dl (70-99(Fasting)); Sodium 138 mmol/L (136-145)
[2022-10-05] MEDS: FLUTICASONE FUROATE 200MCG 14 PUFFS/INHALER INH SCH (07:27)
[2022-10-05] MEDS: UMECLIDINIUM BROMIDE 62.5MCG/BLISTER 7 PUFFS/INHALER INH SCH (07:27)
[2022-10-05] MEDS: RIVAROXABAN 15 MG TAB PO SCH (07:28)
[2022-10-05] MEDS: carvediloL 12.5 MG TAB PO SCH (07:28)
[2022-10-05] MEDS: FLUTICASONE/VILANTEROL 100/25MCG 14 PUFFS/INHALER INH SCH (07:28)
[2022-10-05] MEDS: CETIRIZINE HCL 10 MG TABLET PO SCH (07:29)
[2022-10-05] MEDS: PANTOprazole 40 MG TAB PO SCH (07:29)
[2022-10-05] MEDS: CITALOPRAM 40 MG TAB PO SCH (07:29)
[2022-10-05] MEDS: cephALEXin 250 MG CAP PO SCH (07:29)
[2022-10-05] MEDS: LEVOTHYROXINE SODIUM 25 MCG TABLET PO SCH (07:30)
[2022-10-05] MEDS: FERROUS SULFATE 325 MG TAB PO SCH (07:30)
[2022-10-05] MEDS: amLODIPine BESYLATE 5 MG TAB PO SCH (07:30)
[2022-10-05] MEDS: MAGNESIUM OXIDE 400 MG TAB PO SCH (07:34)
[2022-10-05 07:37] LABS: Hematocrit (blood only) 40.4 % (37.0-47.0); Hemoglobin 12.5 g/dl (12.0-16.0); Mean Corpuscular Hemoglobin 28.9 pg (25.0-34.0); Mean Corpuscular Hgb Conc 30.9 g/dL (32.0-36.0); Mean Corpuscular Volume 93.3 fL (80.0-100.0); Mean Platelet Volume 12.2 fL (9.4-12.4); Platelet Count 186 K/uL (130-400); RDW Coefficient of Variation 14.2 % (11.5-14.5); RDW Standard Deviation 48.5 fL (36.4-46.3); Red Blood Count 4.33 M/uL (4.20-5.40); White Blood Count 10.91 K/ul (4.8-10.8)
[2022-10-05] MEDS: INSULIN ASPART PER UNIT SC SCH (08:23)
[2022-10-05] MEDS ORDERED: INSULIN ASPART PER UNIT SC SCH (11:30)
--- NOTE | 2022-10-05 11:33 | Pharmacy Report ---
Pharmacy Glycemic Short Note 2 - Date of Service October 05, 2022 - Glycemic Short BSG Results (Last 24 hours): 10/04/22 10/04/22 10/05/22 16:17 19:52 06:10 Glucose 138 H POC Glucose 136 H 142 H 10/05/22 10/05/22 10/05/22 07:23 10:53 10:53 Glucose POC Glucose 142 H 309 H* 311 H* OUTPATIENT ANTIDIABETIC REGIMEN: * Lantus 40 units SC HS * Novolog 10 units SC TIDM * Metformin 500mg PO BID * HbA1C: 7.5% (09/29/22) ASSESSMENT: 10/05 * Stressors stable * Loosening of Novolog yesterday and transition to Lantus in response to steroids stopping successfully managed BSG's, except for two post-prandial hyperglycemic episodes at lunches both days. * Will tighten CHO ratio at breakfast 10/03: * Stressors stable - prednisone continues. However, this is the last day. * Plan to transition to hospice on discharge - glycemic goal is to avoid lows and *severe* high's, but permissive BSG's above goal range is reasonable and aggressive changes for tight glycemic control should be avoided * AM fasting BSG in goal range. Continue NPH, but last dose today 2nd predisone stopping. May transition to Lantus tomorrow, attempting to give later in the day to transition back to HS administration as an outpatient * Post-prandial BSG's ranged 197-219 mg/dL yesterday, although very minimal po intake charted. Will slightly tighten correction factor. Plan to loosen correction factor and CHO ratio significantly tomorrow given steroid discontinuation 10/02: * BSGs [phone]/dL the last 24h. Received 20 units of basal and 18 units of bolus insulin yesterday. * Continues on prednisone 20mg daily and ordered a diet. SCr trending down today. * Basal transitioned from Lantus to NPH (same dose) this AM for better prandial coverage and shorter duration of action. No change to Novolog parameters today. Minimal PO intake thus far today -- monitor closely and reassess basal in AM as may need further reduction. 10/01: * Gwendoline received a total of 81 units of insulin yesterday, 40 units basal + 41 units bolus. BSGs were: [phone] mg/dL. * Fasting BSG was 91 mg/dL this AM. Significant decrease and below goal. Likely related to basal dose in addition to worsening IVAN. Will reduce basal by 50% today. Consider transitioning to NPH tomorrow AM as patient remains on Prednisone 20 mg daily and NPH more closely mimics the PK profile of Prednisone. * Postprandial hyperglycemia yesterday which is expected with steroid use. Tightened carb ratio this AM. 09/30: * BSGs yesterday were [phone] mg/dL. Patient received 84 units (50 UNITS of basal and 34 units of bolus). * Patient transitioned from Solu-Medrol 20 mg IV q8 (last dose at 1000) to prednisone 20 mg daily. * Will continue Lantus at 20 units SQ BID. Fasting today is 195 mg/dL. * Continue Novolog- this was tightened significantly yesterday. It does not appear that CR was sufficient yesterday but may be effective for new steroid. BACKGROUND * Patient is an 82 year old female admitted with sepsis and altered mental status. Past medical history significant for type 2 DM requiring insulin. Pharmacy consulted to assist with glycemic management in setting of steroid titration. * BSGs within goal the last 24h: [phone]/dL. Patient received 40 units of basal and 7 units of bolus insulin yesterday. * Tolerating diet. Was receiving methylprednisolone 20mg IV q12h yesterday that was titrated to q8h today, in addition to 40mg PO prednisone. On IV antibiotics for cellulitis. * Given fasting BSG within goal this AM, will not make adjustments to basal ins ulin today. Anticipate steroid induced hyperglycemia secondary to steroid titration. Will tighten Novolog carb ratio to start at lunch today and follow/adjust pending BSG trend. PLAN FOR INPATIENT GLYCEMIC CONTROL: * Hold outpatient oral diabetes medications * Basal insulin * Lantus 10 units SC qPM * Bolus insulin * NovoLog per scale ACHS or Q6hrs while NPO * Goal Range: Low 110 mg/dL - High 140 mg/dL * Correction Factor: 20 mg/dL/unit * CHO ratio: 6 g CHO/unit with breakfast, 7 g CHO/unit with lunch, dinner, and bedtime
--- NOTE | 2022-10-05 12:20 | Hospitalist Progress Note ---
Date of Service October 05, 2022 Assessment & Plan (1) AMS (altered mental status): Plan: Acute metabolic encephalopathy Likely Multifactorial: Sepsis, Hypoxia Mental status improved (2) Sepsis: Plan: Sepsis Bilateral Leg cellulitis Bacteremia-POA --Left Leg CT:Lateral left thigh skin thickening with subcutaneous stranding. This could reflect edema, cellulitis or a contusion. No fluid collection to suggest abscess or significant hematoma. No soft tissue gas. No fracture within the left femur. Subcutaneous edema of the visualized left lower leg. --Blood Culture: 09/05 growing Group C Beta Strep --Repeat Blood Cx: No growth --ECHO:as above -- Continue vancomycin, cefepime>> changed to ceftriaxone Consulted ID--pending IV antibiotics transition to Keflex to complete the course Leukocytosis improving Discharge to [facility] today and plan to be transitioned to hospice upon discharge Acute on chronic respiratory failure with hypoxia and Hypercarbia Chronic oxygen dependency Acute COPD exacerbation Tracheomalacia IV Solu-Medrol transitioned to prednisone Continue nebs Also on antibiotics as above Supplemental oxygen to keep saturations 88 to 92% Appreciate Pulmonology Input BiPAP PRN Plan to discontinue prednisone after completing short course Thought to be not a candidate for tracheoplasty or stenting. Needs Triology ventilator but patient intolerant to BiPAP Needs outpatient PFTs. Appreciate Palliative care Input Goal is comfort per patient. Plan to transition to hospice upon discharge Plan to discharge on Anoro/Stiolto and as needed albuterol upon discharge Acute diastolic heart failure IV diuretics held due to IVAN EF 60 to 65% Acetazolamide discontinued Appreciate cardiology input Elevated Troponin Likely Type II ND In setting of Hypertensive Urgency, Hypoxia, Tachycardia -CXR:No acute cardiopulmonary findings. No significant change in appearance of the chest. -ECHO: Moderate concentric LVH, EF 60 to 65%, severe mitral calcification, mild mitral regurgitation. Left ventricular wall motion is normal. 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 Increased echogenicity of the renal parenchyma suggestive of chronic medical renal disease. Due to diuretics Cr 1.8>2.23 >2.17>2.2 Avoid Nephrotoxic agents as able Monitor renal function Hypomagnesemia Hypokalemia Replete electrolytes as needed Monitor Left adrenal nodule Left apex nodule --CT Chest:Overall, no significant change compared to the prior study. Prior granulomatous disease with stable scarlike density within the right lung apex. Stable 1.1 cm spiculated nodule within the left lung apex. Emphysema. --CT ABD:No acute abnormalities are seen. Bilateral perinephric stranding is nonspecific. Diverticulosis without diverticulitis. Left adrenal gland nodule is again seen. Nonemergent CT or MRI adrenal mass protocol can be performed if further characterization is desired. --Needs follow up as outpatient (3) HTN (hypertension): Plan: Hypertensive Urgency Continue amlodipine Increased Carvedilol 12.5 mg BID Adjust medications as needed Monitor (4) Diabetes mellitus type II, uncontrolled: Plan: Continue insulin therapy Monitor BGs (5) Acute respiratory failure with hypoxia: Plan: as above (6) Acute exacerbation of chronic obstructive airways disease: Plan: as above (7) DVT (deep venous thrombosis): Plan: on Xarelto (8) GERD (gastroesophageal reflux disease): Plan: Continue PPI DVT Px: Xarelto CODE STATUS DNR/DNI Disposition [facility] today Admission and Anticipated Discharge Date Admission Date: September 26, 2022 Subjective Patient seen and examined at bedside. States feeling tired but otherwise no complaints leg pain resolved Denies any chest pain, dyspnea, dizziness, nausea, abd pain Plan to be discharged home today Review of Systems Review of Systems: All systems reviewed & are unremarkable except as noted in Subjective Physical Exam Physical Exam: Physical Exam: Vitals signs as noted above General Appearance:Moderately built and nourished, no apparent distress Head: normocephalic, Atraumatic Eyes: normal inspection, EOMI Neck: supple, Trachea midline Respiratory/Chest: Decreased breath sounds, minimal Basal crackles, no accessory muscle use Cardiovascular: S1, S2, No murmur Abdomen/GI:Soft, Non tender, Bowel sounds present Extremities/Musculoskeletal:normal inspection, Trace edema, B/L LE wounds in dressing, L thigh erythema improved Neurologic/Psych:AAOX2, grossly no focal neurological deficits Skin: normal color, warm Results & Data Results & Data ([facility]) Vital Signs (Past 12 Hours) Vital Signs Temp Pulse Pulse Resp BP Pulse Ox O2 Del Method 10/05/22 11:00 36.6 C 54 L 16 131/66 54 L Nasal Cannula 10/05/22 09:22 68 10/05/22 08:54 Nasal Cannula 10/05/22 07:00 36.5 C 77 18 141/61 H 94 Nasal Cannula 10/05/22 02:33 36.6 C 63 18 137/61 90 Nasal Cannula O2 Flow Rate 10/05/22 11:00 3 10/05/22 09:22 10/05/22 08:54 3 10/05/22 07:00 3 10/05/22 02:33 Laboratory Results Short CBC 10/05/22 Range/Units 06:10 WBC 10.91 H (4.8-10.8) K/ul Hgb 12.5 (12.0-16.0) g/dl Hct 40.4 (37.0-47.0) % Plt Count 186 (130-400) K/uL BMP 10/04/22 10/05/22 10/05/22 12:47 06:10 07:20 Sodium 138 Potassium TNP 4.1 Chloride 105 Carbon Dioxide 27 BUN 65 H Creatinine 2.04 H 2.20 H Glucose 138 H Calcium 9.4 (1) Sepsis Sepsis type: sepsis due to unspecified organism Qualified Code(s): A41.9 - Sepsis, unspecified organism
--- NOTE | 2022-10-05 12:50 | Discharge Summary ---
Date of Service October 05, 2022 Admission HPI Per Admitting Provider She is an 82-year-old female with significant past medical history of COPD on 3 L oxygen, hypercoagulable state with history of PE DVT, hypertension, rheumatoid arthritis, type 2 diabetes and recurrent UTI apparently was sent in from [facility] with acute change in mental status. The history was taken from the daughter and from the ER physician. She was noted to be slumped in her recliner and was not able to communicate well. No history of fever and or chills but did have some shortness of breath and did not have any complaint of chest pain and/or palpitation, any nausea and or vomiting. In the ER she was minimally communicative and noted to have tachycardia, tachypnea, increased temperature with elevation of the white count. She was noted to have bilateral lower extremities cellulitis. She was started with intravenous antibiotic with cefepime and vancomycin after taking blood cultures and was admitted to medical telemetry unit for continuation of care. Admission Exam Per Admitting Provider Physical Exam Physical Exam: Lying in bed with moderate shortness of breath at rest. Saturating 1 6 L oxygen mask Constitutional: well developed, well nourished, + ill appearing and + obese Eyes: PERRL, conjunctivae normal, anicteric sclerae ENMT: external ear and nose normal, oropharynx normal Neck: trachea midline, no thyromegaly Respiratory: + respiratory distress (Moderate respira tory distress) Auscultation: + diminished lung sounds, + crackles (Minimal bibasilar crackles) and + wheezes Cardiovascular: Rate/Rhythm: regular rate, regular rhythm and + tachycardic Heart Sounds: normal S1 and normal S2; no murmur Extremities: + edema (1+ edema bilaterally with bilateral leg cellulitis more on the left than Rt) Gastrointestinal (Abdomen): Inspection/Auscultation: normal bowel sounds; abdomen not distended Percussion/Palpation: abdomen soft; abdomen nontender Musculoskeletal: No acute arthritis involving any joint Neurologic: Alert and awake. Generally very weak and lethargic. Minimally communicative. Moving all limbs Lymphatic: no cervical or axillary lymphadenopathy Principal Diagnosis Sepsis Leg cellulitis Strep bacteremia-Possible contamination Acute metabolic encephalopathy Acute on chronic respiratory failure with hypoxia and Hypercarbia Chronic oxygen dependency Acute COPD exacerbation Tracheomalacia Acute diastolic heart failure Acute kidney injury Hypomagnesemia Hypokalemia Left adrenal nodule Left lung nodule Hypertensive Urgency Discharge Data Allergies Allergy/AdvReac Type Severity Reaction Status Date / Time atorvastatin Allergy Unknown UNKN Verified 09/26/22 11:45 bee venom protein (honey bee) Allergy Unknown Unknown Verified 09/26/22 11:45 formaldehyde Allergy Unknown HYPERSENSIT Verified 09/26/22 11:45 IVITY oxycodone Allergy Unknown UNKN Verified 09/26/22 11:45 peanut Allergy Unknown Unknown Verified 09/26/22 11:45 Sulfa (Sulfonamide Allergy Unknown Unknown Verified 09/26/22 11:45 Antibiotics) Consultations 09/26/22 11:53 ED Decision to Admit Stat 09/26/22 21:59 Consult Cardiology Routine 09/27/22 14:44 Consult Infectious Diseases Routine 09/28/22 10:30 Consult Pulmonology Routine 09/30/22 10:41 Consult Palliative Care Routine Procedures Performed Laboratory Results WBC 10.91 K/ul (4.8-10.8) H 10/05/22 06:10 RBC 4.33 M/uL (4.20-5.40) 10/05/22 06:10 Hgb 12.5 g/dl (12.0-16.0) 10/05/22 06:10 Hct 40.4 % (37.0-47.0) 10/05/22 06:10 MCV 93.3 fL (80.0-100.0) 10/05/22 06:10 MCH 28.9 pg (25.0-34.0) 10/05/22 06:10 MCHC 30.9 g/dL (32.0-36.0) L 10/05/22 06:10 RDW Std Deviation 48.5 fL (36.4-46.3) H 10/05/22 06:10 RDW Coeff of Grey 14.2 % (11.5-14.5) 10/05/22 06:10 Plt Count 186 K/uL (130-400) 10/05/22 06:10 MPV 12.2 fL (9.4-12.4) 10/05/22 06:10 Immature Gran % (Auto) 0.6 % 09/27/22 06:45 Neut % (Auto) 93.6 % 09/27/22 06:45 Lymph % (Auto) 2.4 % 09/27/22 06:45 Lares % (Auto) 3.2 % 09/27/22 06:45 Eos % (Auto) 0.0 % 09/27/22 06:45 Baso % (Auto) 0.2 % 09/27/22 06:45 Neut # (Auto) 21.07 K/uL (1.40-6.50) H 09/27/22 06:45 Lymph # (Auto) 0.55 K/uL (1.2-3.4) L 09/27/22 06:45 Lares # (Auto) 0.73 K/uL (0.11-0.59) H 09/27/22 06:45 Eos # (Auto) 0.00 K/uL (0-0.50) 09/27/22 06:45 Baso # (Auto) 0.04 K/uL (0-0.2) 09/27/22 06:45 Immature Gran # (Auto) 0.13 K/uL (0.01-0.20) 09/27/22 06:45 Toxic Vacuolation 1+ 09/27/22 06:45 ABG pH 7.49 (7.35-7.45) H 09/29/22 06:08 ABG pCO2 54 mmHg (35-46) H 09/29/22 06:08 ABG pO2 52 mmHg (80-95) L 09/29/22 06:08 ABG HCO3 41 mmol/L (19-24) H 09/29/22 06:08 ABG O2 Saturation 88.6 % (90-95) L 09/29/22 06:08 ABG Base Excess 15.3 mEq/L (-9-1.8) H 09/29/22 06:08 Elio Test Pos (Pos) 09/29/22 06:08 Oxygen Given 3 09/29/22 06:08 Sodium 138 mmol/L (136-145) 10/05/22 06:10 Potassium 4.1 mmol/L (3.5-5.1) 10/05/22 07:20 Chloride 105 mmol/L (98-107) 10/05/22 06:10 Carbon Dioxide 27 mmol/L (21-32) 10/05/22 06:10 Anion Gap 6 (3-11) 10/05/22 06:10 BUN 65 mg/dl (6-23) H 10/05/22 06:10 Creatinine 2.20 mg/dl (0.6-1.2) H 10/05/22 06:10 Est Cr Clr Drug Dosing 22.6 ml/min 10/05/22 06:10 Est GFR ( Amer) 23.4 ml/min 10/05/22 06:10 Est GFR (Non-Af Amer) 20.2 ml/min 10/05/22 06:10 BUN/Creatinine Ratio 29.5 (10-20) H 10/05/22 06:10 Glucose 138 mg/dl (70-99(Fasting)) H 10/05/22 06:10 POC Glucose 309 mg/dl (70-99) H* 10/05/22 10:53 POC Glucose 311 mg/dl (70-99) H* 10/05/22 10:53 Estimat Average Glucose 169 mg/dl 09/29/22 05:55 Hemoglobin A1c 7.5 % (4.5-5.6) H 09/29/22 05:55 Lactate 2.0 mmol/L (0.4-2.0) 09/26/22 12:15 Calcium 9.4 mg/dl (8.5-10.1) 10/05/22 06:10 Magnesium 1.9 mg/dl (1.7-2.4) 10/03/22 06:38 Total Bilirubin 0.5 mg/dl (0.2-1.0) 09/26/22 08:00 Direct Bilirubin 0.1 mg/dl (0-0.2) 09/26/22 08:00 AST 12 U/L (13-39) L 09/26/22 08:00 ALT 10 U/L (7-52) 09/26/22 08:00 Alkaline Phosphatase 71 U/L (34-104) 09/26/22 08:00 Troponin I High Sens 696.9 pg/ml (0-14) H* D 09/26/22 20:18 Total Protein 6.8 gm/dl (6.0-8.3) 09/26/22 08:00 Albumin 3.8 gm/dl (3.4-5.0) 09/26/22 08:00 Procalcitonin 0.08 ng/ml (0-0.5) 09/26/22 08:00 Urine Color Yellow 09/26/22 08:13 Urine Appearance Clear (Clear) 09/26/22 08:13 Urine pH 6.0 (4.5-7.5) 09/26/22 08:13 Ur Specific [place] 1.014 (1.000-1.030) 09/26/22 08:13 Urine Protein 3+ (Negative) H 09/26/22 08:13 Urine Glucose (UA) Trace (Negative) H 09/26/22 08:13 Urine Ketones Negative (Negative) 09/26/22 08:13 Urine Blood 2+ (Negative) H 09/26/22 08:13 Urine Nitrite Negative (Negative) 09/26/22 08:13 Urine Bilirubin Negative (Negative) 09/26/22 08:13 Urine Urobilinogen Negative (Negative) 09/26/22 08:13 Ur Leukocyte Esterase Negative (Negative) 09/26/22 08:13 Urine WBC (Auto) 1-5 /hpf (0-5) 09/26/22 08:13 Urine RBC (Auto) 0-4 /hpf (0-4) 09/26/22 08:13 U Hyaline Cast (Auto) 1-5 /lpf (0-5) 09/26/22 08:13 U Epithel Cells (Auto) 20-30 /lpf (0-5) H 09/26/22 08:13 Urine Bacteria (Auto) Negative (Negative) 09/26/22 08:13 Random Vancomycin 16.8 mcg/ml (10-20) 10/01/22 05:47 Adenovirus (PCR) Not Detected (NotDetected) 09/26/22 08:15 B. pertussis DNA (PCR) Not Detected (NotDetected) 09/26/22 08:15 B.parapertussis DNA PCR Not Detected (NotDetected) 09/26/22 08:15 C. pneumoniae DNA (PCR) Not Detected (NotDetected) 09/26/22 08:15 Coronavirus OC43 (PCR) Not Detected (NotDetected) 09/26/22 08:15 Coronavirus HKU1 (PCR) Not Detected (NotDetected) 09/26/22 08:15 Coronavirus 229E (PCR) Not Detected (NotDetected) 09/26/22 08:15 SARS-CoV-2 (PCR) Not Detected (NotDetected) 09/26/22 08:15 Coronavirus NL63 (PCR) Not Detected (NotDetected) 09/26/22 08:15 Human Metapneumovir PCR Not Detected (NotDetected) 09/26/22 08:15 Influenza Type A (PCR) Not Detected (NotDetected) 09/26/22 08:15 Influenza Type B (PCR) Not Detected (NotDetected) 09/26/22 08:15 M. pneumoniae (PCR) Not Detected (NotDetected) 09/26/22 08:15 Parainfluenza 1 (PCR) Not Detected (NotDetected) 09/26/22 08:15 Parainfluenza 2 (PCR) Not Detected (NotDetected) 09/26/22 08:15 Parainfluenza 3 (PCR) Not Detected (NotDetected) 09/26/22 08:15 Parainfluenza 4 (PCR) Not Detected (NotDetected) 09/26/22 08:15 RSV (PCR) Not Detected (NotDetected) 09/26/22 08:15 Entero/Rhino (PCR) Not Detected (NotDetected) 09/26/22 08:15 Streptococcus sp PCR DETECTED (NotDetected) A 09/26/22 08:00 Bld Cult ID Panel PCR See PCR Comment (NotDetected) 09/26/22 08:00 Impressions Abdomen/Pelvis CT 09/26/22 00:00 CT abd pelvis IV con only CLINICAL HISTORY: PER ORDER. Altered mental status. TECHNIQUE: Helical axial images of the abdomen and pelvis were obtained and displayed. Automated dose lowering techniques and/or adjustment according to patient size were utilized for this exam. This exam was performed with intravenous contrast. COMPARISON: Comparison is made to CT abdomen pelvis 04/12/2022 FINDINGS: Lower chest: Mitral annular calcifications are seen. Liver: Unremarkable. No focal lesions are seen. Gallbladder and biliary tree: Patient is status post cholecystectomy. No intra- or extrahepatic biliary ductal dilation. Pancreas: Unremarkable, no focal lesions. Spleen: Unremarkable. Adrenals: 18 mm left adrenal nodule is seen. This is unchanged from prior exam. Kidneys and ureters: There is a 50 mm left renal cyst which is unchanged from prior exam. Nonobstructive nephrolithiasis is seen. Perinephric stranding is noted. Bladder: Frey catheter is seen. Reproductive organs: Patient is status post hysterectomy. Bowel: Diverticulosis is seen without evidence of diverticulitis. The appendix is normal. Lymph nodes Retroperitoneal: Subcentimeter lymph nodes are noted. Pelvic: Unremarkable. Mesenteric: Unremarkable. Peritoneum: Normal. Vessels: Unremarkable. Abdominal wall: A fat-containing umbilical hernia is seen. Bones: Degenerative changes in the visualized spine. Bilateral pars defects are noted at L5-S1. A battery-powered device, likely a nerve stimulator, is noted in the sacrum with the tip in the presacral soft tissues. IMPRESSION: 1. No acute abnormalities are seen. 2. Bilateral perinephric stranding is nonspecific. 3. Diverticulosis without diverticulitis. 4. Left adrenal gland nodule is again seen. Nonemergent CT or MRI adrenal mass protocol can be performed if further characterization is desired. 5. Additional findings as above. ACT 112: Negative or not required by law. Electronically signed by: Zachariah Baker M.D. 09/26/2022 1:[address] 09/26/22 00:[address] WITH CONTRAST CT DOSE: 1867.77 mGy.cm HISTORY: Altered mental status. Sepsis. TECHNIQUE: Multiaxial CT images of the chest were performed following the intravenous administration of contrast. A dose lowering technique was utilized adhering to the principles of ALARA. COMPARISON: Chest CT 04/12/2022. FINDINGS: Suboptimal evaluation due to the motion artifact. No pneumothorax. No pleural effusions. Emphysema is again noted. Mild dependent changes seen at the lung bases. Scattered calcified granulomas remain unchanged. Focal partially calcified irregular density within the right upper lobe abutting the major fissure remains unchanged. This favors scarring. Stable 1.1 cm spiculated nodule within the left upper lobe on image 72. There is an adjacent expanded opacified bronchus again noted within the left upper lobe best seen image 60. No new focal lung consolidations identified. Old, healed right-sided rib fractures again noted. No acute fractures. Stable thyroid nodules. The visualized abdominal structures will be reported on the same day abdomen and pelvis CT. Hepatic steatosis, cholecystectomy, left adrenal gland nodule are again noted. Moderate calcified plaque within the normal caliber thoracic aorta. The main pulmonary arteries are patent. No mediastinal or hilar lymphadenopathy. The heart remains mildly enlarged. No pericardial effusion. Aortic and mitral valve calcifications again noted. Severe coronary artery calcifications are present. IMPRESSION: 1. Overall, no significant change compared to the prior study. 2. Prior granulomatous disease with stable scarlike density within the right lung apex. 3. Stable 1.1 cm spiculated nodule within the left lung apex. 4. Emphysema. 5. The abdominal structures will be reported on the same day abdomen and pelvis CT. ACT 112: Negative or not required by law. Electronically signed by: Jose Francisco Fitch M.D. 09/26/2022 12:[address] 09/27/22 03:48 CT femur LT wo con CLINICAL HISTORY: Left thigh swelling, eliquis rx COMPARISON STUDY: Left knee radiographs June 09, 2019. TECHNIQUE: Axial images of the left femur and thigh were obtained without IV contrast. Sagittal and coronal reconstructions were viewed. Automated exposure control was utilized for the study. A dose lowering technique was utilized adhering to the principles of ALARA. FINDINGS: Sigmoid diverticulosis is noted without evidence for acute diverticulitis. A Frey balloon and contrast within the bladder are noted. A prominent left inguinal lymph node measures 1 cm in short axis diameter. This is likely benign. There is no fracture within the left femur. No suspicious osseous lesion is noted. Note is made of skin thickening and subcutaneous stranding of the lateral left thigh. No well-defined fluid collection is present. There is no soft tissue gas. In addition, there is moderate subcutaneous edema of the visualized left leg. Extensive atherosclerotic plaque is noted within the left thigh vessels. No intramuscular abnormality is identified. No fascial fluid is identified. IMPRESSION: 1. Lateral left thigh skin thickening with subcutaneous stranding. This could reflect edema, cellulitis or a contusion. No fluid collection to suggest abscess or significant hematoma. No soft tissue gas. 2. No fracture within the left femur. 3. Subcutaneous edema of the visualized left lower leg. ACT 112: Negative or not required by law. Electronically signed by: Geovanny García M.D. 09/27/2022 7:06 AM Chest X-Ray 09/28/22 09:52 XR chest 1V portable HISTORY: Shortness of breath. COMPARISON: Chest 09/27/2022. FINDINGS: There are low lung volumes. No pneumothorax. The heart remains mildly enlarged. There is progressive interstitial/vascular thickening consistent with mild pulmonary edema. There is a trace right pleural effusion. Calcified granulomas again noted within the right lung. IMPRESSION: Interval development of mild interstitial pulmonary edema and a trace right pleural effusion. ACT 112: Negative or not required by law. Electronically signed by: Jose Francisco Fitch M.D. 09/28/2022 10:29 AM Renal Ultrasound 10/01/22 09:26 RENAL ULTRASOUND HISTORY: Acute kidney injury Ivan COMPARISON: CT abdomen and pelvis 09/26/2022 FINDINGS: Right kidney: 10.9 No hydronephrosis. Decreased corticomedullary differentiation with increased parenchymal echogenicity. Left kidney: 11.1 No hydronephrosis. Decreased corticomedullary differentiation with increased parenchymal echogenicity. 5.8 cm left renal cyst. Bladder: Decompressed urinary bladder with Frey catheter in place. IMPRESSION: 1. No renal calculi or hydronephrosis. 2. Increased echogenicity of the renal parenchyma suggestive of chronic medical renal disease. ACT 112: Negative or not required by law. Electronically signed by: Juan Woods M.D. 10/01/2022 12:05 PM Ordered Studies 09/26/22 CT abd pelvis IV con only Stat CT chest diagnostic w con Stat 09/27/22 03:48 CT femur LT wo con Urgent 10/01/22 09:26 US Renal Bladder [US renal/blad retro comp] Routine Hospital Course (1) AMS (altered mental status): Acute metabolic encephalopathy Likely Multifactorial: Sepsis, Hypoxia Mental status improved (2) Sepsis: Sepsis Bilateral Leg cellulitis Bacteremia-POA --Left Leg CT:Lateral left thigh skin thickening with subcutaneous stranding. This could reflect edema, cellulitis or a contusion. No fluid collection to suggest abscess or significant hematoma. No soft tissue gas. No fracture within the left femur. Subcutaneous edema of the visualized left lower leg. --Blood Culture: 09/05 growing Group C Beta Strep --Repeat Blood Cx: No growth --ECHO:as above -- Continue vancomycin, cefepime>> changed to ceftriaxone Consulted ID--pending IV antibiotics transition to Keflex to complete the course Leukocytosis improving Patient palliative care Input Discharge to [facility] today and plan to be transitioned to hospice upon discharge as per patient and family wishes. Acute on chronic respiratory failure with hypoxia and Hypercarbia Chronic oxygen dependency Acute COPD exacerbation Tracheomalacia IV Solu-Medrol transitioned to prednisone Continue nebs Also on antibiotics as above Supplemental oxygen to keep saturations 88 to 92% Appreciate Pulmonology Input BiPAP PRN Plan to discontinue prednisone after completing short course Thought to be not a candidate for tracheoplasty or stenting. Needs Triology ventilator but patient intolerant to BiPAP Needs outpatient PFTs. Appreciate Palliative care Input Goal is comfort per patient. Plan to transition to hospice upon discharge Plan to discharge on Anoro/Stiolto and as needed albuterol upon discharge Acute diastolic heart failure IV diuretics held due to IVAN EF 60 to 65% Acetazolamide discontinued Appreciate cardiology input Elevated Troponin Likely Type II [place] In setting of Hypertensive Urgency, Hypoxia, Tachycardia -CXR:No acute cardiopulmonary findings. No significant change in appearance of the chest. -ECHO: Moderate concentric LVH, EF 60 to 65%, severe mitral calcification, mild mitral regurgitation. Left ventricular wall motion is normal. 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 Increased echogenicity of the renal parenchyma suggestive of chronic medical renal disease. Due to diuretics Cr 1.8>2.23 >2.17>2.2 Avoid Nephrotoxic agents as able Monitor renal function Hypomagnesemia Hypokalemia Replete electrolytes as needed Monitor Left adrenal nodule Left apex nodule --CT Chest:Overall, no significant change compared to the prior study. Prior granulomatous disease with stable scarlike density within the right lung apex. Stable 1.1 cm spiculated nodule within the left lung apex. Emphysema. --CT ABD:No acute abnormalities are seen. Bilateral perinephric stranding is nonspecific. Diverticulosis without diverticulitis. Left adrenal gland nodule is again seen. Nonemergent CT or MRI adrenal mass protocol can be performed if further characterization is desired. --Needs follow up as outpatient (3) HTN (hypertension): Hypertensive Urgency Continue amlodipine Increased Carvedilol 12.5 mg BID Adjust medications as needed Monitor (4) Diabetes mellitus type II, uncontrolled: Continue insulin therapy Monitor BGs (5) Acute respiratory failure with hypoxia: as above (6) Acute exacerbation of chronic obstructive airways disease: as above (7) DVT (deep venous thrombosis): on Xarelto (8) GERD (gastroesophageal reflux disease): Continue PPI DVT Px: Xarelto CODE STATUS DNR/DNI Disposition [facility] today. Plan to transition to hospice upon discharge Total Time Total Time Spent Total Time Spent (In Minutes): 55 minutes Discharge Plan Discharge Items Patient Disposition: [facility] Living Reason For Visit: ACUTE METABOLIC ENECEPHALOPATHY, SEPSIS Discharge Diagnosis: Sepsis Leg cellulitis Strep bacteremia-Possible contamination Acute metabolic encephalopathy Acute on chronic respiratory failure with hypoxia and Hypercarbia Chronic oxygen dependency Acute COPD exacerbation Tracheomalacia Acute diastolic heart failure Acute kidney injury Hypomagnesemia Hypokalemia Left adrenal nodule Left lung nodule Hypertensive Urgency Activity: Per Instructions section Exercise/Sports: Wait until after follow-up appointment Non-emergency contact: Primary Care Provider, Welder Helper, Igniter Capper and Auto Damage Trainee Call non-emergency contact if: you have any medication questions, your symptoms worsen, your pain is concerning for you and you have a fever Follow-up/Referrals: Kelli Monte [Primary Care Provider] - Diet: Carb Consistent or DM2 Addtl Attending Provider Instructions: Follow-up with your primary care physician/hospice physician upon discharge in 1 week Follow-up with your industrial cafeteria manager for monitoring your kidney function in 2 weeks Follow-up with your accounting manager assistant controller and physician intensivist as needed --- Complete antibiotic course Keflex for leg infection as prescribed --- Discuss with your primary care physician regarding left adrenal nodule and left lung nodule for further management if you wish to pursue --- Get Blood test (Basic Metabolic Panel) in 1 week and follow up with your physician --Do not Take Lasix until you follow up with your physician with blood test. Further instructions per your doctor. Seek immediate medical attention if your symptoms reoccur or worsen Please take all medications as instructed on discharge list below. Please call if you have any questions or problems. You can reach a [facility] hospitalist on duty at [facility] 24 hours a day by calling [phone] Call your Primary Care doctor if any of the following symptoms or problems start or get worse: * Shortness of breath or difficulty breathing * Wake up at night short of breath * Chest pain * Cough * Swelling of your hands, feet, or legs * More fatigued or tired with your normal activity * Palpitations - sudden fast heart beats WEIGHT * Weigh yourself every morning after using the bathroom. * Use the same scale. * Wear the same amount of clothing. * Write your weight down on a chart. * Call your Primary Care doctor if you gain more than 2-3 pounds in 1-2 days. MEDICATIONS * Use this discharge instruction sheet for medication instructions. * Take your medications at the time your doctor ordered. * Do not skip a dose of your medicines. * If you miss a dose of medicine, take it as soon as possible, but DO NOT DOUBLE A DOSE. * Read your medicine information when you get home. * Know all of the side effects of your medicine. If in doubt, ask your pharmacist * Call your Primary Care doctor's office if you have any side effects. * Be sure all of your doctors know what medicine and herbs you take (including cold, flu, and herbal medicine). Take the following with you to your follow-up doctor appointments: * Weight Chart * Medication List * List of questions Do not drink excessive alcohol, beer or wine. Pending Studies at Discharge: No Stand-Alone Forms: My [employer], Smoking Cessation Skilled Items Patient informed of condition?: Yes DNR: Yes Discharge Level of Care: Other Communicable Disease: No Discharge Prognosis: Stable Lines: None Urinary Catheter: No Medications and DC Order Prescriptions: New cephalexin 250 mg Capsule 250 mg PO TID Qty: 9 0RF Xarelto 15 mg Tablet 15 mg PO DAILY Qty: 30 0RF carvedilol 12.5 mg Tablet 12.5 mg PO BID Qty: 60 0RF Anoro Ellipta 62.5-25 mcg/actuation blister with device 1 inh inhalation DAILY Qty: 60 0RF Continued acetaminophen [Tylenol] 325 mg Tablet 650 mg PO DAILY citalopram 40 mg tablet 40 mg PO DAILY levothyroxine 25 mcg tablet 25 mcg PO DAILY amlodipine 10 mg tablet 10 mg PO DAILY cyanocobalamin (vitamin B-12) [Vitamin B-12] 1,000 mcg/mL Solution 1,000 mcg IM .MONTH ferrous sulfate 325 mg (65 mg iron) Tablet 325 mg PO DAILY metformin 1,000 mg tablet 500 mg PO Q12 furosemide 20 mg tablet 20 mg PO MOWEFR Rx Instructions: mon, wed, fri magnesium oxide,aspartate,citr 400 mg magnesium Capsule 400 mg PO DAILY cetirizine 10 mg Tablet 10 mg PO DAILY colesevelam [WelChol] 625 mg tablet 625 mg PO DAILY omeprazole 20 mg capsule,delayed release(DR/EC) 20 mg PO DAILY ergocalciferol (vitamin D2) [Vitamin D2] 1,250 mcg (50,000 unit) capsule 50,000 unit PO [id number] Rx Instructions: GIVE ON MON & diphenhydramine-acetaminophen [Tylenol PM Extra Strength] 25-500 mg Tablet 2 tab PO HS insulin aspart U-100 [Novolog FlexPen U-100 Insulin] 100 unit/mL (3 mL) insulin pen 10 unit SUBCUT TIDM Rx Instructions: BEFORE MEALS Touodilia SoloStar U-300 Insulin 300 unit/mL (1.5 mL) insulin pen 40 unit SUBCUT HS acetaminophen [Tylenol] 325 mg Tablet 650 mg PO Q4 PRN (Reason: Pain) albuterol sulfate 2.5 mg /3 mL (0.083 %) Solution For Nebulization 2.5 mg INHALATION Q4H PRN (Reason: Shortness Of Breath Or Wheezing) loperamide [Imodium A-D] 2 mg Tablet 2 mg PO Q4H PRN (Reason: Diarrhea) calcium polycarbophil [Fiber-Lax] 625 mg Tablet 625 mg PO DAILY PRN (Reason: Constipation) epinephrine [Epi E-Z Pen] 0.3 mg/0.3 mL Auto-Injector 0.3 mg IM DIRECTED PRN (Reason: Allergic Reaction) Mucinex DM 30-600 mg Tablet Extended Release 12 Hr 1 tab PO Q12H PRN (Reason: Congestion) albuterol sulfate [Ventolin HFA] 90 mcg/actuation Hfa Aerosol Inhaler 2 puff INHALATION Q4 PRN (Reason: Shortness Of Breath Or Wheezing) Discontinued prednisone 5 mg tablet 5 mg PO DAILY Pulmicort Flexhaler 90 mcg/actuation aerosol powdr breath activated 1 inh INHALATION BID Xarelto 20 mg tablet 20 mg PO DAILY Discharge Orders: Discharge Order- CHF (Routine); Ordered 10/05/22 Ordered By: Franklyn Mcdowell Admission Data Admit Date/Time: 09/26/22 12:46 Attending Provider: Franklyn Mcdowell Admit Provider: Clarice Buck Primary Care Provider: Kelli Monte Other Providers: Clarice Buck ; Rodrick Boucher ; Juan Malagon ; Billy Foster ; Tristen Freedman I. ; Brandon Leyva II ; Maty Vazquez ; David Dejesus ; Tres Bryant ; Rolan Hartley ; Jameson Lynch ; Alejandra Mark
[2022-10-05] MEDS ORDERED: LANTUS PER UNIT CHARGE SQ SCH (21:00)
[2022-10-06] MEDS ORDERED: INSULIN ASPART PER UNIT SC SCH (07:30)
== END 2022-10-05 13:24 | disposition home or self-care (01) | DRG 871 ==
LOC: ED 07:51 → SUATTDRO 12:46 → EDINP 12:46 → 2N 14:44 → 1E 09-27 06:30 → 2E 09-27 18:43